=== PATIENT | male | born 1935 | race Caucasian/White ===

== ENCOUNTER → 2019-03-31 09:18 | Outpatient (BNVA) | payer MEDICARE, SELFPAY | PROVIDERS: Family Provider Family Medicine; PCP Family Medicine; Visit Provider Otolaryngology | DX: H93.92 Unspecified disorder of left ear (principal); H69.82 Other specified disorders of Eustachian tube, left ear; R42 Dizziness and giddiness; H91.12 Presbycusis, left ear; C61 Malignant neoplasm of prostate; L98.9 Disorder of the skin and subcutaneous tissue, unspecified | CPT/HCPCS: 99213; 99214 ==

== ENCOUNTER 2019-04-15 13:40 | Outpatient (CLI) | payer MEDICARE, SELFPAY ==
--- NOTE | 2019-04-15 15:00 | CT_ITS ---
WS: [id number] CT TEMPORAL BONES TECHNIQUE: Noncontrast CT of the temporal bones with coronal and sagittal reformatted images. CLINICAL INFORMATION: dizziness COMPARISON: None. DLP: [address] scans at [facility] use at least one of these dose optimization techniques: automat ed exposure control; mA and/or kV adjustment per patient size (includes targeted exams where dose is matched to clinical indication); or iterative reconstruction. FINDINGS: RIGHT: Mastoid air cells are well aerated. Normal external auditory canal. Ossicles are normal in appearance . Middle ear is well aerated. Normal tegmen tympani. Semicircular canals and cochlea are normal in ap pearance. Prussak's space is normal. Normal inner ear structures. Normal vestibular aqueduct. Facial nerve recess is normal. LEFT: Mastoid air cells are well aerated. Normal external auditory canal. Ossicles are normal in appearance . Middle ear is well aerated. Normal tegmen tympani. Semicircular canals and cochlea are normal in ap pearance. Prussak's space is normal. Normal inner ear structures. Normal vestibular aqueduct. Facial nerve recess is normal. Intracranial cavernous chronic calcification. Retention cyst or polyp right maxillary sinus measuring 13 mm. Normal posterior nasopharynx. Normal parapharyngeal fat. Moderate intracranial parenchymal vo lume loss. CT/CT temporal bone wo con* [id number] IMPRESSION: 1. Mastoid air cells are well aerated bilaterally. Middle ears are well aerate d bilaterally. 2. Normal ossicles bilaterally. Normal inner ear structures. 3. Intracranial vascular calcification. 4. Retention cyst or polyp right maxillary sinus measuring 13 mm. 5. Moderate intracranial parenchymal volume loss partially visualized.
== END 2019-04-15 13:41 | disposition home or self-care (01) ==
LOC: RAD 13:43
PROVIDERS: Family Provider Family Medicine; PCP Family Medicine; Visit Provider Otolaryngology
DX: R42 Dizziness and giddiness (principal); G93.89 Other specified disorders of brain
CPT/HCPCS: 70480

== ENCOUNTER → 2019-04-28 13:17 | Outpatient (BNVA) | payer MEDICARE, SELFPAY | PROVIDERS: Family Provider Family Medicine; PCP Family Medicine; Visit Provider Otolaryngology | DX: H93.92 Unspecified disorder of left ear (principal); H69.82 Other specified disorders of Eustachian tube, left ear; H91.10 Presbycusis, unspecified ear; R42 Dizziness and giddiness; C61 Malignant neoplasm of prostate; L98.9 Disorder of the skin and subcutaneous tissue, unspecified | CPT/HCPCS: 99213; 99214 ==

== ENCOUNTER 2019-10-05 15:16 | Inpatient (IN) | payer MEDICARE, SELFPAY ==
[2019-10-05] VITALS (21 sets, daily range): BP systolic 102–137; BP diastolic 48–76; PULSE 57–100; RESP 13–28; TEMP 36.1–36.6; O2SAT 87–100; BMI 25.8
--- NOTE | 2019-10-05 15:54 | CTR_ITS ---
PROCEDURE INFORMATION: Exam: CT Abdomen And Pelvis With Contrast Exam date and time: 10/05/2019 4:18 PM Age: 84 years old Clinical indication: Abdominal tenderness and bloating and constipation and nausea and vomiting; Additional info: Possible obstruction TECHNIQUE: Imaging protocol: Computed tomography of the abdomen and pelvis with intravenous contrast. Radiation optimization: All CT scans at this facility use at least one of these dose optimization techniques: automated exposure control; mA and/or kV adjustment per patient size (includes targeted exams where dose is matched to clinical indication); or iterative reconstruction. Contrast material: VISI 320; Contrast volume: 95 ml; Contrast route: INTRAVENOUS (IV); COMPARISON: No relevant prior studies available. RADIATION DOSE METRICS: Total DLP (mGy-cm): 785.39 FINDINGS: Lungs: There is minimal dependent atelectasis. Mediastinal space: There is a small hiatal hernia. Liver: There is 9 mm indeterminate hypodensity in the dome of the liver on image number 6. In a low-risk patient, this lesion is most likely to be benign and no further follow-up is recommended. In a high-risk patient, recommend follow-up MRI in 3-6 months (or earlier if warranted by the patient's specific clinical circumstances). Gallbladder and bile ducts: The gallbladder is normal. Pancreas: There is some indeterminate calcification along the anterior aspect of the head of the pancreas which could be related to prior injury or inflammatory disease. Pancreas is otherwise unremarkable. Spleen: The spleen is normal. Adrenals: Normal. No mass. Kidneys and ureters: There is a simple cyst in the right kidney. The left kidney is normal. There is no evidence of hydronephrosis. There is no evidence of renal or ureteral calcifications. Stomach and bowel: Moderate diverticulosis is present in the distal colon. There is no evidence of colitis/diverticulitis. Stomach is not distended but there is suggestion of wall thickening of the fundus and body of the stomach. Correlation for symptoms of gastritis is suggested. There is focal thickening of the proximal jejunum such as on image number 35 and this represents lead point for a short segment of intussusception. There is fluid dilatation of the proximal small bowel and duodenum proximal to the intussusception and the bowel distal to the intussusception is decompressed. There is some nonspecific thickening of the small bowel immediately distal to the area of intussusception. Findings raise concern for the possibility of small bowel malignancy as the lead point for the intussusception. Further evaluation and surgical consultation is recommended. Appendix: Not identified Intraperitoneal space: Unremarkable. No free air. No significant fluid collection. Vasculature: The aorta demonstrates moderate atherosclerotic calcification. There is no evidence of an abdominal aortic aneurysm. Lymph nodes: Unremarkable. No enlarged lymph nodes. Bladder: Unremarkable as visualized. Reproductive: There is a focal metallic density within the prostate. 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 Soft tissues: Unremarkable. CT/CT abdomen pelvis w con* [id number] IMPRESSION: 1. Jejunal-jejunal intussusception with small bowel obstruction. Findings are worrisome for potential malignancy. 2. Small indeterminate lesion in the dome of the liver. Further evaluation or follow-up suggested. 3. Possible gastritis COMMENTS: Consistent with the [employer]'s Incidental Findings Committee white paper (J Am Danilo Radiol 2018): Any incidental renal lesion less than 1.0 cm or classified as too small to characterize, or any incidental cystic renal lesion characterized as simple-appearing, is likely benign. No follow-up imaging is recommended for these lesions per consensus recommendations based on imaging criteria. Radiation Dose CTDIVOL = (mGy): DLP = 785.39 (mGy-cm)
--- NOTE | 2019-10-05 15:57 | ED_ITS ---
Documented by User: BUBBA Mark 10/05/19 15:59 HPI - General Adult General: Chief complaint: General Medical Stated complaint: CONSTIPATED Time Seen by Provider: 10/05/19 15:52 History of Present Illness: HPI narrative: Patient states he thinks he had a bowel obstruction he is not had a bowel movement 2 days he has been vomiting last 2 days. Said he can eat or drink because watery has come right back up. Denies any recent illness MD complaint: Nausea and vomiting Location: abdomen Severity scale (1-10): 3 Exacerbating factors: eating Associated symptoms: Reports no associated symptoms and vomiting; Deny chest pain, dyspnea, headache(s), nausea or rash Review of Systems Const: Denies: fever(s), chills or body aches Eyes: Denies: change in vision or blurry vision ENMT: Denies: throat pain or nasal congestion Card: Denies: chest pain or dyspnea on exertion Resp: Denies: dyspnea, productive cough or non-productive cough GI: Reports: vomiting and constipation; Denies: abdominal pain or nausea : Denies: difficulty urinating Musc: Denies: extremity pain Skin/Breast: Denies: rash Neuro: Denies: headache(s) Psych: Denies: anxiety or depression [place]/Lymph: Denies: easy bruising PFSH ED PFSH: Medical History (Updated 10/05/19 @ 19:42 by Anselmo Rivero MD) Arrhythmia ASHD (arteriosclerotic heart disease) Bilateral carotid artery stenosis CKD (chronic kidney disease) stage 2, GFR 60-89 ml/min Hyperlipidemia Hypertension Intermittent atrial fibrillation Valvular heart disease Surgical History History of heart surgery 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 done in [facility] Family History Mother CAD (coronary artery disease) Hypertension Diabetes Brother Hypertension Grandmother Stroke Social History Smoking and tobacco status: former smoker Alcohol intake: never Substance/Drug Use: never History of recent travel: No Physical Exam Const: COMMON NORMALS: no acute distress, average body habitus and patient oriented x3 HENMT: COMMON NORMALS: normocephalic HEAD & SCALP: normal to inspection and normocephalic FACE & SINUS: normal facial exam Eye: COMMON NORMALS: conjunctivae normal GENERAL EYE: appearance normal, both eyes and all related structures CONJUNCTIVA: Yes conjunctivae normal Neck/C-Spine: COMMON NORMALS: no JVD Chest: COMMONS NORMALS: normal inspection of the chest Resp: COMMON NORMALS: normal respiratory effort and clear to auscultation bilaterally AUSCULTATION: clear to auscultation bilaterally Cardio: COMMON NORMALS: no JVD, regular rate and regular rhythm RATE: regular rate RHYTHM: regular rhythm GI: COMMON NORMALS: Normal to inspection, nondistended, normoactive bowel sounds present PALPATION: Yes Tenderness to palpation present (GI) Details: other (Generalized) Extremity: COMMON NORMALS: normal to inspection and full ROM Neuro: COMMON NORMALS: patient oriented x3 Course Vital Signs: Vital signs: Vital Signs Temperature 97.0 F L 10/05/19 15:41 Pulse Rate 66 10/05/19 20:24 Respiratory Rate 18 10/05/19 17:40 Blood Pressure 132/66 10/05/19 20:24 Pulse Oximetry 99 10/05/19 20:24 MDM - General Adult Lab Data: Labs: Lab Results 10/05/19 10/05/19 10/05/19 Range/Units 08:08 16:16 16:16 WBC 10.1 H (4.0-10.0) 10^3/ uL RBC 4.19 (4.1-5.3) 10^6/u L Hgb 13.8 (11.7-16.6) g/dL Hct 42.9 (42.0-52.0) % MCV 102.4 H (80-94) fL MCH 32.9 (28.0-34.0) pg MCHC 32.2 (30.0-36.0) g/dL RDW 13.5 (12.1-15.1) % Plt Count 250 (130-400) 10^3/c mm MPV 10.4 (7.4-10.4) fL Neut % (Auto) 80.3 % Lymph % (Auto) 11.9 % [place] % (Auto) 7.1 % Eos % (Auto) 0.2 % Baso % (Auto) 0.3 % Neut # (Auto) 8.09 H (1.8-7.7) 10^3/u L Lymph # (Auto) 1.2 (0.8-4.8) 10^3/u L [place] # (Auto) 0.7 (0.2-0.9) 10^3/u L Eos # (Auto) 0.0 (0.0-0.8) 10^3/u L Baso # (Auto) 0.0 (0.0-0.1) 10^3/u L Nucleated RBC % (a uto) 0 % Nucleated RBCs # 0.0 /100WBC Sodium 137 (136-145) mmol/L Potassium 4.4 (3.5-5.1) mmol/L Chloride 99 (98-107) mmol/L Carbon Dioxide 26 (22-29) mmol/L Anion Gap 16.4 (5-19) BUN 17 (8-23) mg/dL Creatinine 1.2 (0.7-1.2) mg/dL Glucose 117 H (65-115) mg/dL Calculated Osmolal ity 281 L (285-295) mOsm/k g Lactic Acid 1.4 (0.5-2.2) mmol/L Lactate (0.5-2.2) mmol/L Calcium 10.3 (8.5-10.5) mg/dL Total Bilirubin 1.1 (0.15-1.2) mg/dL AST 15 (0-40) U/L ALT 13 (0-41) U/L Alkaline Phosphata se 81 (40-130) IU/L Total Protein 7.9 (6.6-8.7) g/dL Albumin 4.3 (3.5-5.2) g/dL Globulin 3.6 (1.3-4.6) g/dL Lipase 25 (13-60) U/L Urine Color (Yellow) Urine Appearance (CLEAR) Urine pH (5-7) Ur Specific Gravit y (1.005-1.030) Urine Protein (Negative) Urine Glucose (UA) (Normal) Urine Ketones (Negative) Urine Blood (Negative) Urine Nitrate (Negative) Urine Bilirubin (NEGATIVE) Urine Urobilinogen (Negative) mg/dL Ur Leukocyte Marcela ase (Negative) 10/05/19 10/05/19 Range/Units 16:16 16:40 WBC (4.0-10.0) 10^3/ uL RBC (4.1-5.3) 10^6/u L Hgb (11.7-16.6) g/dL Hct (42.0-52.0) % MCV (80-94) fL MCH (28.0-34.0) pg MCHC (30.0-36.0) g/dL RDW (12.1-15.1) % Plt Count (130-400) 10^3/c mm MPV (7.4-10.4) fL Neut % (Auto) % Lymph % (Auto) % [place] % (Auto) % Eos % (Auto) % Baso % (Auto) % Neut # (Auto) (1.8-7.7) 10^3/u L Lymph # (Auto) (0.8-4.8) 10^3/u L [place] # (Auto) (0.2-0.9) 10^3/u L Eos # (Auto) (0.0-0.8) 10^3/u L Baso # (Auto) (0.0-0.1) 10^3/u L Nucleated RBC % (a uto) % Nucleated RBCs # /100WBC Sodium (136-145) mmol/L Potassium (3.5-5.1) mmol/L Chloride (98-107) mmol/L Carbon Dioxide (22-29) mmol/L Anion Gap (5-19) BUN (8-23) mg/dL Creatinine (0.7-1.2) mg/dL Glucose (65-115) mg/dL Calculated Osmolal ity (285-295) mOsm/k g Lactic Acid (0.5-2.2) mmol/L Lactate 1.6 (0.5-2.2) mmol/L Calcium (8.5-10.5) mg/dL Total Bilirubin (0.15-1.2) mg/dL AST (0-40) U/L ALT (0-41) U/L Alkaline Phosphata se (40-130) IU/L Total Protein (6.6-8.7) g/dL Albumin (3.5-5.2) g/dL Globulin (1.3-4.6) g/dL Lipase (13-60) U/L Urine Color Dark yellow (Yellow) Urine Appearance Clear (CLEAR) Urine pH 6.5 (5-7) Ur Specific Gravit y 1.020 (1.005-1.030) Urine Protein Neg (Negative) Urine Glucose (UA) Norm (Normal) Urine Ketones Negative (Negative) Urine Blood Neg (Negative) Urine Nitrate Negative (Negative) Urine Bilirubin Neg (NEGATIVE) Urine Urobilinogen 1 H (Negative) mg/dL Ur Leukocyte Marcela ase Negative (Negative) EKG Data^: EKG 1: Computer generated interpretation: Abdomen/Pelvis CT 10/05/19 15:54 IMPRESSION: 1. Jejunal-jejunal intussusception with small bowel obstruction. Findings are worrisome for potential malignancy. 2. Small indeterminate lesion in the dome of the liver. Further evaluation or follow-up suggested. 3. Possible gastritis COMMENTS: Consistent with the [employer]'s Incidental Findings Committee white paper (J Am Danilo Radiol 2018): Any incidental renal lesion less than 1.0 cm or classified as too small to characterize, or any incidental cystic renal lesion characterized as simple-appearing, is likely benign. No follow-up imaging is recommended for these lesions per consensus recommendations based on imaging criteria. Radiation Dose CTDIVOL = (mGy): DLP = 785.39 (mGy-cm) ADDENDUM: 10/05/19 1743 Addendum: THIS REPORT CONTAINS FINDINGS THAT MAY BE CRITICAL TO PATIENT CARE. The findings were verbally communicated via telephone conference with Dr. Kim at 5:41 PM CDT on 10/05/2019. The findings were acknowledged and understood. Radiation Dose CTDIVOL = (mGy): DLP = 785.39 (mGy-cm) Discharge Plan Discharge Patient Disposition: Admitted As Inpatient Clinical Impression: Small bowel obstruction, Jejunal intussusception Condition: Stable Referrals: Zoila Ryder DO [Primary Care Provider] - Sign Out Sign Out Data: Patient Sign Out occurred on 10/05/19 at 16:54. Patient's care was discussed, and care was transferred from to Nidhi Kaplan. Coding Level of Care Code ED General House Worker for Chg Fwd Exam Comprehensive Documented by User: Nidhi Meir ElliottEusebio 10/05/19 20:39 HPI - General Adult General: Chief complaint: General Medical Stated complaint: CONSTIPATED Time Seen by Provider: 10/05/19 15:52 PFSH ED PFSH: Medical History (Updated 10/05/19 @ 19:42 by Anselmo Rivero MD) Arrhythmia ASHD (arteriosclerotic heart disease) Bilateral carotid artery stenosis CKD (chronic kidney disease) stage 2, GFR 60-89 ml/min Hyperlipidemia Hypertension Intermittent atrial fibrillation Valvular heart disease Surgical History History of heart surgery 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 done in [facility] Family History Mother CAD (coronary artery disease) Hypertension Diabetes Brother Hypertension Grandmother Stroke Social History Smoking and tobacco status: former smoker Alcohol intake: never Substance/Drug Use: never History of recent travel: No Course Vital Signs: Vital signs: Vital Signs Temperature 97.0 F L 10/05/19 15:41 Pulse Rate 66 10/05/19 20:24 Respiratory Rate 18 10/05/19 17:40 Blood Pressure 132/66 10/05/19 20:24 Pulse Oximetry 99 10/05/19 20:24 MDM - General Adult MDM Narrative: Medical decision making narrative: 1545 -CT results obtained from [facility]. Case discussed with both Dr. Crain and Dr. Trevino, they will both come to see the patient in the ER. They will determine together when the appropriate time for the reversal agent of Eliquis is to be given in coordinatio n with surgery. Lab Data: Attestation: I reviewed the patient's lab results. Labs: Lab Results 07/21/20 07/21/20 07/21/20 Range/Units 08:08 16:16 16:16 WBC 10.1 H (4.0-10.0) 10^3/ uL RBC 4.19 (4.1-5.3) 10^6/u L Hgb 13.8 (11.7-16.6) g/dL Hct 42.9 (42.0-52.0) % MCV 102.4 H (80-94) fL MCH 32.9 (28.0-34.0) pg MCHC 32.2 (30.0-36.0) g/dL RDW 13.5 (12.1-15.1) % Plt Count 250 (130-400) 10^3/c mm MPV 10.4 (7.4-10.4) fL Neut % (Auto) 80.3 % Lymph % (Auto) 11.9 % [place] % (Auto) 7.1 % Eos % (Auto) 0.2 % Baso % (Auto) 0.3 % Neut # (Auto) 8.09 H (1.8-7.7) 10^3/u L Lymph # (Auto) 1.2 (0.8-4.8) 10^3/u L [place] # (Auto) 0.7 (0.2-0.9) 10^3/u L Eos # (Auto) 0.0 (0.0-0.8) 10^3/u L Baso # (Auto) 0.0 (0.0-0.1) 10^3/u L Nucleated RBC % (a uto) 0 % Nucleated RBCs # 0.0 /100WBC Sodium 137 (136-145) mmol/L Potassium 4.4 (3.5-5.1) mmol/L Chloride 99 (98-107) mmol/L Carbon Dioxide 26 (22-29) mmol/L Anion Gap 16.4 (5-19) BUN 17 (8-23) mg/dL Creatinine 1.2 (0.7-1.2) mg/dL Glucose 117 H (65-115) mg/dL Calculated Osmolal ity 281 L (285-295) mOsm/k g Lactic Acid 1.4 (0.5-2.2) mmol/L Lactate (0.5-2.2) mmol/L Calcium 10.3 (8.5-10.5) mg/dL Total Bilirubin 1.1 (0.15-1.2) mg/dL AST 15 (0-40) U/L ALT 13 (0-41) U/L Alkaline Phosphata se 81 (40-130) IU/L Total Protein 7.9 (6.6-8.7) g/dL Albumin 4.3 (3.5-5.2) g/dL Globulin 3.6 (1.3-4.6) g/dL Lipase 25 (13-60) U/L Urine Color (Yellow) Urine Appearance (CLEAR) Urine pH (5-7) Ur Specific Gravit y (1.005-1.030) Urine Protein (Negative) Urine Glucose (UA) (Normal) Urine Ketones (Negative) Urine Blood (Negative) Urine Nitrate (Negative) Urine Bilirubin (NEGATIVE) Urine Urobilinogen (Negative) mg/dL Ur Leukocyte Marcela ase (Negative) 10/05/19 10/05/19 Range/Units 16:16 16:40 WBC (4.0-10.0) 10^3/ uL RBC (4.1-5.3) 10^6/u L Hgb (11.7-16.6) g/dL Hct (42.0-52.0) % MCV (80-94) fL MCH (28.0-34.0) pg MCHC (30.0-36.0) g/dL RDW (12.1-15.1) % Plt Count (130-400) 10^3/c mm MPV (7.4-10.4) fL Neut % (Auto) % Lymph % (Auto) % [place] % (Auto) % Eos % (Auto) % Baso % (Auto) % Neut # (Auto) (1.8-7.7) 10^3/u L Lymph # (Auto) (0.8-4.8) 10^3/u L [place] # (Auto) (0.2-0.9) 10^3/u L Eos # (Auto) (0.0-0.8) 10^3/u L Baso # (Auto) (0.0-0.1) 10^3/u L Nucleated RBC % (a uto) % Nucleated RBCs # /100WBC Sodium (136-145) mmol/L Potassium (3.5-5.1) mmol/L Chloride (98-107) mmol/L Carbon Dioxide (22-29) mmol/L Anion Gap (5-19) BUN (8-23) mg/dL Creatinine (0.7-1.2) mg/dL Glucose (65-115) mg/dL Calculated Osmolal ity (285-295) mOsm/k g Lactic Acid (0.5-2.2) mmol/L Lactate 1.6 (0.5-2.2) mmol/L Calcium (8.5-10.5) mg/dL Total Bilirubin (0.15-1.2) mg/dL AST (0-40) U/L ALT (0-41) U/L Alkaline Phosphata se (40-130) IU/L Total Protein (6.6-8.7) g/dL Albumin (3.5-5.2) g/dL Globulin (1.3-4.6) g/dL Lipase (13-60) U/L Urine Color Dark yellow (Yellow) Urine Appearance Clear (CLEAR) Urine pH 6.5 (5-7) Ur Specific Gravit y 1.020 (1.005-1.030) Urine Protein Neg (Negative) Urine Glucose (UA) Norm (Normal) Urine Ketones Negative (Negative) Urine Blood Neg (Negative) Urine Nitrate Negative (Negative) Urine Bilirubin Neg (NEGATIVE) Urine Urobilinogen 1 H (Negative) mg/dL Ur Leukocyte Marcela ase Negative (Negative) Imaging Data^: CT Abd/Pel: Radiologist's impression: [place] [address] CT Scan Report Signed with Addenda Patient: Tres Velasquez Unit #: [id number] : 1935 Age/Sex: 84 / M ADM Date: 10/05/19 Loc: ER Room/Bed: Attending Dr: Ordering Provider/Ordering MD: Yadira Johnson Sr, [facility] Date of Service: 10/05/19 Procedure(s): CT abdomen pelvis w con* [id number] Accession Number(s): [id number] Report Number: [id number]/CT abdomen pelvis w con* [id number] Addendum: THIS REPORT CONTAINS FINDINGS THAT MAY BE CRITICAL TO PATIENT CARE. The findings were verbally communicated via telephone conference with Dr. Kim at 5:41 PM CDT on 10/05/2019. The findings were acknowledged and understood. Radiation Dose CTDIVOL = (mGy): DLP = 785.39 (mGy-cm) Addendum Dictated By: Jimmie Higuera Addendum Signed By: Jimmie Higuera Signed Date/Time: 10/05/19 174 3 Addendum Cosigned By: PROCEDURE INFORMATION: Exam: CT Abdomen And Pelvis With Contrast Exam date and time: 10/05/2019 4:18 PM Age: 84 years old Clinical indication: Abdominal tenderness and bloating and constipation and nausea and vomiting; Additional info: Possible obstruction TECHNIQUE: Imaging protocol: Computed tomography of the abdomen and pelvis with intravenous contrast. Radiation optimization: All CT scans at this facility use at least one of these dose optimization techniques: automated exposure control; mA and/or kV adjustment per patient size (includes targeted exams where dose is matched to clinical indication); or iterative reconstruction. Contrast material: VISI 320; Contrast volume: 95 ml; Contrast route: INTRAVENOUS (IV); COMPARISON: No relevant prior studies available. RADIATION DOSE METRICS: Total DLP (mGy-cm): 785.39 FINDINGS: Lungs: There is minimal dependent atelectasis. Mediastinal space: There is a small hiatal hernia. Liver: There is 9 mm indeterminate hypodensity in the dome of the liver on image number 6. In a low-risk patient, this lesion is most likely to be benign and no further follow-up is recommended. In a high-risk patient, recommend follow-up MRI in 3-6 months (or earlier if warranted by the patient's specific clinical circumstances). Gallbladder and bile ducts: The gallbladder is normal. Pancreas: There is some indeterminate calcification along the anterior aspect of the head of the pancreas which could be related to prior injury or inflammatory disease. Pancreas is otherwise unremarkable. Spleen: The spleen is normal. Adrenals: Normal. No mass. Kidneys and ureters: There is a simple cyst in the right kidney. The left kidney is normal. There is no evidence of hydronephrosis. There is no evidence of renal or ureteral calcifications. Stomach and bowel: Moderate diverticulosis is present in the distal colon. There is no evidence of colitis/diverticulitis. Stomach is not distended but there is suggestion of wall thickening of the fundus and body of the stomach. Correlation for symptoms of gastritis is suggested. There is focal thickening of the proximal jejunum such as on image number 35 and this represents lead point for a short segment of intussusception. There is fluid dilatation of the proximal small bowel and duodenum proximal to the intussusception and the bowel distal to the intussusception is decompressed. There is some nonspecific thickening of the small bowel immediately distal to the area of intussusception. Findings raise concern for the possibility of small bowel malignancy as the lead point for the intussusception. Further evaluation and surgical consultation is recommended. Appendix: Not identified Intraperitoneal space: Unremarkable. No free air. No significant fluid collection. Vasculature: The aorta demonstrates moderate atherosclerotic calcification. There is no evidence of an abdominal aortic aneurysm. Lymph nodes: Unremarkable. No enlarged lymph nodes. Bladder: Unremarkable as visualized. Reproductive: There is a focal metallic density within the prostate. 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 Soft tissues: Unremarkable. CT/CT abdomen pelvis w con* [id number] IMPRESSION: 1. Jejunal-jejunal intussusception with small bowel obstruction. Findings are worrisome for potential malignancy. 2. Small indeterminate lesion in the dome of the liver. Further evaluation or follow-up suggested. 3. Possible gastritis COMMENTS: Consistent with the [employer]'s Incidental Findings Committee white paper (J Am Danilo Radiol 2018): Any incidental renal lesion less than 1.0 cm or classified as too small to characterize, or any incidental cystic renal lesion characterized as simple-appearing, is likely benign. No follow-up imaging is recommended for these lesions per consensus recommendations based on imaging criteria. Radiation Dose CTDIVOL = (mGy): DLP = 785.39 (mGy-cm) Dictated By: Jimmie Higuera Signed By: Jimmie Higuera Signed Date/Time: 10/05/191737 DD/ 35 EKG Data^: EKG 1: Attestation: I personally reviewed and interpreted this EKG as follows: EKG interpretation date: 10/05/19 EKG interpretation time: 18:21 Interpretation: Normal sinus rhythm at 72 beats a minute, right bundle branch block. Computer generated interpretation: Abdomen/Pelvis CT 10/05/19 15:54
[2019-10-05 16:22] LABS: Basophils % 0.3 %; Eosinophils % 0.2 %; Hematocrit 42.9 % (42.0-52.0); Hemoglobin 13.8 g/dL (11.7-16.6); Lymphocytes # 1.2 10^3/uL (0.8-4.8); Lymphocytes % 11.9 %; Mean Corpuscular HGB Conc 32.2 g/dL (30.0-36.0); Mean Corpuscular Hemoglobin 32.9 pg (28.0-34.0); Mean Corpuscular Volume 102.4 fL (80-94); Mean Platelet Volume 10.4 fL (7.4-10.4); Monocytes # 0.7 10^3/uL (0.2-0.9); Monocytes % 7.1 %; Neutrophils # 8.09 10^3/uL (1.8-7.7); Neutrophils % 80.3 %; Nucleated Red Blood Cells % 0 %; Platelet Count 250 10^3/cmm (130-400); Red Blood Count 4.19 10^6/uL (4.1-5.3); Red Cell Distribution Width 13.5 % (12.1-15.1); White Blood Count 10.1 10^3/uL (4.0-10.0)
[2019-10-05] MEDS: ondansetron 2 mg/ML SDV 2 mL 4 MG IVP ×2 (16:24→21:21)
[2019-10-05] MEDS: sodium chloride 0.9% 1,000 ML 999 ML IV (16:25)
[2019-10-05 16:43] LABS: Alanine Aminotransferase 13 U/L (0-41); Albumin Level 4.3 g/dL (3.5-5.2); Alkaline Phosphatase 81 IU/L (40-130); Anion Gap 16.4 (5-19); Aspartate Amino Transferase 15 U/L (0-40); Blood Urea Nitrogen 17 mg/dL (8-23); Calcium 10.3 mg/dL (8.5-10.5); Carbon Dioxide 26 mmol/L (22-29); Chloride 99 mmol/L (98-107); Globulin 3.6 g/dL (1.3-4.6); Glucose 117 mg/dL (65-115); Lipase 25 U/L (13-60); Osmolality Calculated 281 mOsm/kg (285-295); Potassium 4.4 mmol/L (3.5-5.1); Sodium 137 mmol/L (136-145); Total Bilirubin 1.1 mg/dL (0.15-1.2); Total Protein 7.9 g/dL (6.6-8.7)
[2019-10-05 16:56] LABS: Lactate (Lactic Acid level) 1.6 mmol/L (0.5-2.2)
[2019-10-05 17:01] LABS: Add Urine Microscopic? NO
[2019-10-05 17:10] LABS: Bilirubin Urine Neg (NEGATIVE); Blood Urine Neg (Negative); Glucose Urine UA Norm (Normal); Ketones Urine Negative (Negative); Leukocyte Esterase Urine Negative (Negative); Nitrate Urine Negative (Negative); Protein Urine Neg (Negative); Urine Appearance Clear (CLEAR); Urine Color Dark Yellow (Yellow); Urobilinogen Urine 1 mg/dL (Negative); pH Urine 6.5 (5-7)
[2019-10-05] MEDS: iodixanol 320 mg/mL 100mL Btl IV (17:10)
[2019-10-05] MEDS: morphine 4 mg/mL SDV 1 mL IVP ×2 (17:40→21:17)
--- NOTE | 2019-10-05 17:49 | ECG_ITS ---
Test Date: 2019-10-05 Pat Name: Tres Velasquez Department: Room: Gender: Male Habilitation Worker: : [id number] Requested By: Nidhi Worley Order Number: [id number] Julisa MD: Anselmo Rivero M.D. Measurements Intervals [place] Rate: 72 P: -7 AL: 169 QRS: 79 QRSD: 130 T: 16 QT: 412 QTc: 454 Interpretive Statements SINUS RHYTHM RIGHT BUNDLE BRANCH BLOCK [120+ ms QRS DURATION, UPRIGHT V1, 40+ ms S IN I/aVL/V4/V5/V6] Compared to ECG 03/02/2019 15:08:18 No significant changes Electronically Signed On 10-06-2019 20:26:45 CDT by Anselmo Rivero M.D. [email or web address]/store/NU/[id number] mp
--- NOTE | 2019-10-05 18:01 | P.CONIM_ITS ---
Providers/Reason For Consult Consulting Physican/Specialty*: Mathieu Crain MD Reason for Consult*: Jejunal intussusception Requesting Physcian: Dr Kim Primary Care Provider: Zoila Ryder DO History of Present Illness History of Present Illness Chief Complaint: Nausea and vomiting abdominal pain History of present illness: Tres Velasquez is a 84 year old male presents to the emergency department with worsening symptoms in including nausea vomiting and abdominal pain dull aching in nature diffuse not being referred, patient last time had a bowel movement in the form of diarrhea was last Friday. Patient denies any fever chills and he denies similar symptoms in the past. Patient reports that he had TAVR procedure in the past and he was supposed to be scheduled to get some sort of a pacemaker per his description but he did not have it yet, patient also reports that he has been on Eliquis and last time he did take it last Friday, is not able to keep his medicine down and he thought that he would feel better but that did not happen and then he decided to come to the ER, where lab work was done was of insignificance yet the CT scan of the abdomen and pelvis was done that showed jejunal intussusception with concerning secondary to malignant lesion. And likely the cause of the patient's bowel obstruction CT scan of the abdomen and pelvis showed: Liver: There is 9 mm indeterminate hypodensity in the dome of the liver on image number 6. In a low-risk patient, this lesion is most likely to be benign and no further follow-up is recommended. In a high-risk patient, recommend follow-up MRI in 3-6 months (or earlier if warranted by the patient's specific clinical circumstances). Gallbladder and bile ducts: The gallbladder is normal. Pancreas: There is some indeterminate calcification along the anterior aspect of the head of the pancreas which could be related to prior injury or inflammatory disease. Pancreas is otherwise unremarkable. Spleen: The spleen is normal. Adrenals: Normal. No mass. Kidneys and ureters: There is a simple cyst in the right kidney. The left kidney is normal. There is no evidence of hydronephrosis. There is no evidence of renal or ureteral calcifications. Stomach and bowel: Moderate diverticulosis is present in the distal colon. There is no evidence of colitis/diverticulitis. Stomach is not distended but there is suggestion of wall thickening of the fundus and body of the stomach. Correlation for symptoms of gastritis is suggested. There is focal thickening of the proximal jejunum such as on image number 35 and this represents lead point for a short segment of intussusception. There is fluid dilatation of the proximal small bowel and duodenum proximal to the intussusception and the bowel distal to the intussusception is decompressed. There is some nonspecific thickening of the small bowel immediately distal to the area of intussusception. Findings raise concern for the possibility of small bowel malignancy as the lead point for the intussusception. Further evaluation and surgical consultation is recommended. Appendix: Not identified Intraperitoneal space: Unremarkable. No free air. No significant fluid collection. Vasculature: The aorta demonstrates moderate atherosclerotic calcification. There is no evidence of an abdominal aortic aneurysm. Lymph nodes: Unremarkable. No enlarged lymph nodes. Bladder: Unremarkable as visualized. Reproductive: There is a focal metallic density within the prostate. 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 Soft tissues: Unremarkable. CT/CT abdomen pelvis w con* [id number] IMPRESSION: 1. Jejunal-jejunal intussusception with small bowel obstruction. Findings are worrisome for potential malignancy. 2. Small indeterminate lesion in the dome of the liver. Further evaluation or follow-up suggested. 3. Possible gastritis Patient was seen and evaluated in the emergency department room 2 Review of Systems General: Reports: 10 or more systems reviewed and unremarkable except in HPI and below Meds/Allergies Home Medications and Allergies Home Medications Medication Instructions Recorded Confirmed Last Taken Type apixaban 5 mg tablet 5 mg PO BID 03/26/19 10/05/19 10/02/19 History atorvastatin 80 mg tablet 80 mg PO DAILY tab 03/26/19 10/05/19 10/02/19 History ergocalciferol (vitamin D2) 1,250 50,000 unit PO Q7D cap 03/26/19 10/05/19 09/30/19 History mcg (50,000 unit) capsule hydrocodone 5 mg-acetaminophen 325 1 tab PO Q6H PRN tab 03/26/19 10/05/19 10/02/19 History mg tablet pantoprazole 40 mg tablet,delayed 40 mg PO QAM 03/26/19 10/05/19 10/02/19 History release amlodipine 5 mg tablet 5 mg PO DAILY 30 Days #30 tab 07/19/19 10/05/19 10/02/19 Rx tamsulosin 0.4 mg capsule 0.4 mg PO DAILY 07/19/19 10/05/19 10/02/19 History vit C 250 mg-E 200 unit-zinc 40 1 tab PO BID 07/19/19 10/05/19 10/02/19 History mg-copper 1 gr-rglofb-zsbcnh capsule Klor-Con 10 10 meq PO DAILY 10/05/19 10/05/19 10/02/19 History aspirin 81 mg PO DAILY 10/05/19 10/05/19 10/02/19 History Allergies Allergy/AdvReac Type Severity Reaction Status Date / Time niacin Allergy Unknown Unknown Verified 10/05/19 18:35 PFSH Acute PFSH: Medical History Arrhythmia ASHD (arteriosclerotic heart disease) Bilateral carotid artery stenosis Hyperlipidemia Hypertension Valvular heart disease Surgical History (Updated 10/05/19 @ 18:55 by Brenda Trevino MD) History of heart surgery S/P CABG x 3 S/P TAVR (transcatheter aortic valve replacement) Family History Mother CAD (coronary artery disease) Hypertension Diabetes Brother Hypertension Grandmother Stroke Social History Smoking and tobacco status: former smoker Alcohol intake: never Substance/Drug Use: never History of recent travel: No Vitals/I&O/Wt Last Vital Signs Temp 97.0 F L 10/05/19 15:41 Pulse 100 10/05/19 15:41 Resp 18 10/05/19 17:40 BP 132/76 10/05/19 15:41 Pulse Ox 97 10/05/19 17:40 Weight last 48 hrs Weight 180 lb Physical Exam Narrative: EXAM NARRATIVE: Patient is conscious alert oriented X3 BMI 26 Head and neck examination PERRLA no masses no cervical lymphadenopathy no jaundice Cardiac examination audible S1-S2 no murmurs no gallops no arrhythmias Chest is clear bilateral,abscence of Rhonchi or wheezes,no surgical emphysema Abdomen diffusely tender moderate guarding/ nondistended soft no organomegaly A&P Assessment and plan (1) Jejunal intussusception: After history taking physical examination and reviewing the chart and images with my personal interpretation and further talking with the patient I did student support counselor him for exploratory laparotomy possible bowel resection, further admission to the ICU for critical care management per hospitalist service. I did explain for the patient about the potential risks, benefits, alternatives and indications and the potential perioperative demise given the fact that the patient is at a higher risk for intervention due to his cardiac status. Patient reports that his last time had Eliquis was last Friday The alternative with conservative measures placement of NG tube to low intermittent wall suction repeated physical examination does not guarantee that the bowel cant get ischemia,gangrene and perforation,I do not believe that is a reasonable option unless the patient decides so. 1830: I spoke with Maribel patient's daughter over the phone and she elected to come over and see her dad and decide together what do the need to proceed with. Dr. Trevino kindly evaluating the patient and Dr. Rivero meeting specialist was asked to see the patient before surgery as well. 18:50 After further discussing with the patient in the presence of his daughter Maribel both agreed to proceed with surgery understanding the higher risk of potential demise perioperatively and patient reports that he is a full code Dr. Trevino was present in the discussion. Status: Acute Consult Attestations Medical Necessity Statement: Medical necessity care is expected to cross 2 midnights Time Spent in Patient Care: 16 - 35 minutes (>than 50% of time spent in counselling and/or direct pt care on unit) . Coding Level of Care Code Acute Purification Director for Vinita Porter Diagnoses Jejunal intussusception K56.1
[2019-10-05 18:28] LABS: Lactic Sepsis W/Reflex 1.4 mmol/L (0.5-2.2)
--- NOTE | 2019-10-05 18:35 | P.ANESASSM_ITS ---
Pre-Anesthetic Assessment Pre-Anesthetic Assessment: Height/Weight: Height 1.78 m Weight 81.647 kg Temp Pulse Resp BP Pulse Ox 97.0 F L 100 18 132/76 97 10/05/19 15:41 10/05/19 15:41 10/05/19 17:40 10/05/19 15:41 10/05/19 17:40 Preop Diagnosis: SBO Proposed Procedure: Operation Date: 10/05/19 18:35 Proposed Procedures p Laparoscopy diagnostic,(Not Applicable) - Mathieu Crain MD s Exploratory Laparotomy(Not Applicable) - Mathieu Crain MD Operation Date: 10/05/19 19:30 Proposed Procedures p Exploratory Laparotomy(Not Applicable) - Mathieu Crain MD Familial anesthetic complications: None Social: Social History: No alcohol and No tobacco Exam: Pre-Anes Outpt Exam: alert, oriented x 3, clear to auscultation bilaterally and regular rate & rhythm Airway: Cervical ROM: WNL MP: 2 Dentition: False CV/HEM: CV/HEM: CAD and HTN Comments: Aortic stenosis s/p TAVR in 2019 CAD s/p stents X4 Mod mitral regurge on echo in 2018, normal EF CAB X3 in 1999 HR up and down like a yo-yo which initiated talk of pacer placement GI: GI: GERD Metabolic: Metabolic: Hyperlipidemia Musc/skel: Musc/skel: None reported Neuropsych: Comments: B/L carotid stenosis Anesthetic Plan: ASA status: 4E Anesthesia: General Risk of > 500 ml blood loss (7ml/kg in children): No PFSH Anesthesia PFSH: Medical History Arrhythmia ASHD (arteriosclerotic heart disease) Bilateral carotid artery stenosis Hyperlipidemia Hypertension Valvular heart disease Surgical History (Updated 10/05/19 @ 18:55 by Brenda Trevino MD) History of heart surgery S/P CABG x 3 S/P TAVR (transcatheter aortic valve replacement) Family History Mother CAD (coronary artery disease) Hypertension Diabetes Brother Hypertension Grandmother Stroke Social History Smoking and tobacco status: former smoker Alcohol intake: never Substance/Drug Use: never History of recent travel: No Data Anesthesia CBC & Chem 7: 10/05/19 16:16 10/05/19 16:16 Other Labs: Laboratory Results - last 48 hr 10/05/19 10/05/19 10/05/19 08:08 16:16 16:16 WBC 10.1 H RBC 4.19 Hgb 13.8 Hct 42.9 MCV 102.4 H MCH 32.9 MCHC 32.2 RDW 13.5 Plt Count 250 MPV 10.4 Neut % (Auto) 80.3 Lymph % (Auto) 11.9 [place] % (Auto) 7.1 Eos % (Auto) 0.2 Baso % (Auto) 0.3 Neut # (Auto) 8.09 H Lymph # (Auto) 1.2 [place] # (Auto) 0.7 Eos # (Auto) 0.0 Baso # (Auto) 0.0 Nucleated RBC % (auto) 0 Nucleated RBCs # 0.0 Sodium 137 Potassium 4.4 Chloride 99 Carbon Dioxide 26 Anion Gap 16.4 BUN 17 Creatinine 1.2 Glucose 117 H Calculated Osmolality 281 L Lactic Acid 1.4 Lactate Calcium 10.3 Total Bilirubin 1.1 AST 15 ALT 13 Alkaline Phosphatase 81 Total Protein 7.9 Albumin 4.3 Globulin 3.6 Lipase 25 Urine Color Urine Appearance Urine pH Ur Specific [place] Urine Protein Urine Glucose (UA) Urine Ketones Urine Blood Urine Nitrate Urine Bilirubin Urine Urobilinogen Ur Leukocyte Esterase 10/05/19 10/05/19 16:16 16:40 WBC RBC Hgb Hct MCV MCH MCHC RDW Plt Count MPV Neut % (Auto) Lymph % (Auto) [place] % (Auto) Eos % (Auto) Baso % (Auto) Neut # (Auto) Lymph # (Auto) [place] # (Auto) Eos # (Auto) Baso # (Auto) Nucleated RBC % (auto) Nucleated RBCs # Sodium Potassium Chloride Carbon Dioxide Anion Gap BUN Creatinine Glucose Calculated Osmolality Lactic Acid Lactate 1.6 Calcium Total Bilirubin AST ALT Alkaline Phosphatase Total Protein Albumin Globulin Lipase Urine Color Dark yellow Urine Appearance Clear Urine pH 6.5 Ur Specific [place] 1.020 Urine Protein Neg Urine Glucose (UA) Norm Urine Ketones Negative Urine Blood Neg Urine Nitrate Negative Urine Bilirubin Neg Urine Urobilinogen 1 H Ur Leukocyte Esterase Negative Cardiac Studies: No Data to Display
--- NOTE | 2019-10-05 18:36 | P.HP_ITS ---
Providers/Chief Complaint Admitting Physician: Brenda Trevino MD Primary Care Provider: Zoila Ryder DO Chief Complaint: CONSTIPATED History of Present Illness Tres Velasquez is a 84 year old male with PMHx of CAD s/p stenting, CABG, HTN, Severe aortic stenosis s/p TAVR, CKD stage 2, presents from home for evaluation of persistent abdominal pain, nausea, vomiting since this past Friday. Patient is known to me from previous admission. Pain started gradually then he began to have persistent nausea and vomiting and has been unable to tolerate oral intake since Friday. This has included his oral medications including Eliquis which he takes secondary to having had TAVR. He follows up with interventional cardiology in [place] and here locally with Dr. Rivero. He denies having had any fever/chills, shortness of breath, chest pain. Has not had a bowel movement since Friday. Has noted some abdominal distention and frequent belching. Describes vomitus as brown in color with what sounds like sediment though he said it has no particular odor or taste to it. Labs indicate minimal leukocytosis with a white count of 10.1, normal hemoglobin at 13.8, normal electrolytes, normal renal function, blood glucose of 117, lactate of 1.6, normal LFTs and lipase, unremarkable urinalysis. CT scan of the abdomen and pelvis shows findings consistent with jejunal jejunal intussusception with small bowel obstruction and concern for potential malignancy. Dr. Kaplan has consulted Dr. Crain and following extensive discussion with patient and daughter Maribel at bedside they have decided to proceed with emergent exploratory laparotomy. I was present for discussion with patient about risks and benefits of laparoscopic approach versus laparotomy. Initial concern was patient being on Eliquis but given the timeframe there is a decreased risk of bleeding as it has been at least 48 hours since his last dose. Explained that this still a risk of bleeding with this surgery. Dr. Rivero consulted as well due to patient's underlying cardiac history. EKG shows sinus rhythm and he is currently rate controlled. He is on room air. Currently in the process of preparing to take him to the OR. Will admit to ICU in light of need for emergency surgery. Review of Systems Const: Reports: change in appetite (decreased appetite) and fatigue; Denies: fever(s) or chills Eyes: Denies: change in vision ENMT: Reports: dry mouth Card: Denies: chest pain, edema, swelling of feet/ankles, lightheadedness or syncope Resp: Denies: dyspnea, productive cough or non-productive cough GI: Reports: abdominal pain, nausea, vomiting, constipation (No bowel movement x3 days) and belching; Denies: hematemesis, coffee ground emesis, diarrhea or hematochezia : Denies: dysuria, urinary frequency or hematuria Musc: Denies: back pain Skin/Breast: Denies: rash Neuro: Denies: numbness in extremities, weakness in extremities or frequent falls Psych: Denies: anxiety Medications/Allergies Home Medications Medication Instructions Recorded Confirmed Last Taken Type apixaban 5 mg tablet 5 mg PO BID 03/26/19 10/05/19 10/02/19 History atorvastatin 80 mg tablet 80 mg PO DAILY tab 03/26/19 10/05/19 10/02/19 History ergocalciferol (vitamin D2) 1,250 50,000 unit PO Q7D cap 03/26/19 10/05/19 09/30/19 History mcg (50,000 unit) capsule hydrocodone 5 mg-acetaminophen 325 1 tab PO Q6H PRN tab 03/26/19 10/05/19 10/02/19 History mg tablet pantoprazole 40 mg tablet,delayed 40 mg PO QAM 03/26/19 10/05/19 10/02/19 History release amlodipine 5 mg tablet 5 mg PO DAILY 30 Days #30 tab 07/19/19 10/05/19 10/02/19 Rx tamsulosin 0.4 mg capsule 0.4 mg PO DAILY 07/19/19 10/05/19 10/02/19 History vit C 250 mg-E 200 unit-zinc 40 1 tab PO BID 07/19/19 10/05/19 10/02/19 History mg-copper 1 ox-wgzreh-wkswiu capsule Klor-Con 10 10 meq PO DAILY 10/05/19 10/05/19 10/02/19 History aspirin 81 mg PO DAILY 10/05/19 10/05/19 10/02/19 History Allergies Allergy/AdvReac Type Severity Reaction Status Date / Time niacin Allergy Unknown Unknown Verified 10/05/19 18:35 PFSH Acute PFSH: Medical History (Updated 10/05/19 @ 19:28 by Brenda Trevino MD) Arrhythmia ASHD (arteriosclerotic heart disease) Bilateral carotid artery stenosis CKD (chronic kidney disease) stage 2, GFR 60-89 ml/min Hyperlipidemia Hypertension Valvular heart disease Surgical History (Updated 10/05/19 @ 19:23 by Brenda Trevino MD) History of heart surgery 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 done in [facility] Family History Mother CAD (coronary artery disease) Hypertension Diabetes Brother Hypertension Grandmother Stroke Social History Smoking and tobacco status: former smoker Alcohol intake: never Substance/Drug Use: never History of recent travel: No Vitals/I&O/Wt Last Vital Signs Temp 97.0 F L 10/05/19 15:41 Pulse 100 10/05/19 15:41 Resp 18 10/05/19 17:40 BP 132/76 10/05/19 15:41 Pulse Ox 97 10/05/19 17:40 Weight last 48 hrs Weight 81.647 kg Physical Exam Const: COMMON NORMALS: no acute distress and patient oriented x3 GENERAL APPEARANCE: cooperative and comfortable ORIENTATION/CONSCIOUSNESS: Yes awake HENMT: COMMON NORMALS: normocephalic, atraumatic, hearing grossly normal bilaterally and moist oral mucous membranes HEAD & SCALP: normocephalic and atraumatic Eye: COMMON NORMALS: Equal, round and reactive pupils present, EOMs intact bilaterally and conjunctivae normal CONJUNCTIVA: Yes conjunctivae normal PUPIL: Yes Equal, round and reactive pupils present Neck/C-Spine: COMMON NORMALS: full ROM GENERAL: Yes normal visual inspection and Yes trachea midline Resp: COMMON NORMALS: normal respiratory effort, No retractions, No use of accessory muscles and clear to auscultation bilaterally EFFORT & INSPECTION: Yes able to speak in complete sentences, Yes symmetric chest movement and No tachypneic AUSCULTATION: clear to auscultation bilaterally Cardio: COMMON NORMALS: regular rate, regular rhythm, S1 normal heart sound pr esent, S2 normal heart sound present and No murmurs present (Cardio) RATE: regular rate RHYTHM: regular rhythm HEART SOUNDS: S1 normal heart sound present and S2 normal heart sound present GI: COMMON NORMALS: Normal to inspection, nondistended, normoactive bowel so unds present, Soft to palpation and non-tender PALPATION: Yes Soft to palpation Extremity: COMMON NORMALS: normal to inspection, full ROM and no clubbing, cyanosis or edema; negative for no pedal edema Neuro: COMMON NORMALS: patient oriented x3, moves all extremities, no focal motor deficits, no sensory deficits noted and gait normal Psych: COMMON NORMALS: mental status grossly normal, Normal thought process present, cooperative, normal affect and speech normal SPEECH: Yes normal speech THOUGHT PROCESS: Normal thought process present Skin: COMMON NORMALS: no rashes or lesions noted, no jaundice, no petechiae and no mottling GENERAL SKIN EXAM: no rashes or lesions noted Data : 10/05/19 16:16 10/05/19 16:16 A&P Assessment and plan (1) Jejunal intussusception: -Presented with abdominal pain, persistent nausea and vomiting x3 days with noted jejunal jejunal intussusception with small bowel obstruction with concern for possible malignancy on imaging -Surgery consult by Dr. Dominguez appreciated; patient is agreeable to emergent exploratory laparotomy -Pain control as needed, keep n.p.o., type and screen -May need NG tube placement -IVF hydration -Noted minimal leukocytosis, currently afebrile -Start on Zosyn -Has been on Eliquis secondary to TAVR; last dose taken on 10/01 as has been unable to tolerate oral intake since. Risk of bleeding still exists though lower than it otherwise would be given time since last dose. We will need to determine when anticoagulation can be safely resumed Status: Acute (2) Small bowel obstruction: -As noted above Status: Acute (3) Hypertension: -Currently normotensive, continue to monitor vital signs closely particularly with need for emergency surgery -Hold oral antihypertensives for now Status: Chronic Qualifiers: Hypertension type: essential hypertension Qualified Code(s): I10 - Essential (primary) hypertension (4) ASHD (arteriosclerotic heart disease): -Has known history of CAD s/p stenting x 3, CABG -Hold antiplatelet therapy Status: Chronic (5) Hyperlipidemia: -Resume statin once p.o. appropriate Status: Chronic Qualifiers: Hyperlipidemia type: mixed hyperlipidemia Qualified Code(s): E78.2 - Mixed hyperlipidemia (6) S/P TAVR (transcatheter aortic valve replacement): -Done at [facility] in [place] -Follows up with Dr. Rivero who has seen the patient in ED -TAVR done secondary to severe aortic stenosis -Echo (06/2018): EF=60%, mild LVH, no RWMA, mild to moderate MR, trace AR Status: Chronic (7) Arrhythmia: -Has been known to have atrial fibrillation and was previously noted to be bradycardic -Beta-nakul discontinued at [facility] in [place] -telemetry monitoring; discussed risk of developing arrhythmia vs. bradycardia that may require medication or temporary pacing Status: Chronic Qualifiers: Arrhythmia type: other cardiac arrhythmia Qualified Code(s): I49.8 - Other specified cardiac arrhythmias (8) CKD (chronic kidney disease) stage 2, GFR 60-89 ml/min: -baseline Cr wnl -renally dose meds, avoid nephrotoxins -monitor renal function Status: Chronic Additional A&P Information -BPH; hold tamsulosin -NPO -GI ppx with PPI -DVT ppx with SCDs, no AC for now due to need for surgical intervention -Dispo: home; daughter Maribel ([phone]) -Code status: FULL code; discussed with patient at bedside -ICU admission due to need for close monitoring and emergent surgery Attestations Medical Necessity Statement*: Tres Velasquez's hospital stay will require greater than 2 midnights for management of jejunal intussusception with small bowel obstruction requiring emergent exploratory laparotomy and subsequent postop care. Time Spent in Patient Care: Greater than 35 minutes (>than 50% of time spent in counselling and/or direct pt care on unit) . Coding Level of Care Code Acute Strawhat Blocking Operator for g Fwd Exam Comprehensive Diagnoses Jejunal intussusception K56.1 Small bowel obstruction K56.609 Hypertension I10 Hypertension type: essential hypertension ASHD (arteriosclerotic heart disease) I25.10 Hyperlipidemia E78.2 Hyperlipidemia type: mixed hyperlipidemia S/P TAVR (transcatheter aortic valve replacement) Z95.2 Arrhythmia I49.8 Arrhythmia type: other cardiac arrhythmia CKD (chronic kidney disease) stage 2, GFR 60-89 ml/min N18.2
[2019-10-05] MEDS: piperacillin-tazobactam 3.375 GM in sodium chloride 0.9% (plus) 50 ML IV (19:21)
--- NOTE | 2019-10-05 19:29 | P.CONIM_ITS ---
Providers/Reason For Consult Consulting Physican/Specialty*: [place] Mat/cardiology Reason for Consult*: Patient with history of coronary disease, status post coronary artery bypass surgery, status post TAVR, chronic intermittent atrial fibrillation now is presenting with intestinal obstruction. Consult is requested for a preop cardiac evaluation. Attending Physician: Brenda Trevino MD Primary Care Provider: Zoila Ryder DO History of Present Illness History of Present Illness Tres Velasquez is a 84 year old male has a history of coronary disease, status post coronary bypass surgery, history of aortic valve stenosis, status post TAVR, chronic intermittent atrial fibrillation is present with complaints of nausea and vomiting since last Friday. 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 He requires emergency surgical intervention. This patient had a TAVR last year at the [facility]. He also is known to have intermittent atrial fibrillation and is on long-term oral anticoagulation. He has not taken the oral anticoagulant since Friday. He is known to have coronary disease and had a three-vessel coronary bypass surgery in 1999. He had the most recent cardiac catheterization in July 2018 prior to the valve surgery. At that time, he was found to have total occlusion of the mid LAD and the right coronary artery. The TORRE to the LAD was found to be patent. Venous graft to circumflex artery and the right coronary artery were chronically occluded. Based on the angiogram findings, it was opted to treat him medically. He has not had any chest pain, palpitation, or syncopal episodes recently. He has been having episodes of dizziness which he attributes to atrial fibrillation and slow ventricular response rate. His heart rate sometimes go down into the 30s and 40s. He had a recent heart monitor and the results are not available. There was some discussion about permanent pacer implantation. Patient denies any fever or chills. No cough. No unusual shortness of breath. No other specific complaints. His LV ejection fraction was around 60%, prior to the valve replacement. He had a follow-up echocardiogram in [place] but the results are not available. Review of Systems Const: Reports: other (Anorexia); Denies: fever(s), chills, change in appetite, fatigue or night sweats Eyes: Denies: change in vision, blurry vision or eye discomfort ENMT: Denies: bleeding gums, epistaxis or other (Spinning Sensation, Trouble Swallowing) Card: Denies: syncope, pre-syncope, orthopnea or leg pain with exertion Resp: Denies: productive cough, change in phlegm color or hemoptysis GI: Reports: abdominal pain, nausea, vomiting and constipation; Denies: hematemesis or coffee ground emesis : Denies: hematuria or other (Gynecomastia) Musc: Denies: neck pain, extremity pain, extremity swelling, joint redness, muscle cramps, muscle weakness or other (Neck Pain or Swollen Glands) Skin/Breast: Denies: rash, pruritus, erythema, new lesions, changes in skin color, jaundice, nail changes or breast mass Neuro: Denies: headache(s), sensory changes, lack of coordination, frequent falls, dizziness, vertigo, seizure-like activity or other (TIA, Numbness) Psych: Reports: other (Delusions, Disorientation, or Insomnia); Denies: visual hallucinations, auditory hallucinations or tactile hallucinations Endo: Denies: polyuria, polydipsia or other (Abnormal Hair Loss) [place]/Lymph: Denies: easy bruising All/Imm: Denies: urticaria Meds/Allergies Home Medications and Allergies Home Medications Medication Instructions Recorded Confirmed Last Taken Type apixaban 5 mg tablet 5 mg PO BID 03/26/19 10/05/19 10/02/19 History atorvastatin 80 mg tablet 80 mg PO DAILY tab 03/26/19 10/05/19 10/02/19 History ergocalciferol (vitamin D2) 1,250 50,000 unit PO Q7D cap 03/26/19 10/05/19 09/30/19 History mcg (50,000 unit) capsule hydrocodone 5 mg-acetaminophen 325 1 tab PO Q6H PRN tab 03/26/19 10/05/19 10/02/19 History mg tablet pantoprazole 40 mg tablet,delayed 40 mg PO QAM 03/26/19 10/05/19 10/02/19 History release amlodipine 5 mg tablet 5 mg PO DAILY 30 Days #30 tab 07/19/19 10/05/19 10/02/19 Rx tamsulosin 0.4 mg capsule 0.4 mg PO DAILY 07/19/19 10/05/19 10/02/19 History vit C 250 mg-E 200 unit-zinc 40 1 tab PO BID 07/19/19 10/05/19 10/02/19 History mg-copper 1 hp-psqcyk-lcvkka capsule Klor-Con 10 10 meq PO DAILY 10/05/19 10/05/19 10/02/19 History aspirin 81 mg PO DAILY 10/05/19 10/05/19 10/02/19 History Allergies Allergy/AdvReac Type Severity Reaction Status Date / Time niacin Allergy Unknown Unknown Verified 10/05/19 18:35 PFSH Acute PFSH: Medical History Arrhythmia ASHD (arteriosclerotic heart disease) Bilateral carotid artery stenosis CKD (chronic kidney disease) stage 2, 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 ml/min Hyperlipidemia Hypertension Intermittent atrial fibrillation Valvular heart disease Surgical History History of heart surgery 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 done in [facility] Family History Mother CAD (coronary artery disease) Hypertension Diabetes Brother Hypertension Grandmother Stroke Social History Smoking and tobacco status: former smoker Alcohol intake: never Substance/Drug Use: never History of recent travel: No Vitals/I&O/Wt Last Vital Signs Temp 97.0 F L 10/05/19 15:41 Pulse 100 10/05/19 15:41 Resp 18 10/05/19 17:40 BP 132/76 10/05/19 15:41 Pulse Ox 97 10/05/19 17:40 Weight last 48 hrs Weight 180 lb Physical Exam Narrative: EXAM NARRATIVE: GENERAL: The patient is alert and oriented times three. Not in any acute distress. Complaining of abdominal discomfort. HEENT: No significant pallor, icterus or lymphadenopathy. The pupils are reactant to light. Oral cavity: There are no mucous membrane lesions. Funduscopic the fundus is not visualized NECK: Trachea appears to be central. No masses noted. No JVD or thyromegaly appreciated. No carotid bruit. RESPIRATORY: Chest is symmetrical. No intercostals muscle retraction or any accessory muscle activation. There is no chest wall tenderness. Breath sounds are heard bilaterally. No rales or rhonchi heard. No evidence of any consolidation. BREASTS: Deferred. HEART: The PMI could not be palpated. First and second heart sounds are normal. No S3. Short systolic murmur at the left sternal border. No diastolic murmurs. No pericardial rub. ABDOMEN: Diffuse tenderness in the epigastric area. Bowel sounds are heard. : Deferred. RECTAL: Deferred. LYMPHATIC: No lymphadenopathy noted in the neck or groin. EXTREMITIES: No edema or cyanosis. Peripheral pulses are palpable bilaterally. MUSCULOSKELETAL: No acute joint deformities or swelling SKIN: There are no significant scars or skin rash noted. NEUROPSYCHIATRIC: The patient is alert and oriented x3. Appears to be in a good mood. The higher functions are grossly within normal limits. No tremors or rigidity noted. Data Imaging^: Cardiac catheterization in July 2018: My impression: LM is a medium caliber vessel which appears to have mild diffuse disease. LAD: The left anterior descending artery is a medium caliber vessel with moderate diffuse disease proximally. Right after the first diagonal branch, the artery appears to be totally occluded. LCx: The left circumflex artery is a medium caliber vessel which continues as the first obtuse marginal branch. The distal end of the venous graft was found to be attached to this vessel. No significant stenotic lesions were noted in the artery. RCA: The right coronary artery is a medium to large caliber vessel, extensively stented in the proximal and midsegment. Right after the second RV branch, the artery appears to be totally occluded. Moderate diffuse in-stent stenosis was noted. The artery appears to gives off a large atrial branch, need to the ostium. Three grafts visualized. TORRE to dLAD: patent. SVG to 1st OM: 100% stenosis, SERGE: 0 flow. SVG to RPDA: 100% stenosis, SERGE: 0 flow. Coronary angiography shows right dominance. EKG^: EKG 1: My Interpretation: EKG showed a normal sinus rhythm with nonspecific IVCD. No acute ST-T changes. A&P Assessment and plan (1) ASHD (arteriosclerotic heart disease): Patient is known to have coronary disease and coronary bypass surgery. Currently he seems to be stable with no evidence of any cardiac decompensation. He may not require any specific intervention at this point. No EKG evidence of myocardial ischemia or injury. CT of the chest does not show any evidence of heart failure. Status: Chronic (2) S/P TAVR (transcatheter aortic valve replacement): Clinically his valve function appears to be appropriate. No evidence of any significant aortic valve stenosis. Status: Chronic (3) Hypertension: Blood pressure seems to be under control at this time. May continue on the current medications. Status: Chronic Qualifiers: Hypertension type: essential hypertension Qualified Code(s): I10 - Essential (primary) hypertension (4) Intermittent atrial fibrillation: Currently the patient is in sinus rhythm. He has a history of intermittent atrial fibrillation and bradycardia. He needs to be closely monitored on telemetry. Status: Acute (5) Jejunal intussusception: The patient requires urgent surgical intervention. Status: Acute Additional A&P Information Patient's overall cardiovascular status seems to be stable at this point. Because of his history of atrial fibrillation/ bradycardia, his rhythm need to be closely monitored during the perioperative phase. He also may need to be put back on the oral anticoagulant as early as possible after the surgical intervention. His overall cardiovascular risk is minimal to moderate at this time with the proposed surgical procedure. This was discussed with the patient and his family in detail which he understood well. 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
[2019-10-05] MEDS: heparin 5,000 unit/mL INJ 1 mL 3000 UNIT SUBCUT (19:39)
--- NOTE | 2019-10-05 19:55 | SUR.OPER ---
inserted by anesthesia Karly HICKS
--- NOTE | 2019-10-05 20:41 | P.OP_ITS ---
Operative Report Date of procedure: October 05, 2019 Pre-op Diagnosis: SBO Post-op Diagnosis: Small bowel mass causing obstruction of the proximal jejunal loop with proximal dilation and distal collapse Post-op Findings: Exploratory laparotomy with small bowel resection with [id number] anastomosis Adjustment of NG in place Small bowel resection one foot distal to the ligament of Treitz Sigmoid colon diverticulosis No evidence of malignant ascites or peritoneal carcinomatosis Liver not involved Procedure Done: Exploratory laparotomy and small bowel resection one foot distal to the ligament of Treitz with [id number] anastomosis. 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 Garcia) Estimated blood loss (mL): 25 IV fluids (mL): 500 Urine output (mL): 50 Condition: stable Disposition: ICU Brief History: This is a pleasant 84 years old gentleman presented to the emergency department with worsening nausea vomiting and symptoms and signs of bowel obstruction, patient was further evaluated and CT scan of the abdomen pelvis found to have jejunal intussusception, after further history taking physical examination and reviewing the chart and images with my personal interpretation and counseling with the patient and his daughter Maribel with coordination with Dr. Trevino and Dr. Rivero, patient and family were counseled for exploratory laparotomy with bowel resection. Informed consent per chart Procedure: After identifying the patient in the holding area, was taken to the operating room, placed in supine position, intubated by anesthesia, prophylactic IV antibiotics were given per protocol. Bansal catheter was inserted by the circulating nurse revealing clear urine,time- out was done verifying the patient's name/date of /planned procedure and destination after the procedure, all were in agreement Prep and drape of the abdomen was done under the usual sterile technique, a mid midline incision was created.I extended the incision caudad and cephalad,Cautery was used to divide the subcutaneous tissue and the midline fascia and the peritoneal cavity was entered.There was no succus or feculent material. A quick survey of the abdomen demonstrated a small bowel mass about foot from the ligament of Treitz or more that intussusception mentioned on the CT scan most likely resolved on its own as there was some signs of serosal ecchymosis but small bowels continued to be viable. I decided to create mesenteric windows and have a good margin of resection cephalad and caudad and a CATHERINE 55 mm blue load was fired and using a 10 mm Voyant energy device.I was able to divide the mesentery and the specimen measured about 25 cm was oriented with sutures marked proximally and passed to the circulating nurse. At this point I elected to explore the whole abdomen I started at the ligament of Treitz and running the small bowel all the way to the ileocecal junction, found to have no other involved small bowel segments, the colon looked normal, in spite of the fact that it was loaded with hard pellets of stool and sigmoid diverticulae were appreciated, the liver looked normal and no carcinomatosis or peritoneal ascites were appreciated. NG was well palpable in the stomach yet was proximal so I did ask anesthesia provider to advance it some distally and it was in good position. Thorough irrigation with 4-5 L of warm saline was achieved, the abdominal cavity looked normal,there was no evidence of bleeding. The healthy segments of the small bowel were brought [id number], 3-0 silk stay sutures were applied at 2 points, proximal and distal, and enterotomies were created to allow the 2 limbs of CATHERINE 55 blue load stapler to create a [id number] functional anastomosis, proximal to enterotomy sites,other blue load GI 55 mm stapler was fired and the dissected segments were sent for pathology as well.Followed by closure of the mesenteric rent is in running 3-0 silk. A 3-0 silk stitch was placed at the crutch between the 2 limbs of the small bowel, the anastomosis was checked pinched between my index and left thumb fingers and was patent enough. More copious irrigation was achieved followed by suction,count was then completed . The midline fascia was closed using a looped #1 PDS under direct visualization. The subcutaneous tissue was extensively irrigated and the skin was then approximated using skin say, followed by dry dressing. Patient was then extubated and transferred directly to the intensive care unit for more resuscitation. I was present for the whole entire procedure.
[2019-10-05] MEDS: lidocaine 2% INJ 20 mL INJECTION (20:45)
--- NOTE | 2019-10-05 20:58 | ANE.PACU2 ---
Inpatient post-anesthesia follow up: Airway intact: Yes Vital signs: Temperature 97.0 F Pulse Rate [Left R adial] 100 Pulse Rate 66 Respiratory Rate 18 Blood Pressure [Le ft Arm] 132/76 Blood Pressure 132/66 Pulse Oximetry 99 Oxygen Delivery Me thod Simple Mask Oxygen Flow Rate 10 Fraction of Inspir ed Oxygen Hydration adequate: Yes Nausea and vomiting: No Mental status: Baseline
[2019-10-05] MEDS: D5-NS 0.45% + KCL 20 mEq 20 MEQ/1,000 ML BAG 125 MEQ IV (21:43)
[2019-10-05 23:35] LABS: Blood Urea Nitrogen 18 mg/dL (8-23); Calcium 8.9 mg/dL (8.5-10.5); Carbon Dioxide 25 mmol/L (22-29); Chloride 102 mmol/L (98-107); Glucose 158 mg/dL (65-115); Magnesium 1.7 mg/dL (1.7-2.3); Osmolality Calculated 284 mOsm/kg (285-295); Sodium 137 mmol/L (136-145)
[2019-10-06] VITALS (31 sets, daily range): BP systolic 103–165; BP diastolic 43–78; PULSE 74–124; RESP 13–26; TEMP 36.6–36.9; O2SAT 96–98; BMI 30.3
[2019-10-06] MEDS: morphine 4 mg/mL SDV 1 mL IVP ×3 (00:41→10:44)
[2019-10-06] MEDS: magnesium sulfate premix 2 GM/50 ML PIGGYBACK IV (00:41)
[2019-10-06] MEDS: ondansetron 2 mg/ML SDV 2 mL 4 MG IVP (00:41)
[2019-10-06] MEDS: piperacillin-tazobactam 3.375 GM in sodium chloride 0.9% (plus) 50 ML IV ×3 (04:04→18:16)
[2019-10-06 05:35] LABS: Basophils % 0.3 %; Hematocrit 39.8 % (42.0-52.0); Hemoglobin 12.6 g/dL (11.7-16.6); Lymphocytes # 0.4 10^3/uL (0.8-4.8); Lymphocytes % 3.3 %; Mean Corpuscular HGB Conc 31.7 g/dL (30.0-36.0); Mean Corpuscular Volume 104.2 fL (80-94); Mean Platelet Volume 10.6 fL (7.4-10.4); Monocytes # 0.7 10^3/uL (0.2-0.9); Monocytes % 6.2 %; Neutrophils % 89.8 %; Nucleated Red Blood Cells % 0 %; Platelet Count 199 10^3/cmm (130-400); Red Blood Count 3.82 10^6/uL (4.1-5.3); Red Cell Distribution Width 13.8 % (12.1-15.1); White Blood Count 11.4 10^3/uL (4.0-10.0)
--- NOTE | 2019-10-06 05:51 | P.PN_ITS ---
Subjective Subjective: Interval history: Low urine output Patient reports that he is hurting at the incision site Otherwise no acute events overnight Vitals/I&O/Wt Last Vital Signs Temp 98.5 F 10/06/19 04:00 Pulse 94 10/06/19 05:00 Resp 18 10/06/19 05:00 BP 130/68 10/06/19 05:00 Pulse Ox 97 10/06/19 05:00 10/05/19 10/05/19 10/06/19 14:59 22:59 06:59 Intake Total 550 / 550 Output Total 125 / 125 Balance 425 / 425 Weight last 48 hrs Weight 180 lb Physical Exam Narrative: EXAM NARRATIVE: Patient is conscious alert oriented X3 BMI 26 Head and neck examination PERRLA no masses no cervical lymphadenopathy no jaundice Cardiac examination audible S1-S2 no murmurs no gallops no arrhythmias Chest is clear bilateral,abscence of Rhonchi or wheezes,no surgical emphysema Abdomen nontender except at the incision site and dressing in place nondistended soft no organomegaly guarding or rigidity/no signs of peritonitis Bansal catheter in place Urinary Catheter Management^: Bansal Latex: Cath Placed During This Visit: yes Urinary Catheter Date of Insertion: 10/05/19 Urinary Catheter Time of Insertion: 19:35 Data : 10/06/19 05:01 10/06/19 05:01 Micro: Microbiology 10/05/19 22:47 Blood Culture - Preliminary Blood SPECIMEN COLLECTED 10/05/19 22:42 Blood Culture - Preliminary Blood SPECIMEN COLLECTED A&P Assessment and plan (1) Jejunal intussusception: Status post expiratory laparotomy and resection of small bowel with bigz-[id number]-hvnh anastomosis for jejunal intussusception and underlying small bowel mass 10/05/2019. PLAN OF CARE: CVS: Continue continuous cardiac monitoring PULMONARY: Continue pulmonary toilet Continue Incentive spirometer every hour GI: NG to low intermittent wall suction NUTRITION: Patient starts passing gas will clamp NG and try clear liquid diet and add to add protein shakes RENAL: Continue monitoring kidney functions Strict I's and O's Continue electrolyte protocols for replacement including calcium potassium and magnesium Patient will require more fluid resuscitation I would recommend normal saline 125 mL/h INFECTIOUS DISEASE: 2 more doses of Zosyn antibiotics NEUROLOGY: No evidence of neurological deficit GCS 15 out of 15 MOBILITY: Consult physical therapy SKIN AND WOUND: DC dressing tomorrow Pain control: 1 g of acetaminophen IV every 8 hours as needed to help with pain control Assurance and education Continue encouragement Status: Acute Attestations Medical Necessity Statement*: Medical necessity care is expected to cross 2 midnights Time Spent in Patient Care: (>than 50% of time spent in counselling and/or direct pt care on unit) . 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
[2019-10-06 05:52] LABS: Anion Gap 14.4 (5-19); Blood Urea Nitrogen 18 mg/dL (8-23); Calcium 8.2 mg/dL (8.5-10.5); Carbon Dioxide 27 mmol/L (22-29); Chloride 99 mmol/L (98-107); Glucose 150 mg/dL (65-115); INR 1.18 (0.8-1.2); Magnesium 2.5 mg/dL (1.7-2.3); Osmolality Calculated 281 mOsm/kg (285-295); Potassium 4.4 mmol/L (3.5-5.1); Sodium 136 mmol/L (136-145)
[2019-10-06] MEDS: sodium chloride 0.9% 500 ML 999 ML IV (06:21)
[2019-10-06] MEDS: D5-NS 0.45% + KCL 20 mEq 20 MEQ/1,000 ML BAG 125 MEQ IV (06:56)
--- NOTE | 2019-10-06 08:05 | ECG_ITS ---
[facility] Test Date: 2019-10-06 Pat Name: Tres Velasquez Department: Room: [facility] Gender: Male Field Staff: : [id number] Requested By: Anselmo Rivero Order Number: [id number] Julisa MD: Anselmo Rivero M.D. Measurements Intervals [place] Rate: 91 P: -1 OK: 174 QRS: 68 QRSD: 137 T: 8 QT: 364 QTc: 448 Interpretive Statements SINUS RHYTHM WITH FREQUENT VENTRICULAR PREMATURE COMPLEXES IN A BIGEMINAL PATTERN INTRAVENTRICULAR CONDUCTION DELAY [130+ ms QRS DURATION] INTERPRETATION BASED ON A DEFAULT AGE OF 40 YEARS Compared to ECG 10/05/2019 18:21:10 Ventricular premature complex(es) now present Intraventricular conduction delay now present Right bundle-branch block no longer present Electronically Signed On 10-06-2019 20:37:21 CDT by Anselmo Rivero M.D. [email or web address]
--- NOTE | 2019-10-06 10:17 | P.PN_ITS ---
Subjective Subjective: Interval history: Patient is postop day #1 status post exploratory laparotomy with small bowel resection and [id number] anastomosis done by Dr. Dominguez. Has NG tube in place as well as Bansal catheter. Low urine output so far of 250 mL. Remains n.p.o. IV Tylenol added for more optimal pain control. Remains on Zosyn. Slight increase in leukocytosis this morning, stable hemoglobin, normal electrolytes and renal function. Seen several times throughout the day including during visit with his daughter Maribel, updated her accordingly. Due to continued low urine output to give an additional 250 mL normal saline bolus. No flatus yet. Medications: Reviewed: Yes Medication Review Details: Active Medications Generic Name Dose Route Start Last Admin Trade Name Freq PRN Reason Stop Dose Admin Acetaminophen 650 mg 10/05/19 20:49 Tylenol PO Q6H PRN MILD PAIN Potassium Chloride /Dextrose/Sod Cl 20 meq in 1,000 m ls @ 125 mls/hr 10/05/19 20:49 10/06/19 06:56 D5-Ns 0.45% + Jemal l 20 Meq IV 125 mls/hr .Q8H ISAMAR Administration Piperacillin Sod/T azobactam 50 mls @ 12.5 mls /hr 10/06/19 03:00 10/06/19 04:04 Sod 3.375 gm/ So dium Chloride IV 12.5 mls/hr Q8H ISAMAR Administration Protocol As Directed Acetaminophen 1,000 mg in 100 m ls @ 400 mls/hr 10/06/19 06:00 10/06/19 08:02 Ofirmev IV 10/06/19 22:14 Infused Q8H ISAMAR Infusion Sodium Chloride 500 mls @ 999 mls /hr 10/06/19 06:00 10/06/19 08:01 Sodium Chloride 0.9% IV Infused .Q31M ISAMAR Infusion Morphine Sulfate 4 mg 10/05/19 20:49 10/06/19 06:05 Morphine IVP 4 mg Q4H PRN Administration SEVERE PAIN Ondansetron HCl 4 mg 10/05/19 20:49 10/06/19 00:41 Zofran IVP 4 mg Q6H PRN Administration NAUSEA AND VOMITI NG Pantoprazole Sodiu m 40 mg 10/06/19 09:00 Protonix IVP DAILY ISAMAR Tamsulosin HCl 0.4 mg 10/06/19 09:00 Flomax PO DAILY ISAMAR niacin Allergy (Unknown, Verified 10/05/19 18:35) Unknown Vitals/I&O/Wt Last Vital Signs Temp 98.5 F 10/06/19 04:00 Pulse 89 10/06/19 08:17 Resp 16 10/06/19 08:15 BP 133/66 10/06/19 06:00 Pulse Ox 96 10/06/19 08:15 10/05/19 10/06/19 10/06/19 22:59 06:59 14:59 Intake Total 550 / 550 1500 / 2050 100 / 100 Output Total 125 / 125 125 / 250 Balance 425 / 425 1375 / 1800 100 / 100 Weight last 48 hrs Weight 81.647 kg Physical Exam Const: COMMON NORMALS: no acute distress, patient oriented x3 and alert GENERAL APPEARANCE: cooperative and comfortable ORIENTATION/CONSCIOUSNESS: Yes awake HENMT: COMMON NORMALS: normocephalic, atraumatic, hearing grossly normal bilaterally and moist oral mucous membranes HEAD & SCALP: normocephalic and atraumatic OTHER: -NGT in place Eye: COMMON NORMALS: Equal, round and reactive pupils present, EOMs intact bilaterally and conjunctivae normal CONJUNCTIVA: Yes conjunctivae normal PUPIL: Yes Equal, round and reactive pupils present Neck/C-Spine: COMMON NORMALS: full ROM GENERAL: Yes normal visual inspection and Yes trachea midline Resp: COMMON NORMALS: normal respiratory effort, No retractions, No use of accessory muscles and clear to auscultation bilaterally EFFORT & INSPECTION: Yes able to speak in complete sentences, Yes symmetric chest movement and No tachypneic AUSCULTATION: clear to auscultation bilaterally Cardio: COMMON NORMALS: regular rate, regular rhythm, S1 normal heart sound present, S2 normal heart sound present and No murmurs present (Cardio) RATE: regular rate RHYTHM: regular rhythm HEART SOUNDS: S1 normal heart sound present and S2 normal heart sound present GI: COMMON NORMALS: Soft to palpation INSPECTION: Yes abdominal distension and Yes incision (-clean dressing in place) AUSCULTATION: Yes Absent bowel sounds PALPATION: Yes Soft to palpation : BLADDER/KIDNEY EXAM: Yes catheter in place Catheter type (Male): urethral Extremity: COMMON NORMALS: normal to inspection, full ROM and no clubbing, cyanosis or edema; negative for no pedal edema Neuro: COMMON NORMALS: patient oriented x3, moves all extremities, no focal motor deficits and no sensory deficits noted SENSORIUM/ORIENTATION: Yes alert Psych: COMMON NORMALS: mental status grossly normal, Normal thought process present, cooperative, normal affect and speech normal SPEECH: Yes normal speech THOUGHT PROCESS: Normal thought process present Skin: COMMON NORMALS: no rashes or lesions noted, no jaundice, no petechiae and no mottling GENERAL SKIN EXAM: no rashes or lesions noted Urinary Catheter Management^: Bansal Latex: Cath Placed During This Visit: yes Urinary Catheter Date of Insertion: 10/05/19 Urinary Catheter Time of Insertion: 19:35 Data : 10/06/19 05:01 10/06/19 05:01 Micro: Microbiology 10/05/19 22:47 Blood Culture - Preliminary Blood SPECIMEN COLLECTED 10/05/19 22:42 Blood Culture - Preliminary Blood SPECIMEN COLLECTED A&P Assessment and plan (1) Jejunal intussusception: -Presented with abdominal pain, persistent nausea and vomiting x3 days with noted jejunal jejunal intussusception with small bowel obstruction with concern for possible malignancy on imaging -Surgery consult by Dr. Dominguez appreciated; s/p emergent exploratory laparotomy with small bowel resection and [id number] anastomosis, POD #1 -Pain control as needed, NPO -NG tube in place; low intermittent suction; position confirmed with CXR -IVF hydration -Noted minimal leukocytosis, afebrile -on Zosyn -Has been on Eliquis secondary to TAVR; last dose taken on 10/01 as has been unable to tolerate oral intake since. EBL-25 mL during surgery. We will need to determine when anticoagulation can be safely resumed -blood cx pending -IV tylenol added for more optimal pain control -dressing to be discontinued tomorrow Status: Acute (2) Small bowel obstruction: -As noted above -s/p small bowel resection; likely malignancy, f/u pathology Status: Acute (3) Hypertension: -Currently normotensive, continue to monitor vital signs closely -Hold oral antihypertensives for now Status: Chronic Qualifiers: Hypertension type: essential hypertension Qualified Code(s): I10 - Essential (primary) hypertension (4) ASHD (arteriosclerotic heart disease): -Has known history of CAD s/p stenting x 3, CABG -Hold antiplatelet therapy Status: Chronic (5) Hyperlipidemia: -continue statin once p.o. appropriate Status: Chronic Qualifiers: Hyperlipidemia type: mixed hyperlipidemia Qualified Code(s): E78.2 - Mixed hyperlipidemia (6) S/P TAVR (transcatheter aortic valve replacement): -Done at [facility] in [place] -Follows up with Dr. Rivero who has seen the patient in ED -TAVR done secondary to severe aortic stenosis -Echo (06/2018): EF=60%, mild LVH, no RWMA, mild to moderate MR, trace AR Status: Chronic (7) Arrhythmia: -Has been known to have atrial fibrillation and was previously noted to be bradycardic -Beta-nakul discontinued at [facility] in [place] -telemetry monitoring; discussed risk of developing arrhythmia vs. bradycardia that may require medication or temporary pacing Status: Chronic Qualifiers: Arrhythmia type: other cardiac arrhythmia Qualified Code(s): I49.8 - Other specified cardiac arrhythmias (8) CKD (chronic kidney disease) stage 2, GFR 60-89 ml/min: -baseline Cr wnl -renally dose meds, avoid nephrotoxins -monitor renal function Status: Chronic Additional A&P Information -BPH; resume tamsulosin -Oliguria; continue to monitor urine output closely, has Bansal catheter in place, IVF boluses as needed -NPO -GI ppx with PPI -DVT ppx with SCDs, no AC for now due to need for surgical intervention -Dispo: home; daughter Maribel ([phone]). Discussed possibility of SNF placement, patient will discuss further with family. -Code status: FULL code; discussed with patient at bedside -ICU care due to need for close monitoring and emergent surgery Attestations Medical Necessity Statement*: Patient requires hospitalization for continued post-op care status post exploratory laparotomy with small bowel resection. Time Spent in Patient Care: 16 - 35 minutes (>than 50% of time spent in counselling and/or direct pt care on unit) . Coding Level of Care Code Acute Security Systems Manager for [facility] Fwd Exam Comprehensive Diagnoses Jejunal intussusception K56.1 Small bowel obstruction K56.609 Hypertension I10 Hypertension type: essential hypertension ASHD (arteriosclerotic heart disease) I25.10 Hyperlipidemia E78.2 Hyperlipidemia type: mixed hyperlipidemia S/P TAVR (transcatheter aortic valve replacement) Z95.2 Arrhythmia I49.8 Arrhythmia type: other cardiac arrhythmia CKD (chronic kidney disease) stage 2, GFR 60-89 ml/min N18.2
[2019-10-06 10:18] LABS: Troponin T (5th) Once 22 ng/L (0-15)
[2019-10-06 10:22] LABS: NT Pro B Type Natriuretic Pept 262 pg/mL (0-450)
--- NOTE | 2019-10-06 10:38 | PM.PN ---
Subjective Subjective: Interval history: Patient had exploratory laparotomy yesterday. He is mainly complaining of abdominal pain and some nausea. No chest pain or palpitations. Telemetry showed episodes of PVCs, in the form of bigeminy. Also has episodes of short runs of PAT's. Mostly seems to be staying in the sinus rhythm/sinus bradycardia. No fever or chills. No cough. Medications: Reviewed: Yes Medication Review Details: Current Medications Acetaminophen (Tylenol) 650 mg PO Q6H PRN PRN Reason: MILD PAIN Potassium Chloride/Dextrose/Sod Cl (D5-Ns 0.45% + Kcl 20 Meq) 20 meq in 1,000 mls @ 125 mls/hr IV .Q8H COUNT INCLUDES THE [facility] Last Admin: 10/06/19 06:56 Dose: 125 mls/hr Documented by: Piperacillin Sod/Tazobactam (Sod 3.375 gm/ Sodium Chloride) 50 mls @ 12.5 mls/hr IV Q8H COUNT INCLUDES THE [facility]; Protocol Last Admin: 10/06/19 04:04 Dose: 12.5 mls/hr Documented by: Acetaminophen (Ofirmev) 1,000 mg in 100 mls @ 400 mls/hr IV Q8H COUNT INCLUDES THE [facility] Stop: 10/06/19 22:14 Last Infusion: 10/06/19 08:02 Dose: Infused Documented by: Sodium Chloride (Sodium Chloride 0.9%) 500 mls @ 999 mls/hr IV .Q31M COUNT INCLUDES THE [facility] Last Infusion: 10/06/19 08:01 Dose: Infused Documented by: Morphine Sulfate (Morphine) 4 mg IVP Q4H PRN PRN Reason: SEVERE PAIN Last Admin: 10/06/19 06:05 Dose: 4 mg Documented by: Ondansetron HCl (Zofran) 4 mg IVP Q6H PRN PRN Reason: NAUSEA AND VOMITING Last Admin: 10/06/19 00:41 Dose: 4 mg Documented by: Pantoprazole Sodium (Protonix) 40 mg IVP DAILY COUNT INCLUDES THE [facility] Tamsulosin HCl (Flomax) 0.4 mg PO DAILY COUNT INCLUDES THE [facility] Vitals/I&O/Wt Last Vital Signs Temp 98.5 F 10/06/19 04:00 Pulse 89 10/06/19 08:17 Resp 16 10/06/19 08:15 BP 133/66 10/06/19 06:00 Pulse Ox 96 10/06/19 08:15 10/05/19 10/06/19 10/06/19 22:59 06:59 14:59 Intake Total 550 / 550 1500 / 2050 100 / 100 Output Total 125 / 125 125 / 250 Balance 425 / 425 1375 / 1800 100 / 100 Weight last 48 hrs Weight 180 lb Physical Exam Narrative: EXAM NARRATIVE: GENERAL: The patient is alert and oriented times three. Not in any acute distress. Complaining of abdominal discomfort. HEENT: No significant pallor, icterus or lymphadenopathy. NECK: Trachea appears to be central. No masses noted. No JVD or thyromegaly appreciated. No carotid bruit. RESPIRATORY: Chest is symmetrical. No intercostals muscle retraction or any accessory muscle activation. There is no chest wall tenderness. Breath sounds are heard bilaterally. No rales or rhonchi heard. No evidence of any consolidation. BREASTS: Deferred. HEART: The PMI could not be palpated. First and second heart sounds are normal. No S3. Short systolic murmur at the left sternal border. No diastolic murmurs. No pericardial rub. ABDOMEN: Diffuse tenderness in the epigastric area. Bowel sounds are heard. : Deferred. RECTAL: Deferred. LYMPHATIC: No lymphadenopathy noted in the neck or groin. EXTREMITIES: No edema or cyanosis. Peripheral pulses are palpable bilaterally. MUSCULOSKELETAL: No acute joint deformities or swelling SKIN: There are no significant scars or skin rash noted. NEUROPSYCHIATRIC: The patient is alert and oriented x3. Appears to be in a good mood. The higher functions are grossly within normal limits. No tremors or rigidity noted. Urinary Catheter Management^: Bansal Latex: Cath Placed During This Visit: yes Urinary Catheter Date of Insertion: 10/05/19 Urinary Catheter Time of Insertion: 19:35 Data : 10/06/19 05:01 10/06/19 05:01 Micro: Microbiology 10/05/19 22:47 Blood Culture - Preliminary Blood SPECIMEN COLLECTED 10/05/19 22:42 Blood Culture - Preliminary Blood SPECIMEN COLLECTED A&P Assessment and plan (1) ASHD (arteriosclerotic heart disease): Seems to have no specific symptoms of coronary insufficiency at this time. I may do a BNP and a troponin T today. Status: Chronic (2) S/P TAVR (transcatheter aortic valve replacement): Clinically his valve function appears to be appropriate. No evidence of any significant aortic valve stenosis. According the patient, he had a recent echocardiogram in [place]. We will try to get the results. Status: Chronic (3) Hypertension: Blood pressure seems to be under control at this time. May continue on the current medications. Status: Chronic Qualifiers: Hypertension type: essential hypertension Qualified Code(s): I10 - Essential (primary) hypertension (4) Intermittent atrial fibrillation: Currently the patient is in sinus rhythm. He has a history of intermittent atrial fibrillation and bradycardia. He needs to be closely monitored on telemetry. Currently he has frequent PVCs in the form of bigeminy on the monitor. Will do the BNP and troponin T to look for evidence of myocardial injury. Status: Acute (5) Jejunal intussusception: Management as per general surgery. Status: Acute Additional A&P Information After reviewing the above results and also based on the patient clinical progress, further recommendations will be made. His overall cardiovascular status seems to be fairly stable at this point. Attestations Medical Necessity Statement*: Patient requires continued hospital stay for close monitoring and further management Coding Level of Care Code Acute Brass Finisher for [facility] Fwd Diagnoses ASHD (arteriosclerotic heart disease) I25.10 S/P TAVR (transcatheter aortic valve replacement) Z95.2 Hypertension I10 Hypertension type: essential hypertension Intermittent atrial fibrillation I48.0 Jejunal intussusception K56.1
[2019-10-06] MEDS: pantoprazole 40 mg SDV IVP (10:43)
--- NOTE | 2019-10-06 11:50 | PC.NURSE ---
dr. reed woke pt. up and ask his pain leel and he said 12. now resting quietly with eyes closed no frowning.
--- NOTE | 2019-10-06 12:16 | XR_ITS ---
WS: [id number] PORTABLE CHEST HISTORY: NGT position confirmation COMPARISON: 03/02/2019 Nasogastric tube has been placed with tip extending into the antrum of the stomach. Prior median sternotomy/CABG. Blunting of the LEFT costophrenic angle. No pneumonia. Small LEFT pleural effusion. Cardiac size: Mildly enlarged cardiac silhouette. Mediastinum/Aorta: Moderate atherosclerosis aorta. Vertebroplasty changes are noted in the upper lumbar spine. XR/XR chest 1V portable [id number] IMPRESSION: 1. Small LEFT pleural effusion. 2. Satisfactory positioning of the nasogastric tube.
[2019-10-06] MEDS: dextrose 5%-ns + KCl 20 20 MEQ/1,000 ML BAG 125 MEQ IV ×2 (13:52→21:38)
--- NOTE | 2019-10-06 13:59 | PC.NURSE ---
p.t. in up to chair. c/o sever abd. pain some nausea. iv tylenol given
--- NOTE | 2019-10-06 16:47 | PC.NURSE ---
requesting phone. dr. palm in unit. u.o. low. will give 250 n.s. bolus.
[2019-10-06] MEDS: sodium chloride 0.9% 250 ML IV (17:26)
--- NOTE | 2019-10-06 17:43 | PC.NURSE ---
1500 on i/s. visiting with daughter
--- NOTE | 2019-10-06 17:59 | PC.NURSE ---
dr. byers in. visited with daughter.
[2019-10-06] MEDS: heparin 5,000 unit/mL INJ 1 mL 5000 UNIT SUBCUT (18:09)
[2019-10-07] VITALS (30 sets, daily range): BP systolic 112–162; BP diastolic 49–103; PULSE 79–104; RESP 12–25; TEMP 36.8–37; O2SAT 89–99
[2019-10-07] MEDS: morphine 4 mg/mL SDV 1 mL IVP ×4 (02:03→19:42)
[2019-10-07] MEDS: heparin 5,000 unit/mL INJ 1 mL 5000 UNIT SUBCUT ×3 (02:03→18:07)
[2019-10-07] MEDS: piperacillin-tazobactam 3.375 GM in sodium chloride 0.9% (plus) 50 ML IV (02:04)
[2019-10-07 04:47] LABS: Basophils % 0.5 %; Eosinophils % 0.4 %; Hematocrit 32.4 % (42.0-52.0); Hemoglobin 10.1 g/dL (11.7-16.6); Lymphocytes # 0.9 10^3/uL (0.8-4.8); Lymphocytes % 11.2 %; Mean Corpuscular HGB Conc 31.2 g/dL (30.0-36.0); Mean Corpuscular Hemoglobin 34.1 pg (28.0-34.0); Mean Corpuscular Volume 109.5 fL (80-94); Monocytes # 0.5 10^3/uL (0.2-0.9); Monocytes % 6.5 %; Neutrophils # 6.43 10^3/uL (1.8-7.7); Nucleated Red Blood Cells % 0 %; Platelet Count 154 10^3/cmm (130-400); Red Blood Count 2.96 10^6/uL (4.1-5.3); Red Cell Distribution Width 14.1 % (12.1-15.1); White Blood Count 7.9 10^3/uL (4.0-10.0)
[2019-10-07] MEDS: dextrose 5%-ns + KCl 20 20 MEQ/1,000 ML BAG 125 MEQ IV ×3 (05:08→22:00)
[2019-10-07 05:23] LABS: Anion Gap 11.6 (5-19); Blood Urea Nitrogen 14 mg/dL (8-23); Calcium 8.3 mg/dL (8.5-10.5); Carbon Dioxide 22 mmol/L (22-29); Chloride 107 mmol/L (98-107); Glucose 130 mg/dL (65-115); Osmolality Calculated 280 mOsm/kg (285-295); Potassium 4.6 mmol/L (3.5-5.1); Sodium 136 mmol/L (136-145)
--- NOTE | 2019-10-07 07:18 | PM.PN ---
Subjective Subjective: Interval history: Patient's pain is better under control today Not pass gas yet and NG output about 250 with urine output about 400 mL I did start the patient on heparin subcu as a pharmacologic prophylaxis Vitals/I&O/Wt Last Vital Signs Temp 98.2 F 10/07/19 05:00 Pulse 86 10/07/19 06:00 Resp 22 H 10/07/19 06:28 BP 126/49 10/07/19 06:00 Pulse Ox 95 10/07/19 06:28 10/06/19 10/07/19 10/07/19 22:59 06:59 14:59 Intake Total 2350 / 2500 1000 / 3500 Output Total 500 / 500 650 / 1150 Balance 1850 / 2000 350 / 2350 Weight last 48 hrs Weight 182 lb 4 oz Weight 180 lb Physical Exam Narrative: EXAM NARRATIVE: Patient is conscious alert oriented X3 NG in place with enteric content BMI 30 Head and neck examination PERRLA no masses no cervical lymphadenopathy no jaundice Cardiac examination audible S1-S2 no murmurs no gallops no arrhythmias Chest is clear bilateral,abscence of Rhonchi or wheezes,no surgical emphysema Abdomen nontender except at the incision site and skin say in place nondistended soft no organomegaly guarding or rigidity/no signs of peritonitis Bansal catheter in place with clear urine Urinary Catheter Management^: Bansal Latex: Cath Placed During This Visit: yes Reason for Continuing Indwelling Catheter: Accurate Measurement of Urinary Output in Critically Ill Patients Urinary Catheter Date of Insertion: 10/05/19 Urinary Catheter Time of Insertion: 19:35 Data : 10/07/19 03:45 10/07/19 03:45 Micro: Microbiology 10/05/19 22:47 Blood Culture - Preliminary Blood NEGATIVE TO DATE 10/05/19 22:42 Blood Culture - Preliminary Blood NEGATIVE TO DATE A&P Assessment and plan (1) Jejunal intussusception: Status post expiratory laparotomy and resection of small bowel with [id number] anastomosis for jejunal intussusception and underlying small bowel mass 10/05/2019. PLAN OF CARE: CVS: Continue continuous cardiac monitoring, heparin subcu as pharmacologic DVT prophylaxis PULMONARY: Continue pulmonary toilet Continue Incentive spirometer every hour Encouraged the patient when coughing to hold a pillow against the abdominal wall GI: Continue NG to low intermittent wall suction We will follow on pathology report NUTRITION: Patient starts passing gas will clamp NG and try clear liquid diet and add to add protein shakes In the interim patient will benefit from peripheral parenteral nutrition and if he continues to have an ileus he will benefit from a PICC line and TPN started. RENAL: Continue monitoring kidney functions Strict I's and O's Continue electrolyte protocols for replacement including calcium potassium and magnesium Continue intravenous fluid resuscitation INFECTIOUS DISEASE: No indication for antibiotics from surgical standpoint of view NEUROLOGY: No evidence of neurological deficit GCS 15 out of 15 MOBILITY: Continue physical therapy SKIN AND WOUND: Keep incision open to air Pain control: 1 g of acetaminophen IV every 8 hours as needed to help with pain control Assurance and education Continue encouragement I would recommend highly to start the discussion for potential need for rehabilitation, I will defer to our physical therapy and social sciences department chair to discuss with the patient potential options with coordination with Dr. Trevino. Status: Acute Attestations Medical Necessity Statement*: Medical necessity care is expected to cross 2 midnights Time Spent in Patient Care: (>than 50% of time spent in counselling and/or direct pt care on unit). Coding Level of Care Code Acute Traffic Safety Administrator for [place] Diagnoses Jejunal intussusception K56.1
--- NOTE | 2019-10-07 08:03 | PM.PN ---
Subjective Subjective: Interval history: Had 400 mL urine output overnight, 250 mL NGT output. No flatus, is POD # 2 s/p exploratory laparotomy with small bowel resection and [id number]-hp-[id number] anastomosis. Required 2 doses of morphine 4 mg IV for pain control. Normal renal function, resolved leukocytosis, slight drop in hemoglobin from 12.6-10.1. Case discussed with Dr. Dominguez and due to concern for possible prolonged ileus will start on peripheral nutrition so will request PICC line placement. Dressing changed this morning by Dr. Crain. Medications: Reviewed: Yes Medication Review Details: Active Medications Generic Name Dose Route Start Last Admin Trade Name Freq PRN Reason Stop Dose Admin Acetaminophen 650 mg 10/05/19 20:49 Tylenol PO Q6H PRN MILD PAIN Heparin Sodium (Be ef Lung) 5,000 unit 10/06/19 18:00 10/07/19 02:03 Heparin SUBCUT 5,000 unit Q8H ISAMAR Administration Piperacillin Sod/T azobactam 50 mls @ 12.5 mls /hr 10/06/19 03:00 10/07/19 06:00 Sod 3.375 gm/ So dium Chloride IV Infused Q8H ISAMAR Infusion Protocol As Directed Sodium Chloride 500 mls @ 999 mls /hr 10/06/19 06:00 10/06/19 08:01 Sodium Chloride 0.9% IV Infused .Q31M ISAMAR Infusion Potassium Chloride /Dextrose/Sod Cl 20 meq in 1,000 m ls @ 125 mls/hr 10/06/19 12:45 10/07/19 05:08 Dextrose 5%-Ns + Kcl 20 IV 125 mls/hr .Q8H ISAMAR Administration Morphine Sulfate 4 mg 10/05/19 20:49 10/07/19 06:28 Morphine IVP 4 mg Q4H PRN Administration SEVERE PAIN Ondansetron HCl 4 mg 10/05/19 20:49 10/06/19 00:41 Zofran IVP 4 mg Q6H PRN Administration NAUSEA AND VOMITI NG Pantoprazole Sodiu m 40 mg 10/06/19 09:00 10/06/19 10:43 Protonix IVP 40 mg DAILY ISAMAR Administration Tamsulosin HCl 0.4 mg 10/06/19 09:00 10/06/19 10:58 Flomax PO Not Given DAILY ISAMAR niacin Allergy (Unknown, Verified 10/05/19 18:35) Unknown Vitals/I&O/Wt Last Vital Signs Temp 98.2 F 10/07/19 05:00 Pulse 86 10/07/19 06:00 Resp 22 H 10/07/19 06:28 BP 126/49 10/07/19 06:00 Pulse Ox 95 10/07/19 06:28 10/06/19 10/07/19 10/07/19 22:59 06:59 14:59 Intake Total 2350 / 2500 1050 / 3550 Output Total 500 / 500 650 / 1150 Balance 1850 / 2000 400 / 2400 Weight last 48 hrs Weight 82.667 kg Weight 81.647 kg Physical Exam Const: COMMON NORMALS: no acute distress, patient oriented x3 and alert GENERAL APPEARANCE: cooperative and comfortable ORIENTATION/CONSCIOUSNESS: Yes awake HENMT: COMMON NORMALS: normocephalic, atraumatic, hearing grossly normal bilaterally and moist oral mucous membranes HEAD & SCALP: normocephalic and atraumatic OTHER: -NGT in place Eye: COMMON NORMALS: Equal, round and reactive pupils present, EOMs intact bilaterally and conjunctivae normal CONJUNCTIVA: Yes conjunctivae normal PUPIL: Yes Equal, round and reactive pupils present Neck/C-Spine: COMMON NORMALS: full ROM GENERAL: Yes normal visual inspection and Yes trachea midline Resp: COMMON NORMALS: normal respiratory effort, No retractions, No use of accessory muscles and clear to auscultation bilaterally EFFORT & INSPECTION: Yes able to speak in complete sentences, Yes symmetric chest movement and No tachypneic AUSCULTATION: clear to auscultation bilaterally Cardio: COMMON NORMALS: regular rate, regular rhythm, S1 normal heart sound present, S2 normal heart sound present and No murmurs present (Cardio) RATE: regular rate RHYTHM: regular rhythm HEART SOUNDS: S1 normal heart sound present and S2 normal heart sound present GI: COMMON NORMALS: Soft to palpation INSPECTION: Yes abdominal distension and Yes incision (-clot in navel, say in place, well-approximated incision) AUSCULTATION: Yes Absent bowel sounds PALPATION: Yes Soft to palpation : BLADDER/KIDNEY EXAM: Yes catheter in place Extremity: COMMON NORMALS: normal to inspection, full ROM and no clubbing, cyanosis or edema; negative for no pedal edema Neuro: COMMON NORMALS: patient oriented x3, moves all extremities, no focal motor deficits and no sensory deficits noted SENSORIUM/ORIENTATION: Yes alert Psych: COMMON NORMALS: mental status grossly normal, Normal thought process present, cooperative, normal affect and speech normal SPEECH: Yes normal speech THOUGHT PROCESS: Normal thought process present Skin: COMMON NORMALS: no rashes or lesions noted, no jaundice, no petechiae and no mottling GENERAL SKIN EXAM: no rashes or lesions noted Urinary Catheter Management^: Bansal Latex: Cath Placed During This Visit: yes Reason for Continuing Indwelling Catheter: Accurate Measurement of Urinary Output in Critically Ill Patients Urinary Catheter Date of Insertion: 10/05/19 Urinary Catheter Time of Insertion: 19:35 Data : 10/07/19 03:45 10/07/19 03:45 Micro: Microbiology 10/05/19 22:47 Blood Culture - Preliminary Blood NEGATIVE TO DATE 10/05/19 22:42 Blood Culture - Preliminary Blood NEGATIVE TO DATE A&P Assessment and plan (1) Jejunal intussusception: -Presented with abdominal pain, persistent nausea and vomiting x3 days with noted jejunal jejunal intussusception with small bowel obstruction with concern for possible malignancy on imaging -Surgery consult by Dr. Dominguez appreciated; s/p emergent exploratory laparotomy with small bowel resection and [id number] anastomosis, POD #2 -Pain control as needed, NPO -NG tube in place; low intermittent suction; position confirmed with CXR -IVF hydration -Noted minimal leukocytosis, afebrile -on Zosyn -Has been on Eliquis secondary to TAVR; last dose taken on 10/01 as has been unable to tolerate oral intake since. EBL-25 mL during surgery. We will need to determine when anticoagulation can be safely resumed -blood cx prelim negative -IV tylenol added for more optimal pain control; 1 dose given -dressing changed today by Dr. Dominguez -encourage ambulation, incentive spirometry -can d/c Zosyn Status: Acute (2) Small bowel obstruction: -As noted above -s/p small bowel resection; likely malignancy, f/u pathology Status: Acute (3) Hypertension: -VSS; continue to monitor -resume amlodipine Status: Chronic Qualifiers: Hypertension type: essential hypertension Qualified Code(s): I10 - Essential (primary) hypertension (4) ASHD (arteriosclerotic heart disease): -Has known history of CAD s/p stenting x 3, CABG -Hold antiplatelet therapy Status: Chronic (5) Hyperlipidemia: -continue statin once p.o. appropriate Status: Chronic Qualifiers: Hyperlipidemia type: mixed hyperlipidemia Qualified Code(s): E78.2 - Mixed hyperlipidemia (6) S/P TAVR (transcatheter aortic valve replacement): -Done at [facility] in [place] -Follows up with Dr. Rivero who has seen the patient in ED -TAVR done secondary to severe aortic stenosis -Echo (06/2018): EF=60%, mild LVH, no RWMA, mild to moderate MR, trace AR Status: Chronic (7) Arrhythmia: -Has been known to have atrial fibrillation and was previously noted to be bradycardic -Beta-nakul discontinued at [facility] in [place] -telemetry monitoring; discussed risk of developing arrhythmia vs. bradycardia that may require medication or temporary pacing Status: Chronic Qualifiers: Arrhythmia type: other cardiac arrhythmia Qualified Code(s): I49.8 - Other specified cardiac arrhythmias (8) CKD (chronic kidney disease) stage 2, GFR 60-89 ml/min: -baseline Cr wnl -renally dose meds, avoid nephrotoxins -continue to monitor renal function Status: Chronic Additional A&P Information -BPH; on tamsulosin -Oliguria; continue to monitor urine output closely, has Bansal catheter in place, IVF boluses as needed; slight improvement overnight -NPO due to ileus -GI ppx with PPI -DVT ppx with SCDs, heparin -Dispo: home; daughter Maribel ([phone]). Discussed possibility of SNF placement, patient will discuss further with family. -Code status: FULL code; discussed with patient at bedside -ICU care due to need for close monitoring, post-op ileus Attestations Medical Necessity Statement*: Patient requires hospitalization for continued post-op care including adequate pain control, IV fluid hydration, with post-op ileus. Time Spent in Patient Care: 16 - 35 minutes (>than 50% of time spent in counselling and/or direct pt care on unit). 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
[2019-10-07] MEDS: pantoprazole 40 mg SDV IVP (09:13)
--- NOTE | 2019-10-07 09:29 | PC.NURSE ---
Refused PO amlodipine and Flomax stating iv'e never had that before and don't really want it
--- NOTE | 2019-10-07 12:11 | XR_ITS ---
WS: [id number] PORTABLE CHEST HISTORY: NG tube placement COMPARISON: 10/06/2019 Nasogastric tube is in good position with tip in the stomach. Small LEFT pleural effusion and/or atelectasis. No pneumonia. No pneumothorax. Cardiac size: Normal. Mediastinum/Aorta: Moderate atherosclerosis aorta. Diffuse osteopenia. Prior CABG. Prior vertebroplasties upper lumbar spine. XR/XR chest 1V portable [id number] IMPRESSION: 1. Nasogastric tube in good position. Tip is in the stomach. 2. Small LEFT pleural effusion and LEFT basilar atelectasis.
--- NOTE | 2019-10-07 13:32 | PC.NURSE ---
NG dislodged and fell out while walking with PT, new NG inserted placement confirmed with Xray, Dr. Trevino notified 1300, no N.O. at this time
--- NOTE | 2019-10-07 14:29 | XR_ITS ---
WS: [id number] PORTABLE CHEST HISTORY: PICC PLACEMENT COMPARISON: 10/07/2019 RIGHT PICC line present with tip in distal SVC. No complications. Tip of the endotracheal tube is jus t below the GE junction. Endotracheal tube has been retracted since the prior study and should be adv anced 10 more centimeters. Atelectasis at the lung bases. Small LEFT pleural effusion. Cardiac size: Mildly enlarged cardiac silhouette. Mediastinum/Aorta: Moderate atherosclerosis aorta. Mediastinum is slightly wider than the prior study but this is probably related to the supine positioning. Osteopenia. Prior vertebroplasties upper lumbar spine. XR/XR chest 1V portable [id number] IMPRESSION: 1. Satisfactory positioning of the RIGHT PICC line. 2. Recommend advancing nasogastric tube 10 cm for more optimal positioning. Tu be has retracted slightly since the prior study. 3. Small LEFT pleural effusion and LEFT basilar atelectasis.
--- NOTE | 2019-10-07 17:13 | PC.NURSE ---
NG tube advanced 10 cm per Xray report and V.O. from Dr. Trevino,
[2019-10-07] MEDS: LORazepam 2 mg/mL INJ 1 mL 1 MG IVP (17:37)
--- NOTE | 2019-10-07 19:38 | PM.PN ---
Subjective Subjective: Interval history: Patient remains in sinus rhythm. Denies any overnight event. Medications: Reviewed: Yes Medication Review Details: Active Medications Generic Name Dose Route Start Last Admin Trade Name Freq PRN Reason Stop Dose Admin Acetaminophen 650 mg 10/05/19 20:49 Tylenol PO Q6H PRN MILD PAIN Heparin Sodium (Be ef Lung) 5,000 unit 10/06/19 18:00 10/07/19 02:03 Heparin SUBCUT 5,000 unit Q8H ISAMAR Administration Piperacillin Sod/T azobactam 50 mls @ 12.5 mls /hr 10/06/19 03:00 10/07/19 06:00 Sod 3.375 gm/ So dium Chloride IV Infused Q8H ISAMAR Infusion Protocol As Directed Sodium Chloride 500 mls @ 999 mls /hr 10/06/19 06:00 10/06/19 08:01 Sodium Chloride 0.9% IV Infused .Q31M ISAMAR Infusion Potassium Chloride /Dextrose/Sod Cl 20 meq in 1,000 m ls @ 125 mls/hr 10/06/19 12:45 10/07/19 05:08 Dextrose 5%-Ns + Kcl 20 IV 125 mls/hr .Q8H ISAMAR Administration Morphine Sulfate 4 mg 10/05/19 20:49 10/07/19 06:28 Morphine IVP 4 mg Q4H PRN Administration SEVERE PAIN Ondansetron HCl 4 mg 10/05/19 20:49 10/06/19 00:41 Zofran IVP 4 mg Q6H PRN Administration NAUSEA AND VOMITI NG Pantoprazole Sodiu m 40 mg 10/06/19 09:00 10/06/19 10:43 Protonix IVP 40 mg DAILY ISAMAR Administration Tamsulosin HCl 0.4 mg 10/06/19 09:00 10/06/19 10:58 Flomax PO Not Given DAILY ISAMAR niacin Allergy (Unknown, Verified 10/05/19 18:35) Unknown Vitals/I&O/Wt Last Vital Signs Temp 98.3 F 10/07/19 16:00 Pulse 97 10/07/19 18:00 Resp 17 10/07/19 18:00 BP 131/64 10/07/19 18:00 Pulse Ox 94 10/07/19 18:00 10/07/19 10/07/19 10/07/19 06:59 14:59 22:59 Intake Total 1050 / 3550 1000 / 1000 Output Total 650 / 1150 700 / 700 Balance 400 / 2400 1000 / 1000 -700 / 300 Weight last 48 hrs Weight 182 lb 4 oz Physical Exam Narrative: EXAM NARRATIVE: GENERAL: Patient is alert, awake and oriented x3. NG tube in place NECK: No jugular vein distension. HEENT: No cyanosis. No icterus. No pallor. HEART: Regular S1 and S2. No murmur, rub or gallop. LUNGS: Clear to auscultate bilaterally. ABDOMEN: Deferred because of bandage . CENTRAL NERVOUS SYSTEM: Grossly nonfocal. EXTREMITIES: Lower extremities without edema carroll Urinary Catheter Management^: Bansal Latex: Cath Placed During This Visit: yes Reason for Continuing Indwelling Catheter: Accurate Measurement of Urinary Output in Critically Ill Patients Urinary Catheter Date of Insertion: 10/05/19 Urinary Catheter Time of Insertion: 19:35 Data : 10/07/19 03:45 10/07/19 03:45 Micro: Microbiology 10/05/19 22:47 Blood Culture - Preliminary Blood NEGATIVE TO DATE 10/05/19 22:42 Blood Culture - Preliminary Blood NEGATIVE TO DATE A&P Assessment and plan (1) ASHD (arteriosclerotic heart disease): Appear to be stable denies any more EKG changes or chest pain. Status: Chronic (2) S/P TAVR (transcatheter aortic valve replacement): Post TAVR with bioprosthetic valve. Continue to monitor. Currently fine from a valvular perspective Status: Chronic (3) Hypertension: Well-controlled. Status: Chronic Qualifiers: Hypertension type: essential hypertension Qualified Code(s): I10 - Essential (primary) hypertension (4) Intermittent atrial fibrillation: Patient is sinus rhythm. No more bradycardia bigeminal rhythm noted Status: Acute (5) Jejunal intussusception: As per surgery. Status: Acute Additional A&P Information After reviewing the above results and also based on the patient clinical progress, further recommendations will be made. His overall cardiovascular status seems to be fairly stable at this point. Attestations Medical Necessity Statement*: As per medicine surgery Coding Level of Care Code Established Pt Acute Certified Medication Aide for Chg Fwd Patient Type Established History Expanded Problem Focused Exam Expanded Problem Focused Medical Decision Making Moderate Complexity Diagnoses ASHD (arteriosclerotic heart disease) I25.10 S/P TAVR (transcatheter aortic valve replacement) Z95.2 Hypertension I10 Hypertension type: essential hypertension Intermittent atrial fibrillation I48.0 Jejunal intussusception K56.1
[2019-10-07] MEDS: HYDROmorphone 1 mg/mL INJ 1 mL 2 MG IVP (21:38)
[2019-10-08] VITALS (28 sets, daily range): BP systolic 119–172; BP diastolic 47–97; PULSE 72–88; RESP 9–19; TEMP 36.3–37.5; O2SAT 91–100
[2019-10-08] MEDS: HYDROmorphone 1 mg/mL INJ 1 mL IVP ×2 (00:25→04:04)
[2019-10-08] MEDS: heparin 5,000 unit/mL INJ 1 mL 5000 UNIT SUBCUT ×3 (02:29→18:10)
[2019-10-08] MEDS: HYDROmorphone 1 mg/mL INJ 1 mL 2 MG IVP ×3 (05:15→21:12)
[2019-10-08 05:37] LABS: Basophils % 0.3 %; Eosinophils # 0.1 10^3/uL (0.0-0.8); Eosinophils % 1.6 %; Hematocrit 29.3 % (42.0-52.0); Hemoglobin 9.2 g/dL (11.7-16.6); Lymphocytes % 16.5 %; Mean Corpuscular HGB Conc 31.4 g/dL (30.0-36.0); Mean Corpuscular Hemoglobin 33.5 pg (28.0-34.0); Mean Corpuscular Volume 106.5 fL (80-94); Mean Platelet Volume 11.1 fL (7.4-10.4); Monocytes # 0.5 10^3/uL (0.2-0.9); Monocytes % 7.4 %; Neutrophils # 4.48 10^3/uL (1.8-7.7); Neutrophils % 73.9 %; Nucleated Red Blood Cells % 0 %; Platelet Count 149 10^3/cmm (130-400); Red Blood Count 2.75 10^6/uL (4.1-5.3); Red Cell Distribution Width 13.7 % (12.1-15.1); White Blood Count 6.1 10^3/uL (4.0-10.0)
--- NOTE | 2019-10-08 05:40 | PM.PN ---
Subjective Subjective: Interval history: Patient overnight pulled his NG tube in the left arm IV access, he did not pass gas yet. Patient received a single lumen PICC line yesterday of the right upper extremity. I think his pain requirements have been affecting his overall mental status as he starts showing signs of hallucinations. Good urine output. Otherwise no acute events overnight Vitals/I&O/Wt Last Vital Signs Temp 98.3 F 10/07/19 16:00 Pulse 79 10/08/19 04:00 Resp 13 10/08/19 04:00 BP 121/56 10/08/19 04:00 Pulse Ox 96 10/08/19 04:00 10/07/19 10/07/19 10/08/19 14:59 22:59 06:59 Intake Total 1000 / 1000 1000 / 2000 Output Total 1200 / 1200 425 / 1625 Balance 1000 / 1000 -200 / 800 -425 / 375 Weight last 48 hrs Weight 182 lb 4 oz Physical Exam Narrative: EXAM NARRATIVE: Patient is conscious alert but verbalized some hallucinations BMI 30 Head and neck examination PERRLA no masses no cervical lymphadenopathy no jaundice Cardiac examination audible S1-S2 no murmurs no gallops no arrhythmias Chest is clear bilateral,abscence of Rhonchi or wheezes,no surgical emphysema Abdomen nontender except at the incision site nondistended soft no organomegaly guarding or rigidity/no signs of peritonitis Incision is clean dry and intact and skin say in place Bansal catheter in place with clear urine Urinary Catheter Management^: Bansal Latex: Cath Placed During This Visit: yes Reason for Continuing Indwelling Catheter: Accurate Measurement of Urinary Output in Critically Ill Patients Urinary Catheter Date of Insertion: 10/05/19 Urinary Catheter Time of Insertion: 19:35 Data : 10/08/19 05:05 10/08/19 05:05 A&P Assessment and plan (1) Jejunal intussusception: Status post expiratory laparotomy and resection of small bowel with [id number] anastomosis for jejunal intussusception and underlying small bowel mass 10/05/2019. PLAN OF CARE: CVS: Continue continuous cardiac monitoring,continue heparin subcu as pharmacologic DVT prophylaxis PULMONARY: Continue pulmonary toilet Continue Incentive spirometer every hour Encouraged the patient when coughing to hold a pillow against the abdominal wall GI: We will hold off reinserting NG for now unless the patient starts vomiting We will follow on pathology report NUTRITION:Once Patient starts passing gas,will start him on clear liquid diet and add to add protein shakes Will continue peripheral parenteral nutrition and if he continues to have an ileus he will benefit from TPN started. RENAL: Continue monitoring kidney functions Strict I's and O's Continue electrolyte protocols for replacement including calcium potassium and magnesium From surgical standpoint of view Abnsal catheter can be DC'd to minimize potential infection Pain control: Recommend to minimize narcotic dosages as clinically patient starts to be hallucinating Focus on nonnarcotic for pain control as acetaminophen INFECTIOUS DISEASE: No indication for antibiotics from surgical standpoint of view NEUROLOGY: No evidence of neurological deficit MOBILITY: Continue physical therapy SKIN AND WOUND: Keep incision open to air From surgical standpoint of view if patient continues to be appropriate medically can be transferred to the floor to telemetry, will defer to Dr. Trevino and Dr. Rivero with regard to overall medical condition including cardiac status. Assurance and education Continue encouragement Emphasis on discussion for potential need for rehabilitation, I will defer to our physical therapy and social organization professor to discuss with the patient potential options with coordination with Dr. Trevino. Status: Acute Attestations Medical Necessity Statement*: Medical necessity care is expected to cross 2 midnights Time Spent in Patient Care: (>than 50% of time spent in counselling and/or direct pt care on unit). 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
[2019-10-08 05:55] LABS: Blood Urea Nitrogen 8 mg/dL (8-23); Calcium 8.5 mg/dL (8.5-10.5); Carbon Dioxide 24 mmol/L (22-29); Chloride 108 mmol/L (98-107); Glucose 107 mg/dL (65-115); Osmolality Calculated 282 mOsm/kg (285-295); Sodium 138 mmol/L (136-145)
[2019-10-08] MEDS: dextrose 5%-ns + KCl 20 20 MEQ/1,000 ML BAG 125 MEQ IV ×2 (06:14→13:01)
[2019-10-08 07:50] LABS: Glucose Point of Care 124 mg/dL (70-110)
--- NOTE | 2019-10-08 08:30 | PC.SOCIAL ---
IMM Page 2 of IMM explained to patient. Initialed, dated, and timed and placed in chart. Copy provided.
--- NOTE | 2019-10-08 08:31 | P.PN_ITS ---
Subjective Subjective: Interval history: Overnight was quite confused, pulled out NG tube, had had 200 mL output. Urine output improved, had 725 mL. Bansal catheter removed this morning. Okay to keep NG tube out per Dr. Crain. Pain control overnight seems to be an issue, switched from morphine to Dilaudid. Concerned that this may be contributing to hallucinations. Afebrile, hemodynamically stable, on 2 L nasal cannula. Stable renal function and normal electrolytes, no leukocytosis, stable hemoglobin. Has not passed gas yet so remains n.p.o. Peripheral nutrition started yesterday after insertion of PICC line. He is postop day #3 status post exploratory laparotomy with small bowel resection and [id number] anastomosis. Resting quietly in bed currently. Able to void following removal of Bansal catheter. Will increase tube feeding per recommendations by dietitian. Some abdominal distention noted by late afternoon though we will continue to hold off an NG tube replacement unless increased; high probability that patient will pull this out if replaced. Medications: Reviewed: Yes Medication Review Details: Active Medications Generic Name Dose Route Start Last Admin Trade Name Freq PRN Reason Stop Dose Admin Acetaminophen 650 mg 10/05/19 20:49 Tylenol PO Q6H PRN MILD PAIN Amlodipine Besylat e 5 mg 10/07/19 09:00 10/07/19 09:13 Norvasc PO Not Given DAILY ISAMAR Heparin Sodium (Be ef Lung) 5,000 unit 10/06/19 18:00 10/08/19 02:29 Heparin SUBCUT 5,000 unit Q8H ISAMAR Administration Hydromorphone HCl 2 mg 10/08/19 04:33 10/08/19 05:15 Dilaudid Inj IVP 2 mg Q4H PRN Administration PAIN Potassium Chloride /Dextrose/Sod Cl 20 meq in 1,000 m ls @ 125 mls/hr 10/06/19 12:45 10/08/19 06:14 Dextrose 5%-Ns + Kcl 20 IV 125 mls/hr .Q8H ISAMAR Administration Multivitamins 10 m l/ Amino 1,010 mls @ 42 ml s/hr 10/07/19 17:15 10/07/19 17:56 Acids/Electrolyt es IV 42 mls/hr .Q24H ISAMAR Administration Lorazepam 1 mg 10/07/19 17:20 10/07/19 17:37 Ativan IVP 1 mg Q4H PRN Administration ANXIETY Ondansetron HCl 4 mg 10/05/19 20:49 10/06/19 00:41 Zofran IVP 4 mg Q6H PRN Administration NAUSEA AND VOMITI NG Pantoprazole Sodiu m 40 mg 10/06/19 09:00 10/07/19 09:13 Protonix IVP 40 mg DAILY ISAMAR Administration Phenol 3 spray 10/07/19 16:50 Phenaseptic MUCOUS MEM Q2H PRN SORE THROAT Tamsulosin HCl 0.4 mg 10/06/19 09:00 10/07/19 09:13 Flomax PO Not Given DAILY ISAMAR niacin Allergy (Unknown, Verified 10/05/19 18:35) Unknown Vitals/I&O/Wt Last Vital Signs Temp 99.5 F 10/08/19 07:00 Pulse 74 10/08/19 08:00 Resp 12 10/08/19 08:00 BP 137/70 10/08/19 08:00 Pulse Ox 97 10/08/19 08:00 10/07/19 10/08/19 10/08/19 22:59 06:59 14:59 Intake Total 1000 / 2000 1000 / 3000 Output Total 1200 / 1200 425 / 1625 Balance -200 / 800 575 / 1375 Weight last 48 hrs Weight 82.667 kg Physical Exam Const: COMMON NORMALS: no acute distress, patient oriented x3 and alert GENERAL APPEARANCE: cooperative and comfortable ORIENTATION/CONSCIOUSNESS: Yes awake HENMT: COMMON NORMALS: normocephalic, atraumatic, hearing grossly normal bilaterally and moist oral mucous membranes HEAD & SCALP: normocephalic and atraumatic OTHER: -NGT out Eye: COMMON NORMALS: Equal, round and reactive pupils present, EOMs intact bilaterally and conjunctivae normal CONJUNCTIVA: Yes conjunctivae normal PUPIL: Yes Equal, round and reactive pupils present Neck/C-Spine: COMMON NORMALS: full ROM GENERAL: Yes normal visual inspection and Yes trachea midline Resp: COMMON NORMALS: normal respiratory effort, No retractions, No use of accessory muscles and clear to auscultation bilaterally EFFORT & INSPECTION: Yes able to speak in complete sentences, Yes symmetric chest movement and No tachypneic AUSCULTATION: clear to auscultation bilaterally Cardio: COMMON NORMALS: regular rate, regular rhythm, S1 normal heart sound present, S2 normal heart sound present and No murmurs present (Cardio) RATE: regular rate RHYTHM: regular rhythm HEART SOUNDS: S1 normal heart sound present and S2 normal heart sound present GI: COMMON NORMALS: Soft to palpation INSPECTION: Yes abdominal distension and Yes incision (-clot in navel, say in place, well-approximated incision) AUSCULTATION: Yes Absent bowel sounds PALPATION: Yes Soft to palpation : BLADDER/KIDNEY EXAM: Yes catheter in place Extremity: COMMON NORMALS: normal to inspection, full ROM and no clubbing, c yanosis or edema; negative for no pedal edema Neuro: COMMON NORMALS: patient oriented x3, moves all extremities, no focal motor deficits and no sensory deficits noted SENSORIUM/ORIENTATION: Yes alert Psych: COMMON NORMALS: mental status grossly normal, Normal thought process present, cooperative, normal affect and speech normal SPEECH: Yes normal speech THOUGHT PROCESS: Normal thought process present Skin: COMMON NORMALS: no rashes or lesions noted, no jaundice, no petechiae and no mottling GENERAL SKIN EXAM: no rashes or lesions noted Urinary Catheter Management^: Bansal Latex: Cath Placed During This Visit: yes Reason for Continuing Indwelling Catheter: Accurate Measurement of Urinary Output in Critically Ill Patients Urinary Catheter Date of Insertion: 10/05/19 Urinary Catheter Time of Insertion: 19:35 Data : 10/08/19 05:05 10/08/19 05:05 A&P Assessment and plan (1) Jejunal intussusception: -Presented with abdominal pain, persistent nausea and vomiting x3 days with noted jejunal jejunal intussusception with small bowel obstruction with concern for possible malignancy on imaging -Surgery consult by Dr. Dominguez appreciated; s/p emergent exploratory laparotomy with small bowel resection and [id number] anastomosis, POD #3 -Pain control as needed, NPO; need to be cautious with aggressive pain control and narcotic use due to noted altered mental status -NG tube pulled overnight, no need to replace per Dr. Crain unless increased abdominal distention -IVF hydration -Noted minimal leukocytosis, afebrile -completed course of Zosyn -Has been on Eliquis secondary to TAVR; last dose taken on 10/01 as has been u nable to tolerate oral intake since. EBL-25 mL during surgery. We will need to determine when anticoagulation can be safely resumed -blood cx prelim negative -dressing removed by Dr. Dominguez, wound care as needed -encourage ambulation, incentive spirometry -can d/c Zosyn Status: Acute (2) Small bowel obstruction: -As noted above -s/p small bowel resection; likely malignancy, f/u pathology Status: Acute (3) Postoperative ileus: -As noted above -PICC line placed for peripheral nutrition, dietitian recommendations appreciate d Status: Acute (4) Hypertension: -VSS; continue to monitor -on amlodipine Status: Chronic Qualifiers: Hypertension type: essential hypertension Qualified Code(s): I10 - Essential (primary) hypertension (5) ASHD (arteriosclerotic heart disease): -Has known history of CAD s/p stenting x 3, CABG -Hold antiplatelet therapy Status: Chronic (6) Hyperlipidemia: -continue statin once p.o. appropriate Status: Chronic Qualifiers: Hyperlipidemia type: mixed hyperlipidemia Qualified Code(s): E78.2 - Mixed hyperlipidemia (7) S/P TAVR (transcatheter aortic valve replacement): -Done at [facility] in [place] -Follows up with Dr. Rivero who has seen the patient in ED -TAVR done secondary to severe aortic stenosis -Echo (06/2018): EF=60%, mild LVH, no RWMA, mild to moderate MR, trace AR Status: Chronic (8) Arrhythmia: -Has been known to have atrial fibrillation and was previously noted to be bradycardic -Beta-nakul discontinued at [facility] in [place] -telemetry monitoring; discussed risk of developing arrhythmia vs. bradycardia that may require medication or temporary pacing Status: Chronic Qualifiers: Arrhythmia type: other cardiac arrhythmia Qualified Code(s): I49.8 - Other specified cardiac arrhythmias (9) CKD (chronic kidney disease) stage 2, GFR 60-89 ml/min: -baseline Cr wnl -renally dose meds, avoid nephrotoxins -continue to monitor renal function Status: Chronic Additional A&P Information -BPH; on tamsulosin -Oliguria; urine output improving, has Bansal catheter in place, IVF boluses as needed -NPO due to ileus; on peripheral nutrition through PICC line -GI ppx with PPI -DVT ppx with SCDs, heparin -Dispo: home; daughter Maribel ([phone]). Discussed possibility of SNF placement, which patient is agreeable to. Options are [facility] and [facility] -Code status: FULL code; discussed with patient at bedside -ICU care due to need for close monitoring, post-op ileus, altered mental status. Attestations Medical Necessity Statement*: Patient requires hospitalization for continued postop care with development of post-op ileus, currently receiving peripheral nutrition with noted altered mental status overnight. Time Spent in Patient Care: 16 - 35 minutes (>than 50% of time spent in cou nselling and/or direct pt care on unit) . Coding Level of Care Code Acute Supervisor Corduroy Cutting for Chg Fwd Exam Comprehensive Diagnoses Jejunal intussusception K56.1 Small bowel obstruction K56.609 Postoperative ileus K91.89; K56.7 Hypertension I10 Hypertension type: essential hypertension ASHD (arteriosclerotic heart disease) I25.10 Hyperlipidemia E78.2 Hyperlipidemia type: mixed hyperlipidemia S/P TAVR (transcatheter aortic valve replacement) Z95.2 Arrhythmia I49.8 Arrhythmia type: other cardiac arrhythmia CKD (chronic kidney disease) stage 2, GFR 60-89 ml/min N18.2
--- NOTE | 2019-10-08 08:34 | PC.NURSE ---
V.O. from Dr. Trevino for q6H glucose checks, first check [id number], slight non pitting edema noted to BLE and face, answers appropriately at this time, regular unlabored RR 2L NC, slight expiratory wheeze to BLL noted, midline abdominal incision clean dry and intact no redness or drainage noted, supine 30 degrees call light within reach
[2019-10-08] MEDS: pantoprazole 40 mg SDV IVP (09:04)
--- NOTE | 2019-10-08 09:25 | PC.NUTR ---
NUTR PERIPHERAL NUTRITION CONSULT: TPN via PICC line with goal rate of 83 ml/hr providing 1020 kcal (69%) and 85 g PRO (102%) (%NEEDS). Fluids per physician. 125 mls of lipids could be added every other day to provide additional 250 kcal for total of 1270 kcal (86%).
--- NOTE | 2019-10-08 10:23 | PC.NURSE ---
Abdominal incision cleaned, small clot removed, scant amount bright red blood noted to center of incision, rest of incision clean dry and intact no redness noted
[2019-10-08 12:32] LABS: Glucose Point of Care 113 mg/dL (70-110)
[2019-10-08] MEDS: LORazepam 2 mg/mL INJ 1 mL 1 MG IVP (13:34)
--- NOTE | 2019-10-08 17:22 | PC.NURSE ---
slight abdominal distention noted, Dr. Smith at bedside, Luis gave V.O. not to place NG tube unless nausea and emesis is present due to likely whitaker of pt not being complaint and pulling it out
--- NOTE | 2019-10-08 18:34 | P.PN_ITS ---
Subjective Subjective: Interval history: NG tube was taken out. Patient is sleepy remains in sinus rhythm occasional PVCs but no significant arrhythmia noted on the telemetry. Medications: Reviewed: Yes Medication Review Details: Active Medications Generic Name Dose Route Start Last Admin Trade Name Freq PRN Reason Stop Dose Admin Acetaminophen 650 mg 10/05/19 20:49 Tylenol PO Q6H PRN MILD PAIN Amlodipine Besylat e 5 mg 10/07/19 09:00 10/07/19 09:13 Norvasc PO Not Given DAILY ISAMAR Heparin Sodium (Be ef Lung) 5,000 unit 10/06/19 18:00 10/08/19 02:29 Heparin SUBCUT 5,000 unit Q8H ISAMAR Administration Hydromorphone HCl 2 mg 10/08/19 04:33 10/08/19 05:15 Dilaudid Inj IVP 2 mg Q4H PRN Administration PAIN Potassium Chloride /Dextrose/Sod Cl 20 meq in 1,000 m ls @ 125 mls/hr 10/06/19 12:45 10/08/19 06:14 Dextrose 5%-Ns + Kcl 20 IV 125 mls/hr .Q8H ISAMAR Administration Multivitamins 10 m l/ Amino 1,010 mls @ 42 ml s/hr 10/07/19 17:15 10/07/19 17:56 Acids/Electrolyt es IV 42 mls/hr .Q24H ISAMAR Administration Lorazepam 1 mg 10/07/19 17:20 10/07/19 17:37 Ativan IVP 1 mg Q4H PRN Administration ANXIETY Ondansetron HCl 4 mg 10/05/19 20:49 10/06/19 00:41 Zofran IVP 4 mg Q6H PRN Administration NAUSEA AND VOMITI NG Pantoprazole Sodiu m 40 mg 10/06/19 09:00 10/07/19 09:13 Protonix IVP 40 mg DAILY ISAMAR Administration Phenol 3 spray 10/07/19 16:50 Phenaseptic MUCOUS MEM Q2H PRN SORE THROAT Tamsulosin HCl 0.4 mg 10/06/19 09:00 10/07/19 09:13 Flomax PO Not Given DAILY ISAMAR niacin Allergy (Unknown, Verified 10/05/19 18:35) Unknown Vitals/I&O/Wt Last Vital Signs Temp 98.5 F 10/08/19 14:00 Pulse 72 10/08/19 16:00 Resp 17 10/08/19 16:00 BP 135/60 10/08/19 16:00 Pulse Ox 100 10/08/19 16:00 10/08/19 10/08/19 10/08/19 06:59 14:59 22:59 Intake Total 1000 / 3000 847.917 / 847.917 995.4 / 1843.317 Output Total 425 / 1625 320 / 320 550 / 870 Balance 575 / 1375 527.917 / 527.917 445.4 / 973.317 Physical Exam Narrative: EXAM NARRATIVE: GENERAL: Patient is alert, awake and oriented x3. NECK: No jugular vein distension. HEENT: No cyanosis. No icterus. No pallor. HEART: Regular S1 and S2. No murmur, rub or gallop. LUNGS: Clear to auscultate bilaterally. ABDOMEN: Deferred because of bandage . CENTRAL NERVOUS SYSTEM: Grossly nonfocal. EXTREMITIES: Lower extremities without edema billaterly Urinary Catheter Management^: Bansal Latex: Cath Placed During This Visit: yes Reason for Continuing Indwelling Catheter: Accurate Measurement of Urinary Output in Critically Ill Patients Urinary Catheter Date of Insertion: 10/05/19 Urinary Catheter Time of Insertion: 19:35 Data : 10/08/19 05:05 10/08/19 05:05 A&P Assessment and plan (1) ASHD (arteriosclerotic heart disease): Stable from a coronary disease perspective. Continue medicine Status: Chronic (2) S/P TAVR (transcatheter aortic valve replacement): Post TAVR with bioprosthetic valve. Continue to monitor continue current regimen Status: Chronic (3) Hypertension: Controlled. Status: Chronic Qualifiers: Hypertension type: essential hypertension Qualified Code(s): I10 - Essential (primary) hypertension (4) Intermittent atrial fibrillation: Remains in sinus rhythm. Continue meds Status: Acute (5) Jejunal intussusception: As per surgery. Status: Acute Additional A&P Information After reviewing the above results and also based on the patient clinical progress, further recommendations will be made. His overall cardiovascular status seems to be fairly stable at this point. Attestations Medical Necessity Statement*: Require continuation hospitalization for above defined care Coding Level of Care Code Established Pt Acute Catalytic Case Operator for Chg Fwd Patient Type Established History Expanded Problem Focused Exam Expanded Problem Focused Medical Decision Making Moderate Complexity Diagnoses ASHD (arteriosclerotic heart disease) I25.10 S/P TAVR (transcatheter aortic valve replacement) Z95.2 Hypertension I10 Hypertension type: essential hypertension Intermittent atrial fibrillation I48.0 Jejunal intussusception K56.1
[2019-10-08 18:38] LABS: Glucose Point of Care 102 mg/dL (70-110)
[2019-10-08] MEDS: dextrose 5%-ns + KCl 20 20 MEQ/1,000 ML BAG 75 MEQ IV (21:55)
[2019-10-09] VITALS (27 sets, daily range): BP systolic 111–202; BP diastolic 61–108; PULSE 71–108; RESP 10–24; TEMP 36.3–37.1; O2SAT 93–98; BMI 20.5
[2019-10-09 00:34] LABS: Glucose Point of Care 128 mg/dL (70-110)
[2019-10-09] MEDS: heparin 5,000 unit/mL INJ 1 mL 5000 UNIT SUBCUT ×3 (02:33→18:13)
[2019-10-09 05:14] LABS: Basophils % 0.4 %; Eosinophils # 0.2 10^3/uL (0.0-0.8); Eosinophils % 4.5 %; Hematocrit 27.6 % (42.0-52.0); Hemoglobin 8.9 g/dL (11.7-16.6); Lymphocytes # 1.1 10^3/uL (0.8-4.8); Lymphocytes % 20.7 %; Mean Corpuscular HGB Conc 32.2 g/dL (30.0-36.0); Mean Corpuscular Hemoglobin 34.1 pg (28.0-34.0); Mean Corpuscular Volume 105.7 fL (80-94); Mean Platelet Volume 10.3 fL (7.4-10.4); Monocytes # 0.4 10^3/uL (0.2-0.9); Monocytes % 8.3 %; Neutrophils # 3.33 10^3/uL (1.8-7.7); Neutrophils % 65.5 %; Nucleated Red Blood Cells % 0 %; Platelet Count 164 10^3/cmm (130-400); Red Blood Count 2.61 10^6/uL (4.1-5.3); Red Cell Distribution Width 13.5 % (12.1-15.1); White Blood Count 5.1 10^3/uL (4.0-10.0)
[2019-10-09 05:37] LABS: Blood Urea Nitrogen 6 mg/dL (8-23); Carbon Dioxide 26 mmol/L (22-29); Chloride 104 mmol/L (98-107); Glucose 112 mg/dL (65-115); Osmolality Calculated 279 mOsm/kg (285-295); Sodium 136 mmol/L (136-145)
--- NOTE | 2019-10-09 05:54 | PC.NURSE ---
call to patient laying in bed on shift change. Patient stated he was in pain upon nurses arrival. PRN pain medication given to patient. blood pressure noted to be increasing throughout the night. call to to update and verbal order for 5mg IVP hydralazine. patient blood pressure is currently 194/79. patient has had an uneventful night besides being in pain and increase in blood pressure. will continue to monitor.
[2019-10-09] MEDS: hyDRALAzine 20 mg/mL INJ 1 mL 5 MG IVP (06:02)
--- NOTE | 2019-10-09 08:43 | P.PN_ITS ---
Subjective Subjective: Interval history: Hypertensive overnight, received a 5 mg dose of hydralazine IV, had 775 mL urine output. On 2 L nasal cannula, afebrile. Remains hypertensive this morning. Hemoglobin gradually trending down, normal electrolytes and renal function. Received 1 dose of IV Dilaudid 2 mg overnight for pain control. He is POD # 4 s/p emergent exploratory laparotomy with small bowel resection and xffq-[id number] anastomosis. Seen ambulating around the hallways several times throughout the day, pain seems to be better controlled as the day has progressed, improved urine output throughout the day as well. Passing some flatus, started on clear liquid diet. Medications: Reviewed: Yes Medication Review Details: Active Medications Generic Name Dose Route Start Last Admin Trade Name Freq PRN Reason Stop Dose Admin Acetaminophen 650 mg 10/05/19 20:49 Tylenol PO Q6H PRN MILD PAIN Amlodipine Besylat e 5 mg 10/07/19 09:00 10/08/19 08:56 Norvasc PO Not Given DAILY ISAMAR Heparin Sodium (Be ef Lung) 5,000 unit 10/06/19 18:00 10/09/19 02:33 Heparin SUBCUT 5,000 unit Q8H ISAMAR Administration Hydromorphone HCl 2 mg 10/08/19 04:33 10/08/19 21:12 Dilaudid Inj IVP 2 mg Q4H PRN Administration PAIN Potassium Chloride /Dextrose/Sod Cl 20 meq in 1,000 m ls @ 75 mls/hr 10/06/19 12:45 10/08/19 21:55 Dextrose 5%-Ns + Kcl 20 IV 75 mls/hr .[id number] ISAMAR Administration Multivitamins 10 m l/ Amino 1,010 mls @ 42 ml s/hr 10/07/19 17:15 10/08/19 17:38 Acids/Electrolyt es IV 42 mls/hr .Q24H ISAMAR Administration Acetaminophen 1,000 mg in 100 m ls @ 400 mls/hr 10/09/19 07:56 Ofirmev IV Q8H PRN PAIN Lorazepam 1 mg 10/07/19 17:20 10/08/19 13:34 Ativan IVP 1 mg Q4H PRN Administration ANXIETY Ondansetron HCl 4 mg 10/05/19 20:49 10/06/19 00:41 Zofran IVP 4 mg Q6H PRN Administration NAUSEA AND VOMITI NG Pantoprazole Sodiu m 40 mg 10/06/19 09:00 10/08/19 09:04 Protonix IVP 40 mg DAILY ISAMAR Administration Phenol 3 spray 10/07/19 16:50 Phenaseptic MUCOUS MEM Q2H PRN SORE THROAT Tamsulosin HCl 0.4 mg 10/06/19 09:00 10/08/19 08:56 Flomax PO Not Given DAILY ISAMAR niacin Allergy (Unknown, Verified 10/05/19 18:35) Unknown Vitals/I&O/Wt Last Vital Signs Temp 97.8 F 10/09/19 04:00 Pulse 90 10/09/19 08:40 Resp 16 10/09/19 08:37 BP 202/81 10/09/19 06:00 Pulse Ox 96 10/09/19 08:37 10/08/19 10/09/19 10/09/19 22:59 06:59 14:59 Intake Total 2004.4 / 2853.317 Output Total 550 / 870 775 / 1645 Balance 1455.4 / 1983.317 -775 / 1208.317 Physical Exam Const: COMMON NORMALS: no acute distress, patient oriented x3 and alert GENERAL APPEARANCE: cooperative and comfortable ORIENTATION/CONSCIOUSNESS: Yes awake HENMT: COMMON NORMALS: normocephalic, atraumatic, hearing grossly normal bilaterally and moist oral mucous membranes HEAD & SCALP: normocephalic and atraumatic OTHER: -NGT out Eye: COMMON NORMALS: Equal, round and reactive pupils present, EOMs intact bilaterally and conjunctivae normal CONJUNCTIVA: Yes conjunctivae normal PUPIL: Yes Equal, round and reactive pupils present Neck/C-Spine: COMMON NORMALS: full ROM GENERAL: Yes normal visual inspection and Yes trachea midline Resp: COMMON NORMALS: normal respiratory effort, No retractions, No use of accessory muscles and clear to auscultation bilaterally EFFORT & INSPECTION: Yes able to speak in complete sentences, Yes symmetric chest movement and No tachypneic AUSCULTATION: clear to auscultation bilaterally Cardio: COMMON NORMALS: regular rate, regular rhythm, S1 normal heart sound p resent, S2 normal heart sound present and No murmurs present (Cardio) RATE: regular rate RHYTHM: regular rhythm HEART SOUNDS: S1 normal heart sound present and S2 normal heart sound present GI: COMMON NORMALS: Soft to palpation INSPECTION: Yes abdominal distension and Yes incision (-say in place, well-approximated incision) AUSCULTATION: Yes normoactive bowel sounds PALPATION: Yes Soft to palpation and Yes Tenderness to palpation present (GI) (particularly along incision area) Extremity: COMMON NORMALS: normal to inspection, full ROM and no clubbing, cyanosis or edema; negative for no pedal edema Neuro: COMMON NORMALS: patient oriented x3, moves all extremities, no focal motor deficits and no sensory deficits noted SENSORIUM/ORIENTATION: Yes alert OTHER: -ambulatory with walker Psych: COMMON NORMALS: mental status grossly normal, Normal thought process present, cooperative, normal affect and speech normal SPEECH: Yes normal speech THOUGHT PROCESS: Normal thought process present Skin: COMMON NORMALS: no rashes or lesions noted, no jaundice, no petechiae and no mottling GENERAL SKIN EXAM: no rashes or lesions noted Urinary Catheter Management^: Bansal Latex: Cath Placed During This Visit: yes Reason for Continuing Indwelling Catheter: Accurate Measurement of Urinary Output in Critically Ill Patients Urinary Catheter Date of Insertion: 10/05/19 Urinary Catheter Time of Insertion: 19:35 Data : 10/09/19 04:46 10/09/19 04:46 A&P Assessment and plan (1) Jejunal intussusception: -Presented with abdominal pain, persistent nausea and vomiting x3 days with noted jejunal jejunal intussusception with small bowel obstruction with concern for possible malignancy on imaging -Surgery consult by Dr. Dominguez appreciated; s/p emergent exploratory laparotomy with small bowel resection and [id number]-pi-[id number] anastomosis, POD #4 -Pain control as needed, NPO; need to be cautious with aggressive pain control and narcotic use due to noted altered mental status. Start on CLD today as pas sing some flatus -NG tube pulled, no need to replace per Dr. Crain unless increased abdominal distention -IVF hydration -Noted minimal leukocytosis, afebrile -completed course of Zosyn -Has been on Eliquis secondary to TAVR; last dose taken on 10/01 as has been unable to tolerate oral intake since. EBL-25 mL during surgery. We will need to determine when anticoagulation can be safely resumed -blood cx prelim negative -dressing removed by Dr. Dominguez, wound care as needed -encourage ambulation, incentive spirometry Status: Acute (2) Small bowel obstruction: -As noted above -s/p small bowel resection; likely malignancy, f/u pathology Status: Acute (3) Postoperative ileus: -As noted above -PICC line placed for peripheral nutrition, dietitian recommendations appreciated Status: Acute (4) Postoperative anemia due to acute blood loss: -Noted worsening macrocytic anemia -Baseline hemoglobin is within normal limits -Continue to closely monitor H&H -May need transfusion if continued drop below 7 -hold heparin today due to slow trend down Status: Acute (5) Hypertension: -Hypertensive urgency likely secondary to pain, continue to monitor -on amlodipine, increase to 10 mg daily; add hydralazine as needed Status: Chronic Qualifiers: Hypertension type: essential hypertension Qualified Code(s): I10 - Essential (primary) hypertension (6) ASHD (arteriosclerotic heart disease): -Has known history of CAD s/p stenting x 3, CABG -Hold antiplatelet therapy Status: Chronic (7) Hyperlipidemia: -continue statin once p.o. appropriate Status: Chronic Qualifiers: Hyperlipidemia type: mixed hyperlipidemia Qualified Code(s): E78.2 - Mixed hyperlipidemia (8) S/P TAVR (transcatheter aortic valve replacement): -Done at [facility] in [place] -Follows up with Dr. Rivero, cardiology input appreciated -TAVR done secondary to severe aortic stenosis -Echo (06/2018): EF=60%, mild LVH, no RWMA, mild to moderate MR, trace AR Status: Chronic (9) Arrhythmia: -Has been known to have atrial fibrillation and was previously noted to be bradycardic -Beta-nakul discontinued at [facility] in [place] -telemetry monitoring; discussed risk of developing arrhythmia vs. bradycardia that may require medication or temporary pacing Status: Chronic Qualifiers: Arrhythmia type: other cardiac arrhythmia Qualified Code(s): I49.8 - Other specified cardiac arrhythmias (10) CKD (chronic kidney disease) stage 2, GFR 60-89 ml/min: -baseline Cr wnl -renally dose meds, avoid nephrotoxins -continue to monitor renal function Status: Chronic Additional A&P Information -BPH; on tamsulosin -Oliguria; urine output improving, Bansal catheter removed and has been voiding independently -start on CLD today, on peripheral nutrition through PICC line -GI ppx with PPI -DVT ppx with SCDs, hold heparin due to gradual drop in hemoglobin -Dispo: home; daughter Maribel ([phone]). Discussed possibility of SNF placement, which patient is agreeable to. Options are [facility] and [facility] -Code status: FULL code; discussed with patient at bedside -ICU care due to need for close monitoring, post-op ileus, altered mental status. If continued improvement, may consider transfer to floor tomorrow Attestations Medical Necessity Statement*: Patient requires hospitalization for continued postop care including pain control, management of postop ileus and acute blood loss anemia. Time Spent in Patient Care: 16 - 35 minutes (>than 50% of time spent in counselling and/or direct pt care on unit) . Coding Level of Care Code Acute Manager Of Organizational Development for g Fwd Exam Comprehensive Diagnoses Jejunal intussusception K56.1 Small bowel obstruction K56.609 Postoperative ileus K91.89; K56.7 Postoperative anemia due to acute blood loss D62 Hypertension I10 Hypertension type: essential hypertension ASHD (arteriosclerotic heart disease) I25.10 Hyperlipidemia E78.2 Hyperlipidemia type: mixed hyperlipidemia S/P TAVR (transcatheter aortic valve replacement) Z95.2 Arrhythmia I49.8 Arrhythmia type: other cardiac arrhythmia CKD (chronic kidney disease) stage 2, GFR 60-89 ml/min N18.2
--- NOTE | 2019-10-09 08:57 | P.PN_ITS ---
Subjective Subjective: Interval history: Patient overall feels relatively better, still did not pass gas yet Otherwise no acute events overnight Vitals/I&O/Wt Last Vital Signs Temp 97.8 F 10/09/19 04:00 Pulse 90 10/09/19 08:40 Resp 16 10/09/19 08:37 BP 202/81 10/09/19 06:00 Pulse Ox 96 10/09/19 08:37 10/08/19 10/09/19 10/09/19 22:59 06:59 14:59 Intake Total 2004.4 / 2853.317 Output Total 550 / 870 775 / 1645 Balance 1455.4 / 1983.317 -775 / 1208.317 Physical Exam Narrative: EXAM NARRATIVE: Patient is conscious alert oriented X3 BMI 30 Head and neck examination PERRLA no masses no cervical lymphadenopathy no jaundice Cardiac examination audible S1-S2 no murmurs no gallops no arrhythmias Chest is clear bilateral,abscence of Rhonchi or wheezes,no surgical emphysema Abdomen nontender except at the incision site yet no signs of surgical site infection surgical skin staple in place nondistended soft no organomegaly gua rding or rigidity/no signs of peritonitis Urinary Catheter Management^: Bansal Latex: Cath Placed During This Visit: yes Reason for Continuing Indwelling Catheter: Accurate Measurement of Urinary Output in Critically Ill Patients Urinary Catheter Date of Insertion: 10/05/19 Urinary Catheter Time of Insertion: 19:35 Data : 10/09/19 04:46 10/09/19 04:46 A&P Assessment and plan (1) Jejunal intussusception: Status post expiratory laparotomy and resection of small bowel with folf-ww-[id number] anastomosis for jejunal intussusception and underlying small bowel mass 10/05/2019. PLAN OF CARE: CVS: Continue continuous cardiac monitoring,continue heparin subcu as pharma cologic DVT prophylaxis, keep a close eye on the slow drifting of H&H. Patient noticed to have uncontrolled high blood will defer medical management to Dr. Trevino PULMONARY: Continue pulmonary toilet Continue Incentive spirometer every hour Encouraged the patient when coughing to hold a pillow against the abdominal wall GI: We will hold off reinserting NG for now unless the patient starts vomiting Pathology still pending NUTRITION:Once Patient starts passing gas,will start him on clear liquid diet and add to add protein shakes Will continue peripheral parenteral nutrition and if he continues to have an ileus he will benefit from TPN started. RENAL: Continue monitoring kidney functions Strict I's and O's Continue electrolyte protocols for replacement including calcium potassium and magnesium Pain control: Recommend to minimize narcotic dosages as clinically patient starts to be hallucinating Focus on nonnarcotic for pain control as acetaminophen INFECTIOUS DISEASE: No indication for antibiotics from surgical standpoint of view NEUROLOGY: No evidence of neurological deficit MOBILITY: Continue physical therapy SKIN AND WOUND: Keep incision open to air From surgical standpoint of view if patient continues to be appropriate medically can be transferred to the floor to telemetry, will defer to Dr. Trevino and Dr. Rivero with regard to overall medical condition including cardiac status. Assurance and education Continue encouragement Emphasis on discussion for potential need for rehabilitation, I will defer to our physical therapy and forensic social worker to discuss with the patient potential options with coordination with Dr. Trevino. Status: Acute Attestations 2 Medical Necessity Statement*: Medical necessity care is expected to cross 2 midnights Time Spent in Patient Care: (>than 50% of time spent in counselling and/or direct pt care on unit) . Coding Level of Care Code Acute Traffic Incident Management Manager for Vinita Porter Diagnoses Jejunal intussusception K56.1
[2019-10-09] MEDS: amlodipine 10 mg Tablet PO (09:41)
[2019-10-09] MEDS: tamsulosin 0.4 mg Capsule PO (09:41)
[2019-10-09] MEDS: pantoprazole 40 mg SDV IVP (10:15)
--- NOTE | 2019-10-09 10:29 | P.PN_ITS ---
Subjective Subjective: Interval history: HPI: This is a 84-year-old man with past medical history of CAD status post CABGx3, history of aortic valve stenosis status post TAVR, chronic intermittent atrial fibrillation who was admitted with complaints of nausea and vomiting. He underwent CT scan of abdomen and pelvis that showed jejunal intussusception with small bowel obstruction and findings concerning for potential malignancy. Patient underwent exploratory laparotomy and small bowel resection 1 foot distal to ligament of Treitz with caiv-wf-vksc anastomosis by Dr. Crain on 05 October 2019. Postprocedure, he has had slow improvement. No events on telemetry patient remains in sinus rhythm or sinus tachycardia. He has not passed gas yet and is still n.p.o. he was hypotensive and received hydralazine. Medications: Reviewed: Yes Medication Review Details: Current Medications Acetaminophen (Tylenol) 650 mg PO Q6H PRN PRN Reason: MILD PAIN Amlodipine Besylate (Norvasc) 10 mg PO DAILY [facility] Last Admin: 10/09/19 09:41 Dose: 10 mg Documented by: Heparin Sodium (Beef Lung) (Heparin) 5,000 unit SUBCUT Q8H ISAMAR Last Admin: 10/09/19 10:15 Dose: 5,000 unit Documented by: Hydralazine HCl (Apresoline) 10 mg IVP Q4H PRN PRN Reason: Elevated blood pressure Hydromorphone HCl (Dilaudid Inj) 2 mg IVP Q4H PRN PRN Reason: PAIN Last Admin: 10/08/19 21:12 Dose: 2 mg Documented by: Potassium Chloride/Dextrose/Sod Cl (Dextrose 5%-Ns + Kcl 20) 20 meq in 1,000 mls @ 75 mls/hr IV .[id number] ISAMAR Last Admin: 10/08/19 21:55 Dose: 75 mls/hr Documented by: Multivitamins 10 ml/ Amino (Acids/Electrolytes) 1,010 mls @ 42 mls/hr IV .Q24H ISAMAR Last Admin: 10/08/19 17:38 Dose: 42 mls/hr Documented by: Acetaminophen (Ofirmev) 1,000 mg in 100 mls @ 400 mls/hr IV Q8H PRN PRN Reason: PAIN Last Admin: 10/09/19 09:30 Dose: 400 mls/hr Documented by: Lorazepam (Ativan) 1 mg IVP Q4H PRN PRN Reason: ANXIETY Last Admin: 10/08/19 13:34 Dose: 1 mg Documented by: Ondansetron HCl (Zofran) 4 mg IVP Q6H PRN PRN Reason: NAUSEA AND VOMITING Last Admin: 10/06/19 00:41 Dose: 4 mg Documented by: Pantoprazole Sodium (Protonix) 40 mg IVP DAILY [facility] [place] Last Admin: 10/09/19 10:15 Dose: 40 mg Documented by: Phenol (Phenaseptic) 3 spray MUCOUS MEM Q2H PRN PRN Reason: SORE THROAT Tamsulosin HCl (Flomax) 0.4 mg PO DAILY [facility] [place] Last Admin: 10/09/19 09:41 Dose: 0.4 mg Documented by: Vitals/I&O/Wt Last Vital Signs Temp 97.8 F 10/09/19 04:00 Pulse 90 10/09/19 08:40 Resp 16 10/09/19 08:37 BP 202/81 10/09/19 06:00 Pulse Ox 96 10/09/19 08:37 10/08/19 10/09/19 10/09/19 22:59 06:59 14:59 Intake Total 2004.4 / 2853.317 Output Total 550 / 870 775 / 1645 Balance 1455.4 / 1983.317 -775 / 1208.317 Physical Exam Narrative: EXAM NARRATIVE: GENERAL: obese man sitting in chair in no acute distress HEENT: Pupils equal round reactive to light. No pallor or icterus. NECK: central trachea, CARDIOVASCULAR SYSTEM: S1-S2 regular. No murmur or gallops. RESPIRATORY SYSTEM: Chest clear to auscultation. No wheezes rhonchi or rubs heard. EXTREMITIES: No cyanosis edema. No signs of chronic venous insufficiency. CLOTH SHEARER: Patient is alert oriented ?3. No focal neurological deficits. PSYCH: Normal insight and judgment. No suicidal or homicidal ideations. Urinary Catheter Management^: Bansal Latex: Cath Placed During This Visit: yes Reason for Continuing Indwelling Catheter: Accurate Measurement of Urinary Output in Critically Ill Patients Urinary Catheter Date of Insertion: 10/05/19 Urinary Catheter Time of Insertion: 19:35 Data : 10/09/19 04:46 10/09/19 04:46 A&P Assessment and plan (1) Jejunal intussusception: Postop day #4 status post exploratory laparotomy with small bowel resection and npkl-[id number]-[id number] anastomosis. -Management as per primary and surgery teams. Status: Acute (2) ASHD (arteriosclerotic heart disease): Stable. -Recommend starting on low-dose aspirin once deemed appropriate Status: Chronic (3) S/P TAVR (transcatheter aortic valve replacement): Status: Chronic (4) Hypertension: Patient was hypertensive overnight and dose of amlodipine was increased to 10 mg. Status: Chronic Qualifiers: Hypertension type: essential hypertension Qualified Code(s): I10 - Es sential (primary) hypertension Additional A&P Information Hyperlipidemia Chronic paroxysmal atrial fibrillation: Recommend starting on Eliquis once deemed appropriate Small bowel obstruction status post resection: concern for small bowel movement malignancy Post Op ileus Anemia BPH CKD stage II History of bradycardia Attestations Medical Necessity Statement*: As per primary team Coding Level of Care Code Acute Vascular Technologist for Chg Fwd Diagnoses Jejunal intussusception K56.1 ASHD (arteriosclerotic heart disease) I25.10 S/P TAVR (transcatheter aortic valve replacement) Z95.2 Hypertension I10 Hypertension type: essential hypertension
[2019-10-09 12:47] LABS: Glucose Point of Care 127 mg/dL (70-110)
[2019-10-09] MEDS: dextrose 5%-ns + KCl 20 20 MEQ/1,000 ML BAG 75 MEQ IV (13:51)
--- NOTE | 2019-10-09 14:44 | PC.NURSE ---
0900 Ambulated out of room into [facility] around ICU up to room 3 and back to room and set up in bedside chair for 1 1/2 hours. Aidan very well. Taking very few sips of clear liquids. No c/o's.
--- NOTE | 2019-10-09 14:47 | PC.NURSE ---
1400 Ambulated around ICU unit twice without walker. WAs tired during second lap but aaron well. Set in bedside chair afterwards. Belched when getting out of bed.
[2019-10-09 17:35] LABS: Glucose Point of Care 125 mg/dL (70-110)
[2019-10-09] MEDS: HYDROmorphone 1 mg/mL INJ 1 mL 2 MG IVP (21:44)
[2019-10-10] VITALS (13 sets, daily range): BP systolic 101–168; BP diastolic 59–106; PULSE 77–113; RESP 12–23; TEMP 36.6–37.3; O2SAT 89–98; BMI 32.1
[2019-10-10 00:16] LABS: Glucose Point of Care 131 mg/dL (70-110)
[2019-10-10] MEDS: LORazepam 2 mg/mL INJ 1 mL 1 MG IVP (00:45)
[2019-10-10] MEDS: dextrose 5%-ns + KCl 20 20 MEQ/1,000 ML BAG 75 MEQ IV ×2 (00:46→18:28)
--- NOTE | 2019-10-10 02:44 | PC.NURSE ---
summary of care [id number] Upon receiving report patient stated that he was having abd pain that he rated 8/10 pain. IV Tylenol given to patient per MAY order. Tylenol appeared to help patient for approximately 1 hour. patient woke up complaining of abd pain 12/10 pain. 2MG Dilated given to patient per MAY order. 0010 patient stating he is currently pain free, but not able to sleep. patient very frustrated that he is not sleeping and would like something to help sleep. 1MG ativan given per MAY. patient resting in bed with eyes closed. vital signs WNL. will continue to monitor.
[2019-10-10 05:02] LABS: Basophils % 0.5 %; Eosinophils # 0.2 10^3/uL (0.0-0.8); Eosinophils % 4.6 %; Hematocrit 28.5 % (42.0-52.0); Hemoglobin 9.1 g/dL (11.7-16.6); Lymphocytes # 1.2 10^3/uL (0.8-4.8); Lymphocytes % 28.4 %; Mean Corpuscular HGB Conc 31.9 g/dL (30.0-36.0); Mean Corpuscular Volume 106.3 fL (80-94); Mean Platelet Volume 10.6 fL (7.4-10.4); Monocytes # 0.4 10^3/uL (0.2-0.9); Monocytes % 8.5 %; Neutrophils # 2.38 10^3/uL (1.8-7.7); Neutrophils % 57.8 %; Nucleated Red Blood Cells % 0 %; Platelet Count 200 10^3/cmm (130-400); Red Blood Count 2.68 10^6/uL (4.1-5.3); Red Cell Distribution Width 13.5 % (12.1-15.1); White Blood Count 4.1 10^3/uL (4.0-10.0)
[2019-10-10 06:07] LABS: Anion Gap 10.9 (5-19); Blood Urea Nitrogen 9 mg/dL (8-23); Carbon Dioxide 24 mmol/L (22-29); Chloride 104 mmol/L (98-107); Glucose 117 mg/dL (65-115); Osmolality Calculated 277 mOsm/kg (285-295); Potassium 3.9 mmol/L (3.5-5.1); Sodium 135 mmol/L (136-145)
--- NOTE | 2019-10-10 06:08 | PM.PN ---
Subjective Subjective: Interval history: No acute events overnight patient continues to pass some gas. Having good urine output Pathology is still pending. Vitals/I&O/Wt Last Vital Signs Temp 98.1 F 10/09/19 20:00 Pulse 82 10/10/19 04:00 Resp 12 10/10/19 04:00 BP 122/68 10/10/19 04:00 Pulse Ox 97 10/10/19 04:00 10/09/19 10/09/19 10/10/19 14:59 22:59 06:59 Intake Total 1150 / 1150 1178.7 / 2328.7 818.75 / 3147.45 Output Total 1250 / 1250 400 / 1650 Balance -100 / -100 778.7 / 678.7 818.75 / 1497.45 Weight last 48 hrs Weight 123 lb Physical Exam Narrative: EXAM NARRATIVE: Patient is conscious alert oriented X3 BMI 21 Head and neck examination PERRLA no masses no cervical lymphadenopathy no jaundice Cardiac examination audible S1-S2 no murmurs no gallops no arrhythmias Chest is clear bilateral,abscence of Rhonchi or wheezes,no surgical emphysema Abdomen nontender except mildly at the incision site but no surgical site infection and skin say in place nondistended soft no organomegaly guarding or rigidity/no signs of peritonitis Urinary Catheter Management^: Bansal Latex: Cath Placed During This Visit: yes Reason for Continuing Indwelling Catheter: Accurate Measurement of Urinary Output in Critically Ill Patients Urinary Catheter Date of Insertion: 10/05/19 Urinary Catheter Time of Insertion: 19:35 Data : 10/10/19 04:18 10/10/19 04:18 A&P Assessment and plan (1) Jejunal intussusception: Status post laparotomy and resection of small bowel with jaav-hl-oenl anastomosis for jejunal intussusception and underlying small bowel mass 10/05/2019. PLAN OF CARE: CVS: Continue continuous cardiac monitoring,continue holding heparin subcu as pharmacologic DVT prophylaxis. PULMONARY: Continue pulmonary toilet Continue Incentive spirometer every hour Encouraged the patient when coughing to hold a pillow against the abdominal wall GI: Continue clear liquid diet slowly Pathology still pending NUTRITION: Clear liquid diet slowly/continue PPN RENAL: Continue monitoring kidney functions Strict I's and O's Continue electrolyte protocols for replacement including calcium potassium and magnesium Pain control:Will Switch to hydrocodone 5/325 mg p.o. every 6 hours as needed Focus on nonnarcotic for pain control as acetaminophen INFECTIOUS DISEASE: No indication for antibiotics from surgical standpoint of view NEUROLOGY: No evidence of neurological deficit MOBILITY: Continue physical therapy SKIN AND WOUND: Keep incision open to air From surgical standpoint of view if patient continues to be appropriate medically can be transferred to the floor to telemetry, will defer to Dr. Trevino and Dr. Rivero with regard to overall medical condition including cardiac status. Assurance and education Continue encouragement Emphasis on discussion for potential need for rehabilitation, I will defer to our physical therapy and social work msw to discuss with the patient potential options with coordination with Dr. Trevino. Status: Acute Attestations Medical Necessity Statement*: Medical necessity care is expected to cross 2 midnights Time Spent in Patient Care: (>than 50% of time spent in counselling and/or direct pt care on unit). Coding Level of Care Code Acute Supervisor Statement Clerks for Vinita Porter Diagnoses Jejunal intussusception K56.1
--- NOTE | 2019-10-10 07:54 | P.PN_ITS ---
Subjective Subjective: Interval history: Blood pressure seems to be better, no hydralazine required. POD # 5 s/p emergent exploratory laparotomy with small bowel resection and [id number] anastomosis. Passing gas, continues to tolerate CLD. PVCs with sinus rhythm on telemetry. As the day has gone by, no further emesis. Holding CLD for now pending no further nausea and vomiting. Medications: Reviewed: Yes Medication Review Details: Active Medications Generic Name Dose Route Start Last Admin Trade Name Freq PRN Reason Stop Dose Admin Acetaminophen 650 mg 10/05/19 20:49 Tylenol PO Q6H PRN MILD PAIN Amlodipine Besylat e 5 mg 10/07/19 09:00 10/08/19 08:56 Norvasc PO Not Given DAILY ISAMAR Heparin Sodium (Be ef Lung) 5,000 unit 10/06/19 18:00 10/09/19 02:33 Heparin SUBCUT 5,000 unit Q8H ISAMAR Administration Hydromorphone HCl 2 mg 10/08/19 04:33 10/08/19 21:12 Dilaudid Inj IVP 2 mg Q4H PRN Administration PAIN Potassium Chloride /Dextrose/Sod Cl 20 meq in 1,000 m ls @ 75 mls/hr 10/06/19 12:45 10/08/19 21:55 Dextrose 5%-Ns + Kcl 20 IV 75 mls/hr .[id number] ISAMAR Administration Multivitamins 10 m l/ Amino 1,010 mls @ 42 ml s/hr 10/07/19 17:15 10/08/19 17:38 Acids/Electrolyt es IV 42 mls/hr .Q24H ISAMAR Administration Acetaminophen 1,000 mg in 100 m ls @ 400 mls/hr 10/09/19 07:56 Ofirmev IV Q8H PRN PAIN Lorazepam 1 mg 10/07/19 17:20 10/08/19 13:34 Ativan IVP 1 mg Q4H PRN Administration ANXIETY Ondansetron HCl 4 mg 10/05/19 20:49 10/06/19 00:41 Zofran IVP 4 mg Q6H PRN Administration NAUSEA AND VOMITI NG Pantoprazole Sodiu m 40 mg 10/06/19 09:00 10/08/19 09:04 Protonix IVP 40 mg DAILY ISAMAR Administration Phenol 3 spray 07/23/20 16:50 Phenaseptic MUCOUS MEM Q2H PRN SORE THROAT Tamsulosin HCl 0.4 mg 10/06/19 09:00 10/08/19 08:56 Flomax PO Not Given DAILY ISAMAR niacin Allergy (Unknown, Verified 10/05/19 18:35) Unknown Vitals/I&O/Wt Last Vital Signs Temp 98.0 F 10/10/19 06:00 Pulse 88 10/10/19 06:00 Resp 18 10/10/19 06:00 BP 168/82 10/10/19 06:00 Pulse Ox 97 10/10/19 06:00 10/09/19 10/10/19 10/10/19 22:59 06:59 14:59 Intake Total 1178.7 / 2328.7 878.75 / 3207.45 Output Total 400 / 1650 Balance 778.7 / 678.7 878.75 / 1557.45 Weight last 48 hrs Weight 55.792 kg Physical Exam Const: COMMON NORMALS: no acute distress, patient oriented x3 and alert GENERAL APPEARANCE: cooperative and comfortable ORIENTATION/CONSCIOUSNESS: Yes awake HENMT: COMMON NORMALS: normocephalic, atraumatic, hearing grossly normal bilaterally and moist oral mucous membranes HEAD & SCALP: normocephalic and atraumatic OTHER: -NGT out Eye: COMMON NORMALS: Equal, round and reactive pupils present, EOMs intact bilaterally and conjunctivae normal CONJUNCTIVA: Yes conjunctivae normal PUPIL: Yes Equal, round and reactive pupils present Neck/C-Spine: COMMON NORMALS: full ROM GENERAL: Yes normal visual inspection and Yes trachea midline Resp: COMMON NORMALS: normal respiratory effort, No retractions, No use of accessory muscles and clear to auscultation bilaterally EFFORT & INSPECTION: Yes able to speak in complete sentences, Yes symmetric chest movement and No tachypneic AUSCULTATION: clear to auscultation bilaterally Cardio: COMMON NORMALS: regular rate, regular rhythm, S1 normal heart sound present, S2 normal heart sound present and No murmurs present (Cardio) RATE: regular rate RHYTHM: regular rhythm HEART SOUNDS: S1 normal heart sound present and S2 normal heart sound present GI: COMMON NORMALS: Soft to palpation INSPECTION: Yes abdominal distension and Yes incision (-say in place, well-approximated incision) AUSCULTATION: Yes normoactive bowel sounds PALPATION: Yes Soft to palpation and Yes Tenderness to palpation present (GI) (particularly along incision area) : BLADDER/KIDNEY EXAM: Yes catheter in place Extremity: COMMON NORMALS: normal to inspection, full ROM and no clubbing, cyanosis or edema; negative for no pedal edema Neuro: COMMON NORMALS: patient oriented x3, moves all extremities, no focal motor deficits and no sensory deficits noted SENSORIUM/ORIENTATION: Yes alert OTHER: -ambulatory with walker Psych: COMMON NORMALS: mental status grossly normal, Normal thought process present, cooperative, normal affect and speech normal SPEECH: Yes normal speech THOUGHT PROCESS: Normal thought process present Skin: COMMON NORMALS: no rashes or lesions noted, no jaundice, no petechiae and no mottling GENERAL SKIN EXAM: no rashes or lesions noted Urinary Catheter Management^: Bansal Latex: Cath Placed During This Visit: yes Reason for Continuing Indwelling Catheter: Accurate Measurement of Urinary Output in Critically Ill Patients Urinary Catheter Date of Insertion: 10/05/19 Urinary Catheter Time of Insertion: 19:35 Data : 10/10/19 04:18 10/10/19 04:18 A&P Assessment and plan (1) Jejunal intussusception: -Presented with abdominal pain, persistent nausea and vomiting x3 days with noted jejunal jejunal intussusception with small bowel obstruction with concern for possible malignancy on imaging -Surgery consult by Dr. Dominguez appreciated; s/p emergent exploratory laparotomy with small bowel resection and [id number]-[id number] anastomosis, POD #5 -Pain control as needed, NPO; need to be cautious with aggressive pain control and narcotic use due to noted altered mental status. Tolerating CLD, passing s ome flatus. Will need to hold PO intake due to N/V, some increased abdominal distention today -NG tube pulled, no need to replace per Dr. Crain unless increased abdominal distention -IVF hydration -Noted minimal leukocytosis, afebrile -completed course of Zosyn -Has been on Eliquis secondary to TAVR; last dose taken on 10/01 as has been unable to tolerate oral intake since. EBL-25 mL during surgery. We will need to determine when anticoagulation can be safely resumed -blood cx prelim negative -dressing removed by Dr. Dominguez, wound care as needed -encourage ambulation, incentive spirometry Status: Acute (2) Small bowel obstruction: -As noted above -s/p small bowel resection; likely malignancy, f/u pathology Status: Acute (3) Postoperative ileus: -As noted above -PICC line placed for peripheral nutrition, dietitian recommendations appreciated Status: Acute (4) Postoperative anemia due to acute blood loss: -Noted worsening macrocytic anemia post-op -Baseline hemoglobin is within normal limits -Continue to closely monitor H&H -May need transfusion if continued drop below 7 -continue to hold heparin due to slow trend down Status: Acute (5) Hypertension: -Hypertensive urgency likely secondary to pain, continue to monitor -on amlodipine; hydralazine as needed Status: Chronic Qualifiers: Hypertension type: essential hypertension Qualified Code(s): I10 - Essential (primary) hypertension (6) ASHD (arteriosclerotic heart disease): -Has known history of CAD s/p stenting x 3, CABG -Hold antiplatelet therapy Status: Chronic (7) Hyperlipidemia: -continue statin once p.o. appropriate Status: Chronic Qualifiers: Hyperlipidemia type: mixed hyperlipidemia Qualified Code(s): E78.2 - Mixed hyperlipidemia (8) S/P TAVR (transcatheter aortic valve replacement): -Done at [facility] in [place] -Follows up with Dr. Rivero, cardiology input appreciated -TAVR done secondary to severe aortic stenosis -Echo (06/2018): EF=60%, mild LVH, no RWMA, mild to moderate MR, trace AR Status: Chronic (9) Arrhythmia: -Has been known to have atrial fibrillation and was previously noted to be bradycardic -Beta-nakul discontinued at [facility] in [place] -telemetry monitoring; discussed risk of developing arrhythmia vs. bradycardia that may require medication or temporary pacing Status: Chronic Qualifiers: Arrhythmia type: other cardiac arrhythmia Qualified Code(s): I49.8 - Other specified cardiac arrhythmias (10) CKD (chronic kidney disease) stage 2, GFR 60-89 ml/min: -baseline Cr wnl -renally dose meds, avoid nephrotoxins -continue to monitor renal function Status: Chronic Additional A&P Information -BPH; on tamsulosin -Oliguria; urine output improving, Bansal catheter removed and has been voiding independently -on CLD, on peripheral nutrition through PICC line -GI ppx with PPI -DVT ppx with SCDs, hold heparin due to gradual drop in hemoglobin -Dispo: home; daughter Maribel ([phone]). Discussed possibility of SNF placement, which patient is agreeable to. Accepted to [facility] pending pre-auth but may prefer to go to [facility] (closer to home) -Code status: FULL code Attestations Medical Necessity Statement*: Patient requires hospitalization for continued post-op care including continued pain control, ileus pending consistent PO tolerance, continued hemodynamic status and telemetry monitoring. Time Spent in Patient Care: 16 - 35 minutes (>than 50% of time spent in counselling and/or direct pt care on unit) . Coding Level of Care Code Acute Mercury Cracking Tester for Chg Fwd Exam Comprehensive Diagnoses Jejunal intussusception K56.1 Small bowel obstruction K56.609 Postoperative ileus K91.89; K56.7 Postoperative anemia due to acute blood loss D62 Hypertension I10 Hypertension type: essential hypertension ASHD (arteriosclerotic heart disease) I25.10 Hyperlipidemia E78.2 Hyperlipidemia type: mixed hyperlipidemia S/P TAVR (transcatheter aortic valve replacement) Z95.2 Arrhythmia I49.8 Arrhythmia type: other cardiac arrhythmia CKD (chronic kidney disease) stage 2, GFR 60-89 ml/min N18.2
[2019-10-10] MEDS: ondansetron 2 mg/ML SDV 2 mL 4 MG IVP (09:40)
[2019-10-10] MEDS: pantoprazole 40 mg SDV IVP (09:41)
--- NOTE | 2019-10-10 10:40 | PM.PN ---
Subjective Subjective: Interval history: HPI: This is a 84-year-old man with past medical history of CAD status post CABGx3, history of aortic valve stenosis status post TAVR, chronic intermittent atrial fibrillation who was admitted with complaints of nausea and vomiting. He underwent CT scan of abdomen and pelvis that showed jejunal intussusception with small bowel obstruction and findings concerning for potential malignancy. Patient underwent exploratory laparotomy and small bowel resection 1 foot distal to ligament of Treitz with ygjr-he-trar anastomosis by Dr. Crain on 05 October 2019. Postprocedure, he has had slow improvement. No events on telemetry patient remains in sinus rhythm or sinus tachycardia with occasional PVC's. Medications: Reviewed: Yes Medication Review Details: Current Medications Acetaminophen (Tylenol) 650 mg PO Q6H PRN PRN Reason: MILD PAIN Hydrocodone Bitart/Acetaminophen (Startex 5-325 Mg) 1 tab PO Q6H PRN PRN Reason: MODERATE PAIN Amlodipine Besylate (Norvasc) 10 mg PO DAILY [facility] Last Admin: 10/09/19 09:41 Dose: 10 mg Documented by: Heparin Sodium (Beef Lung) (Heparin) 5,000 unit SUBCUT Q8H [facility] Last Admin: 10/09/19 18:13 Dose: 5,000 unit Documented by: Hydralazine HCl (Apresoline) 10 mg IVP Q4H PRN PRN Reason: Elevated blood pressure Potassium Chloride/Dextrose/Sod Cl (Dextrose 5%-Ns + Kcl 20) 20 meq in 1,000 mls @ 75 mls/hr IV .[id number] [facility] Last Admin: 10/10/19 00:46 Dose: 75 mls/hr Documented by: Multivitamins 10 ml/ Amino (Acids/Electrolytes) 1,010 mls @ 42 mls/hr IV .Q24H [facility] Last Admin: 10/09/19 17:39 Dose: 42 mls/hr Documented by: Lorazepam (Ativan) 1 mg IVP Q4H PRN PRN Reason: ANXIETY Last Admin: 10/10/19 00:45 Dose: 1 mg Documented by: Ondansetron HCl (Zofran) 4 mg IVP Q6H PRN PRN Reason: NAUSEA AND VOMITING Last Admin: 10/10/19 09:40 Dose: 4 mg Documented by: Pantoprazole Sodium (Protonix) 40 mg IVP DAILY [facility] Last Admin: 10/10/19 09:41 Dose: 40 mg Documented by: Phenol (Phenaseptic) 3 spray MUCOUS MEM Q2H PRN PRN Reason: SORE THROAT Tamsulosin HCl (Flomax) 0.4 mg PO DAILY [facility] Last Admin: 10/09/19 09:41 Dose: 0.4 mg Documented by: Vitals/I&O/Wt Last Vital Signs Temp 98.0 F 10/10/19 06:00 Pulse 88 10/10/19 06:00 Resp 18 10/10/19 06:00 BP 168/82 10/10/19 06:00 Pulse Ox 97 10/10/19 06:00 10/09/19 10/10/19 10/10/19 22:59 06:59 14:59 Intake Total 1178.7 / 2328.7 878.75 / 3207.45 Output Total 400 / 1650 Balance 778.7 / 678.7 878.75 / 1557.45 Weight last 48 hrs Weight 123 lb Physical Exam Narrative: EXAM NARRATIVE: GENERAL: obese man sitting in chair in no acute distress HEENT: Pupils equal round reactive to light. No pallor or icterus. NECK: central trachea, CARDIOVASCULAR SYSTEM: S1-S2 regular. No murmur or gallops. RESPIRATORY SYSTEM: Chest clear to auscultation. No wheezes rhonchi or rubs heard. EXTREMITIES: No cyanosis edema. No signs of chronic venous insufficiency. CLINICAL QUALITY RN: Patient is alert oriented ?3. No focal neurological deficits. PSYCH: Normal insight and judgment. Urinary Catheter Management^: Bansal Latex: Cath Placed During This Visit: yes Reason for Continuing Indwelling Catheter: Accurate Measurement of Urinary Output in Critically Ill Patients Urinary Catheter Date of Insertion: 10/05/19 Urinary Catheter Time of Insertion: 19:35 Data : 10/10/19 04:18 10/10/19 04:18 A&P Assessment and plan (1) Jejunal intussusception: Postop day #5 status post exploratory laparotomy with small bowel resection and [id number]-yz-[id number] anastomosis. -Management as per primary and surgery teams. Status: Acute (2) ASHD (arteriosclerotic heart disease): Stable. -Recommend starting on low-dose aspirin once deemed appropriate Status: Chronic (3) S/P TAVR (transcatheter aortic valve replacement): Status: Chronic (4) Hypertension: Patient was hypertensive overnight and dose of amlodipine was increased to 10 mg. Status: Chronic Qualifiers: Hypertension type: essential hypertension Qualified Code(s): I10 - Essential (primary) hypertension Additional A&P Information Hyperlipidemia Chronic paroxysmal atrial fibrillation: Recommend starting on Eliquis once deemed appropriate Tachycardia: start on low dose metoprolol. 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 Coding Level of Care Code Acute Document Management Consultant for Chg Fwd Diagnoses Jejunal intussusception K56.1 ASHD (arteriosclerotic heart disease) I25.10 S/P TAVR (transcatheter aortic valve replacement) Z95.2 Hypertension I10 Hypertension type: essential hypertension
[2019-10-10] MEDS: HYDROcodone-acetaminophen 5-325 mg Tablet 1 TAB PO (14:07)
[2019-10-10] MEDS: tamsulosin 0.4 mg Capsule PO (14:07)
[2019-10-10] MEDS: amlodipine 10 mg Tablet PO (14:09)
[2019-10-10] MEDS: metoprolol succinate ER (24 HR) 25 mg Tablet 12.5 MG PO (14:09)
[2019-10-10 15:00] LABS: Glucose Point of Care 127 mg/dL (70-110)
[2019-10-10] MEDS: glycerin adult supp 1 EACH PR (15:22)
[2019-10-10 17:56] LABS: Glucose Point of Care 100 mg/dL (70-110)
[2019-10-10 17:56] LABS: Glucose Point of Care 56 mg/dL (70-110)
[2019-10-11] VITALS (18 sets, daily range): BP systolic 111–171; BP diastolic 55–101; PULSE 78–100; RESP 14–23; TEMP 36.7–37.2; O2SAT 92–98
[2019-10-11 01:14] LABS: Glucose Point of Care 119 mg/dL (70-110)
[2019-10-11] MEDS: dextrose 5%-ns + KCl 20 20 MEQ/1,000 ML BAG 75 MEQ IV ×2 (03:33→17:39)
[2019-10-11 05:20] LABS: Basophils % 0.2 %; Eosinophils # 0.2 10^3/uL (0.0-0.8); Hematocrit 27.7 % (42.0-52.0); Hemoglobin 8.7 g/dL (11.7-16.6); Mean Corpuscular HGB Conc 31.4 g/dL (30.0-36.0); Mean Corpuscular Hemoglobin 32.8 pg (28.0-34.0); Mean Corpuscular Volume 104.5 fL (80-94); Mean Platelet Volume 10.5 fL (7.4-10.4); Monocytes # 0.5 10^3/uL (0.2-0.9); Monocytes % 9.1 %; Neutrophils # 3.66 10^3/uL (1.8-7.7); Neutrophils % 69.3 %; Nucleated Red Blood Cells % 0 %; Platelet Count 221 10^3/cmm (130-400); Red Blood Count 2.65 10^6/uL (4.1-5.3); Red Cell Distribution Width 13.6 % (12.1-15.1); White Blood Count 5.3 10^3/uL (4.0-10.0)
--- NOTE | 2019-10-11 05:29 | P.PN_ITS ---
Subjective Subjective: Interval history: Patient had large liquidy bowel movement yesterday and feels better Had better urine output Vitals/I&O/Wt Last Vital Signs Temp 98.1 F 10/11/19 04:52 Pulse 91 10/11/19 04:52 Resp 16 10/11/19 04:52 BP 124/64 10/11/19 04:52 Pulse Ox 93 10/11/19 04:52 10/10/19 10/10/19 10/11/19 14:59 22:59 06:59 Intake Total 1000 / 1000 1009 / 2009 681.25 / 2691.25 Output Total 900 / 900 100 / 1000 Balance 100 / 100 910 / 1010 681.25 / 1691.25 Weight last 48 hrs Weight 193 lb Weight 123 lb Physical Exam Narrative: EXAM NARRATIVE: Patient is conscious alert oriented X3 BMI 32 Head and neck examination PERRLA no masses no cervical lymphadenopathy no jaundice Cardiac examination audible S1-S2 no murmurs no gallops no arrhythmias Chest is clear bilateral,abscence of Rhonchi or wheezes,no surgical emphysema Abdomen nontender,less distended soft no organomegaly guarding or rigidity/no signs of peritonitis Urinary Catheter Management^: Bansal Latex: Cath Placed During This Visit: yes Reason for Continuing Indwelling Catheter: Accurate Measurement of Urinary Output in Critically Ill Patients Urinary Catheter Date of Insertion: 10/05/19 Urinary Catheter Time of Insertion: 19:35 Data : 10/11/19 04:15 10/11/19 04:15 Micro: Microbiology 10/05/19 22:47 Blood Culture - Final Blood NO GROWTH AFTER 5 DAYS 10/05/19 22:42 Blood Culture - Final Blood NO GROWTH AFTER 5 DAYS A&P Assessment and plan (1) Jejunal intussusception: Status post laparotomy and resection of small bowel with etgp-zq-[id number] anastomosis for jejunal intussusception and underlying small bowel mass 10/05/2019. PLAN OF CARE: CVS: Continue continuous cardiac monitoring,continue holding heparin subcu as pharmacologic DVT prophylaxis. PULMONARY: Continue pulmonary toilet Continue Incentive spirometer every hour Encouraged the patient when coughing to hold a pillow against the abdominal wall GI: Will resume liquid diet and add protein shakes with every meal, encouraged patient to go slow on p.o. intake so he will not feel bloated. Pathology still pending NUTRITION: Clear liquid diet slowly/continue PPN for now RENAL: Continue monitoring kidney functions Strict I's and O's Pain control: Hydrocodone 5/325 mg p.o. every 6 hours as needed INFECTIOUS DISEASE: No indication for antibiotics from surgical standpoint of v iew NEUROLOGY: No evidence of neurological deficit MOBILITY: Continue physical therapy SKIN AND WOUND: Keep incision open to air From surgical standpoint of view if patient continues to be appropriate medically can be transferred to the floor to telemetry, will defer to Dr.K el and Dr. Rivero with regard to overall medical condition including cardiac status. Assurance and education Continue encouragement Emphasis on discussion for potential need for rehabilitation, I will defer to our physical therapy and psychotherapist social worker to discuss with the patient potential options with coordination with hospitalist service. Status: Acute Attestations Medical Necessity Statement*: Medical necessity care is expected to cross 2 midnights Time Spent in Patient Care: (>than 50% of time spent in counselling and/or direct pt care on unit) . Coding Level of Care Code Acute Assistant Director Of Nursing for Vinita Porter Diagnoses Jejunal intussusception K56.1
[2019-10-11 05:45] LABS: Anion Gap 11.9 (5-19); Blood Urea Nitrogen 13 mg/dL (8-23); Calcium 7.9 mg/dL (8.5-10.5); Carbon Dioxide 25 mmol/L (22-29); Chloride 106 mmol/L (98-107); Glucose 122 mg/dL (65-115); Osmolality Calculated 285 mOsm/kg (285-295); Potassium 3.9 mmol/L (3.5-5.1); Sodium 139 mmol/L (136-145)
[2019-10-11 06:36] LABS: Glucose Point of Care 119 mg/dL (70-110)
[2019-10-11] MEDS: tamsulosin 0.4 mg Capsule PO (08:32)
[2019-10-11] MEDS: metoprolol succinate ER (24 HR) 25 mg Tablet 12.5 MG PO (08:32)
[2019-10-11] MEDS: pantoprazole 40 mg SDV IVP (08:32)
[2019-10-11] MEDS: amlodipine 10 mg Tablet PO (08:32)
--- NOTE | 2019-10-11 09:05 | PM.PN ---
Subjective Subjective: Interval history: small liquid BM today, feels better, started on clears. BP 151/101 today, amlodipine has been increased to mg po qd. metoprolol additionally added. Hb at 8.7, stable Medications: Reviewed: Yes Medication Review Details: Current Medications Acetaminophen (Tylenol) 650 mg PO Q6H PRN PRN Reason: MILD PAIN Hydrocodone Bitart/Acetaminophen ([place] 5-325 Mg) 1 tab PO Q6H PRN PRN Reason: MODERATE PAIN Amlodipine Besylate (Norvasc) 10 mg PO DAILY [facility] Last Admin: 10/09/19 09:41 Dose: 10 mg Documented by: Heparin Sodium (Beef Lung) (Heparin) 5,000 unit SUBCUT Q8H [facility] Last Admin: 10/09/19 18:13 Dose: 5,000 unit Documented by: Hydralazine HCl (Apresoline) 10 mg IVP Q4H PRN PRN Reason: Elevated blood pressure Potassium Chloride/Dextrose/Sod Cl (Dextrose 5%-Ns + Kcl 20) 20 meq in 1,000 mls @ 75 mls/hr IV .[id number] [facility] Last Admin: 10/10/19 00:46 Dose: 75 mls/hr Documented by: Multivitamins 10 ml/ Amino (Acids/Electrolytes) 1,010 mls @ 42 mls/hr IV .Q24H [facility] Last Admin: 10/09/19 17:39 Dose: 42 mls/hr Documented by: Lorazepam (Ativan) 1 mg IVP Q4H PRN PRN Reason: ANXIETY Last Admin: 10/10/19 00:45 Dose: 1 mg Documented by: Ondansetron HCl (Zofran) 4 mg IVP Q6H PRN PRN Reason: NAUSEA AND VOMITING Last Admin: 10/10/19 09:40 Dose: 4 mg Documented by: Pantoprazole Sodium (Protonix) 40 mg IVP DAILY [facility] Last Admin: 10/10/19 09:41 Dose: 40 mg Documented by: Phenol (Phenaseptic) 3 spray MUCOUS MEM Q2H PRN PRN Reason: SORE THROAT Tamsulosin HCl (Flomax) 0.4 mg PO DAILY [facility] Last Admin: 10/09/19 09:41 Dose: 0.4 mg Documented by: Vitals/I&O/Wt Last Vital Signs Temp 98.0 F 10/11/19 07:00 Pulse 99 10/11/19 08:00 Resp 14 10/11/19 07:00 BP 156/101 10/11/19 08:00 Pulse Ox 96 10/11/19 08:00 10/10/19 10/11/19 10/11/19 22:59 06:59 14:59 Intake Total 1009 681.25 / 2691.25 250 / 250 Output Total 100 / 1000 50 / 50 Balance 910 / 1010 681.25 / 1691.25 200 / 200 Weight last 48 hrs Weight 87.543 kg Weight 55.792 kg Physical Exam Narrative: EXAM NARRATIVE: GEN: Awake, alert and oriented, no acute distress CVS: S1S2 N RS: CTA B/L Abd: Soft, nt/nd , bs+ , sluggish ASSEMBLER DC FIELD YOKE: no focal neuro deficits Urinary Catheter Management^: Bansal Latex: Cath Placed During This Visit: yes Reason for Continuing Indwelling Catheter: Accurate Measurement of Urinary Output in Critically Ill Patients Urinary Catheter Date of Insertion: 10/05/19 Urinary Catheter Time of Insertion: 19:35 Data : 10/11/19 04:15 10/11/19 04:15 Micro: Microbiology 10/05/19 22:47 Blood Culture - Final Blood NO GROWTH AFTER 5 DAYS 10/05/19 22:42 Blood Culture - Final Blood NO GROWTH AFTER 5 DAYS A&P Assessment and plan (1) Jejunal intussusception: -Presented with abdominal pain, persistent nausea and vomiting x3 days with noted jejunal jejunal intussusception with small bowel obstruction with concern for possible malignancy on imaging s/p emergent exploratory laparotomy with small bowel resection and [id number] anastomosis, POD #6 -Pain control as needed -started on clear liquid diet, had BM yesterday -IVF hydration,parenteral nutrition via PICC -s/p completed course of Zosyn -Has been on Eliquis secondary to TAVR; last dose taken on 10/01 as has been unable to tolerate oral intake since. EBL-25 mL during surgery. We will need to determine when anticoagulation can be safely resumed -blood cx negative to date -wound care per surgery -encourage ambulation, incentive spirometry Status: Acute (2) Small bowel obstruction: -As noted above -s/p small bowel resection; likely malignancy, f/u pathology, remains pending Status: Acute (3) Postoperative ileus: -As noted above -PICC line placed for peripheral nutrition, dietitian recommendations appreciated Status: Acute (4) Postoperative anemia due to acute blood loss: -Noted worsening macrocytic anemia post-op -Baseline hemoglobin is within normal limits -Continue to closely monitor H&H -May need transfusion if continued drop below 7 -continue to hold heparin due to slow trend down -currently H stable at 8.7 Status: Acute (5) Hypertension: -Hypertensive urgency likely secondary to pain, continue to monitor -on amlodipine; hydralazine as needed, metoprolol also added Status: Chronic Qualifiers: Hypertension type: essential hypertension Qualified Code(s): I10 - Essential (primary) hypertension (6) ASHD (arteriosclerotic heart disease): -Has known history of CAD s/p stenting x 3, CABG -Hold antiplatelet therapy, Eliquis, resume once HB noted to be stable and okay per surgery Status: Chronic (7) Hyperlipidemia: -continue statin once p.o. appropriate Status: Chronic Qualifiers: Hyperlipidemia type: mixed hyperlipidemia Qualified Code(s): E78.2 - Mixed hyperlipidemia (8) S/P TAVR (transcatheter aortic valve replacement): -Done at [facility] in [place] -Follows up with Dr. Rivero, cardiology input appreciated -TAVR done secondary to severe aortic stenosis -Echo (06/2018): EF=60%, mild LVH, no RWMA, mild to moderate MR, trace AR Status: Chronic (9) Arrhythmia: -Has been known to have atrial fibrillation and was previously noted to be bradycardic -Beta-nakul discontinued at [facility] in [place], but now resumed with cardiology recommendations -telemetry monitoring; discussed risk of developing arrhythmia vs. bradycardia that may require medication or temporary pacing Status: Chronic Qualifiers: Arrhythmia type: other cardiac arrhythmia Qualified Code(s): I49.8 - Other specified cardiac arrhythmias (10) CKD (chronic kidney disease) stage 2, GFR 60-89 ml/min: -baseline Cr wnl -renally dose meds, avoid nephrotoxins -continue to monitor renal function Status: Chronic Additional A&P Information -BPH; on tamsulosin -on CLD, on peripheral nutrition through PICC line -GI ppx with PPI -DVT ppx with SCDs, hold heparin due to gradual drop in hemoglobin -Dispo: home; daughter Maribel ([phone]). Discussed possibility of SNF placement, which patient is agreeable to. Accepted to [facility] pending pre-auth but may prefer to go to [facility] (closer to home) -Code status: FULL code Attestations Medical Necessity Statement*: need for ongoing monitoring, improvement in bowel function Coding Level of Care Code Acute Day Care Attendant for Chg Fwd Diagnoses Jejunal intussusception K56.1 Small bowel obstruction K56.609 Postoperative ileus K91.89; K56.7 Postoperative anemia due to acute blood loss D62 Hypertension I10 Hypertension type: essential hypertension ASHD (arteriosclerotic heart disease) I25.10 Hyperlipidemia E78.2 Hyperlipidemia type: mixed hyperlipidemia S/P TAVR (transcatheter aortic valve replacement) Z95.2 Arrhythmia I49.8 Arrhythmia type: other cardiac arrhythmia CKD (chronic kidney disease) stage 2, GFR 60-89 ml/min N18.2
[2019-10-11] MEDS: HYDROcodone-acetaminophen 5-325 mg Tablet 1 TAB PO (13:49)
--- NOTE | 2019-10-11 15:19 | PC.NURSE ---
Pt walked 2 laps around unit, this AM around 11. Again at 1300. And again at 1530. Tolerated well. Walker was used as a precautionary measure.
--- NOTE | 2019-10-11 15:59 | PC.NURSE ---
Low urine output noted on patient, equaling 125 for the entire shift this far. Bladder scan was completed, and showed 28mL. Kuldip was notified, and was advised to continue monitoring pt.
[2019-10-11] MEDS: ondansetron 2 mg/ML SDV 2 mL 4 MG IVP (19:23)
--- NOTE | 2019-10-11 21:39 | PC.NURSE ---
PT C/O N/V. CANADIAN BACON TIER NURSE GAVE PRN ZOFRAN. PT DENIES PAIN. INCISION IS CLEAN AND DRY. WILL CONTINUE TO MONITOR.
[2019-10-12 03:26] VITALS: BP 132/64; PULSE 85; RESP 21; TEMP 36.6; O2SAT 91
[2019-10-12 04:28] LABS: Basophils % 0.1 %; Eosinophils # 0.1 10^3/uL (0.0-0.8); Eosinophils % 0.8 %; Hematocrit 30.5 % (42.0-52.0); Hemoglobin 9.4 g/dL (11.7-16.6); Lymphocytes # 0.8 10^3/uL (0.8-4.8); Lymphocytes % 10.6 %; Mean Corpuscular HGB Conc 30.8 g/dL (30.0-36.0); Mean Platelet Volume 10.4 fL (7.4-10.4); Monocytes # 0.5 10^3/uL (0.2-0.9); Monocytes % 6.7 %; Neutrophils # 5.93 10^3/uL (1.8-7.7); Neutrophils % 81.4 %; Nucleated Red Blood Cells % 0 %; Platelet Count 253 10^3/cmm (130-400); Red Blood Count 2.85 10^6/uL (4.1-5.3); Red Cell Distribution Width 13.8 % (12.1-15.1); White Blood Count 7.3 10^3/uL (4.0-10.0)
[2019-10-12] MEDS: dextrose 5%-ns + KCl 20 20 MEQ/1,000 ML BAG 75 MEQ IV (05:07)
[2019-10-12 05:17] LABS: Alanine Aminotransferase 48 U/L (0-41); Albumin Level 2.8 g/dL (3.5-5.2); Alkaline Phosphatase 97 IU/L (40-130); Anion Gap 13.9 (5-19); Aspartate Amino Transferase 47 U/L (0-40); Blood Urea Nitrogen 12 mg/dL (8-23); Calcium 8.4 mg/dL (8.5-10.5); Carbon Dioxide 23 mmol/L (22-29); Chloride 104 mmol/L (98-107); Globulin 3.5 g/dL (1.3-4.6); Glucose 130 mg/dL (65-115); Osmolality Calculated 282 mOsm/kg (285-295); Potassium 3.9 mmol/L (3.5-5.1); Sodium 137 mmol/L (136-145); Total Bilirubin 0.4 mg/dL (0.15-1.2); Total Protein 6.3 g/dL (6.6-8.7)
--- NOTE | 2019-10-12 05:50 | P.PN_ITS ---
Subjective Subjective: Interval history: Patient overall feels well now he got transferred from the ICU to the CSU about 1600 yesterday yet patient and the nurse reported to me on morning rounds that the patient had 3-4 bouts of emesis 1 of them was about 400 mL clear nonbloody and the patient repetitively had large bowel movements yet diarrheal about 4 times and 1 of them was black altered nonbloody. Patient does not report any abdominal distention or comfort at this point Discussed the pathology findings with the pathologist yesterday and apparently looked to be more of organized hematoma. Pathology: Final Diagnosis A. Small bowel proximal suture, resection: - Small bowel segment hematoma and an occluding thrombus with mesenteric ischemia (See comment) - One benign lymph node - No tumor identified B. Small bowel stapled segment, excision: - Benign small bowel segment C. Small bowel stapled segment, excision: - Benign small bowel segment Vitals/I&O/Wt Last Vital Signs Temp 97.8 F 10/12/19 03:26 Pulse 85 10/12/19 03:26 Resp 21 H 10/12/19 03:26 BP 132/64 10/12/19 03:26 Pulse Ox 91 10/12/19 03:26 10/11/19 10/11/19 10/12/19 14:59 22:59 06:59 Intake Total 350 / 350 2560 / 2910 860 / 3770 Output Total 90 / 90 420 / 510 Balance 260 / 260 2140 / 2400 860 / 3260 Weight last 48 hrs Weight 196 lb Weight 193 lb Physical Exam 2 Narrative: EXAM NARRATIVE: Patient is conscious alert oriented X3 BMI 33 Head and neck examination PERRLA no masses no cervical lymphadenopathy no jaundice Cardiac examination audible S1-S2 no murmurs no gallops no arrhythmias Chest is clear bilateral,abscence of Rhonchi or wheezes,no surgical emphysema Abdomen nontender mildly distended soft no organomegaly guarding or rigidity/no signs of peritonitis/skin say in place. Urinary Catheter Management^: Bansal Latex: Cath Placed During This Visit: yes Reason for Continuing Indwelling Catheter: Accurate Measurement of Urinary Output in Critically Ill Patients Urinary Catheter Date of Insertion: 10/05/19 Urinary Catheter Time of Insertion: 19:35 Data : 10/12/19 03:26 10/12/19 03:26 A&P Assessment and plan (1) Jejunal intussusception: Status post laparotomy and resection of small bowel with [id number] anastomosis for jejunal intussusception and underlying small bowel mass 10/05/2019. PLAN OF CARE: CVS: Continue continuous cardiac monitoring,continue holding heparin subcu as pharmacologic DVT prophylaxis. PULMONARY: Continue pulmonary toilet Continue Incentive spirometer every hour Encouraged the patient when coughing to hold a pillow against the abdominal wall GI: Ice chips for now and will obtain KUB erect and supine to see the pattern of the gas in the bowel Continue PPI Pathology review with the patient If patient continues to have diarrheal and loose bowel movement will send for stool studies to rule out C. difficile NUTRITION: Ice chips RENAL: Continue monitoring kidney functions Strict I's and O's Pain control: Hydrocodone 5/325 mg p.o. every 6 hours as needed INFECTIOUS DISEASE: No indication for antibiotics from surgical standpoint of view NEUROLOGY: No evidence of neurological deficit MOBILITY: Continue physical therapy SKIN AND WOUND: Keep incision open to air Assurance and education Continue encouragement Status: Acute Attestations Medical Necessity Statement*: Medical necessity care is expected to cross 2 midnights Time Spent in Patient Care: (>than 50% of time spent in counselling and/or direct pt care on unit) . Coding Level of Care Code Acute Cook Specialty Foreign Food for [place] Porter Diagnoses Jejunal intussusception K56.1
--- NOTE | 2019-10-12 05:58 | XRR_ITS ---
PROCEDURE INFORMATION: Exam: XR Abdomen, 2 Views Exam date and time: 10/12/2019 6:49 AM Age: 84 years old Clinical indication: Condition or disease; Other: Post op; Prior surgery; Surgery date: 3-7 days post-operative; Surgery type: Status post laparotomy and small bowel resection; Patient HX: HX of prostate CA; Additional info: Status post laparotomy and small bowel resection, vomiting and diarrhea TECHNIQUE: Imaging protocol: XR of the abdomen. Views: 2 Views. COMPARISON: CT abdomen pelvis w con* [id number] 10/05/2019 5:02 PM FINDINGS: Gastrointestinal tract: There is gas in distended small bowel in the left abdomen, and in nondistended small bowel in the right abdomen and pelvis. Uneven air-fluid levels present on the upright exam. Gas present in nondistended proximal colon with trace gas in the rectum. Intraperitoneal space: No pneumoperitoneum. Bones/joints: Prior multilevel lower thoracic and lumbar spine vertebral body augmentation. Soft tissues: Recent abdominal surgery with midline incision closed with skin say. XR/XR abdomen min 2V [id number] IMPRESSION: Dilated small bowel on the left which could be due to bowel obstruction.
[2019-10-12] MEDS: pantoprazole 40 mg SDV IVP (06:26)
--- NOTE | 2019-10-12 06:26 | PC.NURSE ---
ROUNDED WITH DR THIS AM. DR WANTS X-RAY AND PROTONIX GIVEN BEFORE BEING TAKEN DOWN. PT HAD SOME N/V AT THE BEGINNING OF THE SHIFT, BUT HASN'T HAD ANY SINCE. EMESIS WAS CLEAR TINTED A YELLOW/GREEN COLOR. PT DENIES ANY PAIN TO DR. DENIES N/V AT THIS TIME. WILL CONTINUE TO MONITOR.
[2019-10-12 07:58] VITALS: BP 133/71; PULSE 91; RESP 17; TEMP 36.7; O2SAT 93
[2019-10-12] MEDS: ondansetron 2 mg/ML SDV 2 mL 4 MG IVP ×2 (08:05→18:34)
[2019-10-12] MEDS: tamsulosin 0.4 mg Capsule PO (08:47)
[2019-10-12] MEDS: metoprolol succinate ER (24 HR) 25 mg Tablet 12.5 MG PO (08:47)
[2019-10-12] MEDS: amlodipine 10 mg Tablet PO (08:48)
[2019-10-12] MEDS: HYDROcodone-acetaminophen 5-325 mg Tablet 1 TAB PO (08:51)
--- NOTE | 2019-10-12 09:00 | PC.NURSE ---
Rounding Patient states he is in quite a bit of pain rating it at a 10/10 and states he is nauseous. Zofran and norco to be administered. Nurse to continue to monitor.
--- NOTE | 2019-10-12 09:37 | PC.SOCIAL ---
IMM Update Pg. 2 of IMM given and explained to patient who verbalized understanding, stating that he didn't forget it from last time.
--- NOTE | 2019-10-12 11:01 | P.PN_ITS ---
Subjective Subjective: Interval history: Multiple BMs and vomiting episodes overnight, not adequately releived, had abdominal X rays this morning, reviewed by surgery, less likely to acute SBO, more likely compatible with ileus per surgical assessment. C diff PCR has been ordered. Urine output charted as ~20ml , however multiple voids charted as he urinated in bedside commode mixed with stools. Medications: Reviewed: Yes Medication Review Details: Current Medications Acetaminophen (Tylenol) 650 mg PO Q6H PRN PRN Reason: MILD PAIN Hydrocodone Bitart/Acetaminophen ([place] 5-325 Mg) 1 tab PO Q6H PRN PRN Reason: MODERATE PAIN Amlodipine Besylate (Norvasc) 10 mg PO DAILY [facility] Last Admin: 10/09/19 09:41 Dose: 10 mg Documented by: Heparin Sodium (Beef Lung) (Heparin) 5,000 unit SUBCUT Q8H [facility] Last Admin: 10/09/19 18:13 Dose: 5,000 unit Documented by: Hydralazine HCl (Apresoline) 10 mg IVP Q4H PRN PRN Reason: Elevated blood pressure Potassium Chloride/Dextrose/Sod Cl (Dextrose 5%-Ns + Kcl 20) 20 meq in 1,000 mls @ 75 mls/hr IV .[id number] [facility] Last Admin: 10/10/19 00:46 Dose: 75 mls/hr Documented by: Multivitamins 10 ml/ Amino (Acids/Electrolytes) 1,010 mls @ 42 mls/hr IV .Q24H [facility] Last Admin: 10/09/19 17:39 Dose: 42 mls/hr Documented by: Lorazepam (Ativan) 1 mg IVP Q4H PRN PRN Reason: ANXIETY Last Admin: 10/10/19 00:45 Dose: 1 mg Documented by: Ondansetron HCl (Zofran) 4 mg IVP Q6H PRN PRN Reason: NAUSEA AND VOMITING Last Admin: 10/10/19 09:40 Dose: 4 mg Documented by: Pantoprazole Sodium (Protonix) 40 mg IVP DAILY [facility] Last Admin: 10/10/19 09:41 Dose: 40 mg Documented by: Phenol (Phenaseptic) 3 spray MUCOUS MEM Q2H PRN PRN Reason: SORE THROAT Tamsulosin HCl (Flomax) 0.4 mg PO DAILY [facility] Last Admin: 10/09/19 09:41 Dose: 0.4 mg Documented by: Vitals/I&O/Wt Last Vital Signs Temp 98.1 F 10/12/19 07:58 Pulse 91 10/12/19 07:58 Resp 17 10/12/19 07:58 BP 133/71 10/12/19 07:58 Pulse Ox 93 10/12/19 07:58 10/11/19 10/12/19 10/12/19 22:59 06:59 14:59 Intake Total 2560 / 2910 860 / 3770 167.5 / 167.5 Output Total 420 / 510 Balance 2140 / 2400 860 / 3260 167.5 / 167.5 Weight last 48 hrs Weight 88.904 kg Physical Exam Narrative: EXAM NARRATIVE: GEN: Awake, alert and oriented, no acute distress CVS: S1S2 N RS: CTA B/L Abd: Soft,mildly distended ACCOUNTING/FINANCE TUTOR: no focal neuro deficits Urinary Catheter Management^: Bansal Latex: Cath Placed During This Visit: yes Reason for Continuing Indwelling Catheter: Accurate Measurement of Urinary O utput in Critically Ill Patients Urinary Catheter Date of Insertion: 10/05/19 Urinary Catheter Time of Insertion: 19:35 Data : 10/12/19 03:26 10/12/19 03:26 A&P Assessment and plan (1) Jejunal intussusception: -Presented with abdominal pain, persistent nausea and vomiting x3 days with noted jejunal jejunal intussusception with small bowel obstruction with concern for possible malignancy on imaging s/p emergent exploratory laparotomy with small bowel resection and vkjz-dw-[id number] anastomosis, POD #7 - path report with Small bowel segment hematoma and an occluding thrombus with mesenteric ischemia, benign lymph node and no malignancy. -started on clear liquid diet, having multiple BMs and c/o some abdominal fullness since starting protein shakes yesterday -IVF hydration,noted to have mild transaminitis today , -s/p completed course of Zosyn -Has been on Eliquis secondary to TAVR; last dose taken on 10/01 as has been unable to tolerate oral intake since. EBL-25 mL during surgery. We will need to determine when anticoagulation can be safely resumed -blood cx negative to date -wound care per surgery -encourage ambulation, incentive spirometry Status: Acute (2) Small bowel obstruction: -As noted above -s/p small bowel resection - post op[ ileus currently - having emesis and diarrhea, C diff Status: Acute (3) Postoperative ileus: -As noted above -PICC line placed for peripheral nutrition, dietitian recommendations appreciated Status: Acute (4) Postoperative anemia due to acute blood loss: - hemoglobin currently stable at 9.5 - will need to discuss benefits vs risks of a/c with patient given that he had GI hematoma identified on path Status: Acute (5) Hypertension: -Hypertensive urgency likely secondary to pain, continue to monitor -on amlodipine; hydralazine as needed, metoprolol also added Status: Chronic Qualifiers: Hypertension type: essential hypertension Qualified Code(s): I10 - Essential (primary) hypertension (6) ASHD (arteriosclerotic heart disease): -Has known history of CAD s/p stenting x 3, CABG -Hold antiplatelet therapy, Eliquis, resume once HB noted to be stable and okay per surgery Status: Chronic (7) Hyperlipidemia: -continue statin once p.o. appropriate Status: Chronic Qualifiers: Hyperlipidemia type: mixed hyperlipidemia Qualified Code(s): E78.2 - Mixed hyperlipidemia (8) S/P TAVR (transcatheter aortic valve replacement): -Done at [facility] in [place] -Follows up with Dr. Rivero, cardiology input appreciated -TAVR done secondary to severe aortic stenosis -Echo (06/2018): EF=60%, mild LVH, no RWMA, mild to moderate MR, trace AR Status: Chronic (9) Arrhythmia: -Has been known to have atrial fibrillation and was previously noted to be bradycardic -Beta-nakul discontinued at [facility] in [place], but now resumed with cardiology recommendations -telemetry monitoring; discussed risk of developing arrhythmia vs. bradycardia that may require medication or temporary pacing Status: Chronic Qualifiers: Arrhythmia type: other cardiac arrhythmia Qualified Code(s): I49.8 - Other specified cardiac arrhythmias (10) CKD (chronic kidney disease) stage 2, GFR 60-89 ml/min: -baseline Cr wnl -renally dose meds, avoid nephrotoxins -continue to monitor renal function Status: Chronic Additional A&P Information -BPH; on tamsulosin -on CLD, on peripheral nutrition through PICC line -GI ppx with PPI -DVT ppx with SCDs, hold heparin due to gradual drop in hemoglobin -Dispo: home; daughter Maribel ([phone]). Discussed possibility of SNF placement, which patient is agreeable to. Accepted to [facility] pending pre-auth but may prefer to go to [facility] (closer to home) -Code status: FULL code Attestations Medical Necessity Statement*: awaiting optimization of bowel function Coding Level of Care Code Acute Sound Printer for Chg Fwd Diagnoses Jejunal intussusception K56.1 Small bowel obstruction K56.609 Postoperative ileus K91.89; K56.7 Postoperative anemia due to acute blood loss D62 Hypertension I10 Hypertension type: essential hypertension ASHD (arteriosclerotic heart disease) I25.10 Hyperlipidemia E78.2 Hyperlipidemia type: mixed hyperlipidemia S/P TAVR (transcatheter aortic valve replacement) Z95.2 Arrhythmia I49.8 Arrhythmia type: other cardiac arrhythmia CKD (chronic kidney disease) stage 2, GFR 60-89 ml/min N18.2
--- NOTE | 2019-10-12 11:30 | PC.NURSE ---
Dr. Crain at bedside. Physician gave verbal order to order patient a supplement with each meal. The patient requests a strawberry flavored ensure. Physician also instructed nurse to collect a stool specimen to test for CDiff considering the number of loose stools the patient has had.
[2019-10-12 11:59] VITALS: BP 110/60; PULSE 87; RESP 19; TEMP 36.7; O2SAT 92
--- NOTE | 2019-10-12 14:45 | PC.NURSE ---
Patient ambulated in [place] approximately 400 feet. During walk patient stated his abdomen was cramping. Patient required SBA back to room. Patient was incontinent of bowel upon returning to room. Stool specimen was collected. Patient states he is more bloated feeling now after he attempted to drink his ensure. Patient denies passing gas. Bowel sounds assessed, patient is hyperactive throughout. After cleaning up in bathroom, patient returned to bed. Brief placed on patient. No further needs identified at this time.
[2019-10-12 16:57] VITALS: BP 128/67; PULSE 84; RESP 19; TEMP 36.8; O2SAT 91
--- NOTE | 2019-10-12 18:39 | PC.NURSE ---
Dr. Crain called for update on the patient. Patient has only had two loose stools today and has only urinated twice. Patient has not tolerated ensure with meals. Patient's abdomen is distended and tender to touch. Patient is not passing gas. Patient has had two episodes of nausea but has not vomited. Zofran has been administered at both instances. Patient has ambulated in the hallway twice and has tolerated activity well. Bowel sounds are hyperactive. Dr. Crain gave telephone order to bladder scan patient and place catheter in >400 ml visualized, RBVO. Continue to monitor patient.
[2019-10-12 19:14] VITALS: BP 134/65; PULSE 90; RESP 19; TEMP 36.6; O2SAT 94
--- NOTE | 2019-10-12 20:26 | PC.NURSE ---
Verified with Dr. Thomson rate of fluids and TPN. Order for Dextrose 5%-ns + kcl 20 is ordered for 75ml/hour. It is currently running at 33 ml/hr and TPN is running at 42 ml/hr. Ordered to continue running fluids as they are.
--- NOTE | 2019-10-12 20:43 | PC.NURSE ---
Patient has been educated that he has as needed pain and nausea medication and verbalized understanding. Patient states that he is still heaving sometimes, but does not want any pain or nausea medication at this time. Patient is asking for something to help him sleep tonight.
[2019-10-12] MEDS: LORazepam 2 mg/mL INJ 1 mL 1 MG IVP (20:47)
--- NOTE | 2019-10-12 22:22 | PC.NURSE ---
Patient is currently resting in bed with eyes closed. Will monitor.
--- NOTE | 2019-10-12 23:39 | PC.NURSE ---
Bladder scan only showed 138 ml of urine. Will monitor.
[2019-10-12 23:42] VITALS: BP 131/66; PULSE 85; RESP 18; O2SAT 91
[2019-10-13 03:36] VITALS: BP 112/54; PULSE 98; RESP 20; TEMP 36.8; O2SAT 93
[2019-10-13] MEDS: HYDROcodone-acetaminophen 5-325 mg Tablet 1 TAB PO ×2 (04:01→09:06)
[2019-10-13] MEDS: ondansetron 2 mg/ML SDV 2 mL 4 MG IVP (04:01)
--- NOTE | 2019-10-13 04:09 | PC.NURSE ---
Patient asks at this time that his SCDs be taken off. Will monitor.
[2019-10-13 04:16] LABS: Basophils % 0.4 %; Eosinophils # 0.2 10^3/uL (0.0-0.8); Eosinophils % 1.9 %; Hematocrit 29.2 % (42.0-52.0); Hemoglobin 9.2 g/dL (11.7-16.6); Lymphocytes % 12.1 %; Mean Corpuscular HGB Conc 31.5 g/dL (30.0-36.0); Mean Corpuscular Hemoglobin 33.2 pg (28.0-34.0); Mean Corpuscular Volume 105.4 fL (80-94); Mean Platelet Volume 10.4 fL (7.4-10.4); Monocytes # 0.7 10^3/uL (0.2-0.9); Monocytes % 8.8 %; Neutrophils # 6.02 10^3/uL (1.8-7.7); Neutrophils % 76.2 %; Nucleated Red Blood Cells % 0 %; Platelet Count 258 10^3/cmm (130-400); Red Blood Count 2.77 10^6/uL (4.1-5.3); Red Cell Distribution Width 13.7 % (12.1-15.1); White Blood Count 7.9 10^3/uL (4.0-10.0)
[2019-10-13 04:49] LABS: Alanine Aminotransferase 52 U/L (0-41); Alkaline Phosphatase 96 IU/L (40-130); Aspartate Amino Transferase 44 U/L (0-40); Blood Urea Nitrogen 10 mg/dL (8-23); Calcium 8.6 mg/dL (8.5-10.5); Carbon Dioxide 26 mmol/L (22-29); Chloride 104 mmol/L (98-107); Glucose 110 mg/dL (65-115); Osmolality Calculated 283 mOsm/kg (285-295); Sodium 138 mmol/L (136-145); Total Bilirubin 0.3 mg/dL (0.15-1.2)
--- NOTE | 2019-10-13 05:56 | PM.PN ---
Subjective Subjective: Interval history: Patient overall feels better, he reports that he vomited once overnight and that was provoked by Ensure, otherwise patient does not report any vomiting with any other products of the clear liquid diet tray as he only gets sick to stomach to the Ensure product. Patient reports his vomiting happened within an hour from ingesting Urine output is marginal Continues to have bowel movements and he had a larger one yesterday and passing gas C. difficile tested negative Vitals/I&O/Wt Last Vital Signs Temp 98.3 F 10/13/19 03:36 Pulse 98 10/13/19 03:36 Resp 20 H 10/13/19 03:36 BP 112/54 10/13/19 03:36 Pulse Ox 93 10/13/19 03:36 10/12/19 10/12/19 10/13/19 14:59 22:59 06:59 Intake Total 527.5 / 527.5 1105.7 / 1633.2 Output Total 325 / 325 300 / 625 Balance 527.5 / 527.5 780.7 / 1308.2 -300 / 1008.2 Weight last 48 hrs Weight 196 lb Physical Exam Narrative: EXAM NARRATIVE: Patient is conscious alert oriented X3 BMI 33 Head and neck examination PERRLA no masses no cervical lymphadenopathy no jaundice Abdomen nontender mild to moderate distention soft no organomegaly guarding or rigidity/no signs of peritonitis Urinary Catheter Management^: Bansal Latex: Cath Placed During This Visit: yes Reason for Continuing Indwelling Catheter: Accurate Measurement of Urinary Output in Critically Ill Patients Urinary Catheter Date of Insertion: 10/05/19 Urinary Catheter Time of Insertion: 19:35 Data : 10/13/19 03:10 10/13/19 03:10 Micro: Microbiology 10/12/19 14:30 C.difficile Toxin B Gene (PCR) - Final Stool Routine Collection A&P Assessment and plan (1) Jejunal intussusception: Status post laparotomy and resection of small bowel with icok-la-[id number] anastomosis for jejunal intussusception and underlying small bowel mass 10/05/2019. PLAN OF CARE: CVS: From surgical standpoint of view can start patient on daily baby aspirin/PPI therapy coverage PULMONARY: Continue Incentive spirometer every hour Encouraged the patient when coughing to hold a pillow against the abdominal wall GI: Patient can be advanced slowly to full liquid diet and will discontinue Ensure products NUTRITION: Recommend to start to wean the patient from PPN RENAL: Strict I's and O's Pain control: Hydrocodone 5/325 mg p.o. every 6 hours as needed NEUROLOGY: No evidence of neurological deficit MOBILITY: Continue physical therapy SKIN AND WOUND: Keep incision open to air Assurance and education Continue encouragement Once patient continues to do well with the p.o. intake he can be discharged and follow-up with surgery office in 1 week to DC skin say. Risks benefits should be discussed with the patient about the potential resumption of Eliquis as the patient may have had an AV malformation that he had developed a hematoma there after and because bowel obstruction, from surgical standpoint of view aspirin on daily basis can be resumed. Assurance and education All questions have been answered and all concerns have been addressed to patient's satisfaction. Status: Acute Attestations Medical Necessity Statement*: Medical necessity care is expected to cross 2 midnights Time Spent in Patient Care: (>than 50% of time spent in counselling and/or direct pt care on unit). Coding Level of Care Code Acute Office Machine Embossograph Operator for Vinita Porter Diagnoses Jejunal intussusception K56.1
--- NOTE | 2019-10-13 05:58 | PC.NURSE ---
Dr. Campoverde in room to see patient. This nurse did not witness any vomiting during my shift, however patient states that he remembers vomiting after his ensure last night. This nurse did not give patient any ensure during my shift. Dr. Campoverde ordered to remove ensure from diet order, which has now been done.
--- NOTE | 2019-10-13 06:25 | PC.NURSE ---
Emesis basin emptied with brown vomit at 1915. Pt has not experienced any vomiting episodes since.
--- NOTE | 2019-10-13 07:05 | PC.NURSE ---
Addendum entered by Divina Chandler RN 10/13/19 07:06: Patient belongings transferred with patient. Original Note: Dr. Thomson ordered to transfer patient to Med-Surg. Dr. Campoverde notified as well. Report given to Med-Surg. Patient transferred to Med-Surg.
[2019-10-13 07:35] VITALS: BP 123/66; PULSE 85; RESP 18; TEMP 36.8; O2SAT 93
[2019-10-13] MEDS: metoprolol succinate ER (24 HR) 25 mg Tablet 12.5 MG PO (08:47)
[2019-10-13] MEDS: tamsulosin 0.4 mg Capsule PO (08:47)
[2019-10-13] MEDS: amlodipine 10 mg Tablet PO (08:48)
[2019-10-13] MEDS: dextrose 5%-ns + KCl 20 20 MEQ/1,000 ML BAG 33 MEQ IV (08:54)
[2019-10-13] MEDS: pantoprazole 40 mg SDV IVP (09:35)
--- NOTE | 2019-10-13 10:23 | PC.CHAP ---
Pastoral Care Encounter/Spiritual Assessment Type of Contact [] Declined performance engineer visit [] Patient/Family/Request visit [] Outpatient visit [] Follow-up visit [] Physician referral [] Code/Alert [x] Routine visit [] Staff referral [] Actively dying [] Patient sleeping [] Family support [] [] Out of room [] Palliative care [] [] Receiving care in room [] Pre-surgical visit [] Trauma [] Long length of stay [] ICU visit [] Other: Relational/Emotional Strength [] Patient feels connected with others/family/visitors/staff [] Distress [] Loneliness/isolation [] Abandonment Spirituality of Patient [] Person of Franny [] Attends Druze of their Franny [] Believes in Prayer [] Reads Bible or Anabaptism materials [] There are Spiritual issues to be addressed Operations Architect Interventions [x] Prayer [] Active listening [] Non-anxious presence [] Spiritual/emotional support [] Crisis/trauma care [] Spiritual counseling [] Bereavement support [] Provided bereavement packet [] Provided Bible/devotional materials [] Provided toy/stuffed animal, coloring book to patient or family member [] Provided Communion [] Anointing/[place] [] Salvation [x] Completed spiritual assessment [] Other: Impact on Illness or Injury [] Angry [] Fearful [] Anxious [] Often cries [] Exhaustion [] Unable to work [] Unable to attend congregation [] Unable to walk/stand [] Unable to read [] Unable to drive [] Unable to eat/drink [] Unable to sleep [] Unable to be with family [] Patient intubated [] Other: Summary Patient resting well Time spent with patient 5 min
[2019-10-13 11:06] VITALS: BP 113/62; PULSE 89; RESP 18; TEMP 36.5; O2SAT 94
--- NOTE | 2019-10-13 14:35 | PC.NURSE ---
Pt is ambulating in the barajas with therapy.tolerating well.
[2019-10-13 16:00] VITALS: BP 137/72; PULSE 85; RESP 18; TEMP 36.8; O2SAT 93
--- NOTE | 2019-10-13 16:26 | PC.NURSE ---
Per Dr. Domignuez advance pt to full liquid diet. Retail Greeter advanced diet pt tolerated well.
[2019-10-13 20:00] VITALS: BP 127/67; PULSE 84; RESP 18; TEMP 36.7; O2SAT 92
[2019-10-13] MEDS: LORazepam 2 mg/mL INJ 1 mL 1 MG IVP (20:33)
--- NOTE | 2019-10-13 21:30 | PM.PN ---
Subjective Subjective: Interval history: symptomatically much improved today, 1 well formed BM< no further nausea. Transferred out of CSU overnight, not on tele Medications: Reviewed: Yes Vitals/I&O/Wt Last Vital Signs Temp 98.0 F 10/13/19 20:00 Pulse 84 10/13/19 20:00 Resp 18 10/13/19 20:00 BP 127/67 10/13/19 20:00 Pulse Ox 92 10/13/19 20:00 10/13/19 10/13/19 10/13/19 06:59 14:59 22:59 Intake Total 1512.5 / 1512.5 1261 / 2773.5 Output Total 300 / 625 Balance -300 / 1008.2 1512.5 / 1512.5 1261 / 2773.5 Physical Exam Narrative: EXAM NARRATIVE: GEN: Awake, alert and oriented, no acute distress CVS: S1S2 N RS: CTA B/L Abd: Soft,mildly distended EMBEDDED SOFTWARE DEVELOPER: no focal neuro deficits Urinary Catheter Management^: Bansal Latex: Cath Placed During This Visit: yes Reason for Continuing Indwelling Catheter: Accurate Measurement of Urinary Output in Critically Ill Patients Urinary Catheter Date of Insertion: 10/05/19 Urinary Catheter Time of Insertion: 19:35 Data : 10/13/19 03:10 10/13/19 03:10 Micro: Microbiology 10/12/19 14:30 C.difficile Toxin B Gene (PCR) - Final Stool Routine Collection A&P Assessment and plan (1) Jejunal intussusception: -Presented with abdominal pain, persistent nausea and vomiting x3 days with noted jejunal jejunal intussusception with small bowel obstruction with concern for possible malignancy on imaging s/p emergent exploratory laparotomy with small bowel resection and tyil-hb-iane anastomosis, POD #7 - path report with Small bowel segment hematoma and an occluding thrombus with mesenteric ischemia, benign lymph node and no malignancy. -started on clear liquid diet, having multiple BMs and c/o some abdominal fullness since starting protein shakes yesterday -IVF hydration,noted to have mild transaminitis today , -s/p completed course of Zosyn -Has been on Eliquis secondary to TAVR; last dose taken on 10/01 as has been unable to tolerate oral intake since. EBL-25 mL during surgery. We will need to determine when anticoagulation can be safely resumed -blood cx negative to date -wound care per surgery -encourage ambulation, incentive spirometry Status: Acute (2) Small bowel obstruction: -As noted above -s/p small bowel resection - post op[ ileus currently - having emesis and diarrhea, C diff Status: Acute (3) Postoperative ileus: -As noted above -PICC line placed for peripheral nutrition, dietitian recommendations appreciated Status: Acute (4) Postoperative anemia due to acute blood loss: - hemoglobin currently stable at 9.5 - will need to discuss benefits vs risks of a/c with patient given that he had GI hematoma identified on path Status: Acute (5) Hypertension: -Hypertensive urgency likely secondary to pain, continue to monitor -on amlodipine; hydralazine as needed, metoprolol also added Status: Chronic Qualifiers: Hypertension type: essential hypertension Qualified Code(s): I10 - Essential (primary) hypertension (6) ASHD (arteriosclerotic heart disease): -Has known history of CAD s/p stenting x 3, CABG -Hold antiplatelet therapy, Eliquis, resume once HB noted to be stable and okay per surgery Status: Chronic (7) Hyperlipidemia: -continue statin once p.o. appropriate Status: Chronic Qualifiers: Hyperlipidemia type: mixed hyperlipidemia Qualified Code(s): E78.2 - Mixed hyperlipidemia (8) S/P TAVR (transcatheter aortic valve replacement): -Done at [facility] in [place] -Follows up with Dr. Rivero, cardiology input appreciated -TAVR done secondary to severe aortic stenosis -Echo (06/2018): EF=60%, mild LVH, no RWMA, mild to moderate MR, trace AR Status: Chronic (9) Arrhythmia: -Has been known to have atrial fibrillation and was previously noted to be bradycardic -Beta-nakul discontinued at [facility] in [place], but now resumed with cardiology recommendations -telemetry monitoring; discussed risk of developing arrhythmia vs. bradycardia that may require medication or temporary pacing Status: Chronic Qualifiers: Arrhythmia type: other cardiac arrhythmia Qualified Code(s): I49.8 - Other specified cardiac arrhythmias (10) CKD (chronic kidney disease) stage 2, GFR 60-89 ml/min: -baseline Cr wnl -renally dose meds, avoid nephrotoxins -continue to monitor renal function Status: Chronic Additional A&P Information -BPH; on tamsulosin -on CLD, on peripheral nutrition through PICC line -GI ppx with PPI -DVT ppx with SCDs, hold heparin due to gradual drop in hemoglobin -Dispo: home; daughter Maribel ([phone]). Discussed possibility of SNF placement, which patient is agreeable to. Accepted to [facility] [place] -Code status: FULL code symptomatically improving Attestations Medical Necessity Statement*: optimization of bowel function prior to discharge Coding Level of Care Code Acute Multimedia Specialist for Chg Fwd Diagnoses Jejunal intussusception K56.1 Small bowel obstruction K56.609 Postoperative ileus K91.89; K56.7 Postoperative anemia due to acute blood loss D62 Hypertension I10 Hypertension type: essential hypertension ASHD (arteriosclerotic heart disease) I25.10 Hyperlipidemia E78.2 Hyperlipidemia type: mixed hyperlipidemia S/P TAVR (transcatheter aortic valve replacement) Z95.2 Arrhythmia I49.8 Arrhythmia type: other cardiac arrhythmia CKD (chronic kidney disease) stage 2, GFR 60-89 ml/min N18.2
[2019-10-14] VITALS: BP 128/75; PULSE 91; RESP 18; TEMP 36.8; O2SAT 92
[2019-10-14] MEDS: dextrose 5%-ns + KCl 20 20 MEQ/1,000 ML BAG 75 MEQ IV (02:40)
[2019-10-14 04:00] VITALS: BP 120/71; PULSE 90; RESP 18; TEMP 36.7; O2SAT 95
--- NOTE | 2019-10-14 06:04 | PM.PN ---
Subjective Subjective: Interval history: Patient overall continues to do well has been passing gas and having bowel movement, no episodes of nausea or vomiting. Transferred to MedSur floor yesterday Vitals/I&O/Wt Last Vital Signs Temp 98.1 F 10/14/19 04:00 Pulse 90 10/14/19 04:00 Resp 18 10/14/19 04:00 BP 120/71 10/14/19 04:00 Pulse Ox 95 10/14/19 04:00 10/13/19 10/13/19 10/14/19 14:59 22:59 06:59 Intake Total 1512.5 / 1512.5 1261 / 2773.5 586.3 / 3359.8 Balance 1512.5 / 1512.5 1261 / 2773.5 586.3 / 3359.8 Weight last 48 hrs Weight 198 lb 6 oz Physical Exam Narrative: EXAM NARRATIVE: Patient is conscious alert oriented X3 BMI 33 Head and neck examination PERRLA no masses no cervical lymphadenopathy no jaundice Abdomen nontender moderatley distended soft no organomegaly guarding or rigidity/no signs of peritonitis Skin say in place Urinary Catheter Management^: Bansal Latex: Cath Placed During This Visit: yes Reason for Continuing Indwelling Catheter: Accurate Measurement of Urinary Output in Critically Ill Patients Urinary Catheter Date of Insertion: 10/05/19 Urinary Catheter Time of Insertion: 19:35 Data : 10/13/19 03:10 10/13/19 03:10 A&P Assessment and plan (1) Jejunal intussusception: Status post laparotomy and resection of small bowel with dprh-nm-xmny anastomosis for jejunal intussusception and underlying small bowel mass 10/05/2019. PLAN OF CARE: CVS: From surgical standpoint of view can start patient on daily baby aspirin/PPI therapy coverage PULMONARY: Continue Incentive spirometer every hour Encouraged the patient when coughing to hold a pillow against the abdominal wall GI: Advance to soft GI NUTRITION: Recommend to start to wean the patient from PPN Pain control: Hydrocodone 5/325 mg p.o. every 6 hours as needed MOBILITY: Continue physical therapy and rehab SKIN AND WOUND: Keep incision open to air Assurance and education Continue encouragement From surgical standpoint of view patient can be discharged and follow-up at surgery office in 1 week Assurance and education All questions have been answered and all concerns have been addressed to patient's satisfaction. Status: Acute Attestations Medical Necessity Statement*: Medical necessity care is expected to cross 2 midnights Time Spent in Patient Care: (>than 50% of time spent in counselling and/or direct pt care on unit). Coding Level of Care Code Acute General Manager Road Production for Vinita Porter Diagnoses Jejunal intussusception K56.1
[2019-10-14 08:00] VITALS: BP 124/72; PULSE 88; RESP 18; TEMP 36.8; O2SAT 96
[2019-10-14] MEDS: amlodipine 10 mg Tablet PO (09:13)
[2019-10-14] MEDS: tamsulosin 0.4 mg Capsule PO (09:13)
[2019-10-14] MEDS: metoprolol succinate ER (24 HR) 25 mg Tablet 12.5 MG PO (09:15)
[2019-10-14] MEDS: pantoprazole 40 mg SDV IVP (09:43)
--- NOTE | 2019-10-14 10:26 | PC.SOCIAL ---
IMM Update PG. 2 of IMM updated with patient and copy provided.
[2019-10-14 11:59] VITALS: BP 129/74; PULSE 85; RESP 18; TEMP 36.7; O2SAT 97
--- NOTE | 2019-10-14 14:31 | PM.DCS ---
Discharge Providers Date of Admission: 10/05/19 21:12 Date of Discharge: October 14, 2019 Attending Provider at Admission: Brenda rTevino MD Attending Provider at Discharge: Aaliyah Reynaga MD Primary Care Provider: Zoila Ryder DO Diagnoses at Discharge Discharge Diagnosis (1) Jejunal intussusception: Status: Acute Reason for Visit Reason for Visit: CONSTIPATED Hospital Course Hospital Course: (1) Jejunal intussusception: -Presented with abdominal pain, persistent nausea and vomiting x3 days with noted jejunal- jejunal intussusception with small bowel obstruction with concern for possible malignancy on imaging s/p emergent exploratory laparotomy with small bowel resection and rdea-ai-agmk anastomosis on 10/05. - path report with small bowel segment hematoma and an occluding thrombus with mesenteric ischemia, benign lymph node and no malignancy. - Tolerating mechanical soft diet -s/p completed course of Zosyn -Has been on Eliquis secondary to TAVR; last dose taken on 10/01. Given that path report showed significant hematoma, anticoagulation has been placed on hold for now, to be reassessed on outpatient visit with cardiology. For now ASA 81mg has been resumed. -blood cx negative to date -wound care per surgery -encourage ambulation, incentive spirometry (2) Small bowel obstruction: -s/p small bowel resection - post op ileus now resolved - tolerating mechanical soft diet (3) Postoperative ileus: -PICC line placed for peripheral nutrition, dietitian recommendations appreciated, now removed at discharge (4) Postoperative anemia due to acute blood loss: - hemoglobin currently stable at 9.5 - Eliquis on hold, ASA resumed, recommend check HB in 3-4 days (5) Hypertension: -Hypertensive urgency likely secondary to pain, now resolved -on amlodipine, dose increased from 5mg to 10 mg. Po metoprolol additionally added Discharge Summary: Tres Velasquez is a 84 year old male with PMHx of CAD s/p stenting, CABG, HTN, Severe aortic stenosis s/p TAVR, CKD stage 2, presents from home for evaluation of persistent abdominal pain, nausea, vomiting since this past Friday. Labs indicate minimal leukocytosis with a white count of 10.1, normal hemoglobin at 13.8, normal electrolytes, normal renal function, blood glucose of 117, lactate of 1.6, normal LFTs and lipase, unremarkable urinalysis. CT scan of the abdomen and pelvis shows findings consistent with jejunal jejunal intussusception with small bowel obstruction . He underwent emergent exploratory laparotomy with small bowel resection and cfoa-jd-fvdv anastomosis on 10/05. Post op course notable for ileus, with some nausea and vomiting which has since resolved at time of discharge. He was on PPN due to post op ileus during admission, which has since resolved and patient is tolerating soft mechanical diet at this time. PPN has been discontinued. HE is having BM and passing flatus. Other events as above. Physical Exam Narrative: EXAM NARRATIVE: GEN: Awake, alert and oriented, no acute distress CVS: S1S2 N RS: CTA B/L Abd: Soft, nt/nd , bs+, mideline say in place PATENT PROSECUTION PARALEGAL: no focal neuro deficits Urinary Catheter Management^: Bansal Latex: Cath Placed During This Visit: yes Reason for Continuing Indwelling Catheter: Accurate Measurement of Urinary Output in Critically Ill Patients Urinary Catheter Date of Insertion: 10/05/19 Urinary Catheter Time of Insertion: 19:35 Discharge Data Data Completed and Pending: Completed Studies During Hospitalization Category Date Time Status CT abdomen pelvis w con* [id number] Urge nt Cat Scan 10/05/19 15:54 Completed CXRP [XR chest 1V portable [id number]] S tat Exams 10/07/19 14:29 Completed XR abdomen min 2V [id number] Urgent Exams 10/12/19 05:58 Completed XR chest 1V tacho ble [id number] Routine Exams 10/06/19 12:16 Completed XR chest 1V tacho ble [id number] Routine Exams 10/07/19 12:11 Completed Pathology: Surgic al [PTH] Routine Pth 10/05/19 21:03 Completed Vitals: Last Vital Signs Temp 98.0 F 10/14/19 11:59 Pulse 85 10/14/19 11:59 Resp 18 10/14/19 11:59 BP 129/74 10/14/19 11:59 Pulse Ox 97 10/14/19 11:59 Discharge Plan Discharge Patient Disposition: Xfer SNF Condition: Stable Prescriptions: New amlodipine 10 mg Tablet 10 mg PO DAILY 30 Days RF: 0 metoprolol succinate 25 mg Tablet Extended Release 24 Hr 12.5 mg PO DAILY 30 Days RF: 0 multivitamin Tablet 1 tab PO DAILY Qty: 30 RF: 0 Continued ergocalciferol (vitamin D2) 50,000 unit capsule 50,000 unit PO Q7D RF: 0 pantoprazole 40 mg tablet,delayed release (DR/EC) 40 mg PO QAM RF: 0 atorvastatin 80 mg tablet 80 mg PO DAILY RF: 0 hydrocodone-acetaminophen 5-325 mg tablet 1 tab PO Q6H PRN (Reason: Pain) RF: 0 tamsulosin 0.4 mg capsule 0.4 mg PO DAILY RF: 0 PreserVision AREDS-2 [id number] jz-jylq-wx-mg capsule 1 tab PO BID RF: 0 aspirin 81 mg Tablet,Chewable 81 mg PO DAILY RF: 0 Discontinued Eliquis 5 mg tablet 5 mg PO BID RF: 0 amlodipine 5 mg tablet 5 mg PO DAILY 30 Days Qty: 30 RF: 5 potassium chloride [Klor-Con 10] 10 mEq tablet extended release 10 meq PO DAILY RF: 0 Discharge Orders: Discharge Order (Routine); Ordered 10/14/19 Ordered By: Aaliyah Reynaga Referrals: [facility] [Outside] Anselmo Rivero MD [Physician] - 1 week (f/up hospital discharge, decision regarding anticoagulation ) Mathieu Crain MD [Physician] - (Return to surgery office in 1 week) Zoila Ryder DO [Primary Care Provider] - Discharge Diet: GI Soft Discharge Activity: Limit activity as instructed Patient Instructions: Metoprolol (By mouth), Multivitamins, Adult Formula (By mouth), Amlodipine (By mouth) Activity Restrictions/Additional Instructions: 1. Patient can shower 2. We will plan to DC skin say at the follow-up appointment in a week 3. Up and walking as tolerated 4. Do lift more than 5 pounds first 2 weeks after surgery and not more than 25 pounds 6 to 8 weeks after surgery. 5. Do not operate heavy machinery or drive while using pain medications. 6.Contact the office or return to the ER for worsening nausea vomiting fevers or chills, or noticing any redness around incision sites or discharge. 7. repeat hemoglobin in 3-4 days Discharge Attestations Time Spent in Discharge Care*: greater than 30 min Quality Metrics Clinical Quality Measures During this hospital stay, did patient experience: None Coding Level of Care Code Acute Front End Engineer for magalie Porter Diagnoses Jejunal intussusception K56.1
[2019-10-14 15:42] VITALS: BP 131/72; PULSE 79; RESP 18; TEMP 36.9; O2SAT 97
[2019-10-14 16:41] VITALS: BP 131/72; PULSE 79; RESP 18; TEMP 36.9; O2SAT 97
== END 2019-10-14 16:42 | disposition skilled nursing facility (03) | DRG 330 ==
LOC: ER 18:34 → OR 18:58 → ICU 21:13 → CSU 10-11 17:54 → MEDSURG 10-13 07:00
PROVIDERS: Emergency Medicine; Internal Medicine Cardiovascular Disease; Nurse Practitioner Family; Surgery; Admitting Provider Family Medicine; PCP Family Medicine; Visit Provider Student in an Organized Health Care Education/Training Program
PROC: 0DT80ZZ Resection of Small Intestine, Open Approach (ICD-10-PCS; CPT 49000; 2019-10-05 18:05)
PROC: 0DT80ZZ Resection of Small Intestine, Open Approach (ICD-10-PCS; CPT 44120; 2019-10-05 18:05)
DX: K56.1 Intussusception (principal); K91.89 Other postprocedural complications and disorders of digestive system; D62 Acute posthemorrhagic anemia; N18.2 Chronic kidney disease, stage 2 (mild); I12.9 Hypertensive chronic kidney disease with stage 1 through stage 4 chronic kidney disease, or unspecified chronic kidney disease; I49.8 Other specified cardiac arrhythmias; Z95.2 Presence of prosthetic heart valve; E78.2 Mixed hyperlipidemia; I25.10 Atherosclerotic heart disease of native coronary artery without angina pectoris; K56.609 Unspecified intestinal obstruction, unspecified as to partial versus complete obstruction; K56.7 Ileus, unspecified; I48.0 Paroxysmal atrial fibrillation; Z79.01 Long term (current) use of anticoagulants; Z79.82 Long term (current) use of aspirin; Z95.5 Presence of coronary angioplasty implant and graft; I35.0 Nonrheumatic aortic (valve) stenosis; I65.23 Occlusion and stenosis of bilateral carotid arteries; Z95.1 Presence of aortocoronary bypass graft; Z87.891 Personal history of nicotine dependence
CPT/HCPCS: 12345; 36415; 36416; 36569; 36592; 51702; 51798; 71045; 74019; 74177; 80048; 80053; 81003; 82962; 83605; 83690; 83735; 83880; 84484; 85025; 85610; 86850; 86900; 87040; 87493; 88305; 88307; 93005; 96372; 96375; 97110; 97116; 97161; 97530; 99283; A4216; C9113; J0131; J0330; J0360; J1170; J1644; J2060; J2270; J2405; J2543; J2704; J2710; J3010; J3475; J3490; J7030; J7040; J7050; Q9967

== ENCOUNTER → 2019-10-25 12:00 | Outpatient (BNVA) | payer MEDICARE, SELFPAY | PROVIDERS: PCP Family Medicine; Visit Provider Internal Medicine Cardiovascular Disease | DX: R53.83 Other fatigue (principal); Z79.01 Long term (current) use of anticoagulants | CPT/HCPCS: 80053; 85025 ==

== ENCOUNTER 2019-12-09 06:00 | Outpatient (RCR) | payer MEDICARE, SELFPAY | END 2019-12-15 23:59 | disposition home or self-care (01) | LOC: WPT 06:00 | PROVIDERS: PCP Family Medicine; Referring Provider Registered Nurse; Visit Provider Registered Nurse | DX: R42 Dizziness and giddiness (principal) | CPT/HCPCS: 97110; 97163 ==

== ENCOUNTER 2019-12-16 06:00 | Outpatient (RCR) | payer MEDICARE, SELFPAY | END 2020-01-15 23:59 | disposition home or self-care (01) | LOC: WPT 06:00 | PROVIDERS: PCP Family Medicine; Referring Provider Registered Nurse; Visit Provider Registered Nurse | DX: R42 Dizziness and giddiness (principal) | CPT/HCPCS: 97110; 97112 ==

== ENCOUNTER 2019-12-20 07:02 | Emergency (ER) | payer MEDICARE, SELFPAY ==
[2019-12-20 07:02] VITALS: BP 153/112; PULSE 78; RESP 18; TEMP 36.4; O2SAT 97; BMI 24.5
--- NOTE | 2019-12-20 07:12 | ECG_ITS ---
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 Measurements Intervals [place] Rate: 68 P: 0 TX: 182 QRS: 76 QRSD: 134 T: 30 QT: 418 QTc: 448 Interpretive Statements SINUS RHYTHM WITH OCCASIONAL VENTRICULAR PREMATURE COMPLEXES RIGHT BUNDLE BRANCH BLOCK [120+ ms QRS DURATION, UPRIGHT V1, 40+ ms S IN I/aVL/V4/V5/V6] Compared to ECG 10/06/2019 08:03:40 Right bundle-branch block now present Intraventricular conduction delay no longer present Electronically Signed On 12-20-2019 17:28:01 CDT by Prudencio Griggs M.D. [id number]
--- NOTE | 2019-12-20 07:12 | CT_ITS ---
WS: [id number] CT ABDOMEN PELVIS TECHNIQUE: Contrast-enhanced CT of the abdomen and pelvis with coronal and sagittal reformatted image s. CLINICAL INFORMATION: abd pain COMPARISON: None. DLP: 603.[address] scans at [facility] use at least one of these dose optimization techniques: automat ed exposure control; mA and/or kV adjustment per patient size (includes targeted exams where dose is matched to clinical indication); or iterative reconstruction. FINDINGS: Mild diffuse fatty infiltration of the liver. Normal gallbladder. Normal portal vein and splenic vein . Small esophageal hiatal hernia with air-fluid level. Slight atelectasis in the lung bases. Normal s pleen. Adrenal glands are normal. No hydronephrosis in either kidney. Small right renal cyst. Prior postoperative changes anastomosis at the splenic flexure. Prostate calcification. Sigmoid diver ticulosis. No evidence of acute diverticulitis. Aortic calcification. 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 CT/CT abdomen pelvis w con* [id number] IMPRESSION: 1. Interval postoperative changes degenerative resection with anastomosis. 2. Diverticulosis. No evidence of acute diverticulitis. 3. Small esophageal hiatal hernia with air-fluid level. 4. Mild diffuse infiltration liver. 5. Stable small right renal cyst measuring 2.1 cm 6. No other changes from previous. Attempted notification Harpal Springer DO at 12/20/2019 8:58 AM. Not currently available for verbal report.
--- NOTE | 2019-12-20 07:14 | W.ED.ABDPA2 ---
HPI - Abdominal Pain General: Chief Complaint: Abdominal Pain Stated Complaint: CONSTIPATION Time Seen by Provider: 12/20/19 07:12 History of Present Illness: HPI narrative: 84-year-old male presents to the emergency room complaining of abdominal pain that began last night. He recently had a bowel resection earlier this year. He last ate yesterday morning afternoon. He has had a lot of nausea since then he is not had a bowel movement in 2 days. Increasing abdominal pain very generalized. He denies dysuria urgency or frequency denies hematochezia melena hematemesis or coffee-ground emesis denies chest pain. He does say it is painful to take a deep breath when he tries to take a deep breath he gets abdominal pain but denies any chest pain associated with it. He is on Eliquis for previous TAVR procedure. Not taken any of his medications this morning. MD elicited complaint: abdominal pain Pertinent past history: other (Bowel obstruction) Onset (ago): hour(s) Pain Consistency: constant Location: Diffuse Severity: severe Quality: cramping Radiation: none Migration to: no migration Exacerbating factors: eating and movement Relieving factors: rest Associated Symptoms: Reports anorexia, bloating, change in bowel habits, constipation, GI cramping, nausea and poor appetite; Denies belching, change in stool character, chills, coffee ground emesis, diarrhea, dyspepsia, dysuria, excessive flatus, fever(s), heartburn, hematochezia, hematuria, hematemesis, fecal incontinence, loose stools, melena and vomiting Review of Systems Const: Denies: fever(s) or chills ENMT: Denies: throat pain, ear or mastoid pain, nasal discharge or nasal congestion Card: Denies: chest pain, edema, dyspnea on exertion or orthopnea Resp: Denies: dyspnea, productive cough or non-productive cough GI: Reports: nausea, constipation, bloating, GI cramping and change in bowel habits; Denies: vomiting, hematemesis, coffee ground emesis, heartburn, diarrhea, belching, excessive flatus, fecal incontinence, change in stool character, hematochezia or melena : Denies: dysuria or hematuria Skin/Breast: Denies: rash or pruritus PFSH ED PFSH: Medical History Arrhythmia ASHD (arteriosclerotic heart disease) Bilateral carotid artery stenosis CKD (chronic kidney disease) stage 2, GFR 60-89 ml/min Fatigue Hyperlipidemia Hypertension Intermittent atrial fibrillation Valvular heart disease Surgical History History of heart surgery 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 done in [facility] Family History Mother CAD (coronary artery disease) Hypertension Diabetes Brother Hypertension Grandmother Stroke Social History Smoking and tobacco status: former smoker Alcohol intake: never History of recent travel: No Physical Exam Const: COMMON NORMALS: no acute distress GENERAL APPEARANCE: cooperative and comfortable ORIENTATION/CONSCIOUSNESS: Yes awake, Yes oriented to person, Yes oriented to place and Yes oriented to time HENMT: COMMON NORMALS: normocephalic, atraumatic, hearing grossly normal bilaterally, external ears normal, EAC's normal, TM's normal bilaterally, Normal nasal mucous membranes and turbinates present, moist oral mucous membranes and oropharynx normal HEAD & SCALP: normocephalic and atraumatic NOSE: Normal nasal mucous membranes and turbinates present EXTERNAL EAR: Yes external ears normal EXTERNAL AUDITORY CANAL: EAC's normal TYMPANIC MEMBRANE: TM's normal bilaterally Eye: COMMON NORMALS: Equal, round and reactive pupils present, EOMs intact bilaterally, conjunctivae normal and no scleral icterus CONJUNCTIVA: Yes conjunctivae normal PUPIL: Yes Equal, round and reactive pupils present Neck/C-Spine: COMMON NORMALS: full ROM, no lymphadenopathy, supple and no JVD Lymph: LYMPHATIC: no lymphadenopathy noted and no lymphedema noted Resp: COMMON NORMALS: normal respiratory effort, No retractions, No use of accessory muscles and clear to auscultation bilaterally AUSCULTATION: clear to auscultation bilaterally Cardio: COMMON NORMALS: no JVD, regular rate, regular rhythm and No murmurs present (Cardio) RATE: regular rate RHYTHM: regular rhythm GI: COMMON NORMALS: Soft to palpation and No hepatosplenomegaly present AUSCULTATION: Yes normoactive bowel sounds PALPATION: Yes Soft to palpation, No Tenderness to palpation present (GI), No Guarding due to palpation present (GI) and Yes No hepatosplenomegaly present Extremity: COMMON NORMALS: normal to inspection, capillary refill normal, no clubbing, cyanosis or edema, no calf tenderness and no pedal edema Neuro: SENSORIUM/ORIENTATION: Yes oriented to person, Yes oriented to place and Yes oriented to time Skin: COMMON NORMALS: no rashes or lesions noted GENERAL SKIN EXAM: no rashes or lesions noted Course Vital Signs: Vital signs: Vital Signs Temperature 97.5 F L 12/20/19 07:02 Pulse Rate 75 12/20/19 11:34 Respiratory Rate 16 12/20/19 11:34 Blood Pressure 120/67 12/20/19 11:34 Pulse Oximetry 98 12/20/19 11:34 MDM - Abdominal Pain MDM Narrative: Medical decision making narrative: Does have a fair amount of stool in the colon on the CT there is no evidence of bowel obstruction we will go and discharge home he is feeling well at this time is not had any vomiting. He can use a mild laxative at home dose or try to relieve some of the constipation. Lab Data: Labs: Lab Results 12/20/19 12/20/19 12/20/19 Range/Units 07:14 07:14 07:20 WBC 5.2 (4.0-10.0) 10^3/ uL RBC 4.01 L (4.1-5.3) 10^6/u L Hgb 11.7 (11.7-16.6) g/dL Hct 37.5 L (42.0-52.0) % MCV 93.5 (80-94) fL MCH 29.2 (28.0-34.0) pg MCHC 31.2 (30.0-36.0) g/dL RDW 13.7 (12.1-15.1) % Plt Count 236 (130-400) 10^3/c mm MPV 10.5 H (7.4-10.4) fL Neut % (Auto) 65.6 % Lymph % (Auto) 26.2 % [place] % (Auto) 6.1 % Eos % (Auto) 1.5 % Baso % (Auto) 0.4 % Neut # (Auto) 3.43 (1.8-7.7) 10^3/u L Lymph # (Auto) 1.4 (0.8-4.8) 10^3/u L [place] # (Auto) 0.3 (0.2-0.9) 10^3/u L Eos # (Auto) 0.1 (0.0-0.8) 10^3/u L Baso # (Auto) 0.0 (0.0-0.1) 10^3/u L Nucleated RBC % (a uto) 0 % Nucleated RBCs # 0.0 /100WBC Sodium 135 L (136-145) mmol/L Potassium 3.8 (3.5-5.1) mmol/L Chloride 99 (98-107) mmol/L Carbon Dioxide 27 (22-29) mmol/L Anion Gap 12.8 (5-19) BUN 15 (8-23) mg/dL Creatinine 1.0 (0.7-1.2) mg/dL GFR Calculation Not Reportable Glucose 108 (65-115) mg/dL Calculated Osmolal ity 281 L (285-295) mOsm/k g Lactic Acid 1.7 (0.5-2.2) mmol/L Calcium 9.6 (8.5-10.5) mg/dL Total Bilirubin 0.6 (0.15-1.2) mg/dL AST 17 (0-40) U/L ALT 14 (0-41) U/L Alkaline Phosphata se 87 (40-130) IU/L Total Protein 7.3 (6.6-8.7) g/dL Albumin 4.0 (3.5-5.2) g/dL Globulin 3.3 (1.3-4.6) g/dL Lipase 57 (13-60) U/L Urine Color (Yellow) Urine Appearance (CLEAR) Urine pH (5-7) Ur Specific Gravit y (1.005-1.030) Urine Protein (Negative) Urine Glucose (UA) (Normal) Urine Ketones (Negative) Urine Blood (Negative) Urine Nitrate (Negative) Urine Bilirubin (Negative) Urine Urobilinogen (Negative) mg/dL Ur Leukocyte Marcela ase (Negative) 12/20/19 Range/Units 07:40 WBC (4.0-10.0) 10^3/ uL RBC (4.1-5.3) 10^6/u L Hgb (11.7-16.6) g/dL Hct (42.0-52.0) % MCV (80-94) fL MCH (28.0-34.0) pg MCHC (30.0-36.0) g/dL RDW (12.1-15.1) % Plt Count (130-400) 10^3/c mm MPV (7.4-10.4) fL Neut % (Auto) % Lymph % (Auto) % [place] % (Auto) % Eos % (Auto) % Baso % (Auto) % Neut # (Auto) (1.8-7.7) 10^3/u L Lymph # (Auto) (0.8-4.8) 10^3/u L [place] # (Auto) (0.2-0.9) 10^3/u L Eos # (Auto) (0.0-0.8) 10^3/u L Baso # (Auto) (0.0-0.1) 10^3/u L Nucleated RBC % (a uto) % Nucleated RBCs # /100WBC Sodium (136-145) mmol/L Potassium (3.5-5.1) mmol/L Chloride (98-107) mmol/L Carbon Dioxide (22-29) mmol/L Anion Gap (5-19) BUN (8-23) mg/dL Creatinine (0.7-1.2) mg/dL GFR Calculation Glucose (65-115) mg/dL Calculated Osmolal ity (285-295) mOsm/k g Lactic Acid (0.5-2.2) mmol/L Calcium (8.5-10.5) mg/dL Total Bilirubin (0.15-1.2) mg/dL AST (0-40) U/L ALT (0-41) U/L Alkaline Phosphata se (40-130) IU/L Total Protein (6.6-8.7) g/dL Albumin (3.5-5.2) g/dL Globulin (1.3-4.6) g/dL Lipase (13-60) U/L Urine Color Yellow (Yellow) Urine Appearance Clear (CLEAR) Urine pH 7 (5-7) Ur Specific Gravit y 1.005 (1.005-1.030) Urine Protein Neg (Negative) Urine Glucose (UA) Norm (Normal) Urine Ketones Negative (Negative) Urine Blood Neg (Negative) Urine Nitrate Negative (Negative) Urine Bilirubin Neg (Negative) Urine Urobilinogen 1 H (Negative) mg/dL Ur Leukocyte Marcela ase Negative (Negative) Discharge Plan Discharge Patient Disposition: Home Clinical Impression: Abdominal pain, Constipation Condition: Stable Prescriptions: No Action ergocalciferol (vitamin D2) 50,000 unit capsule 50,000 unit PO Q7D RF: 0 pantoprazole 40 mg tablet,delayed release (DR/EC) 40 mg PO QAM RF: 0 atorvastatin 80 mg tablet 80 mg PO DAILY RF: 0 furosemide 20 mg tablet 20 mg PO DAILY PRN (Reason: edema) RF: 0 amlodipine 5 mg tablet 5 mg PO DAILY RF: 0 tamsulosin 0.4 mg capsule 0.4 mg PO DAILY RF: 0 PreserVision AREDS-2 [id number] hy-glii-xi-mg capsule 1 tab PO BID RF: 0 aspirin 81 mg Tablet,Chewable 81 mg PO DAILY RF: 0 multivitamin Tablet 1 tab PO DAILY Qty: 30 RF: 0 potassium chloride 10 mEq Tablet Extended Release 10 meq PO BID RF: 0 Eliquis 5 mg Tablet 5 mg PO DAILY RF: 0 Discharge Orders: Discharge Order (Routine); Ordered 12/20/19 Ordered By: Harpal Springer Referrals: Zoila Ryder DO [Primary Care Provider] - Discharge Diet: Clear Liquid Discharge Activity: Increase activity as tolerated Patient Instructions: Abdominal Pain (ED) Discharge Date/Time: 12/20/19 11:34 Coding Level of Care Code ED [employer] Cle[employer] Supervisor for Chg Fwd Exam Comprehensive
[2019-12-20 07:30] LABS: Basophils % 0.4 %; Eosinophils # 0.1 10^3/uL (0.0-0.8); Eosinophils % 1.5 %; Hematocrit 37.5 % (42.0-52.0); Hemoglobin 11.7 g/dL (11.7-16.6); Lymphocytes # 1.4 10^3/uL (0.8-4.8); Lymphocytes % 26.2 %; Mean Corpuscular HGB Conc 31.2 g/dL (30.0-36.0); Mean Corpuscular Hemoglobin 29.2 pg (28.0-34.0); Mean Corpuscular Volume 93.5 fL (80-94); Mean Platelet Volume 10.5 fL (7.4-10.4); Monocytes # 0.3 10^3/uL (0.2-0.9); Monocytes % 6.1 %; Neutrophils # 3.43 10^3/uL (1.8-7.7); Neutrophils % 65.6 %; Nucleated Red Blood Cells % 0 %; Platelet Count 236 10^3/cmm (130-400); Red Blood Count 4.01 10^6/uL (4.1-5.3); Red Cell Distribution Width 13.7 % (12.1-15.1); White Blood Count 5.2 10^3/uL (4.0-10.0)
[2019-12-20 07:45] LABS: Alanine Aminotransferase 14 U/L (0-41); Alkaline Phosphatase 87 IU/L (40-130); Anion Gap 12.8 (5-19); Aspartate Amino Transferase 17 U/L (0-40); Blood Urea Nitrogen 15 mg/dL (8-23); Calcium 9.6 mg/dL (8.5-10.5); Carbon Dioxide 27 mmol/L (22-29); Chloride 99 mmol/L (98-107); Creatinine Clr Calc Pharmacy 60.2762; Globulin 3.3 g/dL (1.3-4.6); Glucose 108 mg/dL (65-115); Lipase 57 U/L (13-60); Osmolality Calculated 281 mOsm/kg (285-295); Potassium 3.8 mmol/L (3.5-5.1); Sodium 135 mmol/L (136-145); Total Bilirubin 0.6 mg/dL (0.15-1.2); Total Protein 7.3 g/dL (6.6-8.7)
[2019-12-20 07:45] LABS: Lactic Sepsis W/Reflex 1.7 mmol/L (0.5-2.2)
[2019-12-20 07:55] LABS: Add Urine Microscopic? NO
[2019-12-20 07:57] LABS: Bilirubin Urine Neg (Negative); Blood Urine Neg (Negative); Glucose Urine UA Norm (Normal); Ketones Urine Negative (Negative); Leukocyte Esterase Urine Negative (Negative); Nitrate Urine Negative (Negative); Protein Urine Neg (Negative); Specific Gravity, Urine 1.005 (1.005-1.030); Urine Appearance Clear (CLEAR); Urine Color Yellow (Yellow); Urobilinogen Urine 1 mg/dL (Negative); pH Urine 7 (5-7)
[2019-12-20] MEDS: iohexol 300 mg/mL 100 mL Btl IV (08:00)
[2019-12-20 11:34] VITALS: BP 120/67; PULSE 75; RESP 16; O2SAT 98
== END 2019-12-20 11:34 | disposition home or self-care (01) ==
PROVIDERS: Emergency Provider Family Medicine; PCP Family Medicine
DX: K59.00 Constipation, unspecified (principal); Z79.82 Long term (current) use of aspirin; Z79.01 Long term (current) use of anticoagulants; I12.9 Hypertensive chronic kidney disease with stage 1 through stage 4 chronic kidney disease, or unspecified chronic kidney disease; N18.2 Chronic kidney disease, stage 2 (mild); E78.5 Hyperlipidemia, unspecified; I48.91 Unspecified atrial fibrillation; Z95.1 Presence of aortocoronary bypass graft; Z87.891 Personal history of nicotine dependence
CPT/HCPCS: 12345; 74177; 80053; 81003; 83605; 83690; 85025; 93005; 99283; Q9967

== ENCOUNTER 2020-11-06 08:13 | Outpatient (CLI) | payer MEDICARE, MEDICAID, SELFPAY ==
--- NOTE | 2020-11-06 08:45 | USCV_ITS ---
Tres Velasquez Age: 85 Gender: M : 1935 Exam Date: 11/06/2020 08:48 Ordering Phys: Anselmo Rivero MD ([email or web address]) Technologist: IOANA [place] [facility] [place]ication: DYSPEA, UNSPECIFIED BP: 127 / 68 HR: 59 Rhythm: Sinus Technical Quality: Technically difficult study MEASUREMENTS (Male / Female) Normal Values 2D ECHO LV Diastolic Diameter PLAX 3.6 cm 4.2 - 5.9 / 3.9 - 5.3 cm LV Systolic Diameter PLAX 2.6 cm IVS Diastolic Thickness 1.1 cm 0.6 - 1.0 / 0.6 - 0.9 cm IVS Systolic Thickness 1.6 cm LVPW Diastolic Thickness 1.9 cm 0.6 - 1.0 / 0.6 - 0.9 cm LVPW Systolic Thickness 1.8 cm LVOT Diameter 2.0 cm LV Ejection Fraction 2D Teich 55.7 % LV Ejection Fraction MOD 2C 55.8 % LV Ejection Fraction 2C AL 58.4 % LA Diameter 3.9 cm LA Width 3.4 cm LA Height 5.0 cm RA Width 3.6 cm RA Height 5.4 cm Aorta at Sinotubular Diameter 2.3 cm DOPPLER AV Peak Velocity 98.0 cm/s LVOT Peak Velocity 100.0 cm/s AV Area Cont Eq vti 4.5 cm squared AV Area Cont Eq pk 3.1 cm squared MV Peak Velocity 518.0 cm/s MV Area PHT 3.1 cm squared Mitral E to A Ratio 0.8 MV E' Velocity 46.0 cm/s Mitral E to MV E' Ratio 9.5 Mitral E to LV E' Lateral Ratio 7.6 Mitral E to LV E' Septal Ratio 12.5 TR Peak Velocity 222.8 cm/s TR Peak Gradient 19.9 mmHg TR Mean Velocity 159.4 cm/s TR Mean Gradient 11.6 mmHg TR Velocity Time Integral 52.5 cm Right Atrial Pressure 3.0 mmHg Pulmonary Artery Systolic Pressu 22.9 mmHg PV Peak Velocity 56.0 cm/s RV Acceleration Time 0.1 s RV Ejection Time 0.3 s RV AcT/ET 0.4 FINDINGS Left Ventricle Normal left ventricular size and systolic function, EF 58 %. Mild left ventricular hypertrophy. Grade I/IV diastolic dysfunction (abnormal relaxation filling pattern), normal to mildly elevated filling pressures. Right Ventricle The right ventricle is normal in size and function. Right Atrium The right atrium is normal in size. Left Atrium The left atrium is normal in size. Mitral Valve Mildly thickened mitral valve. Moderate mitral annular calcification. Mild mitral valve regurgitation. Aortic Valve Thickened aortic valve. The tissue valve at the aortic position appears to be well-seated. The peak velocity was 0.98 M/sec. Tricuspid Valve Trace tricuspid valve regurgitation. Pulmonic Valve No gross abnormalities noted Pericardium Normal pericardium without effusion. Aorta Normal ascending aorta dimension. CONCLUSIONS Normal left ventricular size and systolic function, EF 58 %. Mild left ventricular hypertrophy. Grade I/IV diastolic dysfunction (abnormal relaxation filling pattern), normal to mildly elevated filling pressures. Mildly thickened mitral valve. Moderate mitral annular calcification. Mild mitral valve regurgitation. The tissue valve with aortic position appears to be well-seated. The valve area was calculated to be 3.1 cm squared Trace tricuspid valve regurgitation. Estimated pulmonary artery peak systolic pressure of 23 mmHg There is no pericardial effusion. There are no intracardiac masses. Compared to the study from 06/24/2018, now the aortic valve is replaced Dr Anselmo Rivero MD [facility] (Electronically Signed) Final Date: 07 November 2020 10:21 S
--- NOTE | 2020-11-06 09:33 | USCV_ITS ---
Tres Velasquez Age: 85 Gender: M : 1935 Exam Date: 11/06/2020 09:35 Ordering Phys: Anselmo Rivero MD ([email or web address]) Technologist: IOANA Exam Location: [facility] [place] Indication: OCCLUSION AND STENOSIS OF BILATERAL CAROTID ARTERIES Risk Factors: Previous Vascular Surgery: Right Brachial BP: / Left Brachial BP: / Right Left Velocity (cm/s) Spectral Plaque Velocity (cm/s) Spectral Plaque Syst/Diast Broadening Syst/Diast Broadening 90.50/ 7.90 Prox CCA 109.90/ 9.10 60.60/ 16.30 Mid CCA 95.90 / 9.90 100.20/17.10 Distal CCA 69.90 / 14.00 106.80/17.10 Prox ICA 80.50 / 20.70 92.40/ 24.40 Mid ICA 82.30 / 16.00 72.30/ 14.50 Distal ICA 77.00 / 18.90 71.60 ECA 73.80 1.53 ICA/CCA 0.86 Antegrade Vertebral Antegrade 68.20/ 13.40 cm/s 68.70/ 16.00 cm/s Bi Subclavian Bi 79.40 100.8 0 FINDINGS Mild to moderate plaques atthe right bifurcation. Minimal plaques at the left bifurcation. Intimal thickening in the common carotid arteries bilaterally. Antegrade flow in the vertebral arteries bilaterally. Mild Doppler flow velocities in the external, subclavian and vertebral arteries bilaterally CONCLUSIONS Mild to moderate plaques at the right bifurcation with Doppler features, suggestive of less than 50% stenosis. Minimal plaques at the left bifurcation causing less than 50% stenosis Intimal thickening in the common carotid arteries bilaterally. Dr Anselmo Rivero MD [facility] (Electronically Signed) Final Date: 06 November 2020 17:51 S
== END 2020-11-06 08:14 | disposition home or self-care (01) ==
PROVIDERS: PCP Family Medicine; Visit Provider Internal Medicine Cardiovascular Disease
DX: I65.23 Occlusion and stenosis of bilateral carotid arteries (principal); R06.00 Dyspnea, unspecified; Z95.2 Presence of prosthetic heart valve; I08.1 Rheumatic disorders of both mitral and tricuspid valves
CPT/HCPCS: 93306; 93880

== ENCOUNTER → 2021-09-05 09:16 | Outpatient (BNVA) | payer MEDICARE, MEDICAID, SELFPAY | PROVIDERS: PCP Family Medicine; Visit Provider Anesthesiology Pain Medicine | DX: M47.816 Spondylosis without myelopathy or radiculopathy, lumbar region (principal); M51.16 Intervertebral disc disorders with radiculopathy, lumbar region; F12.90 Cannabis use, unspecified, uncomplicated | CPT/HCPCS: 99204 ==

== ENCOUNTER → 2021-09-26 14:30 | Outpatient (BNVA) | payer MEDICARE, MEDICAID, SELFPAY | PROVIDERS: PCP Family Medicine; Visit Provider Anesthesiology Pain Medicine | DX: F17.200 Nicotine dependence, unspecified, uncomplicated (principal); M47.816 Spondylosis without myelopathy or radiculopathy, lumbar region | CPT/HCPCS: 64493; 64494; J3490 ==

== ENCOUNTER → 2022-07-11 15:04 | Outpatient (BNVA) | payer MEDICARE, MEDICAID, SELFPAY | PROVIDERS: PCP Family Medicine; Visit Provider Dermatology | DX: L82.1 Other seborrheic keratosis (principal); L81.4 Other melanin hyperpigmentation | CPT/HCPCS: 17110; 99213 ==

== ENCOUNTER 2023-06-16 14:25 | Oncology outpatient (recurring) (ONCR) | payer MEDICARE, MEDICAID, SELFPAY ==
[2023-06-16 16:07] LABS: Basophils % 0.7 %; Hematocrit 33.2 % (37-53); Lymphocytes # 1.3 10^3/uL (0.8-4.8); Lymphocytes % 43.1 %; Mean Corpuscular Hemoglobin 30.3 pg (27-33); Mean Corpuscular Volume 97.6 fl (82-101); Mean Platelet Volume 9.4 fL (7.4-10.4); Monocytes # 0.2 10^3/uL (0.2-0.9); Monocytes % 6.2 %; Nucleated Red Blood Cells % 0 %; Platelet Count 191 10^3/cmm (157-399); Red Cell Distribution Width 18.6 % (12.1-15.1); Reticulocyte % 1.5 % (0.5-2.0); White Blood Count 3.06 10^3/uL (3.29-11.43)
[2023-06-16 16:22] LABS: Erythrocyte Sedimentation Rate 9 mm/hr (0-10)
[2023-06-16 16:28] LABS: Alanine Aminotransferase 16 U/L (0-41); Albumin Level 4.2 g/dL (3.5-5.2); Alkaline Phosphatase 66 U/L (40-130); Anion Gap 14.9 (5-19); Aspartate Amino Transferase 19 U/L (0-40); Blood Urea Nitrogen 17 mg/dL (8-23); Calcium 9.6 mg/dL (8.5-10.5); Carbon Dioxide 25 mmol/L (22-29); Chloride 105 mmol/L (98-107); Creatinine Clr Calc Pharmacy 57.7521; Ferritin 126 ng/mL (30-400); Globulin 3.3 g/dL (1.3-4.6); Glucose 108 mg/dL (65-115); Iron 181 ug/dL (59-158); Lactate Dehydrogenase 174 U/L (135-225); Osmolality Calculated 294 mOsm/kg (285-295); Percent Saturation 75.1 % (20-50); Potassium 3.9 mmol/L (3.5-5.1); Sodium 141 mmol/L (136-145); Total Bilirubin 0.5 mg/dL (0.15-1.2); Total Iron Binding Capacity 241 mcg/dl; Total Protein 7.5 g/dL (6.6-8.7); Unsaturated Iron Binding 60 ug/dL (112-347)
[2023-06-16 16:42] LABS: Vitamin B12 446 pg/mL (232-1245)
[2023-06-16 17:14] LABS: LAB Peripheral Smear Sent for Review
[2023-06-17 09:09] LABS: PROTEIN, TOTAL 6.7 g/dL (6.1-8.1)
[2023-06-17 13:18] LABS: ALBUMIN 3.8 g/dL (3.8-4.8); ALPHA 1 GLOBULIN 0.2 g/dL (0.2-0.3); ALPHA 2 GLOBULIN 0.7 g/dL (0.5-0.9); BETA 1 GLOBULIN 0.4 g/dL (0.4-0.6); BETA 2 GLOBULIN 0.4 g/dL (0.2-0.5); GAMMA GLOBULIN 1.2 g/dL (0.8-1.7)
[2023-06-18 12:35] LABS: KAPPA LIGHT CHAIN, FREE, SERUM 43.9 mg/L (3.3-19.4); KAPPA/LAMBDA LIGHT CHAINS FREE 1.71 (0.26-1.65); LAMBDA LIGHT CHAIN, FREE, SERU 25.6 mg/L (5.7-26.3)
[2023-06-19 09:10] LABS: Methylmalonic Acid 130 nmol/L (87-318)
== END 2023-07-15 23:59 | disposition home or self-care (01) ==
PROVIDERS: Internal Medicine Medical Oncology; PCP Family Medicine; Visit Provider Nurse Practitioner Family
DX: D64.9 Anemia, unspecified (principal); N18.2 Chronic kidney disease, stage 2 (mild); R79.89 Other specified abnormal findings of blood chemistry; Z79.899 Other long term (current) drug therapy
CPT/HCPCS: 36415; 80053; 82607; 82728; 83010; 83540; 83550; 83615; 83883; 83921; 84155; 84165; 85025; 85045; 85651; 86140; 86334; 99205

== ENCOUNTER 2023-09-01 13:49 | Oncology outpatient (recurring) (ONCR) | payer MEDICARE, MEDICAID, SELFPAY ==
[2023-09-01 14:15] LABS: Basophils % 0.6 %; Eosinophils % 0.9 %; Hematocrit 30.2 % (37-53); Lymphocytes # 1.5 10^3/uL (0.8-4.8); Lymphocytes % 46.5 %; Mean Corpuscular HGB Conc 31.8 g/dL (30-55); Mean Corpuscular Hemoglobin 31.3 pg (27-33); Mean Corpuscular Volume 98.4 fl (82-101); Mean Platelet Volume 10.1 fL (7.4-10.4); Monocytes # 0.2 10^3/uL (0.2-0.9); Monocytes % 5.5 %; Neutrophils # 1.52 10^3/uL (1.8-7.7); Neutrophils % 46.5 %; Nucleated Red Blood Cells % 0 %; Platelet Count 178 10^3/cmm (157-399); Red Blood Count 3.07 10^6/uL (3.85-5.65); Red Cell Distribution Width 19.1 % (12.1-15.1); White Blood Count 3.27 10^3/uL (3.29-11.43)
[2023-09-01 14:33] LABS: Alanine Aminotransferase 15 U/L (0-41); Albumin Level 4.1 g/dL (3.5-5.2); Alkaline Phosphatase 68 U/L (40-130); Anion Gap 14.2 (5-19); Aspartate Amino Transferase 21 U/L (0-40); Blood Urea Nitrogen 12 mg/dL (8-23); Calcium 9.5 mg/dL (8.5-10.5); Carbon Dioxide 26 mmol/L (22-29); Chloride 103 mmol/L (98-107); Ferritin 130 ng/mL (30-400); Globulin 2.9 g/dL (1.3-4.6); Glucose 113 mg/dL (65-115); Iron 190 ug/dL (59-158); Lactate Dehydrogenase 150 U/L (135-225); Osmolality Calculated 289 mOsm/kg (285-295); Percent Saturation 81.5 % (20-50); Potassium 4.2 mmol/L (3.5-5.1); Sodium 139 mmol/L (136-145); Total Bilirubin 0.3 mg/dL (0.15-1.2); Total Iron Binding Capacity 233 mcg/dl; Unsaturated Iron Binding 43 ug/dL (112-347)
== END 2023-09-14 23:59 | disposition home or self-care (01) ==
PROVIDERS: Internal Medicine Medical Oncology; PCP Family Medicine; Visit Provider Nurse Practitioner Family
DX: D64.9 Anemia, unspecified (principal); N18.2 Chronic kidney disease, stage 2 (mild); R79.89 Other specified abnormal findings of blood chemistry; Z79.899 Other long term (current) drug therapy; Z53.9 Procedure and treatment not carried out, unspecified reason; C61 Malignant neoplasm of prostate
CPT/HCPCS: 36415; 80053; 82728; 83540; 83550; 83615; 85025; 99214

== ENCOUNTER 2023-10-15 12:21 | Oncology outpatient (recurring) (ONCR) | payer MEDICARE, MEDICAID, SELFPAY ==
[2023-10-15 12:39] LABS: Basophils % 0.5 %; Eosinophils % 0.5 %; Hematocrit 29.4 % (37-53); Lymphocytes # 1.1 10^3/uL (0.8-4.8); Lymphocytes % 29.3 %; Mean Corpuscular Hemoglobin 30.4 pg (27-33); Mean Corpuscular Volume 98.3 fl (82-101); Mean Platelet Volume 9.7 fL (7.4-10.4); Monocytes # 0.3 10^3/uL (0.2-0.9); Monocytes % 6.9 %; Neutrophils # 2.38 10^3/uL (1.8-7.7); Neutrophils % 62.8 %; Nucleated Red Blood Cells % 0 %; Platelet Count 236 10^3/cmm (157-399); Red Blood Count 2.99 10^6/uL (3.85-5.65); White Blood Count 3.79 10^3/uL (3.29-11.43)
[2023-10-15 13:08] LABS: Alanine Aminotransferase 12 U/L (0-41); Albumin Level 3.8 g/dL (3.5-5.2); Alkaline Phosphatase 85 U/L (40-130); Anion Gap 13.9 (5-19); Aspartate Amino Transferase 19 U/L (0-40); Blood Urea Nitrogen 14 mg/dL (8-23); Calcium 9.1 mg/dL (8.5-10.5); Carbon Dioxide 26 mmol/L (22-29); Chloride 103 mmol/L (98-107); Ferritin 168 ng/mL (30-400); Globulin 3.5 g/dL (1.3-4.6); Glucose 121 mg/dL (65-115); Iron 115 ug/dL (59-158); Osmolality Calculated 290 mOsm/kg (285-295); Percent Saturation 55.2 % (20-50); Potassium 3.9 mmol/L (3.5-5.1); Sodium 139 mmol/L (136-145); Total Bilirubin 0.4 mg/dL (0.15-1.2); Total Iron Binding Capacity 208 mcg/dl; Total Protein 7.3 g/dL (6.6-8.7); Unsaturated Iron Binding 93 ug/dL (112-347)
[2023-10-15 13:50] LABS: Testosterone Total 431.6 ng/dL (193-740)
== END 2023-10-15 23:59 | disposition home or self-care (01) ==
LOC: ONCMED 12:22
PROVIDERS: Internal Medicine Medical Oncology; PCP Family Medicine; Visit Provider Nurse Practitioner Family
DX: C61 Malignant neoplasm of prostate (principal); D64.9 Anemia, unspecified; N18.2 Chronic kidney disease, stage 2 (mild); Z79.899 Other long term (current) drug therapy
CPT/HCPCS: 36415; 80053; 81256; 82728; 83540; 83550; 84153; 84403; 85025; 99214

== ENCOUNTER 2023-12-03 10:15 | Oncology outpatient (recurring) (ONCR) | payer MEDICARE, MEDICAID, SELFPAY ==
[2023-11-24 09:05] LABS: Basophils % 0.8 %; Eosinophils % 1.1 %; Hematocrit 30.6 % (37-53); Lymphocytes # 1.1 10^3/uL (0.8-4.8); Lymphocytes % 40.6 %; Mean Corpuscular HGB Conc 31.7 g/dL (30-55); Mean Corpuscular Hemoglobin 30.8 pg (27-33); Mean Corpuscular Volume 97.1 fl (82-101); Mean Platelet Volume 9.3 fL (7.4-10.4); Monocytes # 0.2 10^3/uL (0.2-0.9); Monocytes % 6.5 %; Neutrophils # 1.33 10^3/uL (1.8-7.7); Nucleated Red Blood Cells % 0 %; Platelet Count 173 10^3/cmm (157-399); Red Blood Count 3.15 10^6/uL (3.85-5.65); Red Cell Distribution Width 19.2 % (12.1-15.1); White Blood Count 2.61 10^3/uL (3.29-11.43)
[2023-11-24 10:01] LABS: Alanine Aminotransferase 16 U/L (0-41); Albumin Level 3.9 g/dL (3.5-5.2); Alkaline Phosphatase 70 U/L (40-130); Anion Gap 14.1 (5-19); Aspartate Amino Transferase 20 U/L (0-40); Blood Urea Nitrogen 13 mg/dL (8-23); Carbon Dioxide 26 mmol/L (22-29); Chloride 102 mmol/L (98-107); Globulin 2.9 g/dL (1.3-4.6); Glucose 104 mg/dL (65-115); Osmolality Calculated 286 mOsm/kg (285-295); Potassium 4.1 mmol/L (3.5-5.1); Sodium 138 mmol/L (136-145); Testosterone Total 457.8 ng/dL (193-740); Total Bilirubin 0.6 mg/dL (0.15-1.2); Total Protein 6.8 g/dL (6.6-8.7)
[2023-11-24] MEDS: leuprolide 22.5 mg Kit IM (11:09)
[2023-12-03 10:55] LABS: Basophils % 0.3 %; Eosinophils % 0.7 %; Lymphocytes # 0.9 10^3/uL (0.8-4.8); Lymphocytes % 30.3 %; Mean Corpuscular Hemoglobin 30.6 pg (27-33); Mean Corpuscular Volume 98.7 fl (82-101); Mean Platelet Volume 9.9 fL (7.4-10.4); Monocytes # 0.2 10^3/uL (0.2-0.9); Monocytes % 5.1 %; Neutrophils # 1.87 10^3/uL (1.8-7.7); Neutrophils % 63.6 %; Nucleated Red Blood Cells % 0 %; Platelet Count 146 10^3/cmm (157-399); Red Blood Count 3.04 10^6/uL (3.85-5.65); Red Cell Distribution Width 19.3 % (12.1-15.1); White Blood Count 2.94 10^3/uL (3.29-11.43)
[2023-12-03 11:15] LABS: Alanine Aminotransferase 13 U/L (0-41); Albumin Level 3.9 g/dL (3.5-5.2); Alkaline Phosphatase 63 U/L (40-130); Aspartate Amino Transferase 16 U/L (0-40); Blood Urea Nitrogen 13 mg/dL (8-23); Calcium 9.1 mg/dL (8.5-10.5); Carbon Dioxide 25 mmol/L (22-29); Chloride 102 mmol/L (98-107); Ferritin 146 ng/mL (30-400); Globulin 2.6 g/dL (1.3-4.6); Glucose 113 mg/dL (65-115); Iron 201 ug/dL (59-158); Osmolality Calculated 285 mOsm/kg (285-295); Sodium 137 mmol/L (136-145); Total Bilirubin 0.5 mg/dL (0.15-1.2); Total Protein 6.5 g/dL (6.6-8.7)
[2023-12-03 11:38] LABS: Total Iron Binding Capacity 217.99999 mcg/dl
[2023-12-03 11:39] LABS: Unsaturated Iron Binding < 17 ug/dL (112-347)
== END 2023-12-15 23:59 | disposition home or self-care (01) ==
PROVIDERS: Internal Medicine Medical Oncology; Nurse Practitioner Family; PCP Family Medicine; Visit Provider Nurse Practitioner Family
DX: Z53.9 Procedure and treatment not carried out, unspecified reason; K92.1 Melena
CPT/HCPCS: 36415; 80053; 82728; 83540; 83550; 84153; 84403; 85025; 96402; 99215; J9217

== ENCOUNTER 2023-12-25 09:03 | Oncology outpatient (recurring) (ONCR) | payer MEDICARE, MEDICAID, SELFPAY ==
[2023-12-25 09:41] LABS: Basophils % 0.7 %; Eosinophils % 0.7 %; Hematocrit 29.6 % (37-53); Lymphocytes # 0.7 10^3/uL (0.8-4.8); Lymphocytes % 25.7 %; Mean Corpuscular HGB Conc 31.1 g/dL (30-55); Mean Corpuscular Hemoglobin 30.5 pg (27-33); Mean Platelet Volume 9.4 fL (7.4-10.4); Monocytes # 0.1 10^3/uL (0.2-0.9); Neutrophils # 1.89 10^3/uL (1.8-7.7); Neutrophils % 67.5 %; Nucleated Red Blood Cells % 0 %; Platelet Count 156 10^3/cmm (157-399); Red Blood Count 3.02 10^6/uL (3.85-5.65); Red Cell Distribution Width 18.6 % (12.1-15.1)
[2023-12-25 10:11] LABS: Testosterone Total 4.4 ng/dL (193-740)
[2023-12-25 23:39] LABS: Folate Level 8.2 ng/mL (4.5-32.2)
== END 2024-01-15 23:59 | disposition home or self-care (01) ==
LOC: ONCMED 09:04
PROVIDERS: Nurse Practitioner Family; PCP Family Medicine; Visit Provider Nurse Practitioner Family
DX: C61 Malignant neoplasm of prostate; D64.9 Anemia, unspecified; N18.2 Chronic kidney disease, stage 2 (mild); Z79.899 Other long term (current) drug therapy; R79.89 Other specified abnormal findings of blood chemistry
CPT/HCPCS: 36415; 82746; 84153; 84403; 85025; 99214

== ENCOUNTER 2024-02-24 09:25 | Oncology outpatient (recurring) (ONCR) | payer MEDICARE, MEDICAID, SELFPAY ==
[2024-02-24 10:24] LABS: Basophils % 1.2 %; Eosinophils % 0.8 %; Hematocrit 30.3 % (37-53); Mean Corpuscular HGB Conc 30.4 g/dL (30-55); Mean Corpuscular Hemoglobin 29.1 pg (27-33); Mean Corpuscular Volume 95.9 fl (82-101); Mean Platelet Volume 10.1 fL (7.4-10.4); Monocytes # 0.2 10^3/uL (0.2-0.9); Monocytes % 7.1 %; Neutrophils % 50.9 %; Nucleated Red Blood Cells % 0 %; Platelet Count 183 10^3/cmm (157-399); Red Blood Count 3.16 10^6/uL (3.85-5.65); White Blood Count 2.55 10^3/uL (3.29-11.43)
[2024-02-24 10:45] LABS: Alanine Aminotransferase 19 U/L (0-41); Albumin Level 3.9 g/dL (3.5-5.2); Alkaline Phosphatase 71 U/L (40-130); Anion Gap 14.9 (5-19); Aspartate Amino Transferase 20 U/L (0-40); Blood Urea Nitrogen 13 mg/dL (8-23); Calcium 9.8 mg/dL (8.5-10.5); Carbon Dioxide 25 mmol/L (22-29); Chloride 103 mmol/L (98-107); Creatinine Clr Calc Pharmacy 51.5433; Globulin 2.9 g/dL (1.3-4.6); Glucose 120 mg/dL (65-115); Lactate Dehydrogenase 158 U/L (135-225); Osmolality Calculated 289 mOsm/kg (285-295); Potassium 3.9 mmol/L (3.5-5.1); Prostate Specific Antigen 0.294 ng/mL (0-4); Sodium 139 mmol/L (136-145); Testosterone Total 2.5 ng/dL (193-740); Total Bilirubin 0.5 mg/dL (0.15-1.2); Total Protein 6.8 g/dL (6.6-8.7)
[2024-02-24] MEDS: leuprolide 22.5 mg Kit IM (12:02)
[2024-02-24] MEDS: denosumab 120 mg SDV SUBCUT (12:04)
== END 2024-03-16 23:59 | disposition home or self-care (01) ==
PROVIDERS: Internal Medicine Hematology & Oncology; PCP Family Medicine; Visit Provider Internal Medicine Medical Oncology
DX: Z51.11 Encounter for antineoplastic chemotherapy (principal); C61 Malignant neoplasm of prostate; D64.9 Anemia, unspecified; Z79.899 Other long term (current) drug therapy
CPT/HCPCS: 36415; 80053; 83615; 84153; 84403; 85025; 96377; 96402; 99214; J0897; J9217

== ENCOUNTER 2024-03-13 18:18 | Observation (INO) | payer MEDICARE, MEDICAID, SELFPAY ==
[2024-03-13] VITALS (7 sets, daily range): BP systolic 115–129; BP diastolic 54–64; PULSE 71–98; RESP 13–19; TEMP 36.8; O2SAT 90–98; BMI 25.4
--- NOTE | 2024-03-13 18:52 | XRR_ITS ---
PROCEDURE INFORMATION: Exam: XR Lumbosacral Spine Exam date and time: 03/13/2024 7:14 PM Age: 89 years old Clinical indication: Pain; Lumbago; Prior surgery; Surgery date: 6+ months; Surgery type: Multiple kyphoplasties; Additional info: Lower back pain after multiple falls; RT lower ext weakness; HX metastatic prostate cancer, multiple kyphoplasties TECHNIQUE: Imaging protocol: Radiologic exam of the lumbosacral spine. Views: 2 or 3 views. COMPARISON: CT abdomen pelvis w con* [id number] 09/26/2023 9:08 AM FINDINGS: Bones/joints: Vertebral body augmentation at multiple levels. T12 and L1 height loss likely due to old compression deformities. Old T11 compression deformity. Multilevel degenerative changes of the lumbar spine. No definite new fracture. Soft tissues: Unremarkable. Gastrointestinal tract: Nonobstructive bowel gas pattern. Vasculature: Atherosclerosis of the abdominal aorta. XR/XR lumbar spine 2-3V* [id number] IMPRESSION: Chronic changes of the lumbar spine without a definitive displaced fracture seen. If there is continued clinical concern for underlying fracture follow up with CT of the lumbar spine.
--- NOTE | 2024-03-13 18:53 | XRR_ITS ---
PROCEDURE INFORMATION: Exam: XR Chest Exam date and time: 03/13/2024 7:14 PM Age: 89 years old Clinical indication: Cough and shortness of breath; Prior surgery; Surgery date: 6+ months; Surgery type: Cabg, multiple kyphoplasties; Patient HX: Cough; SOB; Lower back pain after multiple falls; HX metastatic prostate cancer, multiple kyphoplasties, cabg TECHNIQUE: Imaging protocol: Radiologic exam of the chest. Views: 1 view. COMPARISON: CR XR chest 1V portable [id number] 10/07/2019 2:49 PM FINDINGS: Lungs: Prominence of the pulmonary interstitium which can be seen in the setting of pulmonary edema versus infectious/inflammatory etiologies. No lobar consolidation. Pleural spaces: Small left-sided pleural effusion. No sizable right-sided pleural effusion. No pneumothorax. Heart/Mediastinum: Postsurgical changes of the mediastinum . Bones/joints: Unremarkable. XR/XR chest 1V portable [id number] IMPRESSION: As above.
--- NOTE | 2024-03-13 18:54 | ED_ITS ---
HPI - Weakness 2 General: Chief complaint: Weakness Stated complaint: weakness; freq falls Time Seen by Provider: 03/13/24 18:29 History of Present Illness: Patient presents to the ER with by EMS with complaints of weakness of his right lower extremity. He says this been going on for some time but the last 3 days has been getting worse to the point that it feels like it is not there and he is fallen multiple times in the past several days. . Patient denies any pain in his right lower extremity or back. 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 Patient went saw his PCP a couple days ago and had labs drawn but he does not know the results. Review of Systems 2 General: Reports: 10 or more systems reviewed and unremarkable except in HPI and below PFSH ED 2 PFSH: Medical History Macular degeneration GERD (gastroesophageal reflux disease) History of prostate cancer Treated with radiation in 2002 History of nonmelanoma skin cancer Fatigue Intermittent atrial fibrillation CKD (chronic kidney disease) stage 2, GFR 60-89 ml/min Hypertension ASHD (arteriosclerotic heart disease) Valvular heart disease Hyperlipidemia Arrhythmia Bilateral carotid artery stenosis Patient was found to have bilateral carotid artery stenosis of less than 50%. 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 done in [facility] Family History Mother CAD (coronary artery disease) Hypertension Diabetes Brother Hypertension Heart disease Grandmother Stroke Sister Breast cancer Father Lung cancer Denies family history of Clotting disorder Dementia Chronic kidney disease (CKD) Suicide Anesthesia complication Bleeding disorder Social History Smoking and tobacco/nicotine status: former use of tobacco/nicotine Quit status (tobacco/nicotine): has quit using Year quit tobacco: 1984 Former quit date comment: He smoked 1 pack of cigarettes daily for 7-8 years. Alcohol intake: former Former alcohol use details: He used to drink a little but he quit a long time ago. Substance/Drug Use: never Physical Exam 2 Const: COMMON NORMALS: no acute distress, average body habitus, patient oriented x3, no limitations, healthy appearing, alert and well nourished Neck/C-Spine: COMMON NORMALS: no JVD Chest: COMMONS NORMALS: normal palpation of entire chest wall Resp: COMMON NORMALS: normal respiratory effort, No retractions, No use of accessory muscles and clear to auscultation bilaterally AUSCULTATION: clear to auscultation bilaterally Cardio: COMMON NORMALS: no JVD, regular rate, regular rhythm, S1 normal heart sound present, S2 normal heart sound present, No gallops present (Cardio), No clicks present (Cardio) and No rub (Cardio); negative for No murmurs present (Cardio) (2 out of 6 systolic ejection murmur) RATE: regular rate RHYTHM: regular rhythm HEART SOUNDS: S1 normal heart sound present and S2 normal heart sound present GI: COMMON NORMALS: Normal to inspection, nondistended, normoactive bowel sounds present, Soft to palpation, non-tender and No hepatosplenomegaly present PALPATION: Yes Soft to palpation and Yes No hepatosplenomegaly present Neuro: COMMON NORMALS: patient oriented x3 SENSORIUM/ORIENTATION: Yes alert Course 2 Vital Signs: Vital signs: Vital Signs Temperature 98.2 F 03/13/24 18:20 Pulse Rate 79 03/13/24 22:43 Respiratory Rate 18 03/13/24 22:43 Blood Pressure 122/54 03/13/24 22:43 Pulse Oximetry 94 03/13/24 22:43 Oxygen Delivery Me thod Room Air 03/13/24 22:43 Oxygen Flow Rate 1 03/13/24 21:59 MDM - Weakness Medical Decision Making Lab work and lumbar spine x-ray chest x-ray was all noted. Patient is anemic and has severe arthritis of the spine as well as right lower leg weakness and is felt to be unsafe discharge home. Patient will be admitted to the floor. Hospitalist consulted and agrees with treatment. Medical Records I reviewed the patient's medical records. Lab Data I reviewed the patient's lab results. 03/13/24 20:01 03/13/24 20:01 Radiology Impressions Lumbar Spine X-Ray 03/13/24 18:52 IMPRESSION: Chronic changes of the lumbar spine without a definitive displaced fracture seen. If there is continued clinical concern for underlying fracture follow up with CT of the lumbar spine. Chest X-Ray 03/13/24 18:53 IMPRESSION: As above. Laboratory Results WBC 5.62 10^3/uL (3.29-11.43) 03/13/24 20:01 RBC 2.66 10^6/uL (3.85-5.65) L 03/13/24 20:01 Hgb 7.80 g/dL (11.27-16.99) L 03/13/24 20:01 Hct 25.9 % (37-53) L 03/13/24 20:01 MCV 97.4 fl (82-101) 03/13/24 20:01 MCH 29.3 pg (27-33) 03/13/24 20:01 MCHC 30.1 g/dL (30-55) 03/13/24 20:01 RDW 19.3 % (12.1-15.1) H 03/13/24 20:01 Plt Count 185 10^3/cmm (157-399) 03/13/24 20:01 MPV 9.6 fL (7.4-10.4) 03/13/24 20:01 Neut % (Auto) 73.7 % 03/13/24 20:01 Lymph % (Auto) 20.1 % 03/13/24 20:01 [place] % (Auto) 5.2 % 03/13/24 20:01 Eos % (Auto) 0.4 % 03/13/24 20:01 Baso % (Auto) 0.4 % 03/13/24 20:01 Neut # (Auto) 4.15 10^3/uL (1.8-7.7) 03/13/24 20:01 Lymph # (Auto) 1.1 10^3/uL (0.8-4.8) 03/13/24 20:01 [place] # (Auto) 0.3 10^3/uL (0.2-0.9) 03/13/24 20:01 Eos # (Auto) 0.0 10^3/uL (0.0-0.8) 03/13/24 20:01 Baso # (Auto) 0.0 10^3/uL (0.0-0.1) 03/13/24 20:01 Nucleated RBC % (auto) 0 % 03/13/24 20:01 Nucleated RBCs # 0.0 /100WBC 03/13/24 20:01 Sodium 142 mmol/L (136-145) 03/13/24 20:01 Potassium 4.4 mmol/L (3.5-5.1) 03/13/24 20:01 Chloride 107 mmol/L (98-107) 03/13/24 20:01 Carbon Dioxide 27 mmol/L (22-29) 03/13/24 20:01 Anion Gap 12.4 (5-19) 03/13/24 20:01 BUN 15 mg/dL (8-23) 03/13/24 20:01 Creatinine 1.1 mg/dL (0.7-1.2) 03/13/24 20:01 GFR Calculation Not Reportable 03/13/24 20:01 Glucose 129 mg/dL (65-115) H 03/13/24 20:01 Calculated Osmolality 297 mOsm/kg (285-295) H 03/13/24 20:01 Calcium 9.0 mg/dL (8.5-10.5) 03/13/24 20:01 Total Bilirubin 0.4 mg/dL (0.15-1.2) 03/13/24 20:01 AST 25 U/L (0-40) 03/13/24 20:01 ALT 14 U/L (0-41) 03/13/24 20:01 Alkaline Phosphatase 74 U/L (40-130) 03/13/24 20:01 Creatine Kinase 70 U/L (39-308) 03/13/24 20:01 Total Protein 6.1 g/dL (6.6-8.7) L 03/13/24 20:01 Albumin 3.5 g/dL (3.5-5.2) 03/13/24 20:01 Globulin 2.6 g/dL (1.3-4.6) 03/13/24 20:01 Urine Color Yellow (Yellow) 03/13/24 20:12 Urine Appearance Clear (CLEAR) 03/13/24 20:12 Urine pH 5.5 (5-7) 03/13/24 20:12 Ur Specific Rachel 1.026 (1.005-1.030) 03/13/24 20:12 Urine Protein Trace (Negative) A 03/13/24 20:12 Urine Glucose (UA) Negative (Normal) 03/13/24 20:12 Urine Ketones Trace (Negative) 03/13/24 20:12 Urine Blood Negative (Negative) 03/13/24 20:12 Urine Nitrate Negative (Negative) 03/13/24 20:12 Urine Bilirubin Negative (Negative) 03/13/24 20:12 Urine Urobilinogen 1.0 mg/dL (Negative) 03/13/24 20:12 Ur Leukocyte Esterase Negative (Negative) 03/13/24 20:12 Urine RBC 0-2 /hpf (0-2) 03/13/24 20:12 Urine WBC 0-5 /hpf (0-5) 03/13/24 20:12 Ur Squamous Epith Cells 0-5 /hpf (0-5) 03/13/24 20:12 Amorphous Sediment Not Reportable 03/13/24 20:12 Urine Bacteria None seen /hpf (NONE) 03/13/24 20:12 Hyaline Casts 1.65 /lpf 03/13/24 20:12 All radiology interpretation(s) finalized by discharge Discharge Plan Discharge Patient Disposition: Admitted As Inpatient Clinical Impression: Right leg weakness, Multiple falls Osteoarthritis of lumbar spine Qualifiers: Spinal osteoarthritis complication: unspecified spinal osteoarthritis Qualified Code(s): M47.816 - Spondylosis without myelopathy or radiculopathy, lumbar region Condition: Stable Coding Level of Care Code ED [employer] for [facility] Fwd Related Data Home Medications Medication Instructions Recorded Confirmed atorvastatin 80 mg tablet 80 mg PO DAILY 03/26/19 02/24/24 vit C 250 mg-vit E 90 mg-zinc 40 1 tab PO BID 07/19/19 02/24/24 mg-copper 1 [id number] capsule (PreserVision AREDS-2) nitroglycerin 0.4 mg sublingual 0.4 mg sublingual Q5M PRN 10/03/20 02/24/24 tablet (Nitrostat) omeprazole 40 mg capsule,delayed 40 mg PO DAILY 10/03/20 02/24/24 release diltiazem HCl 60 mg 60 mg PO DAILY 06/16/23 02/24/24 capsule,extended release 12 hr terazosin 5 mg capsule 5 mg PO 10/15/23 02/24/24 Previous Rx's Medication Instructions Recorded bicalutamide 50 mg tablet 50 mg PO DAILY #30 tabs 11/13/23 Allergies Allergy/AdvReac Type Severity Reaction Status Date / Time niacin Allergy Unknown makes me Verified 03/13/24 18:28 shake all over
--- NOTE | 2024-03-13 19:11 | PC.NURSE ---
PT TAKEN TO XRAY AT 191
[2024-03-13 20:19] LABS: Bilirubin Urine Negative (Negative); Blood Urine Negative (Negative); Glucose Urine UA Negative (Normal); Ketones Urine Trace (Negative); Leukocyte Esterase Urine Negative (Negative); Nitrate Urine Negative (Negative); Protein Urine Trace (Negative); Specific Gravity, Urine 1.026 (1.005-1.030); Urine Appearance Clear (CLEAR); Urine Color Yellow (Yellow); pH Urine 5.5 (5-7)
[2024-03-13 20:24] LABS: Add Urine Microscopic? YES; Bacteria Urine None Seen /hpf; Hyaline Casts Urine 1.65 /lpf; RBC Urine 0-2 /hpf (0-2); Squamous Epithelial Cell Urine 0-5 /hpf (0-5); WBC Urine 0-5 /hpf (0-5)
[2024-03-13 20:47] LABS: Alanine Aminotransferase 14 U/L (0-41); Albumin Level 3.5 g/dL (3.5-5.2); Alkaline Phosphatase 74 U/L (40-130); Anion Gap 12.4 (5-19); Aspartate Amino Transferase 25 U/L (0-40); Blood Urea Nitrogen 15 mg/dL (8-23); Carbon Dioxide 27 mmol/L (22-29); Chloride 107 mmol/L (98-107); Creatinine Clr Calc Pharmacy 50.8013; Globulin 2.6 g/dL (1.3-4.6); Glucose 129 mg/dL (65-115); Osmolality Calculated 297 mOsm/kg (285-295); Potassium 4.4 mmol/L (3.5-5.1); Sodium 142 mmol/L (136-145); Total Bilirubin 0.4 mg/dL (0.15-1.2); Total Protein 6.1 g/dL (6.6-8.7)
[2024-03-13 20:53] LABS: Basophils % 0.4 %; Eosinophils % 0.4 %; Hematocrit 25.9 % (37-53); Lymphocytes # 1.1 10^3/uL (0.8-4.8); Lymphocytes % 20.1 %; Mean Corpuscular HGB Conc 30.1 g/dL (30-55); Mean Corpuscular Hemoglobin 29.3 pg (27-33); Mean Corpuscular Volume 97.4 fl (82-101); Mean Platelet Volume 9.6 fL (7.4-10.4); Monocytes # 0.3 10^3/uL (0.2-0.9); Monocytes % 5.2 %; Neutrophils # 4.15 10^3/uL (1.8-7.7); Neutrophils % 73.7 %; Nucleated Red Blood Cells % 0 %; Platelet Count 185 10^3/cmm (157-399); Red Blood Count 2.66 10^6/uL (3.85-5.65); Red Cell Distribution Width 19.3 % (12.1-15.1); White Blood Count 5.62 10^3/uL (3.29-11.43)
--- NOTE | 2024-03-13 22:18 | PM.HP ---
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 He states that from the knee down, he is unable to stand on his feet and would fall. He states that he fell 3 times over the a span of 2 days. He called family members who would help him stand on his feet. He denies head trauma with his falls. He denies any headaches, visual disturbances, dizziness, light headedness, nasal congestion, CP, palpitations prior to his falls. He denies SOB prior to his falls, but states that he gets SOB if he does heavy lifting at his house. He states that when he is outside picking up something, once he starts to experience back pain, he cannot breathe. When asked whether he has any hx of anxiety or depresssion. He tells me that when you figure out that you are going blind, which I am, and you cannot walk, I have anxiety. When asked whether he feels depressed, he states yes. He denies SI or HI. He lives alone. Per chart review, he saw Dr. Quinten Mccall MD on 09/25/2021 forC/T, L medial branch block. When questioned about the branch blocks done on chart review, the patient states that he has had multiple fractures in his back and has had multiple vertebroplasties. Review of Systems Const: Denies: fever(s), chills or change in appetite Eyes: Denies: change in vision or blurry vision ENMT: Reports: other (no sore throat); Denies: odynophagia, ear or mastoid pain, ear discharge, nasal discharge or nasal congestion Card: Denies: chest pain, palpitations, swelling of feet/ankles, lightheadedness or syncope Resp: Reports: other (coughing); Denies: dyspnea or wheezing GI: Denies: abdominal pain, nausea, vomiting, diarrhea, constipation, hematochezia or melena : Denies: difficulty urinating, dysuria, urinary frequency, urinary urgency or hematuria Musc: Reports: other (no myalgia, positive Leg weakness); Denies: extremity pain or joint pain Skin/Breast: Denies: rash or new lesions Neuro: Reports: frequent falls; Denies: headache(s) or dizziness Psych: Reports: depression Endo: Denies: cold intolerance or heat intolerance [place]/Lymph: Denies: easy bruising or easy bleeding All/Imm: Denies: food intolerance Medications/Allergies Home Medications Medication Instructions Recorded Confirmed Last Taken Type atorvastatin 80 mg tablet 80 mg PO DAILY 03/26/19 03/13/24 12/19/19 History vit C 250 mg-vit E 90 mg-zinc 40 1 tab PO BID 07/19/19 03/14/24 12/19/19 History mg-copper 1 [id number] capsule (PreserVision AREDS-2) nitroglycerin 0.4 mg sublingual 0.4 mg sublingual Q5M PRN Chest 10/03/20 03/14/24 Unknown History tablet (Nitrostat) Pain omeprazole 40 mg capsule,delayed 40 mg PO DAILY 10/03/20 03/14/24 Unknown History release diltiazem HCl 60 mg 60 mg PO DAILY 06/16/23 03/14/24 Unknown History capsule,extended release 12 hr terazosin 5 mg capsule 5 mg PO BEDTIME 10/15/23 03/14/24 Unknown History gabapentin 100 mg capsule 100 mg PO BID 03/13/24 03/14/24 Unknown History isosorbide mononitrate 30 mg 30 mg PO DAILY 03/13/24 03/14/24 Unknown History tablet,extended release 24 hr mirtazapine 15 mg tablet 15 mg PO BEDTIME 03/13/24 03/14/24 Unknown History tramadol 50 mg tablet 100 mg PO Q8H PRN Pain 03/13/24 03/14/24 Unknown History Allergies Allergy/AdvReac Type Severity Reaction Status Date / Time niacin Allergy Unknown makes me Verified 03/13/24 18:28 shake all over PFSH Acute PFSH: Medical History Macular degeneration GERD (gastroesophageal reflux disease) History of prostate cancer Treated with radiation in 2003 History of nonmelanoma skin cancer Fatigue Intermittent atrial fibrillation CKD (chronic kidney disease) stage 2, GFR 60-89 ml/min Hypertension ASHD (arteriosclerotic heart disease) Valvular heart disease Hyperlipidemia Arrhythmia Bilateral carotid artery stenosis Patient was found to have bilateral carotid artery stenosis of less than 50%. 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 done in [facility] Family History Mother CAD (coronary artery disease) Hypertension Diabetes Brother Hypertension Heart disease Grandmother Stroke Sister Breast cancer Father Lung cancer Denies family history of Clotting disorder Dementia Chronic kidney disease (CKD) Suicide Anesthesia complication Bleeding disorder Social History Smoking and tobacco/nicotine status: former use of tobacco/nicotine Quit status (tobacco/nicotine): has quit using Year quit tobacco: 1984 Former quit date comment: He smoked 1 pack of cigarettes daily for 7-8 years. Alcohol intake: former Former alcohol use details: He used to drink a little but he quit a long time ago. Substance/Drug Use: never Vitals/I&O/Wt Last Vital Signs Temp 98.2 F 03/13/24 18:20 Pulse 80 03/13/24 21:59 Resp 17 03/13/24 21:59 BP 129/64 03/13/24 21:59 Pulse Ox 97 03/13/24 21:59 O2 Del Method Nasal Cannula 03/13/24 21:59 O2 Flow Rate 1 03/13/24 21:59 Weight last 48 hrs Weight 80.286 kg Physical Exam Const: GENERAL APPEARANCE: cooperative and comfortable ORIENTATION/CONSCIOUSNESS: Yes awake, Yes oriented to person, Yes oriented to place and Yes oriented to time HENMT: HEAD & SCALP: normocephalic and atraumatic NOSE: Normal external nose present EXTERNAL EAR: Yes external ears normal MOUTH: Normal oral and palatal mucosa present THROAT: posterior oropharynx normal Eye: OTHER: PEERL, EOMI, normal conjunctiva Neck/C-Spine: GENERAL: Yes normal visual inspection and Yes trachea midline THYROID: Thyroid normal CAROTIDS: No bruit CERVICAL SPINE: Yes cervical ROM normal Lymph: OTHER: No cervical or supraclavicular LAD. Resp: OTHER: crackles in the b/l lower lung bases. Cardio: OTHER: RRR, 3?6 systolic murmur radiating to the carotids in the RUSB, 2/6 systolic murmurs in the LUSB & LLSB, 2+ radial & DP pulses, no gallops or clicks. GI: OTHER: BS positive, nontender, nondistended, no guarding, no rigidity, no rebound tenderness. Extremity: GENERAL: No clubbing, No cyanosis and No edema Neuro: CRANIAL NERVES: Yes CN normal except as noted SPEECH: speech normal SENSORY EXAM: No sensory level loss detected MOTOR EXAM: 5/5 motor strength present throughout and Normal motor muscle tone present throughout Psych: APPEARANCE: Yes grossly normal ATTITUDE: Yes calm and Yes engaged ACTIVITY/MOTOR BEHAVIOR: Yes appropriate eye contact SPEECH: Yes normal speech MOOD & AFFECT: Yes sad THOUGHT PROCESS: Normal thought process present THOUGHT CONTENT: Yes Normal thought content present ATTENTION/CONCENTRATION: Yes attention grossly intact MEMORY/COGNITION: Yes memory grossly intact Skin: GENERAL SKIN EXAM: no rashes or lesions noted Data 03/13/24 20:01 03/13/24 20:01 A&P Assessment and plan (1) Right leg weakness: (2) Multiple falls: Plan Oneil Velasquez is a 89 year old male 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 #Falls : Multifactorial including poor vision #B/l LE weakness #Hx of vertebroplastiese and back joint injections - Will get an MRI T&L spine - Ordered COVID-19/RSV/flu A& B test - PT ordered #Possible pneumonia vs pulmonary congestion - F/u CT chest w/o contrast #CAD #3v CABG #HLD #HTN #Chronic Intermittent Afib - On Full dose Lovenox BID - Resumed only Diltiazem given current BP - Give Lasix 40mg IVP x 1 #GERD -PPI po # Of note: Nurse was concerned that the patient had passive suicidal ideation, but upon further questioning, he does not have suicidal ideation. DVT ppx: Full dose Lovenox. Attestations Medical Necessity Statement*: Patient will need hospitalization for greater than 2 midnights for his falls, weakness, and possible pneumonia vs congestion. Time Spent in Patient Care: >70mins was spent on patient chart review/physical exam, lab/image review, plan and patient formulation. Coding Level of Care Code 89570 Diagnoses Right leg weakness R29.898 Multiple falls R29.6
[2024-03-13 22:36] LABS: Creatine Phosphokinase 70 U/L (39-308)
[2024-03-14] VITALS (9 sets, daily range): BP systolic 103–152; BP diastolic 57–72; PULSE 65–90; RESP 14–17; TEMP 36.4–36.6; O2SAT 96–98
--- NOTE | 2024-03-14 08:08 | CTR_ITS ---
PROCEDURE INFORMATION: Exam: CT Chest Without Contrast; Diagnostic Exam date and time: 03/14/2024 8:31 AM Age: 89 years old Clinical indication: Dyspnea; Prior surgery; Surgery date: 6+ months; Surgery type: Aortic valve, stents x 4; Additional info: Crackles in the b/l lower lung lobes, evaluate for infection vs pulmonary edema TECHNIQUE: Imaging protocol: Diagnostic computed tomography of the chest without contrast. Radiation optimization: All CT scans at this facility use at least one of these dose optimization techniques: automated exposure control; mA and/or kV adjustment per patient size (includes targeted exams where dose is matched to clinical indication); or iterative reconstruction. COMPARISON: CR XR chest 1V portable [id number] 03/13/2024 7:14 PM RADIATION DOSE METRICS: Total DLP (mGy-cm): 441.65 FINDINGS: Lungs: There is mild dependent atelectasis bilaterally. There is subsegmental atelectasis or scarring in the chest bilaterally. Calcified granuloma in the left lower lobe. Mild bronchiectasis in the left lower lobe. Suggestion of early honeycombing in the peripheral aspect of the right lower lobe. Minimal patchy opacity at the left base likely reflects microatelectasis. Developing pneumonia is difficult to completely exclude. Solid pulmonary nodule in the left upper lobe measuring 3 mm (image 35). Solid pulmonary nodule in the left upper lobe measuring 3.4 mm (image 36). Pleural spaces: No pleural effusion. No pneumothorax. Heart: There has been prior TAVR. No pericardial effusion. Coronary arteries: Dense coronary arterial calcification. Lymph nodes: A subcarinal lymph node measures 1.1 x 2.2 cm. Small calcified left hilar lymph nodes. Vasculature: There is ectasia/aneurysmal dilatation of the ascending thoracic aorta measuring 4.0 x 4.1 cm. There is no gross evidence of rupture. Diaphragm: Small hiatal hernia. Liver: Indeterminate right hepatic lesion measuring 1.4 x 2.0 cm. This lesion showed enhancement on the prior study. Kidneys: Simple right renal cyst measuring 2.7 cm. Intestine: Occasional colonic diverticula. Bones/joints: There has been prior kyphoplasty at T12 and L1. No acute fracture is identified. Median sternotomy wires are noted. Soft tissues: Mild bilateral gynecomastia. CT/CT chest wo con [id number] IMPRESSION: 1. Minimal patchy opacity at the left base likely reflects microatelectasis. Developing pneumonia is difficult to completely exclude. 2. Mild bronchiectasis in the left lower lobe. 3. Suggestion of early honeycombing in the peripheral aspect of the right lower lobe. This could reflect early interstitial lung disease. 4. Mild mediastinal lymphadenopathy. 5. Coronary artery disease. 6. Indeterminate right hepatic lesion that is increased in size since 2019. This lesion showed enhancement on the prior study. Recommend nonemergent MR abdomen hepatic protocol with and without contrast to better characterize. 7. 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 There is no gross evidence of rupture. 8. Pulmonary nodules measuring up to 3.4 mm. As per Fleischner Society 2017 guidelines for follow-up and management of pulmonary nodules: For patients at low risk (minimal or absent history of smoking and of other known risk factors), no routine follow-up. For patient at high risk (history of smoking or of other known risk factors), recommend optional CT at 12 months. COMMENTS: Consistent with the [employer]'s Incidental Findings Committee white paper (J Am Danilo Radiol 2018): Any incidental renal lesion less than 1 cm or classified as too small to characterize, or any incidental cystic renal lesion characterized as simple-appearing, is likely benign. No follow-up imaging is recommended for these lesions per consensus recommendations based on imaging criteria.
--- NOTE | 2024-03-14 08:21 | MRR_ITS ---
PROCEDURE INFORMATION: Exam: MR Lumbar Spine Without Contrast Exam date and time: 03/14/2024 5:02 PM Age: 89 years old Clinical indication: Injury or trauma; Fall; Weakness; Blunt trauma (contusions or hematomas); Prior surgery; Surgery date: 6+ months; Surgery type: Kyphoplasty; Additional info: Falls, leg weakness TECHNIQUE: Imaging protocol: Magnetic resonance imaging of the lumbar spine without contrast. COMPARISON: CR XR lumbar spine 2-3V* [id number] 03/13/2024 7:14 PM FINDINGS: Bones/joints: Chronic moderate T11 compression fracture. Chronic moderate-severe L5 compression fracture. Chronic moderate T12 and L4 compression fractures with cement. Chronic severe L1 compression fracture with kyphoplasty cement. Chronic mild L3 compression fracture with kyphoplasty cement. No acute fracture. L2 vertebral body hemangioma. Degenerative facets, greatest at L3-L4 through L5-S1. Spinal cord: Visualized cord, conus medullaris and cauda equina are unremarkable without compression. L1-L2: Trace posterior disc bulge. No spinal canal stenosis. No neural foraminal narrowing. L2-L3: Mild posterior disc bulge. Degenerative facets with ligamentum flavum hypertrophy. Severe spinal canal stenosis. Severe left and mild right neural foraminal narrowing. L3-L4: Mild posterior disc bulge. Hypertrophic degenerative facets with ligamentum flavum hypertrophy. Severe spinal canal stenosis. Moderate left and right neural foraminal narrowing. L4-L5: Mild posterior disc bulge. Degenerative facets with ligamentum flavum hypertrophy. Mild spinal canal stenosis. Mild-moderate bilateral neural foraminal narrowing. L5-S1: Mild posterior disc bulge. No spinal canal stenosis. Severe left and mild right neural foraminal narrowing. Soft tissues: Unremarkable. MR/MR lumbar spine wo con* [id number] IMPRESSION: 1. No acute fracture. 2. Multiple chronic compression fractures and kyphoplasties. 3. Degenerative changes as described. Spinal canal stenosis is severe at L2-L3 and L3-L4.
--- NOTE | 2024-03-14 08:21 | MRR_ITS ---
PROCEDURE INFORMATION: Exam: MR Thoracic Spine Without Contrast Exam date and time: 03/14/2024 4:32 PM Age: 89 years old Clinical indication: Weakness; Pain in thoracic spine; With radiculopathy; Bilateral; Additional info: Falls, leg weakness TECHNIQUE: Imaging protocol: Magnetic resonance imaging of the thoracic spine without contrast. COMPARISON: CT chest wo con [id number] 03/14/2024 8:31 AM FINDINGS: Bones/joints: Thoracic curvature. Moderate chronic T11 compression fracture. Moderate T12 compression fracture with kyphoplasty cement. Severe L1 compression fracture with kyphoplasty cement. No acute fracture. Hemangiomas in the T6 and T8 vertebral bodies. Spinal cord: Normal signal. No cord compression. T1-T2: No significant disc bulge or herniation. No severe spinal canal stenosis. No significant neural foraminal narrowing. T2-T3: No significant disc bulge or herniation. No severe spinal canal stenosis. No significant neural foraminal narrowing. T3-T4: No significant disc bulge or herniation. No severe spinal canal stenosis. No significant neural foraminal narrowing. T4-T5: No significant disc bulge or herniation. No severe spinal canal stenosis. No significant neural foraminal narrowing. T5-T6: No significant disc bulge or herniation. No severe spinal canal stenosis. No significant neural foraminal narrowing. T6-T7: No significant disc bulge or herniation. No severe spinal canal stenosis. No significant neural foraminal narrowing. T7-T8: No significant disc bulge or herniation. No severe spinal canal stenosis. No significant neural foraminal narrowing. T8-T9: No significant disc bulge or herniation. No severe spinal canal stenosis. No significant neural foraminal narrowing. T9-T10: No significant disc bulge or herniation. No severe spinal canal stenosis. No significant neural foraminal narrowing. T10-T11: No significant disc bulge or herniation. No severe spinal canal stenosis. No significant neural foraminal narrowing. T11-T12: No significant disc bulge or herniation. No severe spinal canal stenosis. No significant neural foraminal narrowing. T12-L1: No significant disc bulge or herniation. No severe spinal canal stenosis. No significant neural foraminal narrowing. Soft tissues: Unremarkable. Kidneys and ureters: Simple right renal cortical cyst. MR/MR thoracic spin wo con* [id number] IMPRESSION: 1. No acute findings. 2. Chronic T11 compression fracture. 3. Chronic T12 and L1 compression fractures with kyphoplasty cement.
[2024-03-14] MEDS: pantoprazole DR 40 mg Tablet PO (09:06)
[2024-03-14] MEDS: dilTIAZem ER (12HR) 60 mg Capsule PO (09:06)
[2024-03-14] MEDS: gabapentin 100 mg Capsule PO ×2 (09:06→17:51)
[2024-03-14] MEDS: atorvastatin 40 mg Tablet 80 MG PO (09:06)
[2024-03-14] MEDS: docusate sodium 100 mg Capsule 200 MG PO (09:07)
[2024-03-14] MEDS: enoxaparin 80 mg/0.8 mL Syringe SUBCUT ×2 (09:07→20:20)
[2024-03-14 09:43] LABS: INR 1.03 (0.8-1.2); Partial Thromboplastin Time 31.7 SECONDS (23.9-36.7)
[2024-03-14 09:56] LABS: Creatine Phosphokinase 70 U/L (39-308); NT Pro B Type Natriuretic Pept 617 pg/mL (0-450)
[2024-03-14 10:15] LABS: Covid PCR NEGATIVE (Negative); Influenza A NEGATIVE (Negative); Influenza B NEGATIVE (Negative); Respiratory Syncytial Virus Ce NEGATIVE (Negative)
--- NOTE | 2024-03-14 14:48 | P.PN_ITS ---
Subjective 2 Subjective: Overnight labs and H&P reviewed. States he is feeling weak in his B/L LE, able to urinate without issues Medications: Reviewed: Yes Vitals/I&O/Wt Last Vital Signs Temp 97.8 F 03/14/24 07:38 Pulse 65 03/14/24 07:38 Resp 16 03/14/24 07:38 BP 117/64 03/14/24 07:38 Pulse Ox 97 03/14/24 07:38 O2 Del Method Nasal Cannula 03/14/24 07:38 O2 Flow Rate 2 03/13/24 23:46 03/13/24 03/14/24 03/14/24 22:59 06:59 14:59 Intake Total 240 / 240 Balance 240 / 240 Weight last 48 hrs Weight 81.335 kg Weight 81.335 kg Weight 81.647 kg Weight 80.286 kg Physical Exam 2 Narrative: General: No acute distress, AO x3 HEENT: PERRLA, pupils bilaterally equal and reactive, pallors not present Chest: Normal vesicular breath sounds, no added sounds, equal good air entry bilaterally CVS: S1-S2 regular, no murmurs, no tachycardia, no gallops, no rubs Abdomen: Soft, nontender, no organomegaly, bowel sounds present Neuro: No focal deficits, no facial deformity, AO x3, power 5/5 in all limbs Data 03/13/24 20:01 03/13/24 20:01 A&P Assessment and plan (1) Right leg weakness: (2) Multiple falls: Plan Oneil Velasquez is a 89 year old male 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 #Falls : Multifactorial including poor vision #B/l LE weakness #Hx of vertebroplastiese and back joint injections - Will get an MRI T&L spine - Ordered COVID-19/RSV/flu A& B test - PT ordered #Possible pneumonia vs pulmonary congestion - F/u CT chest w/o contrast #CAD #3v CABG #HLD #HTN #Chronic Intermittent Afib - On Full dose Lovenox BID - Resumed only Diltiazem given current BP - Give Lasix 40mg IVP x 1 #GERD -PPI po # Of note: Nurse was concerned that the patient had passive suicidal ideation, but upon further questioning, he does not have suicidal ideation. DVT ppx: Full dose Lovenox. March 14, 2024. Patient with a known history of prostate cancer with early osseous metastasis known to be involving the proximal femoral diaphysis and anterior rib. Lymph node metastases in the pelvis retroperitoneum and lower neck. Complaining of worsening lower extremity weakness and recurrent falls. Awaiting MRI of the lumbosacral spine as ordered, likely to happen tomorrow. Additionally awaiting physical therapy evaluation for appropriate disposition planning. UA without signs of UTI. Creatinine kinase not elevated. Will check orthostatics. CT of the chest likely atelectasis. Mild bronchiectasis. Possible interstitial lung disease.no acute consolidation. Attestations 2 Medical Necessity Statement*: pending MRI and PT assessment Coding Level of Care Code Acute Code for Chg Fwd Straight Forward/Low MDM includes number and complexity of problems actively addressed during encounter, amount and/or complexity of data reviewed/ordered and described risk of complication, morbidity or mortality of management as documented Diagnoses Right leg weakness R29.898 Multiple falls R29.6
[2024-03-14] MEDS: terazosin 5 mg Capsule PO (20:20)
[2024-03-14] MEDS: mirtazapine 15 mg Tablet PO (20:20)
[2024-03-14] MEDS: sennosides 8.6 mg Tablet 17.2 MG PO (20:20)
[2024-03-15] VITALS (9 sets, daily range): BP systolic 93–159; BP diastolic 54–85; PULSE 74–101; RESP 15–19; TEMP 36.5–36.9; O2SAT 93–98
[2024-03-15 03:53] LABS: Basophils % 0.8 %; Eosinophils # 0.1 10^3/uL (0.0-0.8); Eosinophils % 1.6 %; Hematocrit 26.3 % (37-53); Lymphocytes % 27.8 %; Mean Corpuscular HGB Conc 29.7 g/dL (30-55); Mean Corpuscular Volume 97.8 fl (82-101); Mean Platelet Volume 9.5 fL (7.4-10.4); Monocytes # 0.3 10^3/uL (0.2-0.9); Neutrophils # 2.31 10^3/uL (1.8-7.7); Neutrophils % 62.5 %; Nucleated Red Blood Cells % 0 %; Platelet Count 168 10^3/cmm (157-399); Red Blood Count 2.69 10^6/uL (3.85-5.65); Red Cell Distribution Width 19.1 % (12.1-15.1)
[2024-03-15 04:18] LABS: Ferritin 203 ng/mL (30-400); Iron 85 ug/dL (59-158)
[2024-03-15 04:26] LABS: Alanine Aminotransferase 16 U/L (0-41); Albumin Level 3.3 g/dL (3.5-5.2); Alkaline Phosphatase 71 U/L (40-130); Anion Gap 10.9 (5-19); Aspartate Amino Transferase 19 U/L (0-40); Blood Urea Nitrogen 10 mg/dL (8-23); Calcium 8.7 mg/dL (8.5-10.5); Carbon Dioxide 28 mmol/L (22-29); Chloride 104 mmol/L (98-107); Creatinine Clr Calc Pharmacy 69.8017; Globulin 2.6 g/dL (1.3-4.6); Glucose 110 mg/dL (65-115); Magnesium 1.7 mg/dL (1.7-2.3); Osmolality Calculated 288 mOsm/kg (285-295); Phosphorus 2.8 mg/dL (2.5-4.5); Potassium 3.9 mmol/L (3.5-5.1); Sodium 139 mmol/L (136-145); Total Bilirubin 0.3 mg/dL (0.15-1.2); Total Protein 5.9 g/dL (6.6-8.7)
[2024-03-15 04:33] LABS: Vitamin B12 495 pg/mL (232-1245)
[2024-03-15 04:34] LABS: Folate Level 7.8 ng/mL (4.5-32.2)
[2024-03-15] MEDS: pantoprazole DR 40 mg Tablet PO (04:56)
[2024-03-15] MEDS: gabapentin 100 mg Capsule PO ×2 (09:13→18:02)
[2024-03-15] MEDS: enoxaparin 80 mg/0.8 mL Syringe SUBCUT (09:13)
[2024-03-15] MEDS: atorvastatin 40 mg Tablet 80 MG PO (09:14)
[2024-03-15] MEDS: docusate sodium 100 mg Capsule 200 MG PO (09:14)
[2024-03-15] MEDS: dilTIAZem ER (12HR) 60 mg Capsule PO (09:14)
--- NOTE | 2024-03-15 13:10 | PC.SOCIAL ---
IMM Updated Updated pt on IMM. No questions voiced. Provided pt a copy. Initialed, dated, & timed a copy & placed in chart.
--- NOTE | 2024-03-15 15:34 | P.DS_ITS ---
Discharge Providers Date of Admission: 03/13/24 23:26 Date of Discharge: March 15, 2024 Attending Provider at Admission: Karen Merrill MD Attending Provider at Discharge: Reina Harmon MD Primary Care Provider: Zoila Ryder DO Diagnoses at Discharge Discharge Diagnosis (1) Right leg weakness: Status: Acute (2) Multiple falls: Status: Acute Reason for Visit Reason for Visit: weakness; freq falls Hospital Course Hospital Course Patient was admitted with bilateral lower extremity weakness which has improved during hospitalization. He did have falls recently which are likely multifactorial due to poor vision history of kyphoplasties in the past. MRI T- spine L-spine was obtained with no acute pathology noted. He was also given therapeutic Lovenox on admission secondary to chronic intermittent A-fib however I have verified with him and 2 of his pharmacies that patient is not on any Eliquis at home. This is secondary to history of severe anemia. I have stopped therapeutic Lovenox at this time. Hemoglobin on admission was 9.2 and since then has been 7.8 however is stable and no longer dropping further. He does carry a history of severe anemia in the past. Patient worked with physical therapy and was able to walk. He states he feels well and is back to his baseline and would like to go home. Orthostatic vitals were negative. Discussed with him regarding his anemia however he states he has followed with medical oncology office at [facility] and they are keeping an eye on it. I have given patient repeat labs to do as an outpatient. He understands that if his hemoglobin does drop he will need to come back to the hospital. ? There is no evidence of hematochezia or hematemesis at this time. Shared decision-making was done with the patient and he was discharged home in stable condition at this time. Of note there was 1 value of hypotension however on repeat blood pressure was normal. I will deemed that as a calculation error at this time. Physical Exam Narrative: General: No acute distress, AO x3 HEENT: PERRLA, pupils bilaterally equal and reactive, pallors not present Chest: Normal vesicular breath sounds, no added sounds, equal good air entry bilaterally CVS: S1-S2 regular, no murmurs, no tachycardia, no gallops, no rubs Abdomen: Soft, nontender, no organomegaly, bowel sounds present Neuro: on focal Discharge Data Studies Completed and Pending Completed Studies During Hospitalization Category Date Time Status CT chest wo con [id number] Routine Cat Scan 03/14/24 08:08 Completed XR chest 1V portable [id number] Stat Exams 03/13/24 18:53 Completed XR lumbar spine 2-3V* [id number] Stat Exams 03/13/24 18:52 Completed MR lumbar spine wo con* [id number] Routine MRI 03/14/24 08:21 Completed MR thoracic spin wo con* [id number] Routine MRI 03/14/24 08:21 Completed Pending at discharge Category Date Time Status Complete Blood Count w/Auto AM LABS Lab 03/17/24 04:00 Ordered Complete Blood Count w/Auto AM LABS Lab 03/16/24 04:00 Ordered Comprehensive Metabolic Panel AM LABS Lab 03/17/24 04:00 Ordered Comprehensive Metabolic Panel AM LABS Lab 03/16/24 04:00 Ordered Fecal Occult Blood [Immunochemical Fecal OCB] Routine Lab 03/14/24 14:48 Uncollected Magnesium AM LABS Lab 03/17/24 04:00 Ordered Magnesium AM LABS Lab 03/16/24 04:00 Ordered Phosphorus AM LABS Lab 03/17/24 04:00 Ordered Phosphorus AM LABS Lab 03/16/24 04:00 Ordered Radiology Impressions Lumbar Spine X-Ray 03/13/24 18:52 IMPRESSION: Chronic changes of the lumbar spine without a definitive displaced fracture seen. If there is continued clinical concern for underlying fracture follow up with CT of the lumbar spine. Chest X-Ray 03/13/24 18:53 IMPRESSION: As above. Chest CT 03/14/24 08:08 IMPRESSION: 1. Minimal patchy opacity at the left base likely reflects microatelectasis. Developing pneumonia is difficult to completely exclude. 2. Mild bronchiectasis in the left lower lobe. 3. Suggestion of early honeycombing in the peripheral aspect of the right lower lobe. This could reflect early interstitial lung disease. 4. Mild mediastinal lymphadenopathy. 5. Coronary artery disease. 6. Indeterminate right hepatic lesion that is increased in size since 2019. This lesion showed enhancement on the prior study. Recommend nonemergent MR abdomen hepatic protocol with and without contrast to better characterize. 7. 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 There is no gross evidence of rupture. 8. Pulmonary nodules measuring up to 3.4 mm. As per Fleischner Society 2017 guidelines for follow-up and management of pulmonary nodules: For patients at low risk (minimal or absent history of smoking and of other known risk factors), no routine follow-up. For patient at high risk (history of smoking or of other known risk factors), recommend optional CT at 12 months. COMMENTS: Consistent with the [place] [employer]'s Incidental Findings Committee white paper (J Am Danilo Radiol 2018): Any incidental renal lesion less than 1 cm or classified as too small to characterize, or any incidental cystic renal lesion characterized as simple-appearing, is likely benign. No follow-up imaging is recommended for these lesions per consensus recommendations based on imaging criteria. Lumbar Spine MRI 03/14/24 08:21 IMPRESSION: 1. No acute fracture. 2. Multiple chronic compression fractures and kyphoplasties. 3. Degenerative changes as described. Spinal canal stenosis is severe at L2-L3 and L3-L4. Thoracic Spine MRI 03/14/24 08:21 IMPRESSION: 1. No acute findings. 2. Chronic T11 compression fracture. 3. Chronic T12 and L1 compression fractures with kyphoplasty cement. Laboratory Results WBC 3.70 10^3/uL (3.29-11.43) 03/15/24 03:26 RBC 2.69 10^6/uL (3.85-5.65) L 03/15/24 03:26 Hgb 7.80 g/dL (11.27-16.99) L 03/15/24 03:26 Hct 26.3 % (37-53) L 03/15/24 03:26 MCV 97.8 fl (82-101) 03/15/24 03:26 MCH 29.0 pg (27-33) 03/15/24 03:26 MCHC 29.7 g/dL (30-55) L 03/15/24 03:26 RDW 19.1 % (12.1-15.1) H 03/15/24 03:26 Plt Count 168 10^3/cmm (157-399) 03/15/24 03:26 MPV 9.5 fL (7.4-10.4) 03/15/24 03:26 Neut % (Auto) 62.5 % 03/15/24 03:26 Lymph % (Auto) 27.8 % 03/15/24 03:26 Worth % (Auto) 7.0 % 03/15/24 03:26 Eos % (Auto) 1.6 % 03/15/24 03:26 Baso % (Auto) 0.8 % 03/15/24 03:26 Neut # (Auto) 2.31 10^3/uL (1.8-7.7) 03/15/24 03:26 Lymph # (Auto) 1.0 10^3/uL (0.8-4.8) 03/15/24 03:26 Worth # (Auto) 0.3 10^3/uL (0.2-0.9) 03/15/24 03:26 Eos # (Auto) 0.1 10^3/uL (0.0-0.8) 03/15/24 03:26 Baso # (Auto) 0.0 10^3/uL (0.0-0.1) 03/15/24 03:26 Nucleated RBC % (auto) 0 % 03/15/24 03:26 Nucleated RBCs # 0.0 /100WBC 03/15/24 03:26 PT 13.80 SECONDS (12.1-14.9) 03/14/24 09:16 INR 1.03 (0.8-1.2) 03/14/24 09:16 APTT 31.7 SECONDS (23.9-36.7) 03/14/24 09:16 Sodium 139 mmol/L (136-145) 03/15/24 03:26 Potassium 3.9 mmol/L (3.5-5.1) 03/15/24 03:26 Chloride 104 mmol/L (98-107) 03/15/24 03:26 Carbon Dioxide 28 mmol/L (22-29) 03/15/24 03:26 Anion Gap 10.9 (5-19) 03/15/24 03:26 BUN 10 mg/dL (8-23) 03/15/24 03:26 Creatinine 0.8 mg/dL (0.7-1.2) 03/15/24 03:26 GFR Calculation Not Reportable 03/15/24 03:26 Glucose 110 mg/dL (65-115) 03/15/24 03:26 Calculated Osmolality 288 mOsm/kg (285-295) 03/15/24 03:26 Calcium 8.7 mg/dL (8.5-10.5) 03/15/24 03:26 Phosphorus 2.8 mg/dL (2.5-4.5) 03/15/24 03:26 Magnesium 1.7 mg/dL (1.7-2.3) 03/15/24 03:26 Iron 85 ug/dL (59-158) 03/15/24 03:26 Ferritin 203 ng/mL (30-400) 03/15/24 03:26 Total Bilirubin 0.3 mg/dL (0.15-1.2) 03/15/24 03:26 AST 19 U/L (0-40) 03/15/24 03:26 ALT 16 U/L (0-41) 03/15/24 03:26 Alkaline Phosphatase 71 U/L (40-130) 03/15/24 03:26 Creatine Kinase 70 U/L (39-308) 03/14/24 09:16 NT-Pro-B Natriuret Pep 617 pg/mL (0-450) H 03/14/24 09:16 Total Protein 5.9 g/dL (6.6-8.7) L 03/15/24 03:26 Albumin 3.3 g/dL (3.5-5.2) L 03/15/24 03:26 Globulin 2.6 g/dL (1.3-4.6) 03/15/24 03:26 Vitamin B12 495 pg/mL (232-1245) 03/15/24 03:26 Folate 7.8 ng/mL (4.5-32.2) 03/15/24 03:26 Urine Color Yellow (Yellow) 03/13/24 20:12 Urine Appearance Clear (CLEAR) 03/13/24 20:12 Urine pH 5.5 (5-7) 03/13/24 20:12 Ur Specific Bandana 1.026 (1.005-1.030) 03/13/24 20:12 Urine Protein Trace (Negative) A 03/13/24 20:12 Urine Glucose (UA) Negative (Normal) 03/13/24 20:12 Urine Ketones Trace (Negative) 03/13/24 20:12 Urine Blood Negative (Negative) 03/13/24 20:12 Urine Nitrate Negative (Negative) 03/13/24 20:12 Urine Bilirubin Negative (Negative) 03/13/24 20:12 Urine Urobilinogen 1.0 mg/dL (Negative) 03/13/24 20:12 Ur Leukocyte Esterase Negative (Negative) 03/13/24 20:12 Urine RBC 0-2 /hpf (0-2) 03/13/24 20:12 Urine WBC 0-5 /hpf (0-5) 03/13/24 20:12 Ur Squamous Epith Cells 0-5 /hpf (0-5) 03/13/24 20:12 Amorphous Sediment Not Reportable 03/13/24 20:12 Urine Bacteria None seen /hpf (NONE) 03/13/24 20:12 Hyaline Casts 1.65 /lpf 03/13/24 20:12 Coronavirus (PCR) Negative (Negative) 03/14/24 09:15 Influenza A (PCR) Negative (Negative) 03/14/24 09:15 Influenza Type B (PCR) Negative (Negative) 03/14/24 09:15 RSV (PCR) Negative (Negative) 03/14/24 09:15 Vitals Last Vital Signs Temp 98.5 F 03/15/24 13:51 Pulse 101 H 03/15/24 13:54 Resp 19 H 03/15/24 13:54 BP 93/54 03/15/24 13:54 Pulse Ox 97 03/15/24 13:54 O2 Del Method Room Air 03/15/24 13:54 O2 Flow Rate 2 03/13/24 23:46 Discharge Plan Discharge Patient Disposition: Home Condition: Stable Prescriptions: Continued atorvastatin 80 mg tablet 80 mg PO DAILY omeprazole 40 mg capsule,delayed release(DR/EC) 40 mg PO DAILY nitroglycerin [Nitrostat] 0.4 mg tablet, sublingual 0.4 mg sublingual Q5M PRN (Reason: Chest Pain) Rx Instructions: do not exceed 3 doses per episode PreserVision AREDS-2 [phone] [id number]-mg capsule 1 tab PO BID diltiazem HCl 60 mg capsule,extended release 12 hr 60 mg PO DAILY terazosin 5 mg capsule 5 mg PO BEDTIME isosorbide mononitrate 30 mg tablet extended release 24 hr 30 mg PO DAILY tramadol 50 mg tablet 100 mg PO Q8H PRN (Reason: Pain) mirtazapine 15 mg tablet 15 mg PO BEDTIME gabapentin 100 mg capsule 100 mg PO BID Discharge Orders: Discharge Order (Routine); Ordered 03/15/24 Ordered By: Reina Eden Other Ambulatory Orders: Complete Blood Count w/Auto (Q3D) Timeframe: 20240318 Location: Determined by Patient Ordered By: Reina Eden Complete Blood Count w/Auto (Q3D) Timeframe: 20240321 Location: Determined by Patient Ordered By: Reina Eden Complete Blood Count w/Auto (Q3D) Timeframe: 20240324 Location: Determined by Patient Ordered By: Reinakarlee Almanzaa Referrals: Michael hZao MD [Hospitalist] - 4-7 days (We have notified your physician's clinic of the need for a follow-up appointment to be scheduled. If you have not heard from them within the next 2 business days, please call them directly. ) Zoila Ryder DO [Primary Care Provider] - 4-7 days (We have notified your physician's clinic of the need for a follow-up appointment to be scheduled. If you have not heard from them within the next 2 business days, please call them directly. ) Discharge Diet: Cardiac Discharge Activity: As per PT/OT instructions Patient Instructions: Anemia, Osteoarthritis (DC), Opioid Safety Discharge Attestations Time Spent in Discharge Care*: greater than 30 min Quality Metrics Clinical Quality Measures [ No reported AMI, CVA or VTE this stay] Coding Level of Care Code Acute Code for Chg Fwd Diagnoses Right leg weakness R29.898 Multiple falls R29.6
== END 2024-03-15 19:00 | disposition home or self-care (01) ==
LOC: ER 23:26 → MEDSURG 03-14 07:43
PROVIDERS: Student in an Organized Health Care Education/Training Program; Admitting Provider Internal Medicine; Emergency Provider Emergency Medicine; PCP Family Medicine; Visit Provider Internal Medicine
DX: R29.898 Other symptoms and signs involving the musculoskeletal system (principal); R29.6 Repeated falls; C61 Malignant neoplasm of prostate; K21.9 Gastro-esophageal reflux disease without esophagitis; I10 Essential (primary) hypertension; Z95.1 Presence of aortocoronary bypass graft; Z79.01 Long term (current) use of anticoagulants; I25.10 Atherosclerotic heart disease of native coronary artery without angina pectoris; I48.20 Chronic atrial fibrillation, unspecified
CPT/HCPCS: 36415; 71045; 71250; 72100; 72146; 72148; 80053; 81001; 82550; 82607; 82728; 82746; 83540; 83735; 83880; 84100; 85025; 85610; 85730; 87637; 96372; 97161; 97165; 99285; G0378; J1650

== ENCOUNTER 2024-04-06 06:27 | Inpatient (IN) | payer MEDICARE, MEDICAID, SELFPAY ==
[2024-04-06] VITALS (46 sets, daily range): BP systolic 105–153; BP diastolic 52–85; PULSE 64–91; RESP 12–22; TEMP 36.6; O2SAT 92–98; BMI 25.2
--- NOTE | 2024-04-06 06:36 | ECG_ITS ---
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 Measurements Intervals [place] Rate: 77 P: 0 DE: 0 QRS: 99 QRSD: 134 T: 31 QT: 406 QTc: 460 Interpretive Statements ATRIAL FIBRILLATION WITH ABERRANT CONDUCTION OR VENTRICULAR PREMATURE COMPLEXES RIGHT BUNDLE BRANCH BLOCK [120+ ms QRS DURATION, UPRIGHT V1, 40+ ms S IN I/aVL/V4/V5/V6] Compared to ECG 12/20/2019 07:21:35 Aberrant conduction of supraventricular beat(s) now present Sinus rhythm no longer present Electronically Signed On 04-10-2024 23:19:50 [employer] by Prudencio Griggs M.D. [email or web address]
--- NOTE | 2024-04-06 06:36 | XRR_ITS ---
PROCEDURE INFORMATION: Exam: XR Chest Exam date and time: 04/06/2024 6:49 AM Age: 89 years old Clinical indication: Angina; Prior surgery; Surgery date: 6+ months; Surgery type: Tavr, bypass; Additional info: Dyspnea/cough TECHNIQUE: Imaging protocol: Radiologic exam of the chest. Views: 1 view. COMPARISON: CT chest con [id number] 03/14/2024 8:31 AM FINDINGS: Lungs: Mild central pulmonary vasculature congestive changes. Similar prominence of the pulmonary interstitium. Bibasilar atelectasis. No lobar consolidation. Pleural spaces: Unremarkable. No pleural effusion. No pneumothorax. Heart/Mediastinum: Mild cardiomegaly. Postsurgical changes of the mediastinum. Bones/joints: Unremarkable. XR/XR chest 1V portable [id number] IMPRESSION: As above.
--- NOTE | 2024-04-06 06:37 | W.ED.CHESTPA ---
HPI - Chest Pain General: Chief Complaint: Chest Pain Stated Complaint: cp Time Seen by Provider: 04/06/24 06:36 History of Present Illness: 89-year-old male presents to the emergency room with complaints of chest pain that began last night around 10:00. Patient states he has had pain intermittently since then with swelling when he woke up he still of the chest pain was accompanied by nausea and vomiting and some shortness of breath he states he got worse when he was taking a shower and EMS was called. Initially EMS had concern about ST elevation NV. Today forward EKGs to this. I talked to them on the phone a few minutes before 6 AM EKG did not clearly meet criteria. They were able to give me the patient's name and date of we pulled up the old EKG it does show change however in the interval patient had had a TAVR procedure done. We forwarded the EKG done in the field add the all of the EKG to Dr. Marlow he did not believe this represented a STEMI and asked for the EKG to be repeated when the patient arrived. The EKGs were forwarded to Dr. Marlow at 559 and 6 AM. Upon arrival his EKG was repeated did not show acute ST elevation NV reviewed again with Dr. Marlow also reviewed the chart found to commentary in the old records that was pasted below in the medical record section. Patient has previously had bypass has chronically occluded grafts to the RCA into the circumflex and the TORRE to the LAD was patent. This was done in 2019 prior to his TAVR surgery. At that point it was elected to treat him medically. Based on this and EKG findings Dr. Oshea did not wish to have a STEMI called and recommended instead that we trend the component troponins. Patient still is having some mild chest discomfort. Associated symptoms: Deny abdominal pain, dyspnea or fever(s) Related Data Home Medications Medication Instructions Recorded Confirmed atorvastatin 80 mg tablet 80 mg PO DAILY 03/26/19 04/06/24 vit C 250 mg-vit E 90 mg-zinc 40 1 tab PO BID 07/19/19 04/06/24 mg-copper 1 [id number] capsule (PreserVision AREDS-2) nitroglycerin 0.4 mg sublingual 0.4 mg sublingual Q5M PRN Chest 10/03/20 04/06/24 tablet (Nitrostat) Pain omeprazole 40 mg capsule,delayed 40 mg PO DAILY 10/03/20 04/06/24 release diltiazem HCl 60 mg 60 mg PO DAILY 06/16/23 04/06/24 capsule,extended release 12 hr terazosin 5 mg capsule 5 mg PO BEDTIME 10/15/23 04/06/24 gabapentin 100 mg capsule 100 mg PO BID 03/13/24 04/06/24 isosorbide mononitrate 30 mg 30 mg PO DAILY 03/13/24 04/06/24 tablet,extended release 24 hr mirtazapine 15 mg tablet 15 mg PO BEDTIME 03/13/24 04/06/24 tramadol 50 mg tablet 100 mg PO Q8H PRN Pain 03/13/24 04/06/24 potassium chloride 10 mEq 10 meq PO DAILY 04/06/24 04/06/24 tablet,extended release Allergies Allergy/AdvReac Type Severity Reaction Status Date / Time niacin Allergy Unknown makes me Verified 04/06/24 06:34 shake all over Review of Systems Const: Denies: fever(s) or chills Card: Reports: chest pain Resp: Denies: dyspnea GI: Denies: abdominal pain : Denies: dysuria, urinary frequency or urinary urgency Musc: Denies: neck pain or back pain Skin/Breast: Denies: rash PFSH ED PFSH: Medical History Macular degeneration GERD (gastroesophageal reflux disease) History of prostate cancer Treated with radiation in 2002 History of nonmelanoma skin cancer Fatigue Intermittent atrial fibrillation CKD (chronic kidney disease) stage 2, GFR 60-89 ml/min Hypertension ASHD (arteriosclerotic heart disease) Valvular heart disease Hyperlipidemia Arrhythmia Bilateral carotid artery stenosis Patient was found to have bilateral carotid artery stenosis of less than 50%. 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 done in [facility] Family History Mother CAD (coronary artery disease) Hypertension Diabetes Brother Hypertension Heart disease Grandmother Stroke Sister Breast cancer Father Lung cancer Denies family history of Clotting disorder Dementia Chronic kidney disease (CKD) Suicide Anesthesia complication Bleeding disorder Social History Smoking and tobacco/nicotine status: former use of tobacco/nicotine Quit status (tobacco/nicotine): has quit using Year quit tobacco: 1984 Former quit date comment: He smoked 1 pack of cigarettes daily for 7-8 years. Alcohol intake: former Former alcohol use details: He used to drink a little but he quit a long time ago. Substance/Drug Use: never Physical Exam Const: COMMON NORMALS: no acute distress GENERAL APPEARANCE: cooperative and comfortable ORIENTATION/CONSCIOUSNESS: Yes awake, Yes oriented to person, Yes oriented to place and Yes oriented to time HENMT: COMMON NORMALS: normocephalic, atraumatic and hearing grossly normal bilaterally HEAD & SCALP: normocephalic and atraumatic Resp: COMMON NORMALS: normal respiratory effort, No retractions, No use of accessory muscles and clear to auscultation bilaterally AUSCULTATION: clear to auscultation bilaterally Cardio: COMMON NORMALS: regular rate, regular rhythm and No murmurs present (Cardio) RATE: regular rate RHYTHM: regular rhythm GI: COMMON NORMALS: Soft to palpation and No hepatosplenomegaly present AUSCULTATION: Yes normoactive bowel sounds PALPATION: Yes Soft to palpation, No Tenderness to palpation present (GI), No Guarding due to palpation present (GI) and Yes No hepatosplenomegaly present Extremity: COMMON NORMALS: normal to inspection, capillary refill normal, no clubbing, cyanosis or edema, no calf tenderness and no pedal edema Neuro: SENSORIUM/ORIENTATION: Yes oriented to person, Yes oriented to place and Yes oriented to time Skin: COMMON NORMALS: no rashes or lesions noted GENERAL SKIN EXAM: no rashes or lesions noted Course Vital Signs: Vital signs: Vital Signs Temperature 97.8 F 04/06/24 06:27 Pulse Rate 87 04/06/24 06:27 Respiratory Rate 18 04/06/24 06:27 Blood Pressure 105/85 04/06/24 06:27 Pulse Oximetry 92 04/06/24 06:27 Oxygen Delivery Me thod Room Air 04/06/24 06:27 MDM - Chest Pain Medical Decision Making Troponin has positive delta of +56. Discussed with hospitalist discussed with cardiology orders. Did notify Dr. Marlow of the positive delta troponin as well. Patient did receive heparin in the field. Dr. Oshea and I discussed the patient again after he arrived here he still agrees he is not a STEMI at this time. He recommended that we follow serial tropes which we had done and admit for further medical management given his history of known coronary artery disease. Previous angiogram there was not an option for intervention. Medical Records 10/05/19 Tres Velasquez is a 84 year old male has a history of coronary disease, status post coronary bypass surgery, history of aortic valve stenosis, status post TAVR, chronic intermittent atrial fibrillation is present with complaints of nausea and vomiting since last Friday. 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 He requires emergency surgical intervention. This patient had a TAVR last year at the [facility]. He also is known to have intermittent atrial fibrillation and is on long-term oral anticoagulation. He has not taken the oral anticoagulant since Friday. He is known to have coronary disease and had a three-vessel coronary bypass surgery in 1999. He had the most recent cardiac catheterization in July 2018 prior to the valve surgery. At that time, he was found to have total occlusion of the mid LAD and the right coronary artery. The TORRE to the LAD was found to be patent. Venous graft to circumflex artery and the right coronary artery were chronically occluded. Based on the angiogram findings, it was opted to treat him medically. He has not had any chest pain, palpitation, or syncopal episodes recently. He has been having episodes of dizziness which he attributes to atrial fibrillation and slow ventricular response rate. His heart rate sometimes go down into the 30s and 40s. He had a recent heart monitor and the results are not available. There was some discussion about permanent pacer implantation. Lab Data 04/06/24 06:34 04/06/24 06:34 Radiology Impressions Chest X-Ray 04/06/24 06:36 IMPRESSION: As above. Laboratory Results WBC 6.63 10^3/uL (3.29-11.43) 04/06/24 06:34 RBC 3.01 10^6/uL (3.85-5.65) L 04/06/24 06:34 Hgb 8.80 g/dL (11.27-16.99) L 04/06/24 06:34 Hct 28.4 % (37-53) L 04/06/24 06:34 MCV 94.4 fl (82-101) 04/06/24 06:34 MCH 29.2 pg (27-33) 04/06/24 06:34 MCHC 31.0 g/dL (30-55) 04/06/24 06:34 RDW 19.3 % (12.1-15.1) H 04/06/24 06:34 Plt Count 207 10^3/cmm (157-399) 04/06/24 06:34 MPV 9.5 fL (7.4-10.4) 04/06/24 06:34 Neut % (Auto) 76.0 % 04/06/24 06:34 Lymph % (Auto) 17.2 % 04/06/24 06:34 Nash % (Auto) 4.8 % 04/06/24 06:34 Eos % (Auto) 0.3 % 04/06/24 06:34 Baso % (Auto) 0.3 % 04/06/24 06:34 Neut # (Auto) 5.04 10^3/uL (1.8-7.7) 04/06/24 06:34 Lymph # (Auto) 1.1 10^3/uL (0.8-4.8) 04/06/24 06:34 Nash # (Auto) 0.3 10^3/uL (0.2-0.9) 04/06/24 06:34 Eos # (Auto) 0.0 10^3/uL (0.0-0.8) 04/06/24 06:34 Baso # (Auto) 0.0 10^3/uL (0.0-0.1) 04/06/24 06:34 Nucleated RBC % (auto) 0 % 04/06/24 06:34 Nucleated RBCs # 0.0 /100WBC 04/06/24 06:34 Sodium 136 mmol/L (136-145) 04/06/24 06:34 Potassium 4.0 mmol/L (3.5-5.1) 04/06/24 06:34 Chloride 98 mmol/L (98-107) 04/06/24 06:34 Carbon Dioxide 22 mmol/L (22-29) 04/06/24 06:34 Anion Gap 20.0 (5-19) H 04/06/24 06:34 BUN 13 mg/dL (8-23) 04/06/24 06:34 Creatinine 0.9 mg/dL (0.7-1.2) 04/06/24 06:34 GFR Calculation Not Reportable 04/06/24 06:34 Glucose 121 mg/dL (65-115) H 04/06/24 06:34 Calculated Osmolality 283 mOsm/kg (285-295) L 04/06/24 06:34 Calcium 9.2 mg/dL (8.5-10.5) 04/06/24 06:34 Total Bilirubin 0.4 mg/dL (0.15-1.2) 04/06/24 06:34 AST 18 U/L (0-40) 04/06/24 06:34 ALT 14 U/L (0-41) 04/06/24 06:34 Alkaline Phosphatase 72 U/L (40-130) 04/06/24 06:34 Creatine Kinase 39 U/L (39-308) 04/06/24 06:34 Troponin T Baseline 14 ng/L (0-15) 04/06/24 06:34 Troponin T 120 Minute 67.29 ng/L (0-15) H 04/06/24 08:57 Delta Troponin T 53.29 ABS# (0-10) H* 04/06/24 08:57 NT-Pro-B Natriuret Pep 463 pg/mL (0-450) H 04/06/24 06:34 Total Protein 6.5 g/dL (6.6-8.7) L 04/06/24 06:34 Albumin 3.8 g/dL (3.5-5.2) 04/06/24 06:34 Globulin 2.7 g/dL (1.3-4.6) 04/06/24 06:34 Urine Color Yellow (Yellow) 04/06/24 08:31 Urine Appearance Clear (CLEAR) 04/06/24 08:31 Urine pH 7.0 (5-7) 04/06/24 08:31 Ur Specific Ellinger 1.017 (1.005-1.030) 04/06/24 08:31 Urine Protein Trace (Negative) A 04/06/24 08:31 Urine Glucose (UA) Negative (Normal) 04/06/24 08:31 Urine Ketones Trace (Negative) 04/06/24 08:31 Urine Blood Negative (Negative) 04/06/24 08:31 Urine Nitrate Negative (Negative) 04/06/24 08:31 Urine Bilirubin Negative (Negative) 04/06/24 08:31 Urine Urobilinogen 0.2 mg/dL (Negative) 04/06/24 08:31 Ur Leukocyte Esterase Negative (Negative) 04/06/24 08:31 Urine RBC 0-2 /hpf (0-2) 04/06/24 08:31 Urine WBC 0-5 /hpf (0-5) 04/06/24 08:31 Ur Squamous Epith Cells 0-5 /hpf (0-5) 04/06/24 08:31 Amorphous Sediment Not Reportable 04/06/24 08:31 Urine Bacteria None seen /hpf (NONE) 04/06/24 08:31 Hyaline Casts 1.65 /lpf 04/06/24 08:31 All radiology interpretation(s) finalized by discharge Discharge Plan Discharge Patient Disposition: Admitted As Inpatient Clinical Impression: ASHD (arteriosclerotic heart disease), Hypertension, CKD (chronic kidney disease) stage 2, GFR 60-89 ml/min, Anemia, S/P TAVR (transcatheter aortic valve replacement), Non-ST elevation NV (NSTEMI) Condition: Stable Prescriptions: No Action atorvastatin 80 mg tablet 80 mg PO DAILY omeprazole 40 mg capsule,delayed release(DR/EC) 40 mg PO DAILY nitroglycerin [Nitrostat] 0.4 mg tablet, sublingual 0.4 mg sublingual Q5M PRN (Reason: Chest Pain) Rx Instructions: do not exceed 3 doses per episode PreserVision AREDS-2 [id number] rb-boen-tb-mg capsule 1 tab PO BID diltiazem HCl 60 mg capsule,extended release 12 hr 60 mg PO DAILY terazosin 5 mg capsule 5 mg PO BEDTIME potassium chloride 10 mEq tablet extended release 10 meq PO DAILY isosorbide mononitrate 30 mg tablet extended release 24 hr 30 mg PO DAILY tramadol 50 mg tablet 100 mg PO Q8H PRN (Reason: Pain) mirtazapine 15 mg tablet 15 mg PO BEDTIME gabapentin 100 mg capsule 100 mg PO BID Referrals: Zoila Ryder DO [Primary Care Provider] - Coding Level of Care Code ED Rodding Machine Tender for Vinita Porter
[2024-04-06 06:45] LABS: Basophils % 0.3 %; Eosinophils % 0.3 %; Hematocrit 28.4 % (37-53); Lymphocytes # 1.1 10^3/uL (0.8-4.8); Lymphocytes % 17.2 %; Mean Corpuscular Hemoglobin 29.2 pg (27-33); Mean Corpuscular Volume 94.4 fl (82-101); Mean Platelet Volume 9.5 fL (7.4-10.4); Monocytes # 0.3 10^3/uL (0.2-0.9); Monocytes % 4.8 %; Neutrophils # 5.04 10^3/uL (1.8-7.7); Nucleated Red Blood Cells % 0 %; Platelet Count 207 10^3/cmm (157-399); Red Blood Count 3.01 10^6/uL (3.85-5.65); Red Cell Distribution Width 19.3 % (12.1-15.1); White Blood Count 6.63 10^3/uL (3.29-11.43)
--- NOTE | 2024-04-06 06:56 | PC.NURSE ---
took over pt care from MARU Ruiz @ [phone]
[2024-04-06 07:03] LABS: Troponin(5th) Baseline 14 ng/L (0-15)
[2024-04-06 07:13] LABS: Alanine Aminotransferase 14 U/L (0-41); Albumin Level 3.8 g/dL (3.5-5.2); Alkaline Phosphatase 72 U/L (40-130); Aspartate Amino Transferase 18 U/L (0-40); Blood Urea Nitrogen 13 mg/dL (8-23); Calcium 9.2 mg/dL (8.5-10.5); Carbon Dioxide 22 mmol/L (22-29); Chloride 98 mmol/L (98-107); Creatine Phosphokinase 39 U/L (39-308); Globulin 2.7 g/dL (1.3-4.6); Glucose 121 mg/dL (65-115); NT Pro B Type Natriuretic Pept 463 pg/mL (0-450); Osmolality Calculated 283 mOsm/kg (285-295); Sodium 136 mmol/L (136-145); Total Bilirubin 0.4 mg/dL (0.15-1.2); Total Protein 6.5 g/dL (6.6-8.7)
--- NOTE | 2024-04-06 08:36 | ECG_ITS ---
[facility] Test Date: 2024-04-06 Pat Name: Oneil Velasquez Department: Room: Gender: Male Collections Rep: : 1935 Requested By: Harpal Angulo Order Number: [id number] Julisa MD: Prudencio Griggs M.D. Measurements Intervals [place] Rate: 70 P: 19 TN: 203 QRS: 76 QRSD: 134 T: 11 QT: 437 QTc: 473 Interpretive Statements SINUS RHYTHM RIGHT BUNDLE BRANCH BLOCK [120+ ms QRS DURATION, UPRIGHT V1, 40+ ms S IN I/aVL/V4/V5/V6] Compared to ECG 04/06/2024 06:31:11 Atrial fibrillation no longer present Ventricular premature complex(es) no longer present Aberrant conduction of supraventricular beat(s) no longer present Electronically Signed On 04-10-2024 23:38:02 WIDE ARE[employer] NETWORK ENGINEER by Prudencio Griggs M.D. [id number]
[2024-04-06 09:04] LABS: Bilirubin Urine Negative (Negative); Blood Urine Negative (Negative); Glucose Urine UA Negative (Normal); Ketones Urine Trace (Negative); Leukocyte Esterase Urine Negative (Negative); Nitrate Urine Negative (Negative); Protein Urine Trace (Negative); Specific Gravity, Urine 1.017 (1.005-1.030); Urine Appearance Clear (CLEAR); Urine Color Yellow (Yellow); Urobilinogen Urine 0.2 mg/dL (Negative)
[2024-04-06 09:09] LABS: Add Urine Microscopic? YES; Bacteria Urine None Seen /hpf; Hyaline Casts Urine 1.65 /lpf; RBC Urine 0-2 /hpf (0-2); Squamous Epithelial Cell Urine 0-5 /hpf (0-5); WBC Urine 0-5 /hpf (0-5)
[2024-04-06 09:20] LABS: Troponin 5 2HR 67.29 ng/L (0-15)
[2024-04-06 09:22] LABS: Troponin 5 2HR Delta 53.29 ABS# (0-10)
--- NOTE | 2024-04-06 11:36 | P.HP_ITS ---
Providers/Chief Complaint 2 Primary Care Provider: Zoila Ryder DO Chief Complaint: cp History of Present Illness Pleasant 89-year-old gentleman with history of CAD, carotid artery disease, valvular heart disease, TAVR, intermittent atrial fibrillation (reports history of A-fib after CABG, but states without recurrence subsequently), history of intra-abdominal bleeding requiring surgical intervention macular degeneration, also at risk of bleeding, he and family report had been previously taken off antiplatelet medications after the intra-abdominal bleed about 5 years ago, and had not been resumed since, CKD 2, HTN. Has continued on statin. He presents to the hospital due to central chest and left arm pain which was quite severe, which started while he was taking a shower, and was building up to the point that he thought he could not get out of the shower by himself. In ER he has received aspirin. Baseline is 114. 2-hour troponin up to 67.29. Chest x-ray with mild central pulmonary vascular congestion. Prominence of pulm interstitium. Mild cardiomegaly. Review of Systems 2 Const: Denies: fever(s), chills, body aches or malaise ENMT: Denies: throat pain Card: Reports: chest pain; Denies: edema, pre-syncope or dyspnea on exertion Resp: Denies: dyspnea, productive cough, change in phlegm color or hemoptysis GI: Reports: nausea and vomiting (After CP started); Denies: abdominal pain, diarrhea, constipation, hematochezia or melena : Denies: flank pain, difficulty urinating, urinary frequency or hematuria Musc: Reports: extremity pain (L arm pain); Denies: back pain, joint swelling or joint redness Skin/Breast: Denies: rash or new lesions Neuro: Denies: headache(s), numbness in extremities, weakness in extremities or confusion Medications/Allergies Home Medications Medication Instructions Recorded Confirmed Last Taken Type atorvastatin 80 mg tablet 80 mg PO DAILY 03/26/19 04/06/24 04/05/24 07:00 History vit C 250 mg-vit E 90 mg-zinc 40 1 tab PO BID 07/19/19 04/06/24 04/05/24 08:00 History mg-copper 1 ry-xwiqnv-aearvm capsule (PreserVision AREDS-2) nitroglycerin 0.4 mg sublingual 0.4 mg sublingual Q5M PRN Chest 10/03/20 04/06/24 04/06/24 History tablet (Nitrostat) Pain omeprazole 40 mg capsule,delayed 40 mg PO DAILY 10/03/20 04/06/24 04/05/24 08:00 History release diltiazem HCl 60 mg 60 mg PO DAILY 06/16/23 04/06/24 04/05/24 History capsule,extended release 12 hr terazosin 5 mg capsule 5 mg PO BEDTIME 10/15/23 04/06/24 04/04/24 History gabapentin 100 mg capsule 100 mg PO BID 03/13/24 04/06/24 04/05/24 08:00 History isosorbide mononitrate 30 mg 30 mg PO DAILY 03/13/24 04/06/24 04/05/24 08:00 History tablet,extended release 24 hr mirtazapine 15 mg tablet 15 mg PO BEDTIME 03/13/24 04/06/24 04/04/24 History tramadol 50 mg tablet 100 mg PO Q8H PRN Pain 03/13/24 04/06/24 04/05/24 08:00 History potassium chloride 10 mEq 10 meq PO DAILY 04/06/24 04/06/24 04/05/24 08:25 History tablet,extended release Allergies Allergy/AdvReac Type Severity Reaction Status Date / Time niacin Allergy Unknown makes me Verified 04/06/24 06:34 shake all over PFSH Acute 2 PFSH: Medical History Macular degeneration GERD (gastroesophageal reflux disease) History of prostate cancer Treated with radiation in 2002 History of nonmelanoma skin cancer Fatigue Intermittent atrial fibrillation CKD (chronic kidney disease) stage 2, GFR 60-89 ml/min Hypertension ASHD (arteriosclerotic heart disease) Valvular heart disease Hyperlipidemia Arrhythmia Bilateral carotid artery stenosis Patient was found to have bilateral carotid artery stenosis of less than 50%. 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 done in [facility] Family History Mother CAD (coronary artery disease) Hypertension Diabetes Brother Hypertension Heart disease Grandmother Stroke Sister Breast cancer Father Lung cancer Denies family history of Clotting disorder Dementia Chronic kidney disease (CKD) Suicide Anesthesia complication Bleeding disorder Social History Smoking and tobacco/nicotine status: former use of tobacco/nicotine Quit status (tobacco/nicotine): has quit using Year quit tobacco: 1984 Former quit date comment: He smoked 1 pack of cigarettes daily for 7-8 years. Alcohol intake: former Former alcohol use details: He used to drink a little but he quit a long time ago. Substance/Drug Use: never Vitals/I&O/Wt Last Vital Signs Temp 97.8 F 04/06/24 06:27 Pulse 87 04/06/24 06:27 Resp 18 04/06/24 06:27 BP 105/85 04/06/24 06:27 Pulse Ox 92 04/06/24 06:27 O2 Del Method Room Air 04/06/24 06:27 04/05/24 04/06/24 04/06/24 22:59 06:59 14:59 Intake Total 0 / 0 Balance 0 / 0 Physical Exam 2 Const: COMMON NORMALS: patient oriented x3 and alert GENERAL APPEARANCE: c ooperative ORIENTATION/CONSCIOUSNESS: Yes awake HENMT: COMMON NORMALS: oropharynx normal Neck/C-Spine: COMMON NORMALS: no JVD Resp: COMMON NORMALS: normal respiratory effort and clear to auscultation bilaterally AUSCULTATION: clear to auscultation bilaterally Cardio: COMMON NORMALS: no JVD, regular rhythm, S1 normal heart sound present, S2 normal heart sound present and No murmurs present (Cardio) RHYTHM: regular rhythm HEART SOUNDS: S1 normal heart sound present and S2 normal heart sound present GI: COMMON NORMALS: Normal to inspection, nondistended, normoactive bowel sounds present, Soft to palpation and non-tender PALPATION: Yes Soft to palpation Extremity: COMMON NORMALS: no joint enlargement and no pedal edema Neuro: COMMON NORMALS: patient oriented x3 and moves all extremities S ENSORIUM/ORIENTATION: Yes alert Skin: COMMON NORMALS: no rashes or lesions noted GENERAL SKIN EXAM: no rashes or lesions noted Data 04/06/24 06:34 04/06/24 06:34 A&P Assessment and plan (1) Non-ST elevation VT (NSTEMI): Central chest and left arm pain, quite severe early this morning, to the point that he thought he could not make it out of the shower. Reviewed vitals, CBC, CMP, troponin, EKG, UA, chest x-ray, ER provider note, discussed with ER provider. 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 TORRE to LAD patent. Venous gas discomfort collects and RCA chronically occluded. Making any additional intervention very difficult and/were not possible. This morning presented with chest pain, left arm pain, EKG change with LVH, RBBB, initially questionable STEMI, case was discussed with cardiology. With significantly rising troponin subsequently from baseline 14 up to 6 7.32 hours, 214.6 at 6 hours. Has not been on antiplatelets for the last 5 years after intra-abdominal bleed complicated by bowel ischemia, as well as with macular degeneration risk of intraocular bleeding. Received aspirin. Discussed with him and his family risk of bleeding with treatment, risk of significant VT. He will further discuss this with cardiology. As per discussion with tooth cutter pinion at current time with NSTEMI start anticoagulation, will start with heparin drip in case needing rapid discontinuation. Monitor on telemetry with risk of arrhythmia. Obtain TTE. Pending additional cardiology evaluation. Nitroglycerin as needed. Continue Imdur. (2) ASHD (arteriosclerotic heart disease): As above. Has been on statin. Continue. Has not been antiplatelets over the last 5 years. Discussed with tooth cutter pinion. Pending formal cardiology consultation. Continue Imdur. (3) Intermittent atrial fibrillation: He reports had atrial fibrillation subsequently to his CABG. Reports recurrence, but is noted to be in atrial fibrillation on initial EKG. Plan CKD: Reassess renal function. He does not take any NSAIDs. HTN: Monitor blood pressures. Continue Imdur. Terazosin. GERD: Continue PPI. Attestations 2 Medical Necessity Statement*: Continue admission for assessment and management of NSTEMI and gentleman with advanced coronary to disease. and High MDM includes amount and/or complexity of data reviewed/ordered [ previous or external records, resulted lab(s)/test(s), ordered lab(s)/test(s), independent test interpretation and other healthcare professional discussion] and described risk of complication, morbidity or mortality of management as documented Diagnoses Non-ST elevation VT (NSTEMI) I21.4 ASHD (arteriosclerotic heart disease) I25.10 Intermittent atrial fibrillation I48.0
--- NOTE | 2024-04-06 12:02 | ECG_ITS ---
[facility] Test Date: 2024-04-06 Pat Name: Oneil Velasquez Department: Room: Gender: Male Assistant Front Office Manager: : 1935 Requested By: Harpal Angulo Order Number: [id number] Julisa MD: Prudencio Griggs M.D. Measurements Intervals [place] Rate: 76 P: -14 NV: 192 QRS: 70 QRSD: 128 T: 11 QT: 414 QTc: 466 Interpretive Statements SINUS RHYTHM WITH OCCASIONAL SUPRAVENTRICULAR PREMATURE COMPLEXES RIGHT BUNDLE BRANCH BLOCK [120+ ms QRS DURATION, UPRIGHT V1, 40+ ms S IN I/aVL/V4/V5/V6] Compared to ECG 04/06/2024 08:48:26 No significant changes Electronically Signed On 04-10-2024 23:37:26 AWNING HANGER by Prudencio Griggs M.D. [id number]
[2024-04-06 13:20] LABS: Troponin 5 6HR 214.6 ng/L (0-15); Troponin 5 6HR Delta 200.6 ng/L (0-12)
--- NOTE | 2024-04-06 15:21 | P.CONIM_ITS ---
<Statement entered by Prudencio Griggs M.D - 04/06/24 20:46> Patient was evaluated and cared for in conjunction with an advanced practice practitioner. I personally examined the patient and reviewed the chart and all pertinent data including imaging, telemetry, and laboratory results. I discussed the patient in detail with the advanced practice practitioner. Please see their note for consult note, results and agreed upon plan of care for the patient. Patient has known CAD with prior CABG and only known patent vessel TORRE to LAD, TAVR history. He presented with chest pain symptoms this morning. No more chest pain since coming to hospital. Troponins have trended up significantly. Patient was taken off all anticoagulation/antiplatelet agents secondary to severe anemia. GENERAL: Patient is alert and oriented HEART: Regular S1 and S2 LUNGS: Diminished air entry bilaterally EXTREMITIES: Lower extremities with no edema ASSESSMENT AND PLAN (1) Non-ST elevation CT (NSTEMI) (2) Intermittent atrial fibrillation (3) ASHD (arteriosclerotic heart disease) (4) S/P TAVR (transcatheter aortic valve replacement (5) Hypertension Patient has NSTEMI. No more chest pain episodes. Only patent vessel is TORRE to LAD. Continue anticoagulation. Echo ordered. I had a detailed discussion with patient and family about risks and benefits of invasive procedures. Share decision made to continue with medical therapy given severe anemia history,age and limited blood supply. If EF is normal and no more chest pain episodes, may continue with medical therapy. Thank you for involving us with care of this patient. We will continue to follow. Please call with questions. Providers/Reason For Consult 2 Consulting Physician/Specialty*: Dr. Griggs, cardiology Reason for Consult*: NSTEMI Requesting Physician: Dr. Springer Attending Physician: Aleksey Sigeel Primary Care Provider: Zoila Ryder DO History of Present Illness History of Present Illness Oneil Velasquez is a 89 year old male past medical history of intermittent atrial fibrillation, history of TAVR at [facility] in 2019, CKD, hypertension, CAD status post CABG in 2000. Most recent coronary angiogram was at [facility] in [place] prior to the TAVR procedure, at that time he had total occlusion of the mid LAD and RCA. TORRE to LAD patent, SVG to circumflex and SVG to RCA chronically occluded. He previously saw Dr. Rivero in our clinic but has not been seen since 2020. He was previously taken off Eliquis, Plavix and aspirin due to severe anemia and frequent falls. He does see oncology for history of prostate cancer, history of radiation treatment in 2002 currently under treatment with Lupron and bicalutamide. He was in his normal state of health, taking a shower this morning when he developed severe left shoulder pain, felt like his arm was being pulled off. He did not notice much pain in the center of his chest at that time and did not have any shortness of breath, has not noticed any edema or fluid retention lately. He vomited at home. The left shoulder pain continued until after he arrived to the emergency room this morning. On arrival troponin 14, 2-hour was 67, 6-hour was 214. BNP with very slight elevation at 463, BUN 13, creatinine 0.9, hemoglobin 8.8. Chest x-ray shows some pulmonary vascular congestion. EKG evaluated by cardiology on arrival, not felt to represent STEMI, he does have a right bundle branch block. Review of Systems 2 Const: Denies: fever(s), chills, change in weight, fatigue or diaphoresis Eyes: Denies: change in vision ENMT: Denies: epistaxis Card: Denies: chest pain, palpitations, irregular heart rhythm, edema, syncope, pre-syncope, dyspnea on exertion, orthopnea or leg pain with exertion Resp: Denies: dyspnea, productive cough or wheezing GI: Denies: nausea, vomiting, hematemesis, hematochezia or melena : Denies: hematuria Musc: Denies: extremity swelling [place]/Lymph: Denies: easy bruising or easy bleeding Medications/Allergies Home Medications Medication Instructions Recorded Confirmed Last Taken Type atorvastatin 80 mg tablet 80 mg PO DAILY 03/26/19 04/06/24 04/05/24 07:00 History vit C 250 mg-vit E 90 mg-zinc 40 1 tab PO BID 07/19/19 04/06/24 04/05/24 08:00 History mg-copper 1 [id number] capsule (PreserVision AREDS-2) nitroglycerin 0.4 mg sublingual 0.4 mg sublingual Q5M PRN Chest 10/03/20 04/06/24 04/06/24 History tablet (Nitrostat) Pain omeprazole 40 mg capsule,delayed 40 mg PO DAILY 10/03/20 04/06/24 04/05/24 08:00 History release diltiazem HCl 60 mg 60 mg PO DAILY 06/16/23 04/06/24 04/05/24 History capsule,extended release 12 hr terazosin 5 mg capsule 5 mg PO BEDTIME 10/15/23 04/06/24 04/04/24 History gabapentin 100 mg capsule 100 mg PO BID 03/13/24 04/06/24 04/05/24 08:00 History isosorbide mononitrate 30 mg 30 mg PO DAILY 03/13/24 04/06/24 04/05/24 08:00 History tablet,extended release 24 hr mirtazapine 15 mg tablet 15 mg PO BEDTIME 03/13/24 04/06/24 04/04/24 History tramadol 50 mg tablet 100 mg PO Q8H PRN Pain 03/13/24 04/06/24 04/05/24 08:00 History potassium chloride 10 mEq 10 meq PO DAILY 04/06/24 04/06/24 04/05/24 08:25 History tablet,extended release Allergies Allergy/AdvReac Type Severity Reaction Status Date / Time niacin Allergy Unknown makes me Verified 04/06/24 06:34 shake all over PFSH Acute 2 PFSH: Medical History Macular degeneration GERD (gastroesophageal reflux disease) History of prostate cancer Treated with radiation in 2002 History of nonmelanoma skin cancer Fatigue Intermittent atrial fibrillation CKD (chronic kidney disease) stage 2, GFR 60-89 ml/min Hypertension ASHD (arteriosclerotic heart disease) Valvular heart disease Hyperlipidemia Arrhythmia Bilateral carotid artery stenosis Patient was found to have bilateral carotid artery stenosis of less than 50%. 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 done in [facility] Family History Mother CAD (coronary artery disease) Hypertension Diabetes Brother Hypertension Heart disease Grandmother Stroke Sister Breast cancer Father Lung cancer Denies family history of Clotting disorder Dementia Chronic kidney disease (CKD) Suicide Anesthesia complication Bleeding disorder Social History Smoking and tobacco/nicotine status: former use of tobacco/nicotine Quit status (tobacco/nicotine): has quit using Year quit tobacco: 1984 Former quit date comment: He smoked 1 pack of cigarettes daily for 7-8 years. Alcohol intake: former Former alcohol use details: He used to drink a little but he quit a long time ago. Substance/Drug Use: never Vitals/I&O/Wt Last Vital Signs Temp 97.8 F 04/06/24 06:27 Pulse 72 04/06/24 15:15 Resp 14 04/06/24 15:15 BP 150/65 04/06/24 15:15 Pulse Ox 98 04/06/24 15:15 O2 Del Method Room Air 04/06/24 06:27 04/06/24 04/06/24 04/06/24 06:59 14:59 22:59 Intake Total 0 / 0 Balance 0 / 0 Physical Exam 2 Const: COMMON NORMALS: no acute distress and patient oriented x3 GENERAL APPEARANCE: cooperative and comfortable ORIENTATION/CONSCIOUSNESS: Yes awake, Yes oriented to person, Yes oriented to place and Yes oriented to time Chest: COMMONS NORMALS: normal inspection of the chest and normal palpation of entire chest wall CHEST: Yes Symmetrical chest wall rise Resp: COMMON NORMALS: normal respiratory effort, No retractions and No use of accessory muscles EFFORT & INSPECTION: Yes symmetric chest movement A USCULTATION: crackles (bases) Laterality: bilateral and posterior Cardio: COMMON NORMALS: regular rate, regular rhythm, S2 normal heart sound present, No gallops present (Cardio), No clicks present (Cardio) and No rub (Cardio) RATE: regular rate RHYTHM: regular rhythm HEART SOUNDS: S2 normal heart sound present and Murmur heart sound present systolic Intensity: II/ PERIPHERAL PULSES: radial pulses present Extremity: COMMON NORMALS: no pedal edema Neuro: COMMON NORMALS: patient oriented x3 and moves all extremities S ENSORIUM/ORIENTATION: Yes oriented to person, Yes oriented to place and Yes oriented to time Data 04/06/24 06:34 04/06/24 06:34 A&P Assessment and plan (1) Non-ST elevation CT (NSTEMI): (2) Intermittent atrial fibrillation: (3) ASHD (arteriosclerotic heart disease): (4) S/P TAVR (transcatheter aortic valve replacement): (5) Hypertension: Qualifiers: Hypertension type: essential hypertension Qualified Code(s): I10 - Essential (primary) hypertension Plan Patient here with NSTEMI. He has not had any recurrence of the left shoulder pain since he arrived this morning in the emergency room. He would be considered high risk for coronary angiogram and PCI given his only viable vessel is the TORRE to LAD. Will observe for the next few hours and patient will discuss possibility of angiogram with Dr. Griggs this afternoon. Will obtain an echocardiogram to further inform our decisions, evaluate the TAVR and LVEF. He is not anticoagulated or on any antiplatelet due to history of bleeding, anemia, frequent falls. Currently on a heparin drip. Coding Level of Care Code Acute Code for [facility] Diagnoses Non-ST elevation CT (NSTEMI) I21.4 Intermittent atrial fibrillation I48.0 ASHD (arteriosclerotic heart disease) I25.10 S/P TAVR (transcatheter aortic valve replacement) Z95.2 Essential hypertension I10 Hypertension type: essential hypertension
--- NOTE | 2024-04-06 15:41 | USCV_ITS ---
Marlene Eva Oneil Age: 89 Gender: M : 1935 Exam Date: 04/06/2024 19:03 Ordering Phys: Aleksey Siegel MD Technologist: BRAYAN Exam Location: [facility] [place] Indication: NSTEMI, history of CAD s/p CABG 2001, s/p TAVR 2017, history of Afib, HTN, CKD2 BP: 135 / 66 HR: 74 Rhythm: Sinus Technical Quality: Adequate MEASUREMENTS (Male / Female) Normal Values 2D ECHO LV Diastolic Diameter PLAX 3.7 cm 4.2 - 5.9 / 3.9 - 5.3 cm IVS Diastolic Thickness 1.8 cm 0.6 - 1.0 / 0.6 - 0.9 cm IVS Systolic Thickness 2.4 cm LVPW Diastolic Thickness 1.5 cm 0.6 - 1.0 / 0.6 - 0.9 cm LVPW Systolic Thickness 1.4 cm LVOT Diameter 2.2 cm LV Ejection Fraction 2D Teich 58.6 % LV Ejection Fraction MOD 4C 55.8 % LV Ejection Fraction MOD 2C 53.4 % LV Ejection Fraction 2C AL 51.3 % LA Diameter 5.3 cm LA Sys Volume AL 47.0 cm cubed LA Sys Volume Index AL 23.6 cm cubed/m squared Aorta at Sinotubular Diameter 2.6 cm IVC Diameter 1.2 cm M-MODE LA Ao Ratio MM 1.7 AV Cusp Separation MM 1.1 cm DOPPLER AV Peak Velocity 98.0 cm/s LVOT Peak Velocity 96.0 cm/s AV Area Cont Eq vti 4.2 cm squared AV Area Cont Eq pk 3.7 cm squared MV Peak Velocity 123.0 cm/s MV Area PHT 4.5 cm squared Mitral E to A Ratio 0.8 TR Peak Velocity 158.0 cm/s TR Peak Gradient 10.0 mmHg PV Peak Velocity 94.0 cm/s FINDINGS Left Ventricle Left ventricle is normal in size. LV systolic function is normal with EF of 55 to 60%. No regional wall motion abnormalities are seen. Grade 1 diastolic dysfunction Right Ventricle Normal in size and function. Right Atrium Normal in size Left Atrium Normal in size Mitral Valve Moderate mitral annular calcification. Mild mitral regurgitation Aortic Valve Bioprosthetic aortic valve. No significant stenosis. Tricuspid Valve Mild tricuspid regurgitation. Insufficient TR jet to calculate RVSP Pulmonic Valve Not well visualized Pericardium Normal Aorta Normal in size IVC Appears to be normal CONCLUSIONS LV systolic function is normal with EF of 55-60% Grade 1 diastolic dysfunction Mild mitral regurgitation Mild tricuspid regurgitation Normally functioning bioprosthetic aortic valve. Compared to prior echocardiogram from 2020, no significant changes are seen. Prudencio Griggs MD (Electronically Signed) Final Date: 07 April 2024 09:15 S
[2024-04-06] MEDS: heparin 5,000 unit/mL INJ 1 mL IVP (16:07)
[2024-04-06] MEDS: heparin drip 25,000 UNIT/500 ML PREMIX 34.98 UNIT IV (16:07)
[2024-04-06] MEDS: gabapentin 100 mg Capsule PO (18:46)
[2024-04-06] MEDS: mirtazapine 15 mg Tablet PO (21:09)
[2024-04-06] MEDS: terazosin 5 mg Capsule PO (21:09)
[2024-04-06 22:23] LABS: Partial Thromboplastin Time 108.1 SECONDS (23.9-36.7)
[2024-04-07] VITALS (8 sets, daily range): BP systolic 94–150; BP diastolic 49–82; PULSE 69–102; RESP 15–20; TEMP 36.3–36.8; O2SAT 95–99
[2024-04-07 05:01] LABS: Basophils % 0.7 %; Eosinophils % 1.4 %; Lymphocytes # 1.5 10^3/uL (0.8-4.8); Lymphocytes % 51.7 %; Mean Corpuscular HGB Conc 29.6 g/dL (30-55); Mean Corpuscular Hemoglobin 29.4 pg (27-33); Mean Corpuscular Volume 99.3 fl (82-101); Mean Platelet Volume 9.5 fL (7.4-10.4); Monocytes # 0.3 10^3/uL (0.2-0.9); Monocytes % 8.7 %; Neutrophils # 1.07 10^3/uL (1.8-7.7); Neutrophils % 37.5 %; Nucleated Red Blood Cells % 0 %; Platelet Count 167 10^3/cmm (157-399); Red Blood Count 2.72 10^6/uL (3.85-5.65); Red Cell Distribution Width 19.9 % (12.1-15.1); White Blood Count 2.86 10^3/uL (3.29-11.43)
[2024-04-07 05:24] LABS: Partial Thromboplastin Time 70.8 SECONDS (23.9-36.7)
[2024-04-07 05:32] LABS: Blood Urea Nitrogen 15 mg/dL (8-23); Calcium 8.9 mg/dL (8.5-10.5); Carbon Dioxide 25 mmol/L (22-29); Chloride 103 mmol/L (98-107); Creatinine Clr Calc Pharmacy 61.8585; Glucose 101 mg/dL (65-115); Magnesium 1.8 mg/dL (1.7-2.3); Osmolality Calculated 287 mOsm/kg (285-295); Sodium 138 mmol/L (136-145)
[2024-04-07] MEDS: atorvastatin 40 mg Tablet PO (08:48)
[2024-04-07] MEDS: dilTIAZem ER (12HR) 60 mg Capsule PO (08:48)
[2024-04-07] MEDS: gabapentin 100 mg Capsule PO ×2 (08:48→16:44)
[2024-04-07] MEDS: pantoprazole DR 40 mg Tablet PO (08:48)
[2024-04-07] MEDS: isosorbide mononitrate ER 30 mg Tablet PO (08:48)
--- NOTE | 2024-04-07 09:36 | PC.CHAP ---
Pastoral Care Encounter/Spiritual Assessment Type of Contact [] Declined public relations visit [] Patient/Family/Request visit [] Outpatient visit [] Follow-up visit [] Physician referral [] Code/Alert [x] Routine visit [] Staff referral [] Actively dying [] Patient sleeping [x] Family support [] [] Out of room [] Palliative care [] [] Receiving care in room [] Pre-surgical visit [] Trauma [] Long length of stay [] ICU visit [] Other: Relational/Emotional Strength [x] Patient feels connected with others/family/visitors/staff [] Distress [] Loneliness/isolation [] Abandonment Spirituality of Patient [x] Person of Franny [] Attends Buddhist of their Franny [x] Believes in Prayer [] Reads Bible or Mandaeism materials [] There are Spiritual issues to be addressed Electronic Masking System Operator Interventions [x] Prayer [x] Active listening [] Non-anxious presence [x] Spiritual/emotional support [] Crisis/trauma care [] Spiritual counseling [] Bereavement support [] Provided bereavement packet [] Provided Bible/devotional materials [] Provided toy/stuffed animal, coloring book to patient or family member [] Provided Communion [] Anointing/[place] [] Salvation [x] Completed spiritual assessment [] Other: Impact on Illness or Injury [] Angry [] Fearful [] Anxious [] Often cries [] Exhaustion [] Unable to work [] Unable to attend christianity [] Unable to walk/stand [] Unable to read [] Unable to drive [] Unable to eat/drink [] Unable to sleep [] Unable to be with family [] Patient intubated [] Other: Summary Time spent with patient 5 min
--- NOTE | 2024-04-07 09:48 | P.PN_ITS ---
<Statement entered by Prudencio Griggs M.D - 04/07/24 23:17> Patient was evaluated and cared for in conjunction with an advanced practice practitioner. I personally examined the patient and reviewed the chart and all pertinent data including imaging, telemetry, and laboratory results. I discussed the patient in detail with the advanced practice practitioner. Please see their note for progress note, results and agreed upon plan of care for the patient. Patient staying chest pain free. GENERAL: Patient is alert and oriented HEART: Regular S1 and S2 LUNGS: Diminished air entry bilaterally EXTREMITIES: Lower extremities with no edema ASSESSMENT AND PLAN (1) Non-ST elevation NM (NSTEMI) (2) Intermittent atrial fibrillation (3) ASHD (arteriosclerotic heart disease) (4) S/P TAVR (transcatheter aortic valve replacement (5) Hypertension Patient staying chest pain free. ECHO shows normal LV function. Continue anticoagulation with heparin till tomorrow. Add aspirin. Shared decision made with patient and family to continue medical therapy at this time Thank you for involving us with care of this patient. We will continue to follow. Please call with questions. Subjective 2 Subjective: He has done well overnight, no recurrence of chest or shoulder pain. Hemoglobin 8.0. Medical management has been discussed with the patient and family, they planned to discuss and let us know. Will attempt to restart antiplatelet therapy and observe hemoglobin. Ideally he should be on apixaban 2.5 mg twice daily however given the low hemoglobin, history of falls and anemia he may be too high risk. Vitals/I&O/Wt Last Vital Signs Temp 97.4 F L 04/07/24 08:00 Pulse 102 H 04/07/24 08:00 Resp 20 H 04/07/24 08:00 BP 150/82 04/07/24 08:00 Pulse Ox 99 04/07/24 08:00 O2 Del Method Room Air 04/07/24 08:00 04/06/24 04/07/24 04/07/24 22:59 06:59 14:59 Intake Total 430.792 / 550.075 119.283 / 550.075 120 / 120 Output Total 400 / 400 Balance 30.792 / 150.075 119.283 / 150.075 120 / 120 Weight last 48 hrs Weight 175 lb 7 oz Weight 175 lb 7 oz Weight 175 lb 7 oz Physical Exam 2 Const: COMMON NORMALS: no acute distress and patient oriented x3 GENERAL APPEARANCE: cooperative and comfortable ORIENTATION/CONSCIOUSNESS: Yes awake, Yes oriented to person, Yes oriented to place and Yes oriented to time Chest: COMMONS NORMALS: normal inspection of the chest and normal palpation of entire chest wall CHEST: Yes Symmetrical chest wall rise Resp: COMMON NORMALS: normal respiratory effort, No retractions, No use of accessory muscles and clear to auscultation bilaterally EFFORT & INSPECTION: Yes symmetric chest movement AUSCULTATION: clear to auscultation bilaterally Cardio: COMMON NORMALS: regular rate, regular rhythm, S1 normal heart sound present, S2 normal heart sound present, No gallops present (Cardio), No clicks present (Cardio), No murmurs present (Cardio) and No rub (Cardio) RATE: r egular rate RHYTHM: regular rhythm HEART SOUNDS: S1 normal heart sound present and S2 normal heart sound present PERIPHERAL PULSES: radial pulses present Extremity: COMMON NORMALS: no pedal edema Neuro: COMMON NORMALS: patient oriented x3 and moves all extremities S ENSORIUM/ORIENTATION: Yes oriented to person, Yes oriented to place and Yes oriented to time Data 04/07/24 04:40 04/07/24 04:40 A&P Assessment and plan (1) Non-ST elevation NM (NSTEMI): (2) Intermittent atrial fibrillation: (3) ASHD (arteriosclerotic heart disease): (4) S/P TAVR (transcatheter aortic valve replacement): (5) Hypertension: Qualifiers: Hypertension type: essential hypertension Qualified Code(s): I10 - Essential (primary) hypertension Plan No recurrence of chest pain, will discuss medical management again with patient and family. Plan to reinitiate antiplatelet and observe for stability of hemoglobin Attestations 2 Medical Necessity Statement*: NSTEMI, anemia Coding Level of Care Code Acute Code for g [facility]wd Diagnoses Non-ST elevation NM (NSTEMI) I21.4 Intermittent atrial fibrillation I48.0 ASHD (arteriosclerotic heart disease) I25.10 S/P TAVR (transcatheter aortic valve replacement) Z95.2 Essential hypertension I10 Hypertension type: essential hypertension
--- NOTE | 2024-04-07 10:23 | P.PN_ITS ---
Subjective 2 Subjective: He is feeling better today. He denies chest pain or pressure. No arm pain. No difficulty breathing. Vitals/I&O/Wt Last Vital Signs Temp 97.4 F L 04/07/24 08:00 Pulse 102 H 04/07/24 08:00 Resp 20 H 04/07/24 08:00 BP 150/82 04/07/24 08:00 Pulse Ox 99 04/07/24 08:00 O2 Del Method Room Air 04/07/24 08:00 04/06/24 04/07/24 04/07/24 22:59 06:59 14:59 Intake Total 430.792 / 430.792 119.283 / 550.075 120 / 120 Output Total 400 / 400 Balance 30.792 / 30.792 119.283 / 150.075 120 / 120 Weight last 48 hrs Weight 79.577 kg Weight 79.577 kg Weight 79.577 kg Physical Exam 2 Const: COMMON NORMALS: patient oriented x3 and alert GENERAL APPEARANCE: c ooperative ORIENTATION/CONSCIOUSNESS: Yes awake HENMT: COMMON NORMALS: oropharynx normal Neck/C-Spine: COMMON NORMALS: no JVD Resp: COMMON NORMALS: normal respiratory effort and clear to auscultation bilaterally AUSCULTATION: clear to auscultation bilaterally Cardio: COMMON NORMALS: no JVD, regular rhythm, S1 normal heart sound present, S2 normal heart sound present and No murmurs present (Cardio) RHYTHM: regular rhythm HEART SOUNDS: S1 normal heart sound present and S2 normal heart sound present GI: COMMON NORMALS: Normal to inspection, nondistended, normoactive bowel sounds present, Soft to palpation and non-tender PALPATION: Yes Soft to palpation Extremity: COMMON NORMALS: no joint enlargement and no pedal edema Neuro: COMMON NORMALS: patient oriented x3 and moves all extremities S ENSORIUM/ORIENTATION: Yes alert Skin: COMMON NORMALS: no rashes or lesions noted GENERAL SKIN EXAM: no rashes or lesions noted Data 04/07/24 04:40 04/07/24 04:40 A&P Assessment and plan (1) Non-ST elevation HI (NSTEMI): Chest pain so far has resolved. He has been assessed by cardiology with regards to NSTEMI. Options considered for further assessment and management. Echocardiogram has been obtained and pending. Cardiology on reassessment with recommendation to continue anticoagulation to complete 48 hours of treatment. Reviewed cardiology note. Continue aspirin, statin. He is not on beta-nakul, will check with cardiology about adding as he is already on Cardizem. Has RBBB. Monitor for risk of bleeding with history of intra-abdominal bleed, macular degeneration with risk of bleeding. History of falls. Continue telemetry monitoring with risk of arrhythmia with NSTEMI. Reviewed CBC, noted mild decrease in hemoglobin down to 8. Reassess CBC. Reviewed BMP, magnesium. Replace hypomagnesemia. Recheck magnesium level. Pending TTE. Nitroglycerin as needed. Continue Imdur. Discussed with him again regarding severe/advanced coronary disease of which he states he is aware. Discussed with vocational case manager, nursing. (2) ASHD (arteriosclerotic heart disease): As above. Has been on statin. Continue. Has not been antiplatelets over the last 5 years. Discussed with rail signal designer. Pending formal cardiology consultation. Continue Imdur. (3) Intermittent atrial fibrillation: He reports had atrial fibrillation subsequently to his CABG. Reports recurrence, but is noted to be in atrial fibrillation on initial EKG. Plan CKD: Reassess renal function. He does not take any NSAIDs. HTN: Monitor blood pressures. Continue Imdur. Terazosin. GERD: Continue PPI. Attestations 2 Medical Necessity Statement*: Continue admission for assessment management of NSTEMI. and High MDM includes amount and/or complexity of data reviewed/ordered [ resulted lab(s)/test(s), ordered lab(s)/test(s) and other healthcare professional discussion] and described risk of complication, morbidity or mortality of management as documented Diagnoses Non-ST elevation HI (NSTEMI) I21.4 ASHD (arteriosclerotic heart disease) I25.10 Intermittent atrial fibrillation I48.0
[2024-04-07] MEDS: magnesium sulfate premix 1 GM/100 ML PIGGYBACK IV (11:06)
[2024-04-07] MEDS: aspirin 81 mg EC Tablet PO (11:13)
[2024-04-07] MEDS: mirtazapine 15 mg Tablet PO (20:20)
[2024-04-07] MEDS: terazosin 5 mg Capsule PO (20:20)
[2024-04-07 21:40] LABS: Partial Thromboplastin Time 55.8 SECONDS (23.9-36.7)
[2024-04-07] MEDS: heparin drip 25,000 UNIT/500 ML PREMIX 20 UNIT IV (22:45)
[2024-04-08 03:48] LABS: Eosinophils # 0.1 10^3/uL (0.0-0.8); Eosinophils % 3.1 %; Hematocrit 26.2 % (37-53); Lymphocytes # 1.5 10^3/uL (0.8-4.8); Lymphocytes % 49.5 %; Mean Corpuscular HGB Conc 30.2 g/dL (30-55); Mean Corpuscular Hemoglobin 28.9 pg (27-33); Mean Platelet Volume 9.8 fL (7.4-10.4); Monocytes # 0.2 10^3/uL (0.2-0.9); Monocytes % 6.8 %; Neutrophils # 1.16 10^3/uL (1.8-7.7); Neutrophils % 39.6 %; Nucleated Red Blood Cells % 0 %; Platelet Count 171 10^3/cmm (157-399); Red Blood Count 2.73 10^6/uL (3.85-5.65); Red Cell Distribution Width 19.9 % (12.1-15.1); White Blood Count 2.93 10^3/uL (3.29-11.43)
[2024-04-08 04:00] VITALS: BP 140/67; PULSE 79; RESP 14; O2SAT 97
[2024-04-08 04:04] LABS: Anion Gap 13.1 (5-19); Blood Urea Nitrogen 18 mg/dL (8-23); Calcium 8.7 mg/dL (8.5-10.5); Carbon Dioxide 25 mmol/L (22-29); Chloride 103 mmol/L (98-107); Creatinine Clr Calc Pharmacy 69.5908; Glucose 114 mg/dL (65-115); Osmolality Calculated 287 mOsm/kg (285-295); Potassium 4.1 mmol/L (3.5-5.1); Sodium 137 mmol/L (136-145)
[2024-04-08 04:05] LABS: Partial Thromboplastin Time 70.4 SECONDS (23.9-36.7)
[2024-04-08 04:12] LABS: Magnesium 2.1 mg/dL (1.7-2.3)
[2024-04-08 05:52] VITALS: PULSE 92
[2024-04-08 07:46] VITALS: BP 130/63; PULSE 87; RESP 17; TEMP 36.7; O2SAT 98
--- NOTE | 2024-04-08 09:04 | PC.NURSE ---
dr notified dr griggs at bedside. informed pt's H&H and if ok to stop the Heparin drip. Dr Griggs agreed to stop the heparin drip now since pt has been on it for 48 hrs.
[2024-04-08] MEDS: dilTIAZem ER (12HR) 60 mg Capsule PO (09:07)
[2024-04-08] MEDS: aspirin 81 mg EC Tablet PO (09:07)
[2024-04-08] MEDS: isosorbide mononitrate ER 30 mg Tablet PO (09:07)
[2024-04-08] MEDS: atorvastatin 40 mg Tablet PO (09:08)
[2024-04-08] MEDS: pantoprazole DR 40 mg Tablet PO (09:08)
[2024-04-08] MEDS: gabapentin 100 mg Capsule PO (09:08)
--- NOTE | 2024-04-08 09:16 | P.PN_ITS ---
<Statement entered by Prudencio Griggs M.D - 04/08/24 23:26> Patient was evaluated and cared for in conjunction with an advanced practice practitioner. I personally examined the patient and reviewed the chart and all pertinent data including imaging, telemetry, and laboratory results. I discussed the patient in detail with the advanced practice practitioner. Please see their note for complete progress note, results and agreed upon plan of care for the patient. Patient staying chest pain free. GENERAL: Patient is alert and oriented HEART: Regular S1 and S2 LUNGS: Clear to auscultation bilaterally EXTREMITIES: Lower extremities with no edema Subjective 2 Subjective: This morning he is sitting up on the side of the bed, feeling well and requesting to go home. No chest pain overnight. Plan to discharge home on aspirin, will withhold anticoagulation due to significant anemia, hemoglobin 7.9 today fairly stable over the last few days. Continue as needed sublingual nitroglycerin at home, add on low dose beta nakul, metoprolol 12.5mg BID. Vitals/I&O/Wt Last Vital Signs Temp 98.0 F 04/08/24 07:46 Pulse 87 04/08/24 07:46 Resp 17 04/08/24 07:46 BP 130/63 04/08/24 07:46 Pulse Ox 98 04/08/24 07:46 O2 Del Method Room Air 04/08/24 07:46 04/07/24 04/08/24 04/08/24 22:59 06:59 14:59 Intake Total 225.292 / 1196.925 657 / 1196.925 458.333 / 458.333 Balance 225.292 / 1196.925 657 / 1196.925 458.333 / 458.333 Weight last 48 hrs Weight 175 lb 7 oz Weight 175 lb 7 oz Weight 175 lb 7 oz Weight 175 lb 7 oz Physical Exam 2 Const: COMMON NORMALS: no acute distress and patient oriented x3 GENERAL APPEARANCE: cooperative and comfortable ORIENTATION/CONSCIOUSNESS: Yes awake, Yes oriented to person, Yes oriented to place and Yes oriented to time Chest: COMMONS NORMALS: normal inspection of the chest and normal palpation of entire chest wall CHEST: Yes Symmetrical chest wall rise Resp: COMMON NORMALS: normal respiratory effort, No retractions, No use of accessory muscles and clear to auscultation bilaterally EFFORT & INSPECTION: Yes symmetric chest movement AUSCULTATION: clear to auscultation bilaterally Cardio: COMMON NORMALS: regular rate, regular rhythm, S1 normal heart sound present, S2 normal heart sound present, No gallops present (Cardio), No clicks present (Cardio), No murmurs present (Cardio) and No rub (Cardio) RATE: r egular rate RHYTHM: regular rhythm HEART SOUNDS: S1 normal heart sound present and S2 normal heart sound present PERIPHERAL PULSES: radial pulses present Extremity: COMMON NORMALS: no pedal edema Neuro: COMMON NORMALS: patient oriented x3 and moves all extremities S ENSORIUM/ORIENTATION: Yes oriented to person, Yes oriented to place and Yes oriented to time Data 04/08/24 03:23 04/08/24 03:23 A&P Assessment and plan (1) Non-ST elevation IA (NSTEMI): (2) Intermittent atrial fibrillation: (3) ASHD (arteriosclerotic heart disease): (4) S/P TAVR (transcatheter aortic valve replacement): (5) Hypertension: Qualifiers: Hypertension type: essential hypertension Qualified Code(s): I10 - Essential (primary) hypertension Plan Chest pain-free overnight. Plan to discharge home today on aspirin, metoprolol 12.5mg BID. Blood pressure soft at times. Request he maintain a blood pressure log and bring it to follow up appointment in 2 weeks, with the cardiology DIALYSIS TECH. Continue other home medications. Attestations 2 Medical Necessity Statement*: Plan for discharge Coding Level of Care Code Acute Code for [facility] Diagnoses Non-ST elevation IA (NSTEMI) I21.4 Intermittent atrial fibrillation I48.0 ASHD (arteriosclerotic heart disease) I25.10 S/P TAVR (transcatheter aortic valve replacement) Z95.2 Essential hypertension I10 Hypertension type: essential hypertension
--- NOTE | 2024-04-08 09:52 | PC.NURSE ---
informed pt on plan to transfuse him with 1 unit of blood. however, pt refused to get it. He stated, I don't want to have it. Explained that his hemoglobin is low and dr ordered it. he said. I want to go home and do it outside. notified dr parker.
[2024-04-08 11:37] VITALS: BP 106/67; PULSE 104; RESP 12; O2SAT 97
[2024-04-08 12:13] VITALS: BP 106/67; PULSE 90; O2SAT 93
== END 2024-04-08 12:55 | disposition home or self-care (01) | DRG 282 ==
LOC: ER 13:11 → CSU 15:49
PROVIDERS: Admitting Provider Internal Medicine; Emergency Provider Family Medicine; PCP Family Medicine; Visit Provider Family Medicine
DX: I21.4 Non-ST elevation (NSTEMI) myocardial infarction (principal); Z79.82 Long term (current) use of aspirin; I48.0 Paroxysmal atrial fibrillation; I25.10 Atherosclerotic heart disease of native coronary artery without angina pectoris; Z95.1 Presence of aortocoronary bypass graft; Z95.5 Presence of coronary angioplasty implant and graft; Z95.2 Presence of prosthetic heart valve; I12.9 Hypertensive chronic kidney disease with stage 1 through stage 4 chronic kidney disease, or unspecified chronic kidney disease; N18.2 Chronic kidney disease, stage 2 (mild); H35.30 Unspecified macular degeneration; K21.9 Gastro-esophageal reflux disease without esophagitis; Z85.46 Personal history of malignant neoplasm of prostate; Z92.3 Personal history of irradiation; Z85.828 Personal history of other malignant neoplasm of skin; E78.5 Hyperlipidemia, unspecified; I65.23 Occlusion and stenosis of bilateral carotid arteries; Z87.891 Personal history of nicotine dependence
CPT/HCPCS: 36415; 71045; 80048; 80053; 81001; 82550; 83735; 83880; 84484; 85025; 85730; 93005; 93306; 96374; 99285; A9270; J1644; J3475

== ENCOUNTER 2024-05-18 13:20 | Oncology outpatient (recurring) (ONCR) | payer MEDICARE, MEDICAID, SELFPAY ==
[2024-05-18 14:02] LABS: Basophils % 0.7 %; Eosinophils % 1.3 %; Hematocrit 29.2 % (37-53); Lymphocytes # 1.1 10^3/uL (0.8-4.8); Lymphocytes % 37.3 %; Mean Corpuscular HGB Conc 29.5 g/dL (30-55); Mean Corpuscular Hemoglobin 28.5 pg (27-33); Mean Corpuscular Volume 96.7 fl (82-101); Mean Platelet Volume 9.1 fL (7.4-10.4); Monocytes # 0.2 10^3/uL (0.2-0.9); Monocytes % 4.9 %; Neutrophils % 55.5 %; Nucleated Red Blood Cells % 0 %; Platelet Count 168 10^3/cmm (157-399); Red Blood Count 3.02 10^6/uL (3.85-5.65); Red Cell Distribution Width 19.3 % (12.1-15.1); White Blood Count 3.06 10^3/uL (3.29-11.43)
[2024-05-18 14:18] LABS: Alanine Aminotransferase 14 U/L (0-41); Albumin Level 3.8 g/dL (3.5-5.2); Alkaline Phosphatase 73 U/L (40-130); Anion Gap 12.3 (5-19); Aspartate Amino Transferase 17 U/L (0-40); Blood Urea Nitrogen 16 mg/dL (8-23); Calcium 9.1 mg/dL (8.5-10.5); Carbon Dioxide 26 mmol/L (22-29); Chloride 101 mmol/L (98-107); Globulin 2.9 g/dL (1.3-4.6); Glucose 98 mg/dL (65-115); Osmolality Calculated 281 mOsm/kg (285-295); Potassium 4.3 mmol/L (3.5-5.1); Sodium 135 mmol/L (136-145); Total Bilirubin 0.3 mg/dL (0.15-1.2); Total Protein 6.7 g/dL (6.6-8.7)
[2024-05-18] MEDS: leuprolide 22.5 mg Kit IM (15:29)
[2024-05-18] MEDS: denosumab 120 mg SDV SUBCUT (15:30)
== END 2024-06-14 23:59 | disposition home or self-care (01) ==
PROVIDERS: Nurse Practitioner; PCP Family Medicine; Visit Provider Internal Medicine Medical Oncology
DX: Z51.11 Encounter for antineoplastic chemotherapy (principal); C79.51 Secondary malignant neoplasm of bone; Z85.46 Personal history of malignant neoplasm of prostate; D64.9 Anemia, unspecified; L98.9 Disorder of the skin and subcutaneous tissue, unspecified; Z87.891 Personal history of nicotine dependence; Z79.818 Long term (current) use of other agents affecting estrogen receptors and estrogen levels; Z92.3 Personal history of irradiation
CPT/HCPCS: 36415; 80053; 85025; 96372; 96402; 99214; J0897; J9217

== ENCOUNTER 2024-08-30 09:38 | Oncology outpatient (recurring) (ONCR) | payer MEDICARE, MEDICAID, SELFPAY ==
[2024-08-30 10:03] LABS: Basophils % 0.4 %; Eosinophils % 1.5 %; Hematocrit 27.2 % (37-53); Lymphocytes % 36.2 %; Mean Corpuscular HGB Conc 29.4 g/dL (30-55); Mean Corpuscular Volume 95.1 fl (82-101); Mean Platelet Volume 9.4 fL (7.4-10.4); Monocytes # 0.2 10^3/uL (0.2-0.9); Monocytes % 5.5 %; Neutrophils # 1.53 10^3/uL (1.8-7.7); Neutrophils % 56.4 %; Nucleated Red Blood Cells % 0 %; Platelet Count 155 10^3/cmm (157-399); Red Blood Count 2.86 10^6/uL (3.85-5.65); Red Cell Distribution Width 18.1 % (12.1-15.1); White Blood Count 2.71 10^3/uL (3.29-11.43)
[2024-08-30 10:34] LABS: Ferritin 139 ng/mL (30-400); Iron 99 ug/dL (59-158); Percent Saturation 56.2 % (20-50); Total Iron Binding Capacity 176 mcg/dl; Unsaturated Iron Binding 77 ug/dL (112-347); Vitamin B12 861 pg/mL (232-1245)
[2024-08-30 10:37] LABS: Folate Level 7.8 ng/mL (4.5-32.2)
[2024-08-30 10:56] LABS: Alanine Aminotransferase 11 U/L (0-41); Albumin Level 3.8 g/dL (3.5-5.2); Alkaline Phosphatase 57 U/L (40-130); Anion Gap 13.9 (5-19); Aspartate Amino Transferase 16 U/L (0-40); Blood Urea Nitrogen 11 mg/dL (8-23); Carbon Dioxide 27 mmol/L (22-29); Chloride 102 mmol/L (98-107); Globulin 2.8 g/dL (1.3-4.6); Glucose 114 mg/dL (65-115); Osmolality Calculated 288 mOsm/kg (285-295); Potassium 3.9 mmol/L (3.5-5.1); Prostate Specific Antigen 0.113 ng/mL (0-4); Sodium 139 mmol/L (136-145); Total Bilirubin 0.4 mg/dL (0.15-1.2); Total Protein 6.6 g/dL (6.6-8.7)
[2024-08-30 11:01] LABS: Testosterone Total < 2.5 ng/dL (193-740)
[2024-08-30] MEDS: leuprolide 22.5 mg Kit IM (11:23)
[2024-08-30] MEDS: denosumab 120 mg SDV SUBCUT (11:23)
== END 2024-09-13 23:59 | disposition home or self-care (01) ==
PROVIDERS: PCP Family Medicine; Visit Provider Internal Medicine Medical Oncology
DX: Z53.9 Procedure and treatment not carried out, unspecified reason (principal); Z51.11 Encounter for antineoplastic chemotherapy; C61 Malignant neoplasm of prostate; D64.9 Anemia, unspecified; D70.9 Neutropenia, unspecified; L98.9 Disorder of the skin and subcutaneous tissue, unspecified; N18.2 Chronic kidney disease, stage 2 (mild); Z92.3 Personal history of irradiation; Z79.818 Long term (current) use of other agents affecting estrogen receptors and estrogen levels; Z87.891 Personal history of nicotine dependence
CPT/HCPCS: 36415; 80053; 82607; 82728; 82746; 83540; 83550; 84153; 84403; 84443; 85025; 96372; 99214; J0897; J9217

== ENCOUNTER 2024-11-22 09:28 | Oncology outpatient (recurring) (ONCR) | payer OTHER, MEDICAID, SELFPAY ==
[2024-11-22 09:52] LABS: Hematocrit 29.9 % (37-53); Hemoglobin 8.90 g/dL (11.27-16.99); Mean Corpuscular HGB Conc 29.8 g/dL (30-55); Mean Corpuscular Hemoglobin 27.6 pg (27-33); Mean Corpuscular Volume 92.6 fl (82-101); Nucleated Red Blood Cells % 0 %; Platelet Count 198 10^3/cmm (157-399); Red Blood Count 3.23 10^6/uL (3.85-5.65); White Blood Count 3.00 10^3/uL (3.29-11.43)
[2024-11-22 10:30] LABS: Alanine Aminotransferase 11 U/L (0-41); Albumin Level 3.8 g/dL (3.5-5.2); Alkaline Phosphatase 71 U/L (40-130); Anion Gap 16.2 (5-19); Aspartate Amino Transferase 17 U/L (0-40); Blood Urea Nitrogen 9 mg/dL (8-23); Calcium 9.0 mg/dL (8.5-10.5); Carbon Dioxide 24 mmol/L (22-29); Chloride 102 mmol/L (98-107); Globulin 3.0 g/dL (1.3-4.6); Glucose 105 mg/dL (65-115); Osmolality Calculated 285 mOsm/kg (285-295); Potassium 4.2 mmol/L (3.5-5.1); Prostate Specific Antigen 0.069 ng/mL (0-4); Sodium 138 mmol/L (136-145); Total Protein 6.8 g/dL (6.6-8.7)
[2024-11-22] MEDS: leuprolide 22.5 mg Kit IM (12:03)
[2024-11-22] MEDS: denosumab 120 mg SDV (Infusion Clinic Only) SUBCUT (12:04)
[2024-11-22 14:34] LABS: Ferritin 230 ng/mL (30-400); Iron 158 ug/dL (59-158); Total Iron Binding Capacity 188 mcg/dl; Unsaturated Iron Binding 30 ug/dL (112-347)
== END 2024-12-14 23:59 | disposition home or self-care (01) ==
PROVIDERS: Internal Medicine Medical Oncology; PCP Family Medicine; Visit Provider Nurse Practitioner Family
DX: Z51.11 Encounter for antineoplastic chemotherapy (principal); C61 Malignant neoplasm of prostate; C79.51 Secondary malignant neoplasm of bone; C77.8 Secondary and unspecified malignant neoplasm of lymph nodes of multiple regions; D64.9 Anemia, unspecified; D70.9 Neutropenia, unspecified; R03.0 Elevated blood-pressure reading, without diagnosis of hypertension; L98.9 Disorder of the skin and subcutaneous tissue, unspecified; R11.0 Nausea; R53.1 Weakness; Z92.3 Personal history of irradiation; Z79.818 Long term (current) use of other agents affecting estrogen receptors and estrogen levels; Z87.891 Personal history of nicotine dependence; Z79.899 Other long term (current) drug therapy; Z91.81 History of falling
CPT/HCPCS: 36415; 80053; 82728; 83540; 83550; 84153; 84403; 85025; 96372; 96402; 99214; J0897; J9217

== ENCOUNTER 2025-02-14 09:45 | Oncology outpatient (recurring) (ONCR) | payer MEDICARE, MEDICAID, SELFPAY ==
[2025-02-14 10:11] LABS: Hematocrit 29.5 % (37-53); Hemoglobin 8.90 g/dL (11.27-16.99); Mean Corpuscular HGB Conc 30.2 g/dL (30-55); Mean Corpuscular Hemoglobin 27.8 pg (27-33); Mean Corpuscular Volume 92.2 fl (82-101); Nucleated Red Blood Cells % 0 %; Platelet Count 186 10^3/cmm (157-399); Red Blood Count 3.20 10^6/uL (3.85-5.65); White Blood Count 2.97 10^3/uL (3.29-11.43)
[2025-02-14 10:33] LABS: Alanine Aminotransferase 15 U/L (0-41); Albumin Level 4.2 g/dL (3.5-5.2); Alkaline Phosphatase 60 U/L (40-130); Anion Gap 12.1 (5-19); Aspartate Amino Transferase 27 U/L (0-40); Blood Urea Nitrogen 8 mg/dL (8-23); Calcium 9.3 mg/dL (8.5-10.5); Carbon Dioxide 27 mmol/L (22-29); Chloride 102 mmol/L (98-107); Globulin 2.7 g/dL (1.3-4.6); Glucose 107 mg/dL (65-115); Osmolality Calculated 283 mOsm/kg (285-295); Potassium 4.1 mmol/L (3.5-5.1); Prostate Specific Antigen 0.053 ng/mL (0-4); Sodium 137 mmol/L (136-145); Total Protein 6.9 g/dL (6.6-8.7)
[2025-02-14] MEDS: denosumab 120 mg SDV (Infusion Clinic Only) SUBCUT (11:22)
[2025-02-14] MEDS: leuprolide 22.5 mg Kit IM (11:23)
== END 2025-03-16 23:59 | disposition home or self-care (01) ==
PROVIDERS: Nurse Practitioner Family; PCP Family Medicine; Visit Provider Internal Medicine Medical Oncology
DX: Z51.11 Encounter for antineoplastic chemotherapy (principal); C61 Malignant neoplasm of prostate; C79.51 Secondary malignant neoplasm of bone; C77.8 Secondary and unspecified malignant neoplasm of lymph nodes of multiple regions; D64.9 Anemia, unspecified; D70.9 Neutropenia, unspecified; Z92.3 Personal history of irradiation; Z79.818 Long term (current) use of other agents affecting estrogen receptors and estrogen levels; Z87.891 Personal history of nicotine dependence; Z79.899 Other long term (current) drug therapy
CPT/HCPCS: 36415; 80053; 84153; 84403; 85025; 96372; 99214; J0897; J9217